=== PATIENT | female | born 2000 | race African-American/Black ===

== ENCOUNTER 2022-01-06 11:50 | Day surgery (SDC) | payer BC ==
[2022-01-06 09:59] LABS: SARS-CoV-2 Antigen Rapid Res Negative (Negative)
[~2022-01-06 11:50] MED LIST: BUPIVACAINE 0.25% PF 30 ML VIAL IJ ONE; METHYLENE BLUE 1% 10 ML AMP IV ONE
[2022-01-06] MEDS ORDERED: CEFAZOLIN SODIUM 1 GM/VIAL ONE (12:06)
[2022-01-06] MEDS ORDERED: Ringers Lactate 1,000 ML IV ONE (12:06)
[2022-01-06] MEDS ORDERED: FENTANYL CITR 100 MCG/2 ML ONE (12:35)
[2022-01-06] MEDS ORDERED: MIDAZOLAM HCL 2 MG/2 ML INJ ONE (12:35)
[2022-01-06] MEDS ORDERED: dexAMETHasone 10 MG/ML VIAL ONE (12:35)
[2022-01-06] MEDS ORDERED: LIDOCAINE 2% MPF 5 ML VIAL ONE (12:35)
[2022-01-06] MEDS ORDERED: propofoL 200 MG/20 ML VIAL IV ONE (12:35)
[2022-01-06] MEDS ORDERED: ONDANSETRON 4 MG/2 ML VIAL ONE (12:35)
[2022-01-06] MEDS ORDERED: BUPIVACAINE 0.25% PF 30 ML VIAL ONE (12:37)
[2022-01-06] MEDS ORDERED: SODIUM HYPOCHLORITE 0.25% 473 ML ONE (12:37)
[2022-01-06] MEDS ORDERED: METHYLENE BLUE 0.5% 10 ML AMP ONE (12:37)
[2022-01-06] MEDS ORDERED: ACETAMINOPHEN 500 MG TAB ONE (12:44)
[2022-01-06] MEDS ORDERED: CELECOXIB 100 MG CAPSULE ONE (12:45)
[2022-01-06] MEDS ORDERED: KETOROLAC 30 MG/ML INJ ONE (13:39)
--- NOTE | 2022-01-06 13:51 | P.OP ---
Preoperative diagnosis: Pilonidal Cyst with abscess Postoperative diagnosis: Pilonidal Cyst with abscess Primary procedure: Wide local excision of Pilonidal Cyst with abscess Anesthesia: GETA + Local Estimated blood loss: <20cc Specimen: debridement tissue, cultures Findings: ~ 6cm x 5cm down to fascia over bone Complications: None Transferred to: Recovery Room Condition: Good
[2022-01-06] MEDS: HYDROMORPHONE HCL 1 MG/ML INJ ONE ×5 (14:10→14:38)
[2022-01-06 14:44] VITALS: O2SAT 99
[2022-01-06 16:56] VITALS: BP 92/50; TEMP 96.9
--- NOTE | 2022-01-07 01:12 | OP ---
Date of Procedure: 01/06/2022 Surgeon: Polo Nettles MD, Preoperative Diagnosis: Pilonidal cyst with abscess. Postoperative Diagnosis: Pilonidal cyst with abscess. Procedure: Wide local excision of pilonidal cyst with abscess. Anesthesia: General endotracheal plus local with 0.5% Marcaine with epinephrine. Estimated Blood Loss: 20 cc. Specimen: Debridement tissue and culture sent. Findings: Approximately 6 cm x 5 cm pilonidal cyst down to the fascia overlying the sacral bone at t he top of the albina cleft. Complications: None. The patient was transferred to recovery room in good condition. Procedure In Detail: After informed consent was obtained, the patient was brought to the operating r oom and prepped and draped in the usual sterile fashion. After adequate anesthesia was achieved, the patient had a curvilinear incision made around the superior albina cleft down through subcutaneous ti ssues and immediately encountered were abscess type material. Preoperatively the area was anesthetiz ed with 0.5% Marcaine injected with methylene blue to allow for visualization of the entire tract. A fter this was completed, the dissection continued using the 15 blade down to subcutaneous tissue circ umferentially around to remove all the affected/infected tissue of the pilonidal cyst. All the necro tic material was removed with a combination of sharp and blunt dissection as well as curette. The ca vity was described as above as 6 x 5, down to the fascia overlying the muscle of the sacrum. After a ll the necrotic tissue was removed, the area was copiously irrigated multiple times and cleansed. At this point, hemostasis was achieved with electrocautery. The wound was then packed with Dakin-soake d Kerlix and a sterile dressing was placed over top. The patient tolerated the procedure without any complication and transferred to PACU in good condition. All counts were correct at the end of the c ase. TK/MODL Voice ID: [id number] Report ID: [id number]
== END 2022-01-06 15:50 | disposition home or self-care (01) ==
LOC: OR 11:50
PROVIDERS: ATTEND Surgery
PROC: 0JB90ZZ Excision of Buttock Subcutaneous Tissue and Fascia, Open Approach (ICD-10-PCS; principal; 2022-01-06 13:30)
DX: L05.01 Pilonidal cyst with abscess (principal); Z20.822 Contact with and (suspected) exposure to COVID-19
CPT/HCPCS: 87070; 36415; 87205; 81025; 88304; 87075; 87811; 11770; J2704; J2250; J3010; J1100; J1170 ×2; Q9968; J7120; J2405; J0690

== ENCOUNTER 2022-03-08 20:05 | Emergency (ER) | payer BC ==
--- OUTSIDE RECORDS SUMMARY | 2022-03-08 20:22 | XMS REPORT | Continuity of Care Document ---
:2000 Author Organization [facility] t Address [facility] [address] [place] [address] Care Team Providers Name Role Phone YIN CAVANAUGH Attending Clinician Unavailable RAVEN Attending Clinician Unavailable DR ALFRED HORNER Attending Clinician Unavailable DR EVELINE CAVANAUGH Attending Clinician Unavailable DR JORGE HUBBARD Attending Clinician Unavailable JUDSON, DR BAKER Attending Clinician Unavailable DR ALEK JANG Attending Clinician Unavailable YIN CAVANAUGH Admitting Clinician Unavailable RAVEN Admitting Clinician Unavailable DR ALFRED HORNER Admitting Clinician Unavailable DR EVELINE CAVANAUGH Admitting Clinician Unavailable DR JORGE HUBBARD Admitting Clinician Unavailable JUDSON, DR BAKER Admitting Clinician Unavailable DR ALEK JANG Admitting Clinician Unavailable Payers Payer Name Policy Type Policy Number Effective Date Expiration Date S ourgonsalo 0451 [id number] 2018 00:00:00 [place] [id number] 2021 ADVANT[place] (H[place]) 00:00[place] [id number] 2020 00:00:00 Problems Condition Condition Condition Status Onset Resolution Last Treating Co mments Source Name Details Category Date Date Treatment Clinician Date Trichomona Trichomona Problem Active [place] 8-20 da vaginitis Vaginitis 00:00: [facility] copy chaser 00 al [facility] Pilonidal Pilonidal Problem Active [place] cyst Cyst 7-04 da 00:00: [facility] Abnormal Abnormal Problem Active [place] findings Findings 3-15 da on on 00:00: [facility] diagnostic Diagnostic 00 al imaging of Imaging of He alth breast Breast Outreac h Program Allergies, Adverse Reactions, Alerts Allergy Allergy Status Severity Reaction(s) Onset Inactive Treating Comm ents Source Name Type Date Date Clinician No Known DA Active [facility] Social History Smoking Status Start Date Stop Date Source Never Smoker [place] [facility] Medications Ordered Filled Start Stop Current Ordering Indication Dosage Frequency Signature Comments Components Source Medication Medication Date Date Medication? Clinician (SIG) Name Name cyclobenzap cyclobenzap No 1 TID cyclobenza [place] rine 10 mg rine 10 mg joshua 10 da tablet Take tablet Take mg tablet [facility] 1 tablet 3 1 tablet 3 Take 1 a l times a day times a day tablet 3 Health by oral by oral times a Outrea c route. route. day by h oral Program route. hydrocodone hydrocodone No hydrocodon [place] 5 5 e 5 da mg-acetamin mg-acetamin mg-acetami [facility] ophen 325 ophen 325 nophen 325 al mg tablet mg tablet mg tablet Health Outreac h Program ibuprofen ibuprofen No ibuprofen [place] 600 mg 600 mg 600 mg da tablet tablet tablet [facility] ri [facility] Lidocaine Lidocaine No Lidocaine [place] Viscous 2 % Viscous 2 % Viscous 2 da mucosal mucosal % mucosal Ep[facility] copy chaser solution solution solution ri Health Outreac h Program naproxen naproxen No naproxen [place] 500 mg 500 mg 500 mg da tablet Take tablet Take tablet [facility] 1 tablet 1 tablet Take 1 al twice a day twice a day tablet Health by oral by oral twice a Outrea c route. route. day by h oral Program route. neomycin-po neomycin-po No neomycin-p [place] lymyxin-hyd lymyxin-hyd olymyxin-h da rocort 3.5 rocort 3.5 ydrocort [facility] mg-10,000 mg-10,000 3.5 al unit/mL-1 % unit/mL-1 % mg-10,000 Health ear ear unit/mL-1 Outreac drops,susp drops,susp % ear h drops,susp Program prednisone prednisone No prednisone [place] 50 mg 50 mg 50 mg da tablet tablet tablet [facility] sulfamethox sulfamethox No sulfametho [place] azole 800 azole 800 xazole 800 da mg-trimetho mg-trimetho mg-trimeth [facility] prim 160 mg prim 160 mg oprim 160 al tablet tablet mg tablet Health Outreac h Program tramadol 50 tramadol 50 No tramadol [place] mg tablet mg tablet 50 mg da tablet [facility] Immunizations Ordered Immunization Filled Immunization Date Status Commen ts Source Name Name HPV9 HPV9 2022-02-24 Completed [place] 12:05:30 [facility] HPV9 HPV9 2021-12-16 Completed [place] 16:14:40 [facility] influenza, influenza, 2021-04-11 Completed [place] injectable, injectable, 00:00:00 [facility] quadrivalent quadrivalent Outreach P rogram COVID-19, mRNA, COVID-19, mRNA, 2020-10-19 Completed Brooke paras LNP-S, PF, 100 LNP-S, PF, 100 00:00:00 [facility] mcg/0.5 mL dose mcg/0.5 mL dose Outr each Program (Moderna) (Moderna) COVID-19, mRNA, COVID-19, mRNA, 2020-09-24 Completed Brooke paras LNP-S, PF, 100 LNP-S, PF, 100 00:00:00 [facility] mcg/0.5 mL dose mcg/0.5 mL dose Outr each Program (Moderna) (Moderna) Vital Signs Vital Name Observation Time Observation Value Comments Source BP Diastolic 2022-03-04 00:00:00 72 mm[Hg] Emil piña [facility] Height 2022-03-04 00:00:00 67 [in_i] [facility] [facility] BMI (Body Mass 2022-03-04 00:00:00 28.3 kg/m2 [place] 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 [facility] Index) Health Outreach Program BP Systolic 2022-03-04 00:00:00 111 mm[Hg] [facility] Body Weight 2022-03-04 00:00:00 181 [lb_av] [facility] BP Diastolic 2022-02-24 00:00:00 73 mm[Hg] [facility] Height 2022-02-24 00:00:00 67 [in_i] [facility] BMI (Body Mass 2022-02-24 00:00:00 27.6 kg/m2 [place] 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 [facility] Index) [facility] Outreach Program BP Systolic 2022-02-24 00:00:00 107 mm[Hg] [facility] Body Weight 2022-02-24 00:00:00 2818 [oz_av] [facility] BP Diastolic 2022-01-05 00:00:00 70 mm[Hg] [facility] Height 2022-01-05 00:00:00 67 [in_i] [facility] BMI (Body Mass 2022-01-05 00:00:00 27.6 kg/m2 [place] 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 [facility] Index) [facility] Outreach Program BP Systolic 2022-01-05 00:00:00 102 mm[Hg] [facility] Body Weight 2022-01-05 00:00:00 176 [lb_av] [facility] BP Diastolic 2021-12-16 00:00:00 83 mm[Hg] [facility] Height 2021-12-16 00:00:00 67 [in_i] [facility] BMI (Body Mass 2021-12-16 00:00:00 28.3 kg/m2 [place] 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 [facility] Index) [facility] Outreach Program BP Systolic 2021-12-16 00:00:00 126 mm[Hg] [facility] [facility] Body Weight 2021-12-16 00:00:00 2896 [oz_av] [facility] Height 2021-11-11 20:05:00 170.18 CM Weight 2021-11-11 20:05:00 79.37 KG BP Diastolic 2021-10-28 00:00:00 70 mm[Hg] [facility] Height 2021-10-28 00:00:00 67 [in_i] [facility] BMI (Body Mass 2021-10-28 00:00:00 27.6 kg/m2 [place] 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 [facility] Index) [facility] Outreach Program BP Systolic 2021-10-28 00:00:00 106 mm[Hg] [place] [facility] Body Weight 2021-10-28 00:00:00 2816 [oz_av] [facility] Height 2021-09-23 15:42:00 170.18 CM Weight 2021-09-23 15:42:00 76.65 KG BP Diastolic 2021-09-11 00:00:00 74 mm[Hg] [facility] Height 2021-09-11 00:00:00 67 [in_i] [facility] BMI (Body Mass 2021-09-11 00:00:00 26.5 kg/m2 [place] 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 [facility] Index) [facility] Outreach Program BP Systolic 2021-09-11 00:00:00 114 mm[Hg] [facility] Body Weight 2021-09-11 00:00:00 2704 [oz_av] [facility] Height 2021-08-11 19:48:00 170.18 CM Weight 2021-08-11 19:48:00 73.93 KG Height 2021-04-14 20:01:00 170.18 CM Weight 2021-04-14 20:01:00 76.65 KG Height 2020-12-24 20:50:00 170.18 CM Weight 2020-12-24 20:50:00 76.2 KG BP Diastolic 2020-12-16 00:00:00 71 mm[Hg] [place] [facility] Height 2020-12-16 00:00:00 67 [in_i] [facility] BMI (Body Mass 2020-12-16 00:00:00 26.6 kg/m2 [place] 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 [facility] Index) [facility] Outreach Program BP Systolic 2020-12-16 00:00:00 108 [facility] Body Weight 2020-12-16 00:00:00 2720 [facility]oz_av] [facility] BP Diastolic 2020-11-20 00:00:00 79 mm[facility]Hg[facility] Height 2020-11-20 00:00:00 67 [in_i] [facility] BMI (Body Mass 2020-11-20 00:00:00 25.8 kg/m2 [place] 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 [facility] Index) [facility] Outreach Program BP Systolic 2020-11-20 00:00:00 123 mm[facility]Hg] [facility] Body Weight 2020-11-20 00:00:00 2640 [facility]oz_av] [facility] Height 2020-07-07 20:12:00 170.18 CM Weight 2020-07-07 20:12:00 74.84 KG Procedures Procedure Date / Time Performed Performing Clinician Sour e US, breast, unilateral 2022-03-03 00:00:00 [facility] orda [facility] US, breast, unilateral 2022-02-09 [facility] MAMMO, diagnostic, 2021-09-11 00:00:00 [place] [facility] unilateral Health Outreach Program US, breast, unilateral 2021-09-11 00:00:00 [facility] Hernia Repair W/mesh 2007-07-12 00:00:00 Ria da [facility] Plan of Care Planned Activity Planned Date Details Comments Source Future Appointment 2023-02-24 00:00:00 Neal Burden [facility] [address]; , [place] Program [id number] Future Appointment 2022-08-27 09:15:00 Neal Burden [facility] [address] , [place] Program [id number] Encounters Start End Encounter Admission Attending Care Care Encounter Source Date/Time Date/Time Type Type Clinicians Facility Department ID 2021-11-30 Inpatient Miranda CAVANAUGH Miranda RAD [id number] Conniebesalena 08:00:00 [facility] 2022-03-08 2022-03-08 Outpatient JOLENE GOLD [facility] [id number] [place] 00:00:00 00:00:00 [facility] 2022-03-04 2022-03-04 Outpatient JOLENE [facility] [id number] [place] 00:00:00 00:00:00 _[facility] 2022-03-04 2022-03-[address] [facility] [place] - [id number] [place] 00:00:00 00:00:00 Bettie Helms MD: [facility] [address] [facility] extension service agent [facility] Dr Clemens [facility] [address], [facility] [place] [address] , Ph. [phone] 2022-02-24 2022-02-24 Outpatient JOLENE NEVEL [facility] [id number] [place] 00:00:00 00:00:00 _ANN [facility] 2022-02-24 2022-02-24 Mariia [address] [facility] [place] - [id number] [place] 00:00:00 00:00:00 Neal Jones PARTITION ASSEMBLER: 1700 [facility] [place] [place] 3 Outreac [phone] h , Ph. Program 2022-02-18 2022-02-18 Outpatient JOLENE [facility] [id number] [place] 00:00:00 00:00:00 _ANN [facility] 2022-01-05 2022-01-05 Outpatient JOLENE [facility] [id number] [place] 00:00:00 00:00:00 _ANN [facility] 2022-01-052022-01-05 Cecy [facility] [place] - [id number] [place] 00:00:00 00:00:00 Bettie Helms MD: [facility] [id number] [facility] [address] Outreac [address], [place] [address] , Ph. 2021-12-16 2021-12-16 Outpatient SHIMEK_MARY [facility] [id number] [place] 04:23:00 04:23:00 _ANN [id number] da [facility] 2021-12-16 2021-12-16 Outpatient SHIMEK_MARY [facility] [id number] [place] 04:23:00 04:23:00 _ANN [facility] 2021-12-16 2021-12-16 Outpatient SHIMEK_MARY [facility] [id number] [place] 04:23:00 04:23:00 _ANN [facility] 2021-12-16 2021-12-16 Outpatient SHIMEK_MARY [facility] [id number] [place] 04:23:00 04:23:00 _ANN [facility] 2021-12-16 2021-12-16 Esme Piña [facility] - [id number] [place] 00:00:00 00:00:00 Neal Jones da PARTITION ASSEMBLER: 1700 [facility] [place] [address] Outre [address] h , Ph. Program 2021-12-15 2021-12-15 Outpatient SHIMEK_MARY [facility] [id number] [place] 10:05:00 10:05:00 _ANN [id number] da [facility] 2021-11-11 2021-11-11 Outpatient Allegra HORNER, [facility]CC [id number] [facility] 19:53:00 22:56:00 [facility] 2021-10-28 2021-10-28 Outpatient SHIMEK_MARY [facility] [id number] [place] 03:50:00 03:50:00 _ANN [facility] 2021-10-28 2021-10-28 Outpatient JOLENE GOLD [facility] [id number] [place] 03:49:00 03:49:00 _ANN [facility] 2021-10-28 2021-10-28 Mariia Jaun ALLA [place] - [id number] [place] 00:00:00 00:00:00 Neal Jones da PARTITION ASSEMBLER: [address] [facility] [address], [place], [place] 3 Outreac [address] h , Ph. Program 2021-09-23 2021-09-23 Outpatient Allegra CAVANAUGH, [facility] [address] [id number] [facility] 15:42:00 16:43:00 Critical access hospital 2021-09-16 2021-09-16 Outpatient JOLENE GOLD [facility] [id number] [place] 09:09:00 09:09:00 _ANN [facility] 2021-09-16 2021-09-16 Outpatient RADHA_ESME GOLD [facility] [id number] [place] 09:09:00 09:09:00 _ANN [facility] 2021-09-16 2021-09-16 Outpatient JOLENE GOLD [facility] [id number] [place] 09:09:00 09:09:00 _ANN [facility] 2021-09-11 2021-09-11 Outpatient RADHA_ESME GOLD [facility] [id number] [place] 07:46:00 07:46:00 _ANN [facility] 2021-09-11 2021-09-11 Mariia Jaun ALL[place] - 3 [place] 00:00:00 00:00:00 Neal Jones da PARTITION ASSEMBLER: 17[address] [facility] [address], [place], [place] 3 Outreac [phone] h , Ph. Program 2021-08-11 2021-08-11 Outpatient E JORGE HUBBARD [facility] [id number] [facility] 19:40:00 22:04:00 Medica l Center 2021-04-14 2021-04-14 Outpatient E JORGE HUBBARD [facility] [id number] [facility] 19:53:00 20:14:00 Medica l Center 2020-12-24 2020-12-24 Outpatient E OLIVIA ROPER [facility] [id number] [facility] 20:48:00 21:09:00 Medica l Center 2020-12-16 2020-12-16 Outpatient SHIMEK_ESME MARIAHOP [facility] [id number] [place] 12:14:00 12:14:00 _ANN [id number] [facility] 2020-12-16 2020-12-16 Outpatient SHIMEK_MARY ME[facility] [id number] [place] 12:14:00 12:14:00 _ANN 48865 da [facility] 2020-12-16 2020-12-16 Outpatient SHIMEK_ESME [facility] [id number] [place] 12:14:00 12:14:00 _ANN [facility] 2020-12-16 2020-12-16 Outpatient SHIMEK_ESME [facility] [id number] [place] 12:14:00 12:14:00 _ANN [facility] 2020-12-16 2020-12-16 Outpatient SHIMEK_ESME MEHOP [facility] [id number] [place] 12:14:00 12:14:00 _ANN [facility] 2020-12-16 2020-12-16 Outpatient SHIMEK_ESME ME[facility] [id number] [place] 12:14:00 12:14:00 _ANN [facility] 2020-12-16 2020-12-16 Esme Piña NEVEL [place] - [id number] [place] 00:00:00 00:00:00 Neal Jones da PARTITION ASSEMBLER: 1700 [facility] [place], [place] 3 Outreac [address] h , Ph. Program 2020-11-20 2020-11-20 Outpatient JOLENE GOLD [facility] [id number] [place] 04:22:00 04:22:00 _ANN [id number] da [facility] Health Outreac h Program 2020-11-20 2020-11-20 Esme Piña [facility] [place] - [id number] [place] 00:00:00 00:00:00 Neal Jones da PARTITION ASSEMBLER: 1700 [facility] [place] 3 [place] [address] h , Ph. Program 2020-11-18 2020-11-18 Outpatient JOLENE GOLD [facility] [id number] [place] 08:32:00 08:32:00 _ANN [id number] da [facility] Health Outreac h Program 2020-10-22 2020-10-22 Outpatient JOLENE GOLD [facility] [id number] [place] 04:44:00 04:44:00 _ANN [id number] da [facility] Health Outreac h Program 2020-07-07 2020-07-07 Outpatient Allegra JANG [facility] [address] [id number] [facility] 20:12:00 22:25:00 [facility] Results Test Description Test Time Test Comments Results Result Comments Source Free T4 and TSH panel - Serum or Plasma 2021-12-17 00:00:00 Test Item Value Reference Range Interpretation Comme nts Thyrotropin [Units/volume] in Serum or Plasma by 1.080 uIU/mL 0.450 -4.500 Detection limit <= 0.005 mIU/L (test code = 99115-5) Thyroxine (T4) free [Mass/volume] in Serum or Plasma 0.86 NG/dL 0 .82-1.77 (test code = 3024-7) [facility] Auto Differential panel - Blood 2021-12-17 00:00:00 Test Item Value Reference Range Interpretation Comments Leukocytes [#/volume] in Blood 6.9 x10e3/uL 3.4-10.8 by Automated count (test code = 6690-2) Erythrocytes [#/volume] in 4.29 x10e6/uL 3.77-5.28 Blood by Automated count (test code = 789-8) Hemoglobin [Mass/volume] in 13.1 g/dL 11.1-15.9 Blood (test code = 718-7) Hematocrit [Volume Fraction] of 39.4 % 34.0-46.6 Blood by Automated count (test code = 4544-3) Erythrocyte mean corpuscular 92 fL 79-97 volume [Entitic volume] by Automated count (test code = 787-2) Erythrocyte mean corpuscular 30.5 pg 26.6-33.0 hemoglobin [Entitic mass] by Automated count (test code = 785-6) Erythrocyte mean corpuscular 33.2 g/dL 31.5-35.7 hemoglobin concentration [Mass/volume] by Automated count (test code = 786-4) Erythrocyte distribution width 11.5 % 11.7-15.4 L [Ratio] by Automated count (test code = 788-0) Platelets [#/volume] in Blood 323 x10e3/uL 150-450 by Automated count (test code = 777-3) Neutrophils/100 leukocytes in 53 % not estab. Blood by Automated count (test code = 770-8) Lymphocytes/100 leukocytes in 29 % not estab. Blood by Automated count (test code = 736-9) Monocytes/100 leukocytes in 11 % not estab. Blood by Automated count (test code = 5905-5) Eosinophils/100 leukocytes in 6 % not estab. Blood by Automated count (test code = 713-8) Basophils/100 leukocytes in 1 % not estab. Blood by Automated count (test code = 706-2) immature cells (test code = nnps immature cells) Neutrophils [#/volume] in Blood 3.7 x10e3/uL 1.4-7.0 by Automated count (test code = 751-8) Lymphocytes [#/volume] in Blood 2.0 x10e3/uL 0.7-3.1 by Automated count (test code = 731-0) Monocytes [#/volume] in Blood 0.8 x10e3/uL 0.1-0.9 by Automated count (test code = 742-7) Eosinophils [#/volume] in Blood 0.4 x10e3/uL 0.0-0.4 by Automated count (test code = 711-2) Basophils [#/volume] in Blood 0.1 x10e3/uL 0.0-0.2 by Automated count (test code = 704-7) Immature granulocytes/100 0 % not estab. leukocytes in Blood by Automated count (test code = 49728-9) Immature granulocytes 0.0 x10e3/uL 0.0-0.1 [#/volume] in Blood by Automated count (test code = 32122-2) Nucleated erythrocytes/100 nnps leukocytes [Ratio] in Blood by Automated count (test code = 40019-0) Morphology [Interpretation] in nnps Blood Narrative (test code = 19773-8) [facility] - Serum or [id number] 00:00:00 Test Item Value Reference Range Interpretation Comments Glucose [Mass/volume] in 93 mg/dL 65-99 Serum or Plasma (test code = 2345-7) Urea nitrogen [Mass/volume] 15 mg/dL 6-20 in Serum or Plasma (test code = 3094-0) Creatinine [Mass/volume] in 0.79 mg/dL 0.57-1.00 Serum or Plasma (test code = 2160-0) eGFR (test code = eGFR) 108 mL/min/1.73 >59 Urea nitrogen/Creatinine 19 9-23 [Mass Ratio] in Serum or Plasma (test code = 3097-3) Sodium [Moles/volume] in 144 mmol/L 134-144 Serum or Plasma (test code = 2951-2) Potassium [Moles/volume] in 4.9 mmol/L 3.5-5.2 Serum or Plasma (test code = 2823-3) Chloride [Moles/volume] in 106 mmol/L 96-106 Serum or Plasma (test code = 2075-0) Carbon dioxide, total 21 mmol/L 20-29 [Moles/volume] in Serum or Plasma (test code = 8-9) Calcium [Mass/volume] in 9.6 mg/dL 8.7-10.2 Serum or Plasma (test code = 85028-4) Protein [Mass/volume] in 7.4 g/dL 6.0-8.5 Serum or Plasma (test code = 2885-2) Albumin [Mass/volume] in 4.4 g/dL 3.9-5.0 Serum or Plasma (test code = 1751-7) Globulin [Mass/volume] in 3.0 g/dL 1.5-4.5 Serum by calculation (test code = 98583-0) Albumin/Globulin [Mass Ratio] 1.5 1.2-2.2 in Serum or Plasma (test code = 1759-0) Bilirubin.total [Mass/volume] 0.3 mg/dL 0.0-1.2 in Serum or Plasma (test code = 1975-2) Alkaline phosphatase 61 IU/L 44-121 [Enzymatic activity/volume] in Serum or Plasma (test code = 6768-6) Aspartate aminotransferase 12 IU/L 0-40 [Enzymatic activity/volume] in Serum or Plasma (test code = 1920-8) Alanine aminotransferase 14 IU/L 0-32 [Enzymatic activity/volume] in Serum or Plasma (test code = 1742-6) [facility] - Serum or Plasma 2021-12-17 00:00:00 Test Item Value Reference Range Interpretation Comments Cholesterol [Mass/volume] in Serum 196 mg/dL 100-199 or Plasma (test code = 2093-3) Triglyceride [Mass/volume] in Serum 180 mg/dL 0-149 H or Plasma (test code = 2571-8) Cholesterol in HDL [Mass/volume] in 52 mg/dL >39 Serum or Plasma (test code = 2085-9) Cholesterol in VLDL [Mass/volume] 31 mg/dL 5-40 in Serum or Plasma by calculation (test code = 78366-7) Cholesterol in LDL [Mass/volume] in 113 mg/dL 0-99 H Serum or Plasma by calculation (test code = 15468-3) Laboratory comment [Text] in Report nnps Narrative (test code = 26104-7) [facility] TexasHemoglobin A1c/Hemoglobin.total in [id number] 00:00:00 Test Item Value Reference Range Interpretation Comments Hemoglobin A1c/Hemoglobin.total in 5.4 % 4.8-5.6 Blood (test code = 4548-4) Glucose mean value [Mass/volume] in 108 mg/dL Blood Estimated from glycated hemoglobin (test code = 21022-3) [facility] Ab [Presence] in Serum by RPR 2021-12-17 00:00:00 Test Item Value Reference Range Interpretation Comments Reagin Ab [Presence] in Serum by non reactive non reactive RPR (test code = 20414-2) [facility] TexasHIV 1 and 2 tests - Meaningful Use [id number] 00:00:00 Test Item Value Reference Range Interpretation Comments HIV 1+2 Ab+HIV1 p24 Ag non reactive non reactive [Presence] in Serum or Plasma by Immunoassay (test code = 39262-0) [facility] TexasHepatitis B virus surface Ag [Presence] in Serum or Plasma by [id number] 00:00:00 Test Item Value Reference Range Interpretation Comments Hepatitis B virus surface Ag negative negative [Presence] in Serum or Plasma by Immunoassay (test code = 5196-1) [facility] Texascardiovascular assessment panel, [id number] 00:00:00 Test Item Value Reference Range Interpretation Comments Interpretation and review of laboratory note results (test code = 56913-2) Report (test code = 96174-3) . [facility] TexasCT NECK W/CONTRAST *OW*2021-11-11 22:27:47[facility] CENTERName[facility] JOSIAH PATEL : 2000 Sex: FEXAMINATION:CT NECK W/CONTRAST *OW*CLINICAL INDICATION:Female, 21 years old with Pain in throatTECHNIQUE: Axial CT images were obtained of the neck with intravenous contrast. Coronal and sagittal reformatted images were created from the data set.One or more of the following dose reduction techniques were used:Automated exposure control, adjustment of the mA and/or kV according to patient size, and/or iterative reconstruction. COMPARISON: NoneFINDINGS:Aerodigestive tract: The aerodigestive structures are within normal limits. Specifically, the nasal cavity, nasopharynx, oral cavity, oropharynx, hypopharynx,larynx, and visualized trachea and esophagus demonstrate no masses.Lymph Nodes: Small jugulodigastric and posterior cervical chain lymph nodes are identified the largest of which is in the left jugulodigastric region measuring 1.4 cm. These are not considered to be pathologically enlarged.Salivary Glands: The parotid and submandibular glands appear within normal limits. Thyroid: The thyroid gland is normal in size without focal abnormality.Brain: Evaluation of the visualized portions of the brain parenchyma and orbits demonstrates no abnormality. Sinuses: The visualized paranasal sinuses are predominantly clear. The tympanomastoid cavities are unopacified. Lungs: Limited evaluation of the lung apices demonstrates no abnormality. Bones: The visualized osseous structures are within normal limits.IMPRESSION:1. Prominent jugulodigastric lymph nodes not considered to be pathologically enlarged. However continued follow-up is recommended.2. Otherwise normal CT scan of neck.Electronically signed by: Daniel Nolan MD 11/11/2021 10:27 PM CDT [id number] Panel *OW* [id number] 21:40:00 Test Item Value Reference Range Interpretation Comments GLUCOSE (test code = GGUL) 88 mg/dL 73-118 BUN (test code = GBUN) 10 mg/dL 7-22 CREATININE (test code = GCRE) 0.9 mg/dL 0.6-1.2 CK TOTAL (test code = GCK) 135 U/L 30-190 SODIUM (test code = GNA+) 140 mmol/L 128-145 POTASSIUM (test code = GK+) 3.7 mmol/L 3.6-5.1 CHLORIDE (test code = GCL-) 104 mmol/L 98-108 TCO2 (test code = GTC02) 28 mmol/L 18-33 CBC (INCLUDES AUTOMATED DIFFERENTIAL) *2021-11-11 21:31:00 Test Item Value Reference Range Interpretation Comments WBC (test code = WBC) 9.5 10\S\3/uL 4.5-11.0 RBC (test code = RBC) 4.53 10\S\6/uL 4.30-5.70 HGB (test code = HBG) 13.9 g/dL 12.0-15.5 HCT (test code = HCT) 42.9 % 35.0-44.0 MCV (test code = MCV) 94.7 fL 81.0-99.0 MCH (test code = MCH) 30.7 pg 27.0-31.0 MCHC (test code = MCHC) 32.4 g/dL 32.0-36.0 RDW (test code = RDW) 12.0 % 11.5-14.5 PLT (test code = PLT) 260 10\S\3/uL 130-400 MPV (test code = OMPV) 8.0 fL 6.2-10.2 NEUTROP # (test code = NE#) 6.9 10\S\3/uL 1.6-8.0 LYMPH # (test code = LY#) 1.9 10\S\3/uL 1.1-3.5 MID # (test code = GMID#) 0.7 10\S\3/uL 0.0-1.1 GRAN % (test code = GRA%) 72.3 % 35.0-73.0 LYMPH % (test code = GLY%) 20.0 % 20.0-55.0 MID % (test code = GMID%) 7.7 % 0.0-10.0 DIRECT STREP GROUP AOW2021-11-11 21:03:00 Test Item Value Reference Range Interpretation Comments Strep A Ag (test code = STREP) NEGATIVE NEGATIVE CT ABDOMEN AND PELVIS W/O CONTRAST *OW*2021-08-11 21:29:43 [facility] CENTERName: JOSIAH PATEL : 2000 Sex: FEXAMINATION:Chest, abdomen, and pelvic CT without contrastCLINICAL INDICATION:Female, 21 years old with Traumatic injuryTECHNIQUE: Axial non-contrast contiguous images were obtained through the chest, abdomen, and pelvis followed by coronal and sagittal multiplanar reformations.One or more of the following dose reduction techniques were used: Automated exposure control, adjustment of the mA and/or kV according to patient size, and/or iterative reconstruction. COMPARISON: NoneFINDINGS:Chest:Medical Devices: None.Lymph Nodes: There are no pathologically enlarged supraclavicular, mediastinal, or axillary lymph nodes.Lungs/Airways/Pleura: Trachea and main bronchi are patent. Lungs are well aerated and clear. No pneumothorax is identified. No pulmonary nodules or masses are identified. No pleural effusion is present. Heart/Vessels: Heart is normal in size. No coronary artery atherosclerosis is identified. No pericardial effusion is present. Aorta is normal in caliber and contour. No atherosclerosis is identified. Central pulmonary arteries are normal in size.Soft Tissues: Visualized thyroid gland is normal.The esophagus is normal. No soft tissue abnormality of the chest is demonstrated. 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 1.4 cm nodule is present in the medial upper right breast.Abdomen/Pelvis:Characterization of the solid organs is limited by lack of contrast media.Liver: Normal in size and contour. Bile ducts are of normal caliber.Gallbladder: No stones, wall thickening, or pericholecystic fluid.Pancreas: Normal appearance.Spleen: Normal in size and contour.Adrenals: Normal configuration.Kidneys and ureters: Normal size and contour. No hydronephrosis.Bladder/Reproductive Organs: Normal in appearance. Unremarkable reproductive organsBowel: Moderate feces is identified within the colon. Normal appendix. No free air, free fluid, or fluid collection.Lymph nodes: There are no pathologically enlarged abdominopelvic lymph nodes.Retroperitoneum: No mass or hemorrhage. Abdominal aorta and inferior vena cava are normal in course and caliber.Abdominal wall: No hernia or mass.Bones: No acute abnormality or suspicious bony lesion.IMPRESSION:1. No acute cardiopulmonary or abdominopelvic abnormality.2. 1.4 cm right breast nodule.Electronically signed by: Shabbir Hernandez MD 08/11/2021 9:29 PM [facility] CHEST W/O CONTRAST *OW*2021-08-11 21:29:43 [facility] : 2000 Sex: FEXAMINATION:Chest, abdomen, and pelvic CT without contrastCLINICAL INDICATION:Female, 21 years old with Traumatic injuryTECHNIQUE: Axial non-contrast contiguous images were obtained through the chest, abdomen, and pelvis followed by coronal and sagittal multiplanar reformations.One or more of the following dose reduction techniques were used: Automated exposure control, adjustment of the mA and/or kV according to patient size, and/or iterative reconstruction. COMPARISON: NoneFINDINGS:Chest:Medical Devices: None.Lymph Nodes: There are no pathologically enlarged supraclavicular, mediastinal, or axillary lymph nodes.Lungs/Airways/Pleura: Trachea and main bronchi are patent. Lungs are well aerated and clear. No pneumothorax is identified. No pulmonary nodules or masses are identified. No pleural effusion is present. Heart/Vessels: Heart is normal in size. No coronary artery atherosclerosis is identified. No pericardial effusion is present. Aorta is normal in caliber and contour. No atherosclerosis is identified. Central pulmonary arteries are normal in size.Soft Tissues: Visualized thyroid gland is normal.The esophagus is normal. No soft tissue abnormality of the chest is demonstrated. 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 1.4 cm nodule is present in the medial upper right breast.Abdomen/Pelvis:Characterization of the solid organs is limited by lack of contrast media.Liver: Normal in size and contour. Bile ducts are of normal caliber.Gallbladder: No stones, wall thickening, or pericholecystic fluid.Pancreas: Normal appearance.Spleen: Normal in size and contour.Adrenals: Normal configuration.Kidneys and ureters: Normal size and contour. No hydronephrosis.Bladder/Reproductive Organs: Normal in appearance. Unremarkable reproductive organsBowel: Moderate feces is identified within the colon. Normal appendix. No free air, free fluid, or fluid collection.Lymph nodes: There are no pathologically enlarged abdominopelvic lymph nodes.Retroperitoneum: No mass or hemorrhage. Abdominal aorta and inferior vena cava are normal in course and caliber.Abdominal wall: No hernia or mass.Bones: No acute abnormality or suspicious bony lesion.IMPRESSION:1. No acute cardiopulmonary or abdominopelvic abnormality.2. 1.4 cm right breast nodule.Electronically signed by: Shabbir Hernandez MD 08/11/2021 9:29 PM [facility] HEAD W/O CONTRAST *OW*2021-08-11 21:28:07 [facility] CENTERName: JOSIAH PATEL : 2000 Sex: FExam: CThead without contrast.Location: H 12History: Traumatic injuryTechnique: Unenhanced spiral slices were taken from the base of the skull, through the vertex. One or more of the following dose reduction techniques were used: Automated exposure control, adjustment of the mA and/or kV according to patient size, and/or utilization of iterative reconstruction technique.Findings:No acute intracranial abnormality is identified. The brain parenchyma and the CSF spaces are within normal limits for age. No mass, midline shift, hemorrhage, edema or hydrocephalus is seen. Right maxillary sinusitis is noted.. Themastoid air cells are well pneumatized. The bony calvarium is intact.Impression:1. No acute intracranial abnormality.2. Sinusitis..Electronically signed by: Mina Clayton MD 08/11/2021 9:28 PM [employer] CERVICAL SPINE W/O CONTRAST *OW*2021-08-11 21:24:12 [facility] : 2000 Sex: FExam: CTcervical spine.CLINICAL HISTORY: Traumatic injury.LOCATION: D4.FINDINGS: Multislice axial noncontrast images are obtained through the cervical spine. Sagittal and coronal reconstructed images are obtained and are used in interpretation.There is normal alignment. Disc height is preserved at all levels.No acute skeletal abnormalities. No fracture or dislocation. No acute soft tissue abnormalities are noted. No significant spinal canal narrowing is appreciated.IMPRESSION:1. No acute abnormalities.*Oneor more of the following radiation dose reduction techniques was used: automated exposure control, adjustment of mA and/or KV according to patient size, and/or utilization of iterative reconstruction luis singh.Electronically signed by: Kevin Arango MD 08/11/2021 9:24 PM [employer] P[employer] TE[employer] [id number] URINE OW2021-08-11 20:27:00 Test Item Value Reference Range Interpretation Comments PREG UR (test code = PGU) Negative NEGATIVE URINALYSIS W/O MICROSCOPICOW2021-08-11 20:25:00 Test Item Value Reference Range Interpretation Comments COLOR (test code = Yellow YELLOW COLU) CLARITY (test code = Clear CLEAR CLA) GLUCOSE UR (test Negative NEGATIVE code = UA GLUCOSE) BILI UR (test code = Negative NEGATIVE BILE) KETONES UR (test 1+ NEGATIVE A code = FRANK) SP GRAVITY (test >=1.030 1.005-1.030 code = SPGR) PH UR (test code = 6.5 4.5-8.0 PH) PROTEIN UR (test Negative NEGATIVE code = PU) NITRITE UR (test Negative NEGATIVE code = NITRITE) UROBIL UR (test code 2.0 E.U./dL = GUROQ) UROBIL UR (test code UROBILINOGEN = GUROQC) REFERENCE RANGE 0.2 - 1.0 EU/dL BLOOD UR (test code Negative NEGATIVE = UA BLOOD) LEUK ES UR (test Negative NEGATIVE code = LEUK) CBC W Auto Differential panel - [id number] 00:00:00 Test Item Value Reference Range Interpretation Comments Leukocytes [#/volume] in Blood 5.5 x10e3/uL 3.4-10.8 by Automated count (test code = 6690-2) Erythrocytes [#/volume] in 4.64 x10e6/uL 3.77-5.28 Blood by Automated count (test code = 789-8) Hemoglobin [Mass/volume] in 14.3 g/dL 11.1-15.9 Blood (test code = 718-7) Hematocrit [Volume Fraction] of 42.4 % 34.0-46.6 Blood by Automated count (test code = 4544-3) MCV [Entitic volume] by 91 fL 79-97 Automated count (test code = 787-2) MCH [Entitic mass] by Automated 30.8 pg 26.6-33.0 count (test code = 785-6) MCHC [Mass/volume] by Automated 33.7 g/dL 31.5-35.7 count (test code = 786-4) Erythrocyte distribution width 11.3 % 11.7-15.4 L [Ratio] by Automated count (test code = 788-0) Platelets [#/volume] in Blood 327 x10e3/uL 150-450 by Automated count (test code = 777-3) Neutrophils/100 leukocytes in 56 % not estab. Blood by Automated count (test code = 770-8) Lymphocytes/100 leukocytes in 27 % not estab. Blood by Automated count (test code = 736-9) Monocytes/100 leukocytes in 15 % not estab. Blood by Automated count (test code = 5905-5) Eosinophils/100 leukocytes in 2 % not estab. Blood by Automated count (test code = 713-8) Basophils/100 leukocytes in 0 % not estab. Blood by Automated count (test code = 706-2) immature cells (test code = nnps immature cells) Neutrophils [#/volume] in Blood 3.1 x10e3/uL 1.4-7.0 by Automated count (test code = 751-8) Lymphocytes [#/volume] in Blood 1.5 x10e3/uL 0.7-3.1 by Automated count (test code = 731-0) Monocytes [#/volume] in Blood 0.8 x10e3/uL 0.1-0.9 by Automated count (test code = 742-7) Eosinophils [#/volume] in Blood 0.1 x10e3/uL 0.0-0.4 by Automated count (test code = 711-2) Basophils [#/volume] in Blood 0.0 x10e3/uL 0.0-0.2 by Automated count (test code = 704-7) Immature granulocytes/100 0 % not estab. leukocytes in Blood by Automated count (test code = 72302-5) Immature granulocytes 0.0 x10e3/uL 0.0-0.1 [#/volume] in Blood by Automated count (test code = 33204-1) Nucleated erythrocytes/100 nnps leukocytes [Ratio] in Blood by Automated count (test code = 71044-6) Morphology [Interpretation] in nnps Blood Narrative (test code = 08358-1) [facility] Outreach ProgramComprehensive metabolic 2000 panel - Serum or [id number] 00:00:00 Test Item Value Reference Range Interpretation Comments Glucose [Mass/volume] in 72 mg/dL 65-99 Serum or Plasma (test code = 2345-7) Urea nitrogen [Mass/volume] 11 mg/dL 6-20 in Serum or Plasma (test code = 3094-0) Creatinine [Mass/volume] in 0.72 mg/dL 0.57-1.00 Serum or Plasma (test code = 2160-0) Glomerular filtration 119 mL/min/1.73 >59 rate/1.73 sq M.predicted among non-blacks [Volume Rate/Area] in Serum, Plasma or Blood by Creatinine-based formula (CKD-EPI) (test code = 51785-4) Glomerular filtration 137 mL/min/1.73 >59 rate/1.73 sq M.predicted among blacks [Volume Rate/Area] in Serum, Plasma or Blood by Creatinine-based formula (CKD-EPI) (test code = 31006-5) Urea nitrogen/Creatinine 15 9-23 [Mass Ratio] in Serum or Plasma (test code = 3097-3) Sodium [Moles/volume] in 140 mmol/L 134-144 Serum or Plasma (test code = 2951-2) Potassium [Moles/volume] in 4.9 mmol/L 3.5-5.2 Serum or Plasma (test code = 2823-3) Chloride [Moles/volume] in 100 mmol/L 96-106 Serum or Plasma (test code = 2075-0) Carbon dioxide, total 25 mmol/L 20-29 [Moles/volume] in Serum or Plasma (test code = 2027-) Calcium [Mass/volume] in 10.0 mg/dL 8.7-10.2 Serum or Plasma (test code = 41318-8) Protein [Mass/volume] in 7.6 g/dL 6.0-8.5 Serum or Plasma (test code = 2885-2) Albumin [Mass/volume] in 4.4 g/dL 3.9-5.0 Serum or Plasma (test code = 1751-7) Globulin [Mass/volume] in 3.2 g/dL 1.5-4.5 Serum by calculation (test code = 90807-1) Albumin/Globulin [Mass Ratio] 1.4 1.2-2.2 in Serum or Plasma (test code = 1759-0) Bilirubin.total [Mass/volume] 0.7 mg/dL 0.0-1.2 in Serum or Plasma (test code = 1974-) Alkaline phosphatase 44 IU/L 39-117 [Enzymatic activity/volume] in Serum or Plasma (test code = 6768-6) Aspartate aminotransferase 15 IU/L 0-40 [Enzymatic activity/volume] in Serum or Plasma (test code = 1920-8) Alanine aminotransferase 14 IU/L 0-32 [Enzymatic activity/volume] in Serum or Plasma (test code = 1742-6) [facility] - [facility] or Plasma 2020-11-21 00:00:00 Test Item Value Reference Range Interpretation Comments Cholesterol [Mass/volume] in Serum 185 mg/dL 100-199 or Plasma (test code = 2093-3) Triglyceride [Mass/volume] in Serum 72 mg/dL 0-149 or Plasma (test code = 2571-8) Cholesterol in HDL [Mass/volume] in 51 mg/dL >39 Serum or Plasma (test code = 2085-9) Cholesterol in VLDL [Mass/volume] 13 mg/dL 5-40 in Serum or Plasma by calculation (test code = 41989-0) Cholesterol in LDL [Mass/volume] in 121 mg/dL 0-99 H Serum or Plasma by calculation (test code = 72201-6) Laboratory comment [Text] in Report nnps Narrative (test code = 23636-3) [facility] TexasHemoglobin A1c/Hemoglobin.total in [id number] 00:00:00 Test Item Value Reference Range Interpretation Comments Hemoglobin A1c/Hemoglobin.total in 5.2 % 4.8-5.6 Blood (test code = 4548-4) Glucose mean value [Mass/volume] in 103 mg/dL Blood Estimated from glycated hemoglobin (test code = 73165-7) [facility] TexasHIV 1+2 Ab+HIV1 p24 Ag [Presence] in Serum or Plasma by [id number] 00:00:00 Test Item Value Reference Range Interpretation Comments HIV 1+2 Ab+HIV1 p24 Ag non reactive non reactive [Presence] in Serum or Plasma by Immunoassay (test code = 49142-8) [facility] TexasThyrotropin [Units/volume] in Serum or Plasma by Detection limit <= 0.005 mIU/[id number] 00:00:00 Test Item Value Reference Range Interpretation Comments Thyrotropin [Units/volume] in 0.677 uIU/mL 0.450-4.500 Serum or Plasma by Detection limit <= 0.005 mIU/L (test code = 18592-9) [facility] TexasReagin Ab [Presence] in Serum by RPR 2020-11-21 00:00:00 Test Item Value Reference Range Interpretation Comments Reagin Ab [Presence] in Serum by non reactive non reactive RPR (test code = 96911-9) [facility] TexasHepatitis B virus surface Ag [Presence] in Serum or Plasma by [id number] 00:00:00 Test Item Value Reference Range Interpretation Comments Hepatitis B virus surface Ag negative negative [Presence] in Serum or Plasma by Immunoassay (test code = 5196-1) [facility] Texascardiovascular assessment panel, [id number] 00:00:00 Test Item Value Reference Range Interpretation Comments Interpretation and review of laboratory note results (test code = 08537-2) Report (test code = 47168-1) . [facility] TexasINFLUENZA A AND B OW2020-07-07 21:13:00 Test Item Value Reference Range Interpretation Comments INFLUENZ A (test code = INFA) NEGATIVE NEGATIVE INFLUENZ B (test code = INFB) NEGATIVE NEGATIVE
--- NOTE | 2022-03-08 21:23 | RAD REPORT ---
EXAM DESCRIPTION: RAD - Knee Left 3 View - 03/08/2022 9:16 pm CLINICAL HISTORY: PAIN COMPARISON: No comparisons FINDINGS: No acute fracture. No malalignment. No significant focal degenerative changes. IMPRESSION: No acute osseous abnormality involving the left knee.
--- NOTE | 2022-03-08 21:53 | ER ---
Nurse's Notes [facility] Name: Aileen Montalvo Age: 21 yrs Sex: Female : 2000 Arrival Date: 03/08/2022 Time: 20:07 Bed 10 Private MD: Diagnosis: Pain in left knee Presentation: 03/08 20:17 Chief complaint: Patient states: left knee pain starting last week. denies injury. lg3 Coronavirus screen: Client denies travel out of the [place] in the last 14 days. At this time, the client does not indicate any symptoms associated with coronavirus-19. Ebola Screen: No symptoms or risks identified at this time. Initial Sepsis Screen: Does the patient meet any 2 criteria? No. Patient's initial sepsis screen is negative. Does the patient have a suspected source of infection? No. Patient's initial sepsis screen is negative. Risk Assessment: Do you want to hurt yourself or someone else? Patient reports no desire to harm self or others. Onset of symptoms was March 01, 2022. 20:17 Method Of Arrival: Ambulatory lg3 20:17 Acuity: KRZYSZTOF 3 lg3 Triage Assessment: 20:20 General: Appears in no apparent distress. uncomfortable, Behavior is calm, cooperative. lg3 Pain: Complains of pain in left knee Pain does not radiate. Pain currently is 8 out of 10 on a pain scale. Aggravated by exercise, increased activity, repositioning, weight bearing, Noted to be guarding, resistant to movement. EENT: No deficits noted. No signs and/or symptoms were reported regarding the EENT system. Neuro: No deficits noted. Level of Consciousness is awake, alert, obeys commands, Oriented to person, place, time, situation. Cardiovascular: No deficits noted. Denies chest pain, shortness of breath, Capillary refill < 3 seconds Clubbing of nail beds is absent JVD is absent Patient's skin is warm and dry. Respiratory: No deficits noted. Airway is patent Trachea midline Respiratory effort is even, unlabored, Respiratory pattern is regular, symmetrical. GI: No deficits noted. No signs and/or symptoms were reported involving the gastrointestinal system. : No deficits noted. No signs and/or symptoms were reported regarding the genitourinary system. Derm: No deficits noted. No signs and/or symptoms reported regarding the dermatologic system. Skin is intact, is healthy with good turgor, Skin is dry, Skin temperature is warm. Musculoskeletal: Reports pain in left knee. STAFF WRITER: 20:20 LMP 02/20/2022 lg3 Historical: - Allergies: 20:20 No Known Allergies; lg3 - Home Meds: 20:20 None [Active]; lg3 - PMHx: 20:20 None; lg3 - PSHx: 20:20 cyst removal; lg3 - Immunization history:: Adult Immunizations up to date, moderna X2. - Social history:: Smoking status: Patient denies any tobacco usage or history of. Patient uses alcohol, occasionally. Patient/guardian denies using street drugs, IV drugs. Screenin:22 Abuse screen: Denies threats or abuse. Denies injuries from another. Nutritional lg3 screening: No deficits noted. Tuberculosis screening: No symptoms or risk factors identified. Fall Risk None identified. Assessment: 20:23 General: see triage assessment . lg3 21:20 Reassessment: No changes from previously documented assessment. Patient and/or family ha1 updated on plan of care and expected duration. Pain level reassessed. Patient is alert, oriented x 3, equal unlabored respirations, skin warm/dry/pink. 22:07 Reassessment: Patient appears in no apparent distress at this time. Patient and/or ha1 family updated on plan of care and expected duration. Pain level reassessed. Patient is alert, oriented x 3, equal unlabored respirations, skin warm/dry/pink. being discharged. denies any questions. Vital Signs: 20:17 BP 125 / 69; Pulse 72; Resp 19 S; Temp 98.2(O); Pulse Ox 100% on R/A; Weight 82.1 kg lg3 (R); Height 5 ft. 7 in. (170.18 cm) (R); Pain 8/10; 22:06 BP 125 / 64; Pulse 73; Resp 13 S; Pulse Ox 100% on R/A; ha1 20:17 Body Mass Index 28.35 (82.10 kg, 170.18 cm) lg3 ED Course: 20:07 Patient arrived in ED. ja2 20:10 Bar[facility] Thurman FNP-C [facility]. kb 20:10 Pepe Arnold MD is Attending Physician. kb 20:18 Triage completed. lg3 20:20 Arm band placed on left wrist. lg3 20:22 Patient has correct armband on for positive identification. lg3 21:18 Knee Left 3 View XRAY In Process Unspecified. EDMS 21:58 Berkley Fuller, RN is Primary Nurse. ha1 22:08 No provider procedures requiring assistance completed. Patient did not have IV access ha1 during this emergency room visit. Administered Medications: No medications were administered Medication: 22:09 VIS not applicable for this client. ha1 Outcome: 21:52 Discharge ordered by MD. kb 22:09 Discharged to home ambulatory. ha1 22:09 Condition: stable 22:09 Discharge instructions given to patient, Instructed on discharge instructions, follow up and referral plans. medication usage, Demonstrated understanding of instructions, follow-up care, medications, Prescriptions given X 1. 22:10 Patient left the ED. ha1 Signatures: Dispatcher [employer] EDPR Barbi Thurman, PLANT SCIENTIST-C CHERELLE-Luisa Kitchen RN RN lg3 Aracelis Nieves [facility] Berkley Fuller, KIMBERLY RN ha1 Corrections: (The following items were deleted from the chart) 22:10 22:07 Reassessment: Patient appears in no apparent distress at this time. Patient ha1 and/or family updated on plan of care and expected duration. Pain level reassessed. Patient is alert, oriented x 3, equal unlabored respirations, skin warm/dry/pink. being discharged. denies any questions ha1
--- NOTE | 2022-03-08 21:53 | EDPHYS ---
Physician Documentation [facility] Name: Aileen Montalvo Age: 21 yrs Sex: Female : 2000 Arrival Date: 03/08/2022 Time: 20:07 Bed 10 Private MD: ED Physician Pepe Arnold HPI: 03/08 23:23 This 21 yrs old Black Female presents to ER via Ambulatory with complaints of Knee Pain.kb 23:23 The patient presents with pain, that is acute. The complaints affect the left knee. kb Context: The problem was sustained at home, resulted from an unknown cause, the patient can fully bear weight, the patient is able to ambulate, Problem is a result from a previous injury: No. Onset: The symptoms/episode began/occurred 1 week(s) ago. Modifying factors: The symptoms are alleviated by nothing. the symptoms are aggravated by movement. Associated signs and symptoms: Pertinent positives: swelling, Pertinent negatives calf tenderness, fever, nausea, numbness, rash, tingling, vomiting, warmth, weakness. Treatment prior to arrival includes: no previous treatment. Severity of symptoms: At their worst the symptoms were moderate, in the emergency department the symptoms are unchanged. The patient has not experienced similar symptoms in the past. The patient has not recently seen a physician. Patient reports left knee pain that started a week ago. Denies any injury or trauma.. 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 - Social history:: Smoking status: Patient denies any tobacco usage or history of. Patient uses alcohol, occasionally. Patient/guardian denies using street drugs, IV drugs. ROS: 23:23 Constitutional: Negative for fever, chills, and weight loss. kb 23:23 MS/extremity: Positive for pain, of the left knee. 23:23 All other systems are negative. Exam: 23:23 Constitutional: This is a well developed, well nourished patient who is awake, alert, kb and in no acute distress. Head/Face: Normocephalic, atraumatic. ENT: Moist Mucous membranes Respiratory: Respirations even and unlabored. No increased work of breathing. Talking in full sentences Skin: Warm, dry with normal turgor. Normal color. Neuro: Awake and alert, GCS 15, oriented to person, place, time, and situation. Moves all extremities. Normal gait. Psych: Awake, alert, with orientation to person, place and time. Behavior, mood, and affect are within normal limits. 23:23 Musculoskeletal/extremity: Extremities: grossly normal except: noted in the left knee: pain, swelling, tenderness, ROM: intact in all extremities, Circulation is intact in all extremities. Sensation intact. Weight bearing: able to fully bear weight. Vital Signs: 20:17 BP 125 / 69; Pulse 72; Resp 19 S; Temp 98.2(O); Pulse Ox 100% on R/A; Weight 82.1 kg lg3 (R); Height 5 ft. 7 in. (170.18 cm) (R); Pain 8/10; 22:06 BP 125 / 64; Pulse 73; Resp 13 S; Pulse Ox 100% on R/A; ha1 20:17 Body Mass Index 28.35 (82.10 kg, 170.18 cm) lg3 MDM: 20:19 Patient medically screened. kb 23:22 Data reviewed: vital signs, nurses notes. Data interpreted: Pulse oximetry: on room air kb is 100 %. Interpretation: normal. Counseling: I had a detailed discussion with the patient and/or guardian regarding: the historical points, exam findings, and any diagnostic results supporting the discharge/admit diagnosis, radiology results, the need for outpatient follow up, a orthopedic surgeon, to return to the emergency department if symptoms worsen or persist or if there are any questions or concerns that arise at home. 03/08 20:19 Order name: Knee Left 3 View XRAY; Complete Time: 21:52 kb Administered Medications: No medications were administered Disposition: 22:43 Co-signature as Attending Physician, Pepe Arnold MD I agree with the assessment and kdr plan of care. Disposition Summary: 03/08/22 21:52 Discharge Ordered Location: Home Condition: Stable kb Diagnosis - Pain in left knee kb Followup: kb - With: Emergency Department - When: As needed - Reason: Worsening of condition Followup: kb - With: Private Physician - When: 2 - 3 days - Reason: Recheck today's complaints, Continuance of care, Re-evaluation by your physician Discharge Instructions: - Discharge Summary Sheet kb - Acute Knee Pain, Adult, [id number] kb Forms: - Medication Reconciliation Form kb - Thank You Letter kb - Antibiotic Education kb - Prescription Opioid Use kb Prescriptions: - Diclofenac Sodium 75 mg Oral tablet,delayed release (DR/EC) - take 1 tablet by ORAL route 2 times per day As needed; 30 tablet; Refills: 0, kb Product Selection Permitted Signatures: Dispatcher [employer] EDMS Barbi Thurman, INSURANCE ANALYST-C CHERELLE-Pepe Tavarez MD MD kdr Gibson, Lacie RN RN lg3
[2022-03-09 00:19] VITALS: TEMP 98.2; O2SAT 100
[2022-03-09 00:25] VITALS: BP 125/64
== END 2022-03-08 22:10 | disposition home or self-care (01) ==
LOC: ER 20:05
DX: M25.562 Pain in left knee (principal)
CPT/HCPCS: 99283

== ENCOUNTER 2022-07-23 08:11 | Emergency (ER) | payer BC, OTHER ==
--- OUTSIDE RECORDS SUMMARY | 2022-07-23 08:15 | XMS REPORT | Continuity of Care Document ---
:2000 Author Organization [facility] t Address [facility] [address] [place] [address] Care Team Providers Name Role Phone YIN [...] Unavailable DR JORGE HUBBARD Admitting Clinician Unavailable DR OLIVIA ROPER Admitting Clinician Unavailable DR ALEK JANG Admitting Clinician Unavailable Payers Payer Name Policy Type Policy Number Effective Date Expiration Date S rahul [id number] 2018 00:00:00 [place] [id number] 2021 ADVANT[place] (H[place]) [place]:00[place] [id number] 2020 00:00:00 Problems Condition Condition Condition Status Onset Resolution Last Treating Co mments Source Name Details Category Date Date Treatment Clinician Date Trichomona Trichomona Problem Active M atagor l l 8-20 da vaginitis Vaginitis 00:00: Ep[facility] 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 00 ar [facility] Pilonidal Pilonidal Problem Active [place] cyst Cyst 7-04 da 00:00: [facility] Abnormal Abnormal Problem Active [place] findings Findings 3-15 da on on 00:00: [facility] diagnostic Diagnostic 00 ar imaging of Imaging of He alth breast Breast Outreac h Program Allergies, Adverse Reactions, Alerts Allergy Allergy Status Severity Reaction(s) Onset Inactive Treating Comm ents Source Name Type Date Date Clinician No Known DA Active [facility] Social History Smoking Status Start Date Stop Date Source Never Smoker [place] [facility] Medications Ordered Filled [...] 600 mg da tablet tablet tablet [facility] Lidocaine Lidocaine No Lidocaine [place] Viscous 2 % Viscous 2 % Viscous 2 da mucosal mucosal % mucosal Epis 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 solution solution solution ar Health Outreac [facility] Program naproxen naproxen No [...] Source Name Name HPV9 HPV9 2022-02-24 Completed [place] 12:05:30 [facility] HPV9 HPV9 2021-12-16 Completed [place] 16:14:40 [facility] influenza, influenza, 2021-04-11 Completed [place] injectable, injectable, 00:00:00 [facility]th quadrivalent quadrivalent Outreach P rogram [...] Source BP Diastolic 2022-03-04 00:00:00 72 mm[Hg] [facility] Height 2022-03-04 00:00:00 67 [in_i] [facility] BMI (Body Mass 2022-03-04 00:00:00 28.3 kg/m2 [place] microarray specialist [facility] Index) [facility] Outreach Program BP Systolic 2022-03-04 00:00:00 111 mm[Hg] [facility] Body Weight 2022-03-04 00:00:00 181 [lb_av] [facility] BP Diastolic 2022-02-24 00:00:00 73 mm[Hg] [facility] Height 2022-02-24 00:00:00 67 [in_i] [facility] BMI (Body Mass 2022-02-24 00:00:00 27.6 kg/m2 [place] microarray specialist [facility] Index) [facility] Out[facility] Program BP Systolic 2022-02-24 00:00:00 107 mm[Hg] [facility] Body Weight 2022-02-24 00:00:00 2818 [oz_av] [facility] BP Diastolic 2022-01-05 00:00:00 70 mm[Hg] [facility] Height 2022-01-05 00:00:00 67 [in_i] [facility] BMI (Body Mass 2022-01-05 00:00:00 27.6 kg/m2 [place] microarray specialist [facility] Index) [facility] Outreach Program BP Systolic 2022-01-05 00:00:00 102 mm[Hg] [facility] Body Weight 2022-01-05 00:00:00 176 [lb_av] [facility] BP Diastolic 2021-12-16 00:00:00 83 mm[Hg] [facility] Height 2021-12-16 00:00:00 67 [in_i] [facility] BMI (Body Mass 2021-12-16 00:00:00 28.3 kg/m2 [place] microarray specialist [facility] Index) [facility] Outreach Program BP Systolic 2021-12-16 00:00:00 126 mm[Hg] [facility] Body Weight 2021-12-16 00:00:00 2896 [oz_av] [facility] Height 2021-11-11 20:05:00 170.18 CM Weight 2021-11-11 20:05:00 79.37 KG BP Diastolic 2021-10-28 00:00:00 70 mm[Hg] [facility] Height 2021-10-28 00:00:00 67 [in_i] [facility] BMI (Body Mass 2021-10-28 00:00:00 27.6 kg/m2 [place] microarray specialist [facility] Index) [facility] Outreach Program BP Systolic 2021-10-28 00:00:00 106 mm[Hg] [facility] Body Weight 2021-10-28 00:00:00 2816 [oz_av] [facility] Height 2021-09-23 15:42:00 170.18 CM Weight 2021-09-23 15:42:00 76.65 KG BP Diastolic 2021-09-11 00:00:00 74 mm[Hg] [facility] Height 2021-09-11 00:00:00 67 [in_i] [facility] BMI (Body Mass 2021-09-11 00:00:00 26.5 kg/m2 [place] microarray specialist [facility] Index) [facility] Outreach Program BP Systolic 2021-09-11 00:00:00 114 mm[Hg] [facility] Body Weight 2021-09-11 00:00:00 2704 [oz_av] [facility] Height 2021-08-11 19:48:00 170.18 CM Weight 2021-08-11 19:48:00 73.93 KG Height 2021-04-14 20:01:00 170.18 CM Weight 2021-04-14 20:01:00 76.65 KG Height 2020-12-24 20:50:00 170.18 CM Weight 2020-12-24 20:50:00 76.2 KG BP Diastolic 2020-12-16 00:00:00 71 mm[Hg] [facility] Height 2020-12-16 00:00:00 67 [in_i] [facility] BMI (Body Mass 2020-12-16 00:00:00 26.6 kg/m2 [place] microarray specialist [facility] Index) [facility] Outreach Program BP Systolic 2020-12-16 00:00:00 108 mm[Hg] [facility] Body Weight 2020-12-16 00:00:00 2720 [oz_av] [facility] BP Diastolic 2020-11-20 00:00:00 79 mm[Hg] [facility] Height 2020-11-20 00:00:00 67 [in_i] [facility] BMI (Body Mass 2020-11-20 00:00:00 25.8 kg/m2 [place] microarray specialist [facility] Index) [facility] Outreach Program BP Systolic 2020-11-20 00:00:00 123 mm[Hg] [facility] Body Weight 2020-11-20 00:00:00 2640 [oz_av] [facility] Height 2020-07-07 20:12:00 170.18 CM Weight 2020-07-07 20:12:00 74.84 KG Procedures Procedure Date / Time Performed Performing Clinician Sour e US, breast, unilateral 2022-03-03 00:00:00 [facility] US, breast, unilateral 2022-02-09 00:00:00 [facility] MAMMO, diagnostic, 2021-09-11 00:00:[address] [facility] US, breast, unilateral 2021-09-11 00:00:00 [facility] Hernia Repair W/mesh 2007-07-12 00:00:00 Ria da [facility] Plan of Care Planned Activity Planned Date Details Comments Source Future Appointment 2023-02-24 00:00:00 Neal Burden [facility] [address]; , [place] Program [id number] Future Appointment 2022-08-27 09:15:00 Neal Burden [facility] [address] , [place] Program [id number] Encounters Start End Encounter Admission Attending Care Care Encounter Source Date/Time Date/Time Type Type Clinicians Facility Department ID 2021-11-30 Inpatient Miranda CAVANAUGH Miranda RAD [id number] [place] 08:00:00 [facility] 2022-04-14 2022-04-14 Outpatient JOLENE GOLD [facility] [id number] [place] 00:00:00 00:00:00 [facility] 2022-03-08 2022-03-08 [phone] [place] 00:00:00 00:00:00 [facility] 2022-03-04 2022-03-04 Outpatient JOLENE [facility] [id number] [place] 00:00:00 00:00:00 [facility] 2022-03-04 2022-03-04 Cecy [facility] [place] - [id number] [place] 00:00:00 00:00:00 Bettie Helms MD: [facility] Epi scop [address] [facility] customer operations manager [facility] [address] [address], [place], [place] [address] , Ph. 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 Program 2022-02-18 2022-02-18 Outpatient JOLENE [facility] [phone] [place] 00:00:00 00:00:00 [facility] 2022-01-05 2022-01-05 Outpatient SHIMEK_ESME MARIAHOP [facility] [id number] [place] 00:00:00 00:00:00 [facility] 2022-01-05 2022-01-05 Cecy [facility] [place] - [id number] [place] 00:00:00 00:00:00 Bettie Helms MD: [facility] Epi scop [id number] [facility]OP - [facility] [address], [place] [address] , Ph. 2021-12-16 2021-12-16 Outpatient SHIMEK_ESME [facility] [id number] [place] 04:23:00 04:23:00 [facility] 2021-12-16 2021-12-16 Outpatient SHIMEK_ESME [facility] [phone] [place] 04:23:00 04:23:00 [facility] 2021-12-16 2021-12-16 Outpatient SHIMEK_ESME [facility] [id number] [place] 04:23:00 04:23:00 [facility] 2021-12-16 2021-12-16 Outpatient SHIMEK_ESME MARIAHOP [facility] [id number] [place] 04:23:00 04:23:00 [facility] 2021-12-16 2021-12-16 Mariia A [facility] [place] - [id number] [place] 00:00:00 00:00:00 Neal Jones 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 Program 2021-12-15 2021-12-15 Outpatient SHIMEK_ESME [facility] [id number] [place] 10:05:00 10:05:00 _ANN [id number] [facility] 2021-11-11 2021-11-11 Outpatient Allegra HORNER [facility] [id number] [facility] 19:53:00 22:56:00 [facility] 2021-10-28 2021-10-28 Outpatient RADHA_ESME GOLD [facility] [id number] [place] 03:50:00 03:50:00 [facility] 2021-10-28 2021-10-28 Outpatient RADHA_ESME GOLD [facility] 114 [id number] [place] 03:49:00 03:49:00 [facility] 2021-10-28 2021-10-28 Esme Zamorano [facility] [place] - [id number] [place] 00:00:00 00:00:00 Neal Jones da SCREEN PRINTING PRESS OPERATOR: 1700 [facility] 3 Out[place] [address] h , Ph. Program 2021-09-23 2021-09-23 Outpatient Allegra CAVANAUGH [facility] [id number] [facility] 15:42:00 16:43:00 [facility] 2021-09-16 2021-09-16 Outpatient RADHA_ESME GOLD [facility] [id number] [place] 09:09:00 09:09:00 [facility] 2021-09-16 2021-09-16 Outpatient SHIMMARIELY_ESME [facility] [id number] [place] 09:09:00 09:09:00 [facility] 2021-09-16 2021-09-16 Outpatient SHIMEK_ESME MARIAHOP [facility] [id number] [place] 09:09:00 09:09:00 _ANN [id number] [facility] 2021-09-11 2021-09-11 Outpatient SHIMEK_ESME MARIAHOP [facility] [id number] [place] 07:46:00 07:46:00 _[facility] 2021-09-112021-09-11 Esme GOLD [place] - 3 [place] 00:00:00 00:00:00 Neal Jones da SCREEN PRINTING PRESS OPERATOR: 1700 [facility] [place], [place], [place] 3 Outre [address] h , Ph. Program 2021-08-11 2021-08-11 Outpatient E JORGE HUBBARD [facility] [id number] [facility] 19:40:00 22:04:00 Med[facility] l Center 2021-04-14 2021-04-14 Outpatient E JORGE HUBBARD [facility] [id number] [facility] 19:53:00 20:14:00 Medica l Center 2020-12-24 2020-12-24 Outpatient E OLIVIA ROPER [facility] [id number] [facility] 20:48:00 21:09:00 Medica l Center 2020-12-16 2020-12-16 Outpatient SHIMMARIELY_ESME GOLD [facility] [id number] [place] 12:14:00 12:14:00 _ANN [id number] [facility] 2020-12-16 2020-12-16 Outpatient RADHA_ESME GOLD [facility] [id number] [place] 12:14:00 12:14:00 _ANN [id number] [facility] 2020-12-16 2020-12-16 Outpatient JOLENE GODL [facility] [id number] [place] 12:14:00 12:14:00 [facility] 2020-12-16 2020-12-16 Outpatient SHIMEK_ESME GOLD [facility] [id number] [place] 12:14:00 12:14:00 _ANN [facility] 2020-12-16 2020-12-16 Outpatient SHIMEK_ESME GOLD [facility] [id number] [place] 12:14:00 12:14:00 _ANN [facility] 2020-12-16 2020-12-16 Outpatient SHIMEK_ESME GOLD [facility] [id number] [place] 12:14:00 12:14:00 _ANN [id number] [facility] 2020-12-16 2020-12-16 Esme GOLD [place] - [id number] [place] 00:00:00 00:00:00 [place] 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 Program 2020-11-20 2020-11-20 Outpatient RADHA_ESME GOLD [facility] [id number] [place] 04:22:00 04:22:00 _ANN 72611 [facility] 2020-11-20 2020-11-20 Esme GOLD [place] - [id number] [place] 00:00:00 00:00:00 Emil Jonesa da SCREEN PRINTING PRESS OPERATOR: 1700 [facility] [place] 3 [place] [address] h , Ph. Program 2020-11-18 2020-11-18 Outpatient RADHA_ESME GOLD [facility] [phone] [place] 08:32:00 08:32:00 _ANN 25510 [facility] 2020-10-22 2020-10-22 Outpatient JOLENE GOLD [facility] [id number] [place] 04:44:00 04:44:00 _ANN 37533 [facility] 2020-07-07 2020-07-07 Outpatient Allegra [facility] [id number] [facility] 20:12:00 22:25:00 [facility] Results Test Description Test Time Test Comments Results Result Comments Source Free T4 and TSH panel - Serum or Plasma 2021-12-17 00:00:00 Test Item Value Reference Range Interpretation Comme nts Thyrotropin [Units/volume] in Serum or Plasma by 1.080 uIU/mL 0.450 -4.500 Detection limit <= 0.005 mIU/L (test code = 94962-0) Thyroxine (T4) free [Mass/volume] in Serum or Plasma 0.86 NG/dL 0 .82-1.77 (test code = 3024-7) [facility] W Auto Differential panel - Blood 2021-12-17 [...] = 706-2) immature cells (test code = tool repairer bench immature cells) Neutrophils [#/volume] in Blood 3.7 [...] Blood by Automated count (test code = 36552-4) Immature granulocytes 0.0 x10e3/uL 0.0-0.1 [#/volume] in Blood by Automated count (test code = 56401-0) Nucleated erythrocytes/100 tool repairer bench leukocytes [Ratio] in Blood by Automated count (test code = 14205-3) Morphology [Interpretation] in tool repairer bench Blood Narrative (test code = 37906-1) [facility] ProgramComprehensive metabolic 2000 panel - Serum or [id number] 00:00:00 Test Item Value Reference Range Interpretation [...] 96-106 Serum or Plasma (test code = 2074-0) Carbon dioxide, total 21 mmol/L 20-29 [Moles/volume] in Serum or Plasma (test code = 2027-) Calcium [Mass/volume] in 9.6 mg/dL 8.7-10.2 Serum or Plasma (test code = 70723-5) Protein [Mass/volume] in 7.4 g/dL 6.0-8.5 Serum or Plasma (test code = 2885-2) Albumin [Mass/volume] in 4.4 g/dL 3.9-5.0 Serum or Plasma (test code = 1751-7) Globulin [Mass/volume] in 3.0 g/dL 1.5-4.5 Serum by calculation (test code = 70554-0) Albumin/Globulin [Mass Ratio] 1.5 1.2-2.2 in Serum or Plasma (test code = 1759-0) Bilirubin.total [Mass/volume] 0.3 mg/dL 0.0-1.2 in Serum or Plasma (test code = 1974-) Alkaline phosphatase 61 IU/L 44-121 [Enzymatic activity/volume] in Serum or Plasma (test code = 6768-6) Aspartate aminotransferase 12 IU/L 0-40 [Enzymatic activity/volume] in Serum or Plasma (test code = 1920-8) Alanine aminotransferase 14 IU/L 0-32 [Enzymatic activity/volume] in Serum or Plasma (test code = 1742-6) [facility] - Serum or Plasma 2021-12-17 00:00:00 Test Item Value Reference Range Interpretation Comments Cholesterol [Mass/volume] in Serum 196 mg/dL 100-199 or Plasma (test code = 2092-3) Triglyceride [Mass/volume] in Serum 180 mg/dL 0-149 H or Plasma (test code = 2571-8) Cholesterol in HDL [Mass/volume] in 52 mg/dL >39 Serum or Plasma (test code = 2084-9) Cholesterol in VLDL [Mass/volume] 31 mg/dL 5-40 in Serum or Plasma by calculation (test code = 12319-5) Cholesterol in LDL [Mass/volume] in 113 mg/dL 0-99 H Serum or Plasma by calculation (test code = 54884-2) Laboratory comment [Text] in Report tool repairer bench Narrative (test code = 71469-6) [facility] HospitalHemoglobin A1c/Hemoglobin.total in [id number] 00:00:00 Test Item Value Reference Range Interpretation Comments Hemoglobin A1c/Hemoglobin.total in 5.4 % 4.8-5.6 Blood (test code = 4548-4) Glucose mean value [Mass/volume] in 108 mg/dL Blood Estimated from glycated hemoglobin (test code = 34997-4) [facility] Hospital[facility] Ab [Presence] in Serum by RPR 2021-12-17 00:00:00 Test Item Value Reference Range Interpretation Comments Reagin Ab [Presence] in Serum by non reactive non reactive RPR (test code = 24734-5) [facility]HIV 1 and 2 tests - Meaningful Use [id number] 00:00:00 Test Item Value Reference Range Interpretation Comments HIV 1+2 Ab+HIV1 p24 Ag non reactive non reactive [Presence] in Serum or Plasma by Immunoassay (test code = 50110-9) [facility] HospitalHepatitis B virus surface Ag [Presence] in Serum or Plasma by [id number] 00:00:00 Test Item Value Reference Range Interpretation Comments Hepatitis B virus surface Ag negative negative [Presence] in Serum or Plasma by Immunoassay (test code = 5196-1) [facility] Hospital[facility] assessment panel, [id number] 00:00:00 Test Item Value Reference Range Interpretation Comments Interpretation and review of laboratory note results (test code = 87579-6) Report (test code = 77520-9) . [facility] HospitalCT [facility]K [facility]/CONTRAST *OW*2021-11-11 22:27:47[facility] CENTERName: JOSIAH PATEL : 2000 [...] Daniel Nolan MD 11/11/2021 10:27 PM CDT [id number] Panel *OW* [id number] 21:40:00 Test Item Value Reference Range Interpretation [...] ABDOMEN AND PELVIS W/O CONTRAST *OW*2021-08-11 21:29:43 [facility] CENTERName: JOSIAH PATEL : 2000 [...] by: Shabbir Hernandez MD 08/11/2021 9:29 PM [facility] CHEST W/O CONTRAST *OW*2021-08-11 21:29:43 [facility] CENTERName: JOSIAH PATEL : 2000 [...] by: Shabbir Hernandez MD 08/11/2021 9:29 PM [facility] HEAD W/O CONTRAST *OW*2021-08-11 21:28:07 [facility] : 2000 Sex: FExam: CThead without contrast.Location: 12History: Traumatic injuryTechnique: Unenhanced spiral slices were [...] by: Mina Clayton MD 08/11/2021 9:28 PM GRINDER OPERATOR TOOL CERVICAL SPINE W/O CONTRAST *OW*2021-08-11 21:24:12 [facility] CENTERName: JOSIAH PATEL : 2000 Sex: FExam: CT cervical spine.CLINICAL HISTORY: Traumatic injury.LOCATION: D4.FINDINGS: Multislice axial noncontrast images are obtained through the cervical spine. Sagittal and coronal reconstructed images are obtained and are used in interpretation.There is normal alignment. Disc height is preserved at all levels. No acute skeletal abnormalities. No fracture or dislocation. No acute soft tissue abnormalities arenoted. No significant spinal canal narrowing is appreciated.IMPRESSION:1. No acute abnormalities.*One or more of the following radiation dose reduction techniques was used: automated exposure control, adjustment of mA and/or KV according to patient size, and/or utilization of iterative reconstruction t echnique.Electronically signed by: Kevin Arango MD 08/11/2021 9:24 PM GRINDER OPERATOR TOOL [id number] URINE OW2021-08-11 20:27:00 Test Item Value Reference [...] LEUK) CBC W Auto Differential panel - [id number] 00:00:00 Test Item Value Reference Range Interpretation [...] = 706-2) immature cells (test code = tool repairer bench immature cells) Neutrophils [#/volume] in Blood 3.1 [...] Blood by Automated count (test code = 46934-5) Immature granulocytes 0.0 x10e3/uL 0.0-0.1 [#/volume] in Blood by Automated count (test code = 13172-5) Nucleated erythrocytes/100 tool repairer bench leukocytes [Ratio] in Blood by Automated count (test code = 99115-9) Morphology [Interpretation] in tool repairer bench Blood Narrative (test code = 78960-7) [facility] ProgramComprehensive metabolic 2000 panel - Serum or [id number] 00:00:00 Test Item Value Reference Range Interpretation [...] by Creatinine-based formula (CKD-EPI) (test code = 66671-2) Glomerular filtration 137 mL/min/1.73 >59 rate/1.73 sq M.predicted among blacks [Volume Rate/Area] in Serum, Plasma or Blood by Creatinine-based formula (CKD-EPI) (test code = 79754-9) Urea nitrogen/Creatinine 15 9-23 [Mass Ratio] in Serum or Plasma (test code = 3097-3) Sodium [Moles/volume] in 140 mmol/L 134-144 Serum or Plasma (test code = 2951-2) Potassium [Moles/volume] in 4.9 mmol/L 3.5-5.2 Serum or Plasma (test code = 2823-3) Chloride [Moles/volume] in 100 mmol/L 96-106 Serum or Plasma (test code = 2074-0) Carbon dioxide, total 25 mmol/L 20-29 [Moles/volume] in Serum or Plasma (test code = 2027-) Calcium [Mass/volume] in 10.0 mg/dL 8.7-10.2 Serum or Plasma (test code = 57101-7) Protein [Mass/volume] in 7.6 g/dL 6.0-8.5 Serum or Plasma (test code = 2885-2) Albumin [Mass/volume] in 4.4 g/dL 3.9-5.0 Serum or Plasma (test code = 175-7) Globulin [Mass/volume] in 3.2 g/dL 1.5-4.5 Serum by calculation (test code = 15756-6) Albumin/Globulin [Mass Ratio] 1.4 1.2-2.2 in Serum [...] Serum or Plasma (test code = 1742-6) [facility] 1996 panel - Serum or Plasma 2020-11-21 [...] or Plasma by calculation (test code = 09091-2) Cholesterol in LDL [Mass/volume] in 121 mg/dL 0-99 H Serum or Plasma by calculation (test code = 82879-9) Laboratory comment [Text] in Report tool repairer bench Narrative (test code = 27190-1) [facility] HospitalHemoglobin A1c/Hemoglobin.total in [id number] 00:00:00 Test Item Value Reference Range Interpretation Comments Hemoglobin A1c/Hemoglobin.total in 5.2 % 4.8-5.6 Blood (test code = 4548-4) Glucose mean value [Mass/volume] in 103 mg/dL Blood Estimated from glycated hemoglobin (test code = 83905-4) [facility] HospitalHIV 1+2 Ab+HIV1 p24 Ag [Presence] in Serum or Plasma by [id number] 00:00:00 Test Item Value Reference Range Interpretation Comments HIV 1+2 Ab+HIV1 p24 Ag non reactive non reactive [Presence] in Serum or Plasma by Immunoassay (test code = 40720-0) [facility] HospitalThyrotropin [Units/volume] in Serum or Plasma by Detection limit <= 0.005 mIU/[id number] 00:00:00 Test Item Value Reference Range Interpretation Comments Thyrotropin [Units/volume] in 0.677 uIU/mL 0.450-4.500 Serum or Plasma by Detection limit <= 0.005 mIU/L (test code = 87919-6) [facility] HospitalReagin Ab [Presence] in Serum by RPR 2020-11-21 00:00:00 Test Item Value Reference Range Interpretation Comments Reagin Ab [Presence] in Serum by non reactive non reactive RPR (test code = 43484-8) [facility] Ag [Presence] in Serum or Plasma by [id number] 00:00:00 Test Item Value Reference Range Interpretation Comments Hepatitis B virus surface Ag negative negative [Presence] in Serum or Plasma by Immunoassay (test code = 5196-1) [facility], [id number] 00:00:00 Test Item Value Reference Range Interpretation Comments Interpretation and review of laboratory note results (test code = 62302-0) Report (test code = 34045-2) . [facility] AND B OW2020-07-07 21:13:00 Test Item Value Reference Range Interpretation Comments INFLUENZ A (test code = INFA) NEGATIVE NEGATIVE INFLUENZ B (test code = INFB) NEGATIVE NEGATIVE
[2022-07-23] MEDS ORDERED: LIDOCAINE 1% MPF 5 ML VIAL ONE (09:04)
--- NOTE | 2022-07-23 10:29 | EDPHYS ---
Physician Documentation [facility] Name: Aileen Montalvo Age: 22 yrs Sex: Female : 2000 Arrival Date: 07/23/2022 Time: 08:15 Bed 11 Private MD: ED Physician Rasta Cornejo HPI: 07/23 11:01 This 22 yrs old Black Female presents to ER via Ambulatory with complaints of Cyst - kb left armpit. 11:01 The patient presents with an abscess of the left axilla. Description: erythematous, kb swollen, warm. Onset: The symptoms/episode began/occurred 4 day(s) ago. Possible cause(s): unknown. Associated signs and symptoms: Pertinent positives: drainage, erythema, swelling. Modifying factors: the symptoms are alleviated by nothing, the symptoms are aggravated by pressure, squeezing the lesion and expressing the contents, touching. Severity of symptoms: At their worst the symptoms were moderate, in the emergency department the symptoms are unchanged. The patient has not experienced similar symptoms in the past. The patient has not recently seen a physician. 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 - Social history:: Smoking status: Patient denies any tobacco usage or history of. ROS: 11:00 Constitutional: Negative for fever, chills, and weight loss. kb 11:00 Skin: Positive for of the left axilla. 11:00 All other systems are negative. Exam: 11:00 Constitutional: This is a well developed, well nourished patient who is awake, alert, kb and in no acute distress. Head/Face: Normocephalic, atraumatic. ENT: Moist Mucous membranes Cardiovascular: Regular rate and rhythm with a normal S1 and S2. No gallops, murmurs, or rubs. No pulse deficits. Respiratory: Respirations even and unlabored. No increased work of breathing. Talking in full sentences MS/ Extremity: Pulses equal, no cyanosis. Neurovascular intact. Full, normal range of motion. Neuro: Awake and alert, GCS 15, oriented to person, place, time, and situation. Moves all extremities. Normal gait. Psych: Awake, alert, with orientation to person, place and time. Behavior, mood, and affect are within normal limits. 11:00 Skin: abscess, that is moderate sized, of the left axilla, with drainage, with fluctuance. Vital Signs: 08:28 BP 118 / 77; Pulse 84; Resp 16 S; Temp 98.4(TE); Pulse Ox 100% on R/A; Weight 70.76 kg aa5 (R); Height 5 ft. 7 in. (170.18 cm) (R); 08:28 Body Mass Index 24.43 (70.76 kg, 170.18 cm) aa5 Procedures: 10:28 I \T\ D: Incision and drainage was performed for an abscess of the left axilla. Prepped kb with Betadine, Anesthetized with 2 ml's 1% Lidocaine. Incised with #11 blade. Drained moderate amount purulent fluid. Packed with iodoform gauze, Dressing: sterile 4x4 gauze, the patient tolerated the procedure well. MDM: 08:30 Patient medically screened. kb 10:28 Data reviewed: vital signs, nurses notes. kb 10:59 Differential diagnosis: abscess, cellulitis, insect bite, ingrown hair, cyst. kb Consideration of Admission/Observation Escalation of care including admission/observation considered. I considered the following discharge prescriptions or medication management in the emergency department I discussed and recommended Over The Counter medications. Test considered but Not performed: Ultrasound US considered to evaluate abscess, but moderate fluctuance palpated on exam. I\T\D performed. Counseling: I had a detailed discussion with the patient and/or guardian regarding: the historical points, exam findings, and any diagnostic results supporting the discharge/admit diagnosis, the need for outpatient follow up, a general surgeon, to return to the emergency department if symptoms worsen or persist or if there are any questions or concerns that arise at home. ED course: Pt has seen Dr Nettles for previous abscess and will follow up with him. 07/23 08:55 Order name: I\T\D Setup; Complete Time: 09:02 kb Administered Medications: 10:10 Drug: Lidocaine (1 %) 1 vials {Note: administered by SABRA Landon.} Volume: 5 ml; Route: jl7 Infiltration; Disposition Summary: 07/23/22 10:29 Discharge Ordered Location: Home kb Condition: Stable kb Diagnosis - Cutaneous abscess of left axilla kb Followup: kb - With: Emergency Department - When: As needed - Reason: Worsening of condition Followup: kb - With: Private Physician - When: 2 - 3 days - Reason: Recheck today's complaints, Continuance of care, Re-evaluation by your physician Discharge Instructions: - Discharge Summary Sheet kb - Skin Abscess, [id number] kb - Incision and Drainage, Care After kb Forms: - Medication Reconciliation Form kb - Work release form kb - Thank You Letter kb - Antibiotic Education kb - Prescription Opioid Use kb Prescriptions: - Bactrim DS 800-160 mg Oral Tablet - take 1 tablet by ORAL route every 12 hours for 10 days; 20 tablet; Refills: 0, kb Product Selection Permitted Addendum: 07/24/2022 13:29 Co-signature as Attending Physician, Rasta Cornejo MD I agree with the assessment and c kirby plan of care. Signatures: Barbi Thurman, TELEGRAPH REPEATER INSTALLER-C TELEGRAPH REPEATER INSTALLER-Ckb Rasta Cornejo MD MD cha Calderon, Audri, RN RN aa5 Gaston Aponte RN RN jl7
--- NOTE | 2022-07-23 10:29 | ER ---
Nurse's Notes [facility] Name: Aileen Montalvo Age: 22 yrs Sex: Female : 2000 Arrival Date: 07/23/2022 Time: 08:15 Bed 11 Private MD: Diagnosis: Cutaneous abscess of left axilla Presentation: 07/23 08:28 Chief complaint: Patient states: "I think I have a cyst on my left armpit and it's aa5 getting bigger". Coronavirus screen: At this time, the client does not indicate any symptoms associated with coronavirus-19. Ebola Screen: Patient denies travel to an Ebola-affected area in the 21 days before illness onset. Initial Sepsis Screen: Does the patient meet any 2 criteria? No. Patient's initial sepsis screen is negative. Does the patient have a suspected source of infection? No. Patient's initial sepsis screen is negative. Risk Assessment: Do you want to hurt yourself or someone else? Patient reports no desire to harm self or others. Onset of symptoms was July 2022. 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 - Social history:: Smoking status: Patient denies any tobacco usage or history of. Screenin:00 [facility] ED Fall Risk Assessment (Adult) History of falling in the last 3 months, jl7 including since admission No falls in past 3 months (0 pts) Confusion or Disorientation No (0 pts) Intoxicated or Sedated No (0 pts) Impaired Gait No (0 pts) Mobility Assist Device Used No (0 pt) Altered Elimination No (0 pt) Score/Fall Risk Level 0 - 2 = Low Risk Oriented to surroundings. Abuse screen: Denies threats or abuse. Denies injuries from another. Nutritional screening: No deficits noted. Tuberculosis screening: No symptoms or risk factors identified. Assessment: 09:00 General: Appears in no apparent distress. uncomfortable, Behavior is calm, cooperative, jl7 appropriate for age. Pain: Complains of pain in left axilla Pain currently is 9 out of 10 on a pain scale. Neuro: Level of Consciousness is awake, alert, obeys commands, Oriented to person, place, time, situation. Cardiovascular: Patient's skin is warm and dry. Respiratory: Airway is patent Respiratory effort is even, unlabored, Respiratory pattern is regular, symmetrical. Derm: Skin is pink, warm \\T\\ dry. Abscess located on left axilla is quarter sized, has no drainage, is raised. Vital Signs: 08:28 BP 118 / 77; Pulse 84; Resp 16 S; Temp 98.4(TE); Pulse Ox 100% on R/A; Weight 70.76 kg aa5 (R); Height 5 ft. 7 in. (170.18 cm) (R); 08:28 Body Mass Index 24.43 (70.76 kg, 170.18 cm) 5 ED Course: 08:15 Patient arrived in ED. as 08:24 Bar[facility] Thurman FNP-C [facility] 08[facility]24 Rasta Cornejo MD is Attending Physician. kb 08:28 Arm band placed on. [facility] 08:29 Triage completed. [facility] 08:58 Gaston Aponte RN is Primary Nurse. jl7 09:00 Patient has correct armband on for positive identification. Placed in gown. Bed in low jl7 position. Call light in reach. Side rails up X 1. 10:15 Assist provider with I \\T\\ D: of an abscess on left axilla Set up I\\T\\D tray. Performed by 7 Barbi AMAYA Wound packed. iodoform gauze, Patient tolerated well. 10:15 Patient did not have IV access during this emergency room visit. 7 Administered Medications: 10:10 Drug: Lidocaine (1 %) 1 vials {Note: administered by SABRA Landon.} Volume: 5 ml; Route: jl7 Infiltration; Medication: 10:40 VIS not applicable for this client. [facility] Outcome: 10:29 Discharge ordered by . 10:40 Discharged to home [facility] 10:40 Condition: good 10:40 Discharge instructions given to patient, Instructed on discharge instructions, follow up and referral plans. medication usage, safety practices, Demonstrated understanding of instructions, follow-up care, medications, Prescriptions given X 1. 10:41 Patient left the ED. jh5 Signatures: Barbi Thurman, CHERELLE-C INTERNAL AUDIT CONSULTANT-Kala Villegas Audri, RN RN aa5 Gaston Aponte RN RN jl7 Aracelis Cuellar RN RN jh5
[2022-07-23 10:45] VITALS: BP 118/77; TEMP 98.4; O2SAT 100
== END 2022-07-23 10:41 | disposition home or self-care (01) ==
LOC: ER 08:11
PROC: 0H9CXZZ Drainage of Left Upper Arm Skin, External Approach (ICD-10-PCS; principal; 2022-07-23)
DX: L02.412 Cutaneous abscess of left axilla (principal)
CPT/HCPCS: 99283; 10060; J2001

== ENCOUNTER 2022-12-17 19:47 | Emergency (ER) | payer OTHER ==
--- OUTSIDE RECORDS SUMMARY | 2022-12-17 20:09 | XMS REPORT | Continuity of Care Document ---
:2000 Author Organization [facility] t Address 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 [facility] Pilonidal Pilonidal Problem Active [place] cyst Cyst 7-04 da 00:00: [facility] 00 [facility] Abnormal Abnormal Problem Active [place] findings Findings 3-15 da on on 00:00: [facility] diagnostic Diagnostic 00 al imaging of [facility] breast Breast Outreac h Program Allergies, Adverse Reactions, Alerts Allergy Allergy Status Severity Reaction(s) Onset Inactive Treating Comm ents Source Name Type Date Date Clinician No Known DA Active [facility] Social History Smoking Status Start Date Stop Date Source Never Smoker [place] 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 solution solution solution ri Health Outreac h [...] Source Name Name HPV9 HPV9 2022-02-24 Completed [place] 12:05:30 [facility] HPV9 HPV9 2021-12-16 Completed [place] 16:14:40 [facility] influenza, influenza, 2021-04-11 Completed [place] injectable, injectable, 00:00:00 [facility] quadrivalent quadrivalent Outreach P rogram [...] Source BP Diastolic 2022-03-04 00:00:00 72 mm[Hg] [facility] Height 2022-03-04 00:00:00 67 [in_i] [facility] BMI (Body Mass 2022-03-04 00:00:00 28.3 kg/m2 [place] director of pulmonary unit [facility] Index) [facility] BP Systolic 2022-03-04 00:00:00 111 mm[Hg] [place] [facility] Body Weight 2022-03-04 00:00:00 181 [lb_av] [place] [facility] BP Diastolic 2022-02-24 00:00:00 73 mm[Hg] [place] [facility] Height 2022-02-24 00:00:00 67 [in_i] [place] [facility] BMI (Body Mass 2022-02-24 00:00:00 27.6 kg/m2 [place] director of pulmonary unit [facility] Index) [facility] BP Systolic 2022-02-24 00:00:00 107 mm[Hg] [place] [facility] Body Weight 2022-02-24 00:00:00 2818 [oz_av] [facility] BP Diastolic 2022-01-05 00:00:00 70 mm[Hg] [place] [facility] Height 2022-01-05 00:00:00 67 [in_i] [place] [facility] BMI (Body Mass 2022-01-05 00:00:00 27.6 kg/m2 [place] director of pulmonary unit [facility] Index) [facility] BP Systolic 2022-01-05 00:00:00 102 mm[Hg] [place] [facility] Body Weight 2022-01-05 00:00:00 176 [lb_av] [place] [facility] BP Diastolic 2021-12-16 00:00:00 83 mm[Hg] [place] [facility] Height 2021-12-16 00:00:00 67 [in_i] [place] [facility] BMI (Body Mass 2021-12-16 00:00:00 28.3 kg/m2 [place] director of pulmonary unit [facility] Index) [facility] BP Systolic 2021-12-16 00:00:00 126 mm[Hg] [place] [facility] Body Weight 2021-12-16 00:00:00 2896 [oz_av] [facility] Height 2021-11-11 20:05:00 170.18 CM Weight 2021-11-11 20:05:00 79.37 KG BP Diastolic 2021-10-28 00:00:00 70 mm[Hg] [facility] Height 2021-10-28 00:00:00 67 [in_i] [facility] BMI (Body Mass 2021-10-28 00:00:00 27.6 kg/m2 [place] director of pulmonary unit [facility] Index) [facility] Outreach Program BP Systolic 2021-10-28 00:00:00 106 mm[Hg] [facility] Body Weight 2021-10-28 00:00:00 2816 [oz_av] [facility] Height 2021-09-23 15:42:00 170.18 CM Weight 2021-09-23 15:42:00 76.65 KG BP Diastolic 2021-09-11 00:00:00 [facility] Height 2021-09-11 00:00:00 67 [in_i] [facility] BMI (Body Mass 2021-09-11 00:00:00 26.5 [facility]/m2 [facility] BP Systolic 2021-09-11 00:00:00 114 mm[Hg] [facility] Body Weight 2021-09-11 00:00:00 2704 [oz_av] [facility] Height 2021-08-11 19:48:00 170.18 CM Weight 2021-08-11 19:48:00 73.93 KG Height 2021-04-14 20:01:00 170.18 CM Weight 2021-04-14 20:01:00 76.65 KG Height 2020-12-24 20:50:00 170.18 CM Weight 2020-12-24 20:50:00 76.2 KG BP Diastolic 2020-12-16 00:00:00 71 [facility]Hg[facility] Height 2020-12-16 00:00:00 67 [in_i] [place] [facility] BMI (Body Mass 2020-12-16 00:00:00 26.6 kg/m2 [place] director of pulmonary unit [facility] Index) [facility]reach Program BP Systolic 2020-12-16 00:00:00 108 mm[Hg] [place] [facility] Body Weight 2020-12-16 00:00:00 2720 [oz_av] [facility] BP Diastolic 2020-11-20 00:00:00 79 mm[Hg] [place] [facility] Height 2020-11-20 00:00:00 67 [in_i] [place] [facility] BMI (Body Mass 2020-11-20 00:00:00 25.8 kg/m2 [place] director of pulmonary unit [facility] Index) [facility] BP Systolic 2020-11-20 00:00:00 123 mm[Hg] [place] [facility] Body Weight 2020-11-20 00:00:00 2640 [oz_av] [facility] Height 2020-07-07 20:12:00 170.18 CM Weight 2020-07-07 20:12:00 74.84 KG Procedures Procedure Date / Time Performed Performing Clinician Sour e US, breast, unilateral 2022-03-03 00:00:00 Jessie orda [facility] US, breast, unilateral 2022-02-09 00:00:00 Jessie orda [facility] MAMMO, diagnostic, 2021-09-11 00:00:00 [place] [facility] unilateral [facility] US, breast, unilateral 2021-09-11 00:00:00 Jessie orda [facility] Hernia Repair W/mesh 2007-07-12 00:00:00 Ria guillermo [facility] Plan of Care Planned Activity Planned Date Details Comments Source Future Appointment 2023-02-24 00:00:00 Neal Burden [facility] [address]; , [place] Program [address] Encounters Start End Encounter Admission Attending Care Care Encounter Source Date/Time Date/Time Type Type Clinicians Facility Department ID 2021-11-30 Inpatient Miranda CAVANAUGH Miranda RAD [id number] [facility] 08:00:00 [facility] 2022-04-14 2022-04-14 Outpatient SHIMEK_ESME MARIAHOP [facility] 114 [id number] [place] 00:00:00 00:00:00 _ANN [id number] [facility] 2022-04-14 2022-04-14 Outpatient SHIMEK_ESME MARIAHOP ME[facility] 114 [id number] [place] 00:00:00 00:00:00 _ANN 23885 [facility] 2022-04-14 2022-04-14 Outpatient SHIMEK_ESME MEHOP ME[facility] 114 [id number] [place] 00:00:00 00:00:00 _ANN [id number] [facility] 2022-03-08 2022-03-08 Outpatient SHIMEK_ESME [facility]OP ME[facility]OP 114 [id number] [place] 00:00:00 00:00:00 _ANN 44162 [facility] 2022-03-04 2022-03-04 Outpatient SHIMEK_ESME DEHOP MEHOP 114 [id number] [place] 00:00:00 00:00:00 _ANN [facility] 2022-03-04 2022-03-[address] 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 [phone] 2022-02-24 2022-02-24 Outpatient SHIMEK_ESME MARIAHOP MEHOP 114 [id number] [place] 00:00:00 00:00:00 _ANN [id number] [facility] 2022-02-24 2022-02-[address] 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 Program 2022-02-18 2022-02-18 Outpatient SHIMEK_ESME GOLD MEHOP 114 [id number] [place] 00:00:00 00:00:00 _ANN [facility] 2022-01-05 2022-01-05 [id number] [place] 00:00:00 00:00:00 _ANN [facility] 2022-01-05 2022-01-[address] [facility] [place] - [id number] [place] 00:00:00 00:00:00 Bettie Helms MD: [facility] Epi scop [address], [facility], [place] [address] , Ph. 2021-12-16 2021-12-16 [facility] [id number] [place] 04:23:00 04:23:00 _ANN [id number] [facility] 2021-12-16 2021-12-16 [facility] [id number] [place] 04:23:00 04:23:00 _ANN [facility] 2021-12-16 2021-12-16 [facility] [id number] [place] 04:23:00 04:23:00 _ANN [facility] 2021-12-16 2021-12-16 Outpatient SHIMEK_ESME DEHOP DEHOP 114 [id number] [place] 04:23:00 04:23:00 _ANN [facility] 2021-12-16 2021-12-[address] [facility] [place] - [id number] [place] 00:00:00 00:00:00 Neal Jones TIMBER MANAGEMENT SPECIALIST: 1700 [facility] [place] [facility] [address] h , Ph. Program 2021-12-15 2021-12-15 Outpatient JOLENE GOLD [facility] [id number] [place] 10:05:00 10:05:00 _ANN [id number] [facility] 2021-11-11 2021-11-11 Outpatient Allegra HORNER [facility] E[facility] [id number] [facility] 19:53:00 22:56:00 ALFRED [facility] 2021-10-28 2021-10-28 Outpatient JOLENE GOLD [facility] 114 [place] 03:50:00 03:50:00 _ANN [facility] 2021-10-28 2021-10-28 Outpatient JOLENE GOLD [facility] 114 [place] 03:49:00 03:49:00 _ANN [facility] 2021-10-28 2021-10-[address] [facility] [place] - [id number] [place] 00:00:00 00:00:00 Neal Jones da TIMBER MANAGEMENT SPECIALIST: 1700 [facility] Roman [facility] [place] 3 Out[place] [address] h , Ph. Program 2021-09-23 2021-09-23 Outpatient Allegra CAVANAUGH [facility] [id number] [place] 15:42:00 16:43:00 EVELINE Medica [facility] [place] 2021-09-16 2021-09-16 Outpatient JOLENE GOLD ME[facility] [id number] [place] 09:09:00 09:09:00 _ANN [facility] 2021-09-16 2021-09-16 Outpatient JOLENE GOLD [facility] 114 [id number] [place] 09:09:00 09:09:00 _ANN [facility] 2021-09-16 2021-09-16 Outpatient JOLENE GOLD [facility] 114 [id number] [place] 09:09:00 09:09:00 _ANN [facility] 2021-09-11 2021-09-11 Outpatient JOLENE GOLD [facility] [id number] [place] 07:46:00 07:46:00 _ANN [facility] 2021-09-11 2021-09-11 Esme Zamorano [facility] [place] - 3 [place] 00:00:00 00:00:00 Neal Jones da TIMBER MANAGEMENT SPECIALIST: [address] [facility] [address], [facility], [place] 3 Outreac [address] h , Ph. Program 2021-08-11 2021-08-11 Outpatient E JORGE HUBBARD [facility] [id number] [facility] 19:40:00 22:04:00 Medica l Center 2021-04-14 2021-04-14 Outpatient E NANCY HUBBARDRY [facility] [id number] [facility] 19:53:00 20:14:00 Medica l Center 2020-12-24 2020-12-24 Outpatient E OLIVIA ROPER [facility] [id number] [facility] 20:48:00 21:09:00 Medica l Center 2020-12-16 2020-12-16 Outpatient JOLENE GOLD [facility] [id number] [place] 12:14:00 12:14:00 _ANN [facility] 2020-12-16 2020-12-16 Outpatient JOLENE GOLD [facility] 114 [id number] [place] 12:14:00 12:14:00 _ANN [facility] 2020-12-16 2020-12-16 Outpatient RADHA_ESME GOLD [facility] 114 [id number] [place] 12:14:00 12:14:00 _ANN [facility] 2020-12-16 2020-12-16 Outpatient RADHA_ESME GOLD MEHOP 114 [id number] [place] 12:14:00 12:14:00 _ANN [facility] 2020-12-16 2020-12-16 Outpatient KURTEK_ESME GOLD ME[facility] 114 [id number] [place] 12:14:00 12:14:00 _ANN [id number] [facility] 2020-12-16 2020-12-16 Outpatient RADHA_ESME GOLD DEHOP 114 [id number] [place] 12:14:00 12:14:00 _ANN [id number] [facility] 2020-12-16 2020-12-[address] [facility] [place] - [id number] [place] 00:00:00 00:00:00 Neal Jones da TIMBER MANAGEMENT SPECIALIST: [address] [facility] [place] [address] h , Ph. Program 2020-11-20 2020-11-[address] [facility] [id number] [place] 04:22:00 04:22:00 _ANN [id number] [facility] 2020-11-20 2020-11-[address] [facility] [place] - [id number] [place] 00:00:00 00:00:00 Emil Jonesa da TIMBER MANAGEMENT SPECIALIST: [address] [facility] [place] 3 [place] [address] h , Ph. Program 2020-11-18 2020-11-[address] [facility] [id number] [place] 08:32:00 08:32:00 _ANN [id number] [facility] 2020-10-22 2020-10-22 Outpatient JOLENE GOLD DEHOP 114 [id number] [place] 04:44:00 04:44:00 _ANN 26668 [facility] 2020-07-07 2020-07-07 Outpatient Allegra [facility]ANG [facility] [id number] [facility] 20:12:00 22:25:[facility] Results Test Description Test Time Test Comments Results Result Comments Source Free T4 and TSH panel - Serum or Plasma 2021-12-17 00:00:00 Test Item Value Reference Range Interpretation Comme nts Thyrotropin [Units/volume] in Serum or Plasma by 1.080 uIU/mL 0.450 -4.500 Detection limit <= 0.005 mIU/L (test code = 79567-8) Thyroxine (T4) free [Mass/volume] in Serum or Plasma 0.86 NG/dL 0 .82-1.77 (test code = 3024-7) [facility] W Auto Differential panel - Blood 2021-12-17 [...] = 706-2) immature cells (test code = screedman immature cells) Neutrophils [#/volume] in Blood 3.7 [...] Blood by Automated count (test code = 76150-7) Immature granulocytes 0.0 x10e3/uL 0.0-0.1 [#/volume] in Blood by Automated count (test code = 60985-7) Nucleated erythrocytes/100 screedman leukocytes [Ratio] in Blood by Automated count (test code = 19419-7) Morphology [Interpretation] in screedman Blood Narrative (test code = 71778-3) [facility] ProgramComprehensive metabolic 2000 panel - Serum or [id number] 00:00:00 Test Item Value Reference Range Interpretation [...] 96-106 Serum or Plasma (test code = 5-0) Carbon dioxide, total 21 mmol/L 20-29 [Moles/volume] in Serum or Plasma (test code = 2027-9) Calcium [Mass/volume] in 9.6 mg/dL 8.7-10.2 Serum or Plasma (test code = 09049-6) Protein [Mass/volume] in 7.4 g/dL 6.0-8.5 Serum or Plasma (test code = 2885-2) Albumin [Mass/volume] in 4.4 g/dL 3.9-5.0 Serum or Plasma (test code = 1751-7) Globulin [Mass/volume] in 3.0 g/dL 1.5-4.5 Serum by calculation (test code = 56000-8) Albumin/Globulin [Mass Ratio] 1.5 1.2-2.2 in Serum or Plasma (test code = 1759-0) Bilirubin.total [Mass/volume] 0.3 mg/dL 0.0-1.2 in Serum or Plasma (test code = 1974-2) Alkaline phosphatase 61 IU/L 44-121 [Enzymatic activity/volume] in Serum or Plasma (test code = 6768-6) Aspartate aminotransferase 12 IU/L 0-40 [Enzymatic activity/volume] in Serum or Plasma (test code = 1920-8) Alanine aminotransferase 14 IU/L 0-32 [Enzymatic activity/volume] in Serum or Plasma (test code = 1742-6) [facility] - Serum or Plasma 2021-12-17 00:00:00 Test Item Value Reference Range Interpretation Comments Cholesterol [Mass/volume] in Serum 196 mg/dL 100-199 or Plasma (test code = 3-3) Triglyceride [Mass/volume] in Serum 180 mg/dL 0-149 H or Plasma (test code = 2571-8) Cholesterol in HDL [Mass/volume] in 52 mg/dL >39 Serum or Plasma (test code = 5-9) Cholesterol in VLDL [Mass/volume] 31 mg/dL 5-40 in Serum or Plasma by calculation (test code = 37751-4) Cholesterol in LDL [Mass/volume] in 113 mg/dL 0-99 H Serum or Plasma by calculation (test code = 24367-5) Laboratory comment [Text] in Report screedman Narrative (test code = 74444-5) [facility] Center[facility]em[facility] A1c/Hemoglobin.total in [id number] 00:00:00 Test Item Value Reference Range Interpretation Comments Hemoglobin A1c/Hemoglobin.total in 5.4 % 4.8-5.6 Blood (test code = 4548-4) Glucose mean value [Mass/volume] in 108 mg/dL Blood Estimated from glycated hemoglobin (test code = 39007-4) [facility] CenterReagin Ab [Presence] in Serum by RPR 2021-12-17 00:00:00 Test Item Value Reference Range Interpretation Comments Reagin Ab [Presence] in Serum by non reactive non reactive RPR (test code = 03673-4) [facility] CenterHIV 1 and 2 tests - Meaningful Use [id number] 00:00:00 Test Item Value Reference Range Interpretation Comments HIV 1+2 Ab+HIV1 p24 Ag non reactive non reactive [Presence] in Serum or Plasma by Immunoassay (test code = 72876-9) [facility] CenterHepatitis B virus surface Ag [Presence] in Serum or Plasma by [id number] 00:00:00 Test Item Value Reference Range Interpretation Comments Hepatitis B virus surface Ag negative negative [Presence] in Serum or Plasma by Immunoassay (test code = 5196-1) [facility] Centercardiovascular assessment panel, [id number] 00:00:00 Test Item Value Reference Range Interpretation Comments Interpretation and review of laboratory note results (test code = 49121-9) Report (test code = 26160-8) . [facility] CenterCT NECK W/CONTRAST *OW*2021-11-11 22:27:47[facility] : 2000 Sex: FEXAMINATION:CT [...] Daniel Nolan MD 11/11/2021 10:27 PM CDT [id number] 8 Panel *OW* [id number] 21:40:00 Test Item Value Reference Range Interpretation [...] (test code = STREP) NEGATIVE NEGATIVE CT CHEST W/O CONTRAST *OW*2021-08-11 21:29:43 [facility] : 2000 Sex: FEXAMINATION:Chest, [...] by: Shabbir Hernandez MD 08/11/2021 9:29 PM [facility] ABDOMEN AND PELVIS W/O CONTRAST *OW*2021-08-11 21:29:43 [facility] : 2000 Sex: FEXAMINATION:Chest, abdomen, [...] by: Shabbir Hernandez MD 08/11/2021 9:29 PM [facility] HEAD W/O CONTRAST *OW*2021-08-11 21:28:07 [facility] : 2000 Sex: FExam: [...] by: Mina Clayton MD 08/11/2021 9:28 PM [facility] CERVICAL SPINE W/O CONTRAST *OW*2021-08-11 21:24:12 [facility] : 2000 Sex: FExam: CTcervical [...] by: Kevin Arango MD 08/11/2021 9:24 PM 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 [id number] URINE OW2021-08-11 20:27:00 Test Item Value Reference [...] LEUK) CBC W Auto Differential panel - [id number] 00:00:00 Test Item Value Reference Range Interpretation [...] = 706-2) immature cells (test code = screedman immature cells) Neutrophils [#/volume] in Blood 3.1 [...] Blood by Automated count (test code = 53031-8) Immature granulocytes 0.0 x10e3/uL 0.0-0.1 [#/volume] in Blood by Automated count (test code = 60904-0) Nucleated erythrocytes/100 screedman leukocytes [Ratio] in Blood by Automated count (test code = 30683-3) Morphology [Interpretation] in screedman Blood Narrative (test code = 32978-9) [facility] ProgramComprehensive metabolic 2000 panel - Serum or [id number] 00:00:00 Test Item Value Reference Range Interpretation [...] by Creatinine-based formula (CKD-EPI) (test code = 13943-7) Glomerular filtration 137 mL/min/1.73 >59 rate/1.73 sq M.predicted among blacks [Volume Rate/Area] in Serum, Plasma or Blood by Creatinine-based formula (CKD-EPI) (test code = 14451-4) Urea nitrogen/Creatinine 15 9-23 [Mass Ratio] in [...] in Serum or Plasma (test code = 2027-9) Calcium [Mass/volume] in 10.0 mg/dL 8.7-10.2 Serum or Plasma (test code = 91484-1) Protein [Mass/volume] in 7.6 g/dL 6.0-8.5 Serum or Plasma (test code = 2885-2) Albumin [Mass/volume] in 4.4 g/dL 3.9-5.0 Serum or Plasma (test code = 1751-7) Globulin [Mass/volume] in 3.2 g/dL 1.5-4.5 Serum by calculation (test code = 98779-5) Albumin/Globulin [Mass Ratio] 1.4 1.2-2.2 in Serum or Plasma (test code = 1759-0) Bilirubin.total [Mass/volume] 0.7 mg/dL 0.0-1.2 in Serum or Plasma (test code = 1975-2) Alkaline phosphatase 44 IU/L 39-117 [Enzymatic activity/volume] in Serum or Plasma (test code = 6768-6) Aspartate aminotransferase 15 IU/L 0-40 [Enzymatic activity/volume] in Serum or Plasma (test code = 1920-8) Alanine aminotransferase 14 IU/L 0-32 [Enzymatic activity/volume] in Serum or Plasma (test code = 1742-6) [facility] CenterLipid 1996 panel - Serum or Plasma 2020-11-21 [...] or Plasma by calculation (test code = 91943-6) Cholesterol in LDL [Mass/volume] in 121 mg/dL 0-99 H Serum or Plasma by calculation (test code = 85195-1) Laboratory comment [Text] in Report screedman Narrative (test code = 55776-2) [facility] CenterHemoglobin A1c/Hemoglobin.total in [id number] 00:00:00 Test Item Value Reference Range Interpretation Comments Hemoglobin A1c/Hemoglobin.total in 5.2 % 4.8-5.6 Blood (test code = 4548-4) Glucose mean value [Mass/volume] in 103 mg/dL Blood Estimated from glycated hemoglobin (test code = 69971-6) [facility] CenterHIV 1+2 Ab+HIV1 p24 Ag [Presence] in Serum or Plasma by [id number] 00:00:00 Test Item Value Reference Range Interpretation Comments HIV 1+2 Ab+HIV1 p24 Ag non reactive non reactive [Presence] in Serum or Plasma by Immunoassay (test code = 22242-8) [facility] CenterThyrotropin [Units/volume] in Serum or Plasma by Detection limit <= 0.005 mIU/[id number] 00:00:00 Test Item Value Reference Range Interpretation Comments Thyrotropin [Units/volume] in 0.677 uIU/mL 0.450-4.500 Serum or Plasma by Detection limit <= 0.005 mIU/L (test code = 87897-2) [facility] CenterReagin Ab [Presence] in Serum by RPR 2020-11-21 00:00:00 Test Item Value Reference Range Interpretation Comments Reagin Ab [Presence] in Serum by non reactive non reactive RPR (test code = 16364-2) [facility] CenterHepatitis B virus surface Ag [Presence] in Serum or Plasma by [id number] 00:00:00 Test Item Value Reference Range Interpretation Comments Hepatitis B virus surface Ag negative negative [Presence] in Serum or Plasma by Immunoassay (test code = 5196-1) [facility] Centercardiovascular assessment panel, [id number] 00:00:00 Test Item Value Reference Range Interpretation Comments Interpretation and review of laboratory note results (test code = 16880-6) Report (test code = 43862-5) . [facility] CenterINFLUENZA A AND B OW2020-07-07 21:13:00 Test Item Value Reference Range Interpretation Comments INFLUENZ A (test code = INFA) NEGATIVE NEGATIVE INFLUENZ B (test code = INFB) NEGATIVE NEGATIVE
--- NOTE | 2022-12-17 21:25 | ER ---
Nurse's Notes [facility] Name: Aileen Montalvo Age: 22 yrs Sex: Female : 2000 Arrival Date: 12/17/2022 Time: 19:47 Bed 12 Private MD: Diagnosis: Acute pharyngitis, unspecified Presentation: 12/17 19:56 Chief complaint: Patient states: C/O bilateral sore throat pain of 8 with clear nasal pf1 drainage, onset Wednesday. Coronavirus screen: Vaccine status: Patient reports receiving the 2nd dose of the covid vaccine. [employer] Client denies travel out of the [place] in the last 14 days. Client presents with at least one sign or symptom that may indicate coronavirus-19. Ebola Screen: Patient negative for fever greater than or equal to 101.5 degrees Fahrenheit, and additional compatible Ebola Virus Disease symptoms. Initial Sepsis Screen: Does the patient meet any 2 criteria? No. Patient's initial sepsis screen is negative. Does the patient have a suspected source of infection? No. Patient's initial sepsis screen is negative. Risk Assessment: Do you want to hurt yourself or someone else? Patient reports no desire to harm self or others. 19:56 Method Of Arrival: Ambulatory pf1 19:56 Acuity: [id number] pf1 DOORPERSON: 20:01 LMP 12/10/2022 pf1 Historical: - Allergies: 20:00 No Known Allergies; pf1 - Home Meds: 20:00 None [Active]; pf1 - PSHx: 20:00 Cyst removal; pf1 - Immunization history:: Adult Immunizations up to date, Client reports receiving the 2nd dose of the Covid vaccine, Last tetanus immunization: < 10 years ago Flu vaccine is up to date. - Social history:: Smoking status: Patient denies any tobacco usage or history of. Patient/guardian denies using alcohol, street drugs. Screenin:02 [facility] ED Fall Risk Assessment (Adult) History of falling in the last 3 months, pf1 including since admission No falls in past 3 months (0 pts) Confusion or Disorientation No (0 pts) Intoxicated or Sedated No (0 pts) Impaired Gait No (0 pts) Mobility Assist Device Used No (0 pt) Altered Elimination No (0 pt) Score/Fall Risk Level 0 - 2 = Low Risk Oriented to surroundings, Maintained a safe environment, Educated pt \T\ family on fall prevention, incl call for assistance when getting out of bed, Assessed \T\ reinforced patient's understanding of fall precautions, Provided non-skid footwear, Hourly rounding (assess needs \T\ fall precautionary measures) done, Used ambulatory aids as needed (educated on \T\ assisted with), Used gait belt as appropriate. Abuse screen: Denies threats or abuse. Nutritional screening: No deficits noted. Tuberculosis screening: No symptoms or risk factors identified. Assessment: 20:20 General: Appears in no apparent distress. comfortable, well groomed, well developed, pf1 Behavior is calm, cooperative, appropriate for age, quiet. 20:20 Pain: Complains of pain in bilateral sore throat pain of 8,onset Wednesday Pain currently pf1 is 8 out of 10 on a pain scale. Neuro: No deficits noted. Level of Consciousness is awake, alert, obeys commands, Oriented to person, place, time, situation. Cardiovascular: No deficits noted. Capillary refill < 3 seconds Patient's skin is warm and dry. Respiratory: No deficits noted. Airway is patent Respiratory effort is even, unlabored, Breath sounds are clear bilaterally. GI: No deficits noted. No signs and/or symptoms were reported involving the gastrointestinal system. : No deficits noted. No signs and/or symptoms were reported regarding the genitourinary system. EENT: Nares clear nasal drainage. Throat is reddened has enlarged tonsils bilaterally. Derm: No deficits noted. No signs and/or symptoms reported regarding the dermatologic system. Musculoskeletal: No deficits noted. No signs and/or symptoms reported regarding the musculoskeletal system. 21:00 Reassessment: Patient appears in no apparent distress at this time. Patient and/or pf1 family updated on plan of care and expected duration. Pain level reassessed. Patient is alert, oriented x 3, equal unlabored respirations, skin warm/dry/pink. Patient states feeling better. Patient states symptoms have improved. Vital Signs: 19:56 BP 111 / 81; Pulse 86; Resp 18; Temp 98.3; Pulse Ox 97% on R/A; Weight 88.45 kg; Height pf1 5 ft. 7 in. ; Pain 8/10; 22:02 BP 113 / 79; Pulse 82; Resp 18; Pulse Ox 100% on R/A; Pain 3/10; pf1 19:56 Body Mass Index 30.54 (88.45 kg, 170.18 cm) pf1 19:56 Pain Scale: Adult pf1 22:02 Pain Scale: Adult pf1 ED Course: 19:50 Patient arrived in ED. kj1 19:51 Rasta Morris PA is PHCP. cp 19:51 Yosvany Fam DO is Attending Physician. cp 20:00 Triage completed. pf1 20:03 Almaz Diaz, RN is Primary Nurse. pf1 20:08 Strep Sent. ds4 20:20 Arm band placed on. pf1 20:30 Patient has correct armband on for positive identification. Bed in low position. Call pf1 light in reach. 22:04 No provider procedures requiring assistance completed. Patient did not have IV access pf1 during this emergency room visit. Administered Medications: No medications were administered Medication: 22:04 VIS not applicable for this client. pf1 Outcome: 21:24 Discharge ordered by MD. cp 22:04 Discharged to home ambulatory. pf1 22:04 Condition: improved 22:04 Discharge instructions given to patient, Instructed on discharge instructions, follow up and referral plans. Demonstrated understanding of instructions, follow-up care, medications, Prescriptions given X 1. 22:04 Patient left the ED. pf1 Signatures: [place] ds4 Rasta Morris PA PA Cinthya Lam kj1 Almaz Diaz, RN RN pf1
--- NOTE | 2022-12-17 21:25 | EDPHYS ---
Physician Documentation [facility] Name: Aileen Montalvo Age: 22 yrs Sex: Female : 2000 Arrival Date: 12/17/2022 Time: 19:47 Bed 12 Private MD: ED Physician Yosvany Fam HPI: 12/17 20:30 This 22 yrs old Black Female presents to ER via Ambulatory with complaints of Sore cp Throat. 20:30 The patient presents with sore throat. Onset: The symptoms/episode began/occurred 2 cp day(s) ago. 20:30 The patient describes throat pain as scratchy. cp 20:30 Associated signs and symptoms: Pertinent negatives cough, diarrhea, dysphagia, earache, cp fever, flu-like symptoms, headache. [employer]: 20:01 LMP 12/10/2022 pf1 Historical: - Allergies: 20:00 No Known Allergies; pf1 - Home Meds: 20:00 None [Active]; pf1 - PSHx: 20:00 Cyst removal; pf1 - Immunization history:: Adult Immunizations up to date, Client reports receiving the 2nd dose of the Covid vaccine, Last tetanus immunization: < 10 years ago Flu vaccine is up to date. - Social history:: Smoking status: Patient denies any tobacco usage or history of. Patient/guardian denies using alcohol, street drugs. ROS: 20:35 Constitutional: Negative for body aches, chills, fever, poor PO intake. cp 20:35 Eyes: Negative for injury, pain, redness, and discharge. cp 20:35 ENT: Positive for sore throat, Negative for drainage from ear(s), ear pain, difficulty swallowing, difficulty handling secretions. 20:35 Respiratory: Negative for cough, shortness of breath, wheezing. 20:35 Abdomen/GI: Negative for abdominal pain, vomiting, diarrhea, constipation. 20:35 Skin: Negative for rash. 20:35 Neuro: Negative for altered mental status, headache, weakness. 20:35 All other systems are negative. Exam: 20:40 Constitutional: The patient appears in no acute distress, alert, awake, non-toxic, well cp developed, well nourished. 20:40 Head/Face: Normocephalic, atraumatic. cp 20:40 Eyes: Periorbital structures: appear normal, Conjunctiva: normal, no exudate, no injection, Lids and lashes: appear normal, bilaterally. 20:40 ENT: External ear(s): are unremarkable, Ear canal(s): are normal, clear, TM's: bulging, is not appreciated, bilaterally, dullness, bilaterally, erythema, is not appreciated, bilaterally, Nose: is normal, Mouth: Lips: moist, Oral mucosa: moist, Posterior pharynx: Airway: no evidence of obstruction, patent, Tonsils: no enlargement, no exudate, erythema, that is mild, exudate, is not appreciated. 20:40 Neck: ROM/movement: is normal, is supple, without pain, no range of motions limitations, no meningismus, no nuchal rigidity, Lymph nodes: no appreciated lymphadenopathy. 20:40 Chest/axilla: Inspection: normal. 20:40 Cardiovascular: Rate: normal, Rhythm: regular. 20:40 Respiratory: the patient does not display signs of respiratory distress, Respirations: normal, no use of accessory muscles, no retractions, labored breathing, is not present, Breath sounds: are clear throughout, no decreased breath sounds, no stridor, no wheezing. 20:40 Abdomen/GI: Exam negative for discomfort, distension, guarding, Inspection: abdomen appears normal. Vital Signs: 19:56 BP 111 / 81; Pulse 86; Resp 18; Temp 98.3; Pulse Ox 97% on R/A; Weight 88.45 kg; Height pf1 5 ft. 7 in. ; Pain 8/10; 22:02 BP 113 / 79; Pulse 82; Resp 18; Pulse Ox 100% on R/A; Pain 3/10; pf1 19:56 Body Mass Index 30.54 (88.45 kg, 170.18 cm) pf1 19:56 Pain Scale: Adult pf1 22:02 Pain Scale: Adult pf1 MDM: 20:06 Patient medically screened. cp 20:30 Differential diagnosis: group A strep tonsillitis, influenza, laryngitis, peritonsillar cp abscess pharyngitis, retropharyngeal abcess. 21:23 Data reviewed: vital signs, nurses notes, lab test result(s). cp 21:23 Counseling: I had a detailed discussion with the patient and/or guardian regarding: the cp historical points, exam findings, and any diagnostic results supporting the discharge/admit diagnosis, lab results, to return to the emergency department if symptoms worsen or persist or if there are any questions or concerns that arise at home. 12/17 19:56 Order name: Strep cp 12/17 20:34 Order name: Throat Culture EDMS Administered Medications: No medications were administered Disposition: 12/18 20:57 Co-signature as Attending Physician, Yosvany Fam DO I was immediately available on-site ms3 in the Emergency Department for consultation in the care of the patient. Disposition Summary: 12/17/22 21:24 Discharge Ordered Location: Home cp Problem: new cp Symptoms: are unchanged cp Condition: Stable cp Diagnosis - Acute pharyngitis, unspecified cp Followup: cp - With: Private Physician - When: 2 - 3 days - Reason: Recheck today's complaints Discharge Instructions: - Discharge Summary Sheet cp - Pharyngitis cp - Sore Throat cp Forms: - Medication Reconciliation Form cp - Thank You Letter cp - Antibiotic Education cp - Prescription Opioid Use cp Prescriptions: - Tessalon Perles 100 mg Oral Capsule - take 1 capsule by ORAL route every 8 hours As needed; 15 capsule; Refills: 0, cp Product Selection Permitted Signatures: Dispatcher [employer] EDMS Rasta Morris PA PA cp Yosvany Fam DO DO ms3 Almaz Diaz, RN RN pf1
[2022-12-17 22:10] VITALS: TEMP 98.3
[2022-12-17 22:12] VITALS: BP 113/79; O2SAT 100
== END 2022-12-17 22:04 | disposition home or self-care (01) ==
LOC: ER 19:47
DX: J02.9 Acute pharyngitis, unspecified (principal)
CPT/HCPCS: 87070; 87081; 99283

== ENCOUNTER → 2023-07-26 | Emergency (ER) | payer OTHER ==
[~2023-07-26] MED LIST changes: -BUPIVACAINE 0.25% PF 30 ML VIAL IJ ONE; +DOXYCYCLINE 100 MG CAP PO ONE; -METHYLENE BLUE 1% 10 ML AMP IV ONE; +MORPHINE 4 MG/ML SYR ONE; +NA CHLORIDE 0.9% 1,000 ML ONE; +ONDANSETRON 4 MG/2 ML VIAL ONE
--- OUTSIDE RECORDS SUMMARY | 2023-07-26 11:39 | XMS REPORT | Continuity of Care Document ---
Author Name Unknown Address [address] [facility] [address] [place] [address] [facility] Address [address] [facility] [address] [place] [address] Care Team Providers Care Hydrator Name Role Phone YIN CAVANAUGH Attending Clinician Unavailable RAVEN Attending Clinician Unavailable DR ALFRED HORNER Attending Clinician Unavailayana CAVANAUGH, DR MOSQUERA Attending Clinician Unavailable DR JORGE HUBBARD Attending Clinician Unavailable JUDSON, DR BAKER Attending Clinician Unavailable DR ALEK JANG Attending Clinician Unavailable YIN CAVANAUGH Admitting Clinician Unavailable RAVEN Admitting Clinician Unavailable DR ALFRED HORNER Admitting Clinician UnavailDR EVELINE Gillette Admitting Clinician Unavailable DR JORGE HUBBARD Admitting Clinician Unavailable DR OLIVIA ROPER Admitting Clinician Unavailable DR ALEK JANG Admitting Clinician Unavailable Payers Payer Name Policy Type Policy Number Effective Date Expirati on Date Source [id number] 2018 00:00:00 [place] [id number] 2021 00:00:[place] [id number] 2020 00:00:00 2021 00:00:00 Problems Condition Name Condition Details Condition Category Status Onset Date Resolution Date Last Treatment Date Treating Clinician Comments Source Trichomona l vaginitis Trichomona l Vaginitis Problem Active 8-20 00:00: 00 [facility] Pilonidal cyst Pilonidal Cyst Problem Active 7-04 00:00: 00 [facility] Abnormal findings on diagnostic imaging of breast Abnormal Findings on Diagnostic Imaging of Breast Problem Active 3-15 00:00: 00 [facility] Allergies, Adverse Reactions, Alerts Allergy Name Allergy Type Status Severity Reaction(s) Onset Date Inactive Date Treating Clinician Comments Source No Known Allergie s [facility] Social History Smoking Status Start Date Stop Date Source Never Smoker [facility] Medications Ordered Medication Name Filled Medication Name Start Date Stop Date Current Medication? Ordering Clinician Indication Dosage Frequency Signature (SIG) Comments Components Source cyclobenzap rine 10 mg tablet Take 1 tablet 3 times a day by oral route. cyclobenzap rine 10 mg tablet Take 1 tablet 3 times a day by oral route. No 1 TID cyclobenza joshua 10 mg tablet Take 1 tablet 3 times a day by oral route. [facility] hydrocodone 5 mg-acetamin ophen 325 mg tablet hydrocodone 5 mg-acetamin ophen 325 mg tablet No hydrocodon e 5 mg-acetami nophen 325 mg tablet [facility] ibuprofen 600 mg tablet ibuprofen 600 mg tablet No ibuprofen 600 mg tablet [facility] Lidocaine Viscous 2 % mucosal solution Lidocaine Viscous 2 % mucosal solution No Lidocaine Viscous 2 % mucosal solution [facility] naproxen 500 mg tablet Take 1 tablet twice a day by oral route. naproxen 500 mg tablet Take 1 tablet twice a day by oral route. No naproxen 500 mg tablet Take 1 tablet twice a day by oral route. [facility] neomycin-po lymyxin-hyd rocort 3.5 mg-10,000 unit/mL-1 % ear drops,susp neomycin-po lymyxin-hyd rocort 3.5 mg-10,000 unit/mL-1 % ear drops,susp No neomycin-p olymyxin-h ydrocort 3.5 mg-10,000 unit/mL-1 % ear drops,susp [facility] prednisone 50 mg tablet prednisone 50 mg tablet No prednisone 50 mg tablet [facility] sulfamethox azole 800 mg-trimetho prim 160 mg tablet sulfamethox azole 800 mg-trimetho prim 160 mg tablet No sulfametho xazole 800 mg-trimeth oprim 160 mg tablet [facility] tramadol 50 mg tablet tramadol 50 mg tablet No tramadol 50 mg tablet [facility] Vital Signs Vital Name Observation Time Observation Value Comments S ource BP Diastolic 2022-03-04 00:00:00 72 mm[Hg] Hugo marquis [facility] Height 2022-03-04 00:00:00 67 [in_i] Jessie hines [facility] BMI (Body Mass Index) 2022-03-04 00:00:00 28.3 kg/m2 [facility] BP Systolic 2022-03-04 00:00:00 111 mm[Hg] Edwardo crain [facility] Body Weight 2022-03-04 00:00:00 181 [lb_av] Hugo marquis [facility] BP Diastolic 2022-02-24 00:00:00 73 mm[Hg] Hugo marquis [facility] Height 2022-02-24 00:00:00 67 [in_i] Jessie sin [facility] BMI (Body Mass Index) 2022-02-24 00:00:00 27.6 kg/m2 [facility] BP Systolic 2022-02-24 00:00:00 107 mm[Hg] Edwardo crain [facility] Body Weight 2022-02-24 00:00:00 2818 [oz_av] Ryley william [facility] BP Diastolic 2022-01-05 00:00:00 70 mm[Hg] Hugo marquis [facility] Height 2022-01-05 00:00:00 67 [in_i] Matrahat orda [facility] BMI (Body Mass Index) 2022-01-05 00:00:00 27.6 kg/m2 [place] [facility] BP Systolic 2022-01-05 00:00:00 102 mm[Hg] Brooke paras [facility] Body Weight 2022-01-05 00:00:00 176 [lb_av] Mat [place]a [facility] BP Diastolic 2021-12-16 00:00:00 83 mm[Hg] Mat [place] [facility] Height 2021-12-16 00:00:00 67 [in_i] Matrahat orda [facility] BMI (Body Mass Index) 2021-12-16 00:00:00 28.3 kg/m2 [place] [facility] BP Systolic 2021-12-16 00:00:00 126 mm[Hg] Brooke paras [facility] Body Weight 2021-12-16 00:00:00 2896 [oz_av] Ryley tagorda [facility] Height 2021-11-11 20:05:00 170.18 CM Weight 2021-11-11 20:05:00 79.37 KG BP Diastolic 2021-10-28 00:00:00 70 mm[Hg] [place] [facility] Height 2021-10-28 00:00:00 67 [in_i] Matrahat orda [facility] BMI (Body Mass Index) 2021-10-28 00:00:00 27.6 kg/m2 [place] [facility] BP Systolic 2021-10-28 00:00:00 106 mm[Hg] Brooke paras [facility] Body Weight 2021-10-28 00:00:00 2816 [oz_av] Ryley tagorda [facility] Height 2021-09-23 15:42:00 170.18 CM Weight 2021-09-23 15:42:00 76.65 KG BP Diastolic 2021-09-11 00:00:00 74 mm[Hg] [place] [facility] Height 2021-09-11 00:00:00 67 [in_i] Jessie orda [facility] BMI (Body Mass Index) 2021-09-11 00:00:00 26.5 kg/m2 [place] [facility] BP Systolic 2021-09-11 00:00:00 114 mm[Hg] Edwardo espinozaa [facility] Body Weight 2021-09-11 00:00:00 2704 [oz_av] Ryley tagorda [facility] Height 2021-08-11 19:48:00 170.18 CM Weight 2021-08-11 19:48:00 73.93 KG Height 2021-04-14 20:01:00 170.18 CM Weight 2021-04-14 20:01:00 76.65 KG Height 2020-12-24 20:50:00 170.18 CM Weight 2020-12-24 20:50:00 76.2 KG BP Diastolic 2020-12-16 00:00:00 71 mm[Hg] Hugo betancurrda [facility] Height 2020-12-16 00:00:00 67 [in_i] Jessie orda [facility] BMI (Body Mass Index) 2020-12-16 00:00:00 26.6 kg/m2 [place] [facility] BP Systolic 2020-12-16 00:00:00 108 mm[Hg] Edwardo espinozaa [facility] Body Weight 2020-12-16 00:00:00 2720 [oz_av] Ryley anneorda [facility] BP Diastolic 2020-11-20 00:00:00 79 mm[Hg] Hugo betancurrda [facility] Height 2020-11-20 00:00:00 67 [in_i] Jessie orda [facility] BMI (Body Mass Index) 2020-11-20 00:00:00 25.8 kg/m2 [place] [facility] BP Systolic 2020-11-20 00:00:00 123 mm[Hg] Brooke paras [facility] Body Weight 2020-11-20 00:00:00 2640 [oz_av] Ma william [facility] Height 2020-07-07 20:12:00 170.18 CM Weight 2020-07-07 20:12:00 74.84 KG Procedures Procedure Date / Time Performed Performing Clinicia n Source US, breast, unilateral 2022-03-03 00:00:00 [place] [facility] US, breast, unilateral 2022-02-09 00:00:00 [place] [facility] MAMMO, diagnostic, unilateral 2021-09-11 00:00:00 [place] [facility] US, breast, unilateral 2021-09-11 00:00:00 [place] [facility] Hernia Repair W/mesh 2007-07-12 00:00:00 [place] [facility] Encounters Start Date/Time End Date/Time Encounter Type Admission Type Attending [facility] Care Department Encounter ID Source 2021-11-30 08:00:00 Inpatient YIN [facility]ESINOS [facility] [id number] [facility] 2022-04-14 00:00:00 2022-04-14 00:00:00 Outpatient SHIMEK_MARY _ANN [facility] [id number] [facility] 2022-04-14 00:00:00 2022-04-14 00:00:00 Outpatient SHIMEK_MARY _ANN [facility] [id number] [facility] 2022-04-14 00:00:00 2022-04-14 00:00:00 Outpatient SHIMEK_MARY _ANN [facility] [id number] [facility] 2022-03-08 00:00:00 2022-03-08 00:00:00 Outpatient SHIMEK_MARY _ANN [facility] [id number] [facility] 2022-03-04 00:00:00 2022-03-04 00:00:00 Outpatient SHIMEK_MARY _ANN [facility] [id number] [facility] 2022-03-04 00:00:00 2022-03-04 00:00:00 Cecy Gallo MD: [id number] [facility] [address], [place] [address] , Ph. [phone] [facility] [id number] [facility] 2022-02-24 00:00:00 2022-02-24 00:00:00 Outpatient SHIMEK_MARY _ANN [facility] [id number] [facility] 2022-02-24 00:00:00 2022-02-24 00:00:00 Esme Jones, IMPLEMENTATION COORDINATOR: [address] [place] [address] , Ph. [facility] 3 [id number] [facility] 2022-02-18 00:00:00 2022-02-18 00:00:00 Outpatient SHIMEK_MARY _ANN [facility] [id number] [facility] 2022-01-05 00:00:00 2022-01-05 00:00:00 Outpatient SHIMEK_MARY _ANN [facility] [id number] [facility] 2022-01-05 00:00:00 2022-01-05 00:00:00 Cecy Gallo MD: [id number], [address], [place] [address] , Ph. [facility] [id number] [facility] 2021-12-16 04:23:00 2021-12-16 04:23:00 Outpatient SHIMEK_MARY _ANN [facility] [id number] [facility] 2021-12-16 04:23:00 2021-12-16 04:23:00 Outpatient SHIMEK_ESME _CATARINA [facility] [id number] [facility] 2021-12-16 04:23:00 2021-12-16 04:23:00 Outpatient SHIMEK_ESME DE LA T[place]RE [facility] [id number] [facility] 2021-12-16 04:23:00 2021-12-16 04:23:00 Outpatient SHIMEK_ESME DE [place] [facility] [id number] [facility] 2021-12-16 00:00:00 2021-12-16 00:00:00 Esme Jones, IMPLEMENTATION COORDINATOR: [place] [address] , Ph. [facility] [place] [address] [id number] [facility] 2021-12-15 10:05:00 2021-12-15 10:05:00 Outpatient SHIMEK_ESME DE [place] [facility] [id number] [facility] 2021-11-11 19:53:00 2021-11-11 22:56:00 Outpatient ALFRED VELIZ [facility] [id number] [facility] 2021-10-28 03:50:00 2021-10-28 03:50:00 Outpatient SHIMEK_ESME DE [place] [facility] [id number] [facility] 2021-10-28 03:49:00 2021-10-28 03:49:00 Outpatient SHIMEK_ESME DE [place] [facility] [id number] [facility] 2021-10-28 00:00:00 2021-10-28 00:00:00 Esme Jones, IMPLEMENTATION COORDINATOR: [place] [address] , Ph. [facility] 3 [id number] [facility] 2021-09-23 15:42:00 2021-09-23 16:43:00 Outpatient Allegra EVELINE CAVANAUGH [facility] [id number] [facility] 2021-09-16 09:09:00 2021-09-16 09:09:00 Outpatient SHIMEK_MARY _ANN [facility] [id number] [facility] 2021-09-16 09:09:00 2021-09-16 09:09:00 Outpatient SHIMEK_MARY _ANN [facility] [id number] [facility] 2021-09-16 09:09:00 2021-09-16 09:09:00 Outpatient SHIMEK_MARY _ANN [facility] [id number] [facility] 2021-09-11 07:46:00 2021-09-11 07:46:00 Outpatient SHIMEK_MARY _ANN [facility] [id number] [facility] 2021-09-11 00:00:00 2021-09-11 00:00:00 Esme Jones, IMPLEMENTATION COORDINATOR: [address] [place] [address] , [facility] 3 [id number] [facility] 2021-08-11 19:40:00 2021-08-11 22:04:00 Outpatient E JORGE HUBBARD [facility] [id number] [facility] 2021-04-14 19:53:00 2021-04-14 20:14:00 Outpatient E JORGE HUBBARD [facility] [id number] [facility] 2020-12-24 20:48:00 2020-12-24 21:09:00 Outpatient Allegra ROPER OLIVIA [facility] [id number] [facility] 2020-12-16 12:14:00 2020-12-16 12:14:00 Outpatient SHIMEK_ESME DE LA TORRE [facility] [id number] [facility] 2020-12-16 12:14:00 2020-12-16 12:14:00 Outpatient SHIMEK_ESME DE [place] T[place]RE [facility] [id number] [facility] 2020-12-16 12:14:00 2020-12-16 12:14:00 Outpatient SHIMEK_ESME DE [place] T[place]RE [facility] [id number] [facility] 2020-12-16 12:14:00 2020-12-16 12:14:00 Outpatient SHIMEK_ESME DE [place]RE [facility] [id number] [facility] 2020-12-16 12:14:00 2020-12-16 12:14:00 Outpatient SHIMEK_ESME D ELA TORRE [facility] [id number] [facility] 2020-12-16 12:14:00 2020-12-16 12:14:00 Outpatient SHIMEK_ESME DE [place]RE [facility] [id number] [facility] 2020-12-16 00:00:00 2020-12-16 00:00:00 Esme Jones, IMPLEMENTATION COORDINATOR: [address] [place] [address] , Ph. [facility] [place] [address] [id number] [facility] 2020-11-20 04:22:00 2020-11-20 04:22:00 Outpatient SHIMEK_ESME DE [place]RE [facility] [id number] [facility] 2020-11-20 00:00:00 2020-11-20 00:00:00 Esme Jones, IMPLEMENTATION COORDINATOR: [address] [address] , Ph. [facility] 3 [id number] [facility] 2020-11-18 08:32:00 2020-11-18 08:32:00 Outpatient JOLENE DE LA TORRE [facility] [id number] [facility] 2020-10-22 04:44:00 2020-10-22 04:44:00 Outpatient JOLENE DE LA TORRE [facility] [id number] [facility] 2020-07-07 20:12:00 2020-07-07 22:25:00 Outpatient ALEK VU [facility] [id number] [facility] Results Test Description Test Time Test Comments Results Result Co mments Source [facility] W Auto Differential panel - Blood 2021-12-17 00:00:00* Test Item Value Reference Range Interpretation Comme nts Leukocytes [#/volume] in Blo od by Automated count (test code = 6690-2) 6.9 x10e3/uL 3.4-10.8 Erythrocytes [#/volume] in Blood by Automated count (test code = 789-8) 4.29 x10e6/uL 3.77-5.28 Hemoglobin [Mass/volume] in Blood (test code = 718-7) 13.1 g/dL 11.1-15.9 Hematocrit [Volume Fraction] of Blood by Automated count (test code = 4544-3) 39.4 % 34.0-46.6 Erythrocyte mean corpuscular volume [Entitic volume] by Automated count (test code = 787-2) 92 fL 79-97 Erythrocyte mean corpuscular hemoglobin [Entitic mass] by Automated count (test code = 785-6) 30.5 pg 26.6-33.0 Erythrocyte mean corpuscular hemoglobin concentration [Mass/volume] by Automated count (test code = 786-4) 33.2 g/dL 31.5-35.7 Erythrocyte distribution wid th [Ratio] by Automated count (test code = 788-0) 11.5 % 11.7-15.4 L Platelets [#/volume] in Bloo d by Automated count (test code = 777-3) 323 x10e3/uL 150-450 Neutrophils/100 leukocytes i n Blood by Automated count (test code = 770-8) 53 % not estab. Lymphocytes/100 leukocytes i n Blood by Automated count (test code = 736-9) 29 % not estab. Monocytes/100 leukocytes in Blood by Automated count (test code = 5905-5) 11 % not estab. Eosinophils/100 leukocytes i n Blood by Automated count (test code = 713-8) 6 % not estab. Basophils/100 leukocytes in Blood by Automated count (test code = 706-2) 1 % not estab. immature cells (test code = immature cells) pathology supervisor Neutrophils [#/volume] in Bl ood by Automated count (test code = 751-8) 3.7 x10e3/uL 1.4-7.0 Lymphocytes [#/volume] in Bl ood by Automated count (test code = 731-0) 2.0 x10e3/uL 0.7-3.1 Monocytes [#/volume] in Bloo d by Automated count (test code = 742-7) 0.8 x10e3/uL 0.1-0.9 Eosinophils [#/volume] in Bl ood by Automated count (test code = 711-2) 0.4 x10e3/uL 0.0-0.4 Basophils [#/volume] in Bloo d by Automated count (test code = 704-7) 0.1 x10e3/uL 0.0-0.2 Immature granulocytes/100 leukocytes in Blood by Automated count (test code = 07433-6) 0 % not estab. Immature granulocytes [#/volume] in Blood by Automated count (test code = 74131-3) 0.0 x10e3/uL 0.0-0.1 Nucleated erythrocytes/100 leukocytes [Ratio] in Blood by Automated count (test code = 78628-6) pathology supervisor Morphology [Interpretation] in Blood Narrative (test code = 14528-9) pathology supervisor [facility] 2000 panel - Serum or [id number] 00:00:00* Test Item Value Reference Range Interpretation Comme nts Glucose [Mass/volume] in Serum or Plasma (test code = 2345-7) 93 mg/dL 65-99 Urea nitrogen [Mass/volume] in Serum or Plasma (test code = 3094-0) 15 mg/dL 6-20 Creatinine [Mass/volume] in Serum or Plasma (test code = 216-0) 0.79 mg/dL 0.57-1.00 eGFR (test code = eGFR) 108 mL/min/1.73 >59 Urea nitrogen/Creatinine [Mass Ratio] in Serum or Plasma (test code = 3097-3) 19 9-23 Sodium [Moles/volume] in Serum or Plasma (test code = 2951-2) 144 mmol/L 134-144 Potassium [Moles/volume] in Serum or Plasma (test code = 2823-3) 4.9 mmol/L 3.5-5.2 Chloride [Moles/volume] in Serum or Plasma (test code = 2074-0) 106 mmol/L 96-106 Carbon dioxide, total [Moles/volume] in Serum or Plasma (test code = 2027-) 21 mmol/L 20-29 Calcium [Mass/volume] in Serum or Plasma (test code = 64989-6) 9.6 mg/dL 8.7-10.2 Protein [Mass/volume] in Serum or Plasma (test code = 2885-2) 7.4 g/dL 6.0-8.5 Albumin [Mass/volume] in Serum or Plasma (test code = 175-7) 4.4 g/dL 3.9-5.0 Globulin [Mass/volume] in Serum by calculation (test code = 00547-7) 3.0 g/dL 1.5-4.5 Albumin/Globulin [Mass Ratio ] in Serum or Plasma (test code = 1759-0) 1.5 1.2-2.2 Bilirubin.total [Mass/volume ] in Serum or Plasma (test code = 1974-) 0.3 mg/dL 0.0-1.2 Alkaline phosphatase [Enzymatic activity/volume] in Serum or Plasma (test code = 6768-6) 61 IU/L 44-121 Aspartate aminotransferase [Enzymatic activity/volume] in Serum or Plasma (test code = 0-8) 12 IU/L 0-40 Alanine aminotransferase [Enzymatic activity/volume] in Serum or Plasma (test code = 174-6) 14 IU/L 0-32 [facility] - [facility] or Plasma 2021-12-17 00:00:00* Test Item Value Reference Range Interpretation Comme nts Cholesterol [Mass/volume] in Serum or Plasma (test code = 2093-3) 196 mg/dL 100-199 Triglyceride [Mass/volume] i n Serum or Plasma (test code = 2571-8) 180 mg/dL 0-149 H Cholesterol in HDL [Mass/vol ume] in Serum or Plasma (test code = 2085-9) 52 mg/dL >39 Cholesterol in VLDL [Mass/vo lume] in Serum or Plasma by calculation (test code = 94512-4) 31 mg/dL 5-40 Cholesterol in LDL [Mass/vol ume] in Serum or Plasma by calculation (test code = 51737-3) 113 mg/dL 0-99 H Laboratory comment [Text] in Report Narrative (test code = 61168-4) [facility]Hemoglobin.total in [id number] 00:00:00* Test Item Value Reference Range Interpretation Comme nts Hemoglobin A1c/Hemoglobin.to meron in Blood (test code = 4548-4) 5.4 % 4.8-5.6 Glucose mean value [Mass/vol ume] in Blood Estimated from glycated hemoglobin (test code = 79495-9) 108 mg[facility]dL [facility] [Presence] in Serum by RPR 2021-12-17 00:00:00* Test Item Value Reference Range Interpretation Comme nts Reagin Ab [Presence] in Seru m by RPR (test code = 33250-4) non reactive non reactive [facility] 2 tests - Meaningful Use [id number] 00:00:00* Test Item Value Reference Range Interpretation Comme nts HIV 1+2 Ab+HIV1 p24 Ag [Presence] in Serum or Plasma by Immunoassay (test code = 84690-4) non reactive non reactive [facility] virus surface Ag [Presence] in Serum or Plasma by [id number] 00:00:00* Test Item Value Reference Range Interpretation Comme nts Hepatitis B virus surface Ag [Presence] in Serum or Plasma by Immunoassay (test code = 5196-1) negative negative [facility] panel, [id number] 00:00:00* Test Item Value Reference Range Interpretation Comme nts Interpretation and review of laboratory results (test code = 48718-1) note Report (test code = 60789-3) . [facility]AST *OW*2021-11-11 22:27:47[facility] : 2000 Sex: FEXAMINATION:CT [...] the nasal cavity, nasopharynx, oral cavity, oropharynx, hypopharynx, larynx, and visualized trachea and esophagus demonstrate no masses.Lymph Nodes: Small jugulo digastric and posterior cervical chain lymph nodes are identified the largest of which is in the left jugulodigastric region measuring 1.4 cm. These are not considered to be pathologically enlarged.Salivary Glands: The parotid and submandibular glands appear within normal limits. Thyroid: The thyroid gland is normal in size without focal abnormality.Brain: Evaluation of the visualized portions ofthe brain parenchyma and orbits demonstrates no abnormality. [...] Daniel Nolan MD 11/11/2021 10:27 PM CDT [id number] Panel *OW* [id number] 21:40:00* Test Item Value Reference Range Interpretation Comme nts GLUCOSE (test code = GGUL) 88 mg/dL [...] mmol/L 18-33 CBC (INCLUDES AUTOMATED DIFFERENTIAL) *2021-11-11 21:31:00* Test Item Value Reference Range Interpretation Comme nts WBC (test code = WBC) 9.5 10\S\3/uL [...] 7.7 % 0.0-10.0 DIRECT STREP GROUP AOW2021-11-11 21:03:00* Test Item Value Reference Range Interpretation Comme nts Strep A Ag (test code = STREP) NEGATIVE NEGATIVE CT ABDOMEN AND PELVIS W/O CONTRAST *OW*2021-08-11 21:29:43 [facility] 2000 Sex: FEXAMINATION:Chest, abdomen, [...] bronchi are patent. Lungs are well aerated andclear. No pneumothorax is identified. No pulmonary nodules or masses are identified. No pleural effusion is present. Heart/Vessels: Heart is normal in size. No coronary artery atherosclerosis is identified. No pericardial effusion is present. Aorta is normal in caliber and contour. No atherosclerosis is identified. Central pulmonary arteries are normal in size.Soft Tissues: Visualized thyroid gland is normal. The esophagus is normal. No soft tissue abnormality of the chest is demonstrated. 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 1.4 cm nodule is present in the medial upper right b reast.Abdomen/Pelvis:Characterization of the solid organs is limited by [...] cm right breast nodule.Electronically signed by: Shabbir pedraza MD 08/11/2021 9:29 PM [facility] CHEST W/O CONTRAST *OW* 2021-08-11 21:29:43 [facility] : 2000 Sex: FEXAMINATION:Chest, abdomen, [...] bronchi are patent. Lungs are well aerated andclear. No pneumothorax is identified. No pulmonary nodules or masses are identified. No pleural effusion is present. Heart/Vessels: Heart is normal in size. No coronary artery atherosclerosis is identified. No pericardial effusion is present. Aorta is normal in caliber and contour. No atherosclerosis is identified. Central pulmonary arteries are normal in size.Soft Tissues: Visualized thyroid gland is normal. The esophagus is normal. No soft tissue abnormality of the chest is demonstrated. 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 1.4 cm nodule is present in the medial upper right b reast.Abdomen/Pelvis:Characterization of the solid organs is limited by [...] cm right breast nodule.Electronically signed by: Shabbir pedraza MD 08/11/2021 9:29 PM [employer] [id number] HEAD W/O CONTRAST *OW* 2021-08-11 21:28:07 [facility] 2000 Sex: FExam: CT head without contrast.Location: 12History: Traumatic injuryTechnique: Unenhanced spiral [...] is seen. Right maxillary sinusitis is noted.. The mastoid air cells are well pneumatized. The bony calvarium is intact.Impression:1. No acute intracranial abnormality.2. Sinusitis..Electronically signed by: Mina Clayton MD 08/11/2021 9:28 PM [facility] CERVICAL SPINE W/O CONTRAST *OW*2021-08-11 21:24:12 [facility] 2000 Sex: FExam: CT [...] patient size, and/or utilization of iterative reconstruction technique.Electronically signed by: Kevin Arango MD 08/11/2021 9:24 PM [facility] [id number] URINE OW2021-08-11 20:27:00* Test Item Value Reference Range Interpretation Comme nts PREG UR (test code = PGU) Negative NEGATIVE URINALYSIS W/O MICROSCOPICOW2021-08-11 20:25:00* Test Item Value Reference Range Interpretation Comme nts COLOR (test code = COLU) Yellow YELLOW CLARITY (test code = CLA) Clear CLEAR GLUCOSE UR (test code = UA GLUCOSE) Negative NEGATIVE BILI UR (test code = BILE) Negative NEGATIVE KETONES UR (test code = FRANK) 1+ NEGATIVE A SP GRAVITY (test code = SPGR) >=1.030 1.005-1.030 PH UR (test code = PH) 6.5 4.5-8.0 PROTEIN UR (test code = PU) Negative NEGATIVE NITRITE UR (test code = NITRITE) Negative NEGATIVE UROBIL UR (test code = GUROQ) 2.0 E.U./dL UROBIL UR (test code = GUROQC) UROBILINOGEN REFERENCE RANGE 0.2 - 1.0 EU/dL BLOOD UR (test code = UA BLOOD) Negative NEGATIVE LEUK ES UR (test code = LEUK) Negative NEGATIVE CBC W Auto Differential panel - [id number] 00:00:00* Test Item Value Reference Range Interpretation Comme nts Leukocytes [#/volume] in Blo od by Automated count (test code = 6690-2) 5.5 x10e3/uL 3.4-10.8 Erythrocytes [#/volume] in Blood by Automated count (test code = 789-8) 4.64 x10e6/uL 3.77-5.28 Hemoglobin [Mass/volume] in Blood (test code = 718-7) 14.3 g/dL 11.1-15.9 Hematocrit [Volume Fraction] of Blood by Automated count (test code = 4544-3) 42.4 % 34.0-46.6 MCV [Entitic volume] by Automated count (test code = 787-2) 91 fL 79-97 MCH [Entitic mass] by Automa shira count (test code = 785-6) 30.8 pg 26.6-33.0 MCHC [Mass/volume] by Automa shira count (test code = 786-4) 33.7 g/dL 31.5-35.7 Erythrocyte distribution wid th [Ratio] by Automated count (test code = 788-0) 11.3 % 11.7-15.4 L Platelets [#/volume] in Bloo d by Automated count (test code = 777-3) 327 x10e3/uL 150-450 Neutrophils/100 leukocytes i n Blood by Automated count (test code = 770-8) 56 % not estab. Lymphocytes/100 leukocytes i n Blood by Automated count (test code = 736-9) 27 % not estab. Monocytes/100 leukocytes in Blood by Automated count (test code = 5905-5) 15 % not estab. Eosinophils/100 leukocytes i n Blood by Automated count (test code = 713-8) 2 % not estab. Basophils/100 leukocytes in Blood by Automated count (test code = 706-2) 0 % not estab. immature cells (test code = immature cells) pathology supervisor Neutrophils [#/volume] in Bl ood by Automated count (test code = 751-8) 3.1 x10e3/uL 1.4-7.0 Lymphocytes [#/volume] in Bl ood by Automated count (test code = 731-0) 1.5 x10e3/uL 0.7-3.1 Monocytes [#/volume] in Bloo d by Automated count (test code = 742-7) 0.8 x10e3/uL 0.1-0.9 Eosinophils [#/volume] in Bl ood by Automated count (test code = 711-2) 0.1 x10e3/uL 0.0-0.4 Basophils [#/volume] in Bloo d by Automated count (test code = 704-7) 0.0 x10e3/uL 0.0-0.2 Immature granulocytes/100 leukocytes in Blood by Automated count (test code = 37177-2) 0 % not estab. Immature granulocytes [#/volume] in Blood by Automated count (test code = 34212-2) 0.0 x10e3/uL 0.0-0.1 Nucleated erythrocytes/100 leukocytes [Ratio] in Blood by Automated count (test code = 32514-8) pathology supervisor Morphology [Interpretation] in Blood Narrative (test code = 37512-3) pathology supervisor [facility] Out[facility] ProgramComprehensive metabolic 2000 panel - Serum or [id number] 00:00:00* Test Item Value Reference Range Interpretation Comme nts Glucose [Mass/volume] in Serum or Plasma (test code = 2345-7) 72 mg/dL 65-99 Urea nitrogen [Mass/volume] in Serum or Plasma (test code = 3094-0) 11 mg/dL 6-20 Creatinine [Mass/volume] in Serum or Plasma (test code = 2160-0) 0.72 mg/dL 0.57-1.00 Glomerular filtration rate/1.73 sq M.predicted among non-blacks [Volume Rate/Area] in Serum, Plasma or Blood by Creatinine-based formula (CKD-EPI) (test code = 88325-7) 119 mL/min/1.73 >59 Glomerular filtration rate/1.73 sq M.predicted among blacks [Volume Rate/Area] in Serum, Plasma or Blood by Creatinine-based formula (CKD-EPI) (test code = 38420-5) 137 mL/min/1.73 >59 Urea nitrogen/Creatinine [Mass Ratio] in Serum or Plasma (test code = 3097-3) 15 9-23 Sodium [Moles/volume] in Serum or Plasma (test code = 2951-2) 140 mmol/L 134-144 Potassium [Moles/volume] in Serum or Plasma (test code = 2823-3) 4.9 mmol/L 3.5-5.2 Chloride [Moles/volume] in Serum or Plasma (test code = 2074-0) 100 mmol/L 96-106 Carbon dioxide, total [Moles/volume] in Serum or Plasma (test code = 2028-03) 25 mmol/L 20-29 Calcium [Mass/volume] in Serum or Plasma (test code = 59867-1) 10.0 mg/dL 8.7-10.2 Protein [Mass/volume] in Serum or Plasma (test code = 2885-2) 7.6 g/dL 6.0-8.5 Albumin [Mass/volume] in Serum or Plasma (test code = 175-7) 4.4 g/dL 3.9-5.0 Globulin [Mass/volume] in Serum by calculation (test code = 64768-3) 3.2 g/dL 1.5-4.5 Albumin/Globulin [Mass Ratio ] in Serum or Plasma (test code = 175-0) 1.4 1.2-2.2 Bilirubin.total [Mass/volume ] in Serum or Plasma (test code = 1974-) 0.7 mg/dL 0.0-1.2 Alkaline phosphatase [Enzymatic activity/volume] in Serum or Plasma (test code = 6768-6) 44 IU/L 39-117 Aspartate aminotransferase [Enzymatic activity/volume] in Serum or Plasma (test code = 192-8) 15 IU/L 0-40 Alanine aminotransferase [Enzymatic activity/volume] in Serum or Plasma (test code = 1742-6) 14 IU/L 0-32 [facility] - [facility] or Plasma 2020-11-21 00:00:00* Test Item Value Reference Range Interpretation Comme nts Cholesterol [Mass/volume] in Serum or Plasma (test code = 2092-3) 185 mg/dL 100-199 Triglyceride [Mass/volume] i n Serum or Plasma (test code = 2571-8) 72 mg/dL 0-149 Cholesterol in HDL [Mass/vol ume] in Serum or Plasma (test code = 2084-) 51 mg/dL >39 Cholesterol in VLDL [Mass/vo lume] in Serum or Plasma by calculation (test code = 45487-2) 13 mg/dL 5-40 Cholesterol in LDL [Mass/vol ume] in Serum or Plasma by calculation (test code = 38172-6) 121 mg/dL 0-99 H Laboratory comment [Text] in Report Narrative (test code = 84118-5) pathology supervisor [facility] A1[facility]/Hemoglobin.total in [id number] 00:00:00* Test Item Value Reference Range Interpretation Comme nts Hemoglobin A1c/Hemoglobin.to meron in Blood (test code = 4548-4) 5.2 % 4.8-5.6 Glucose mean value [Mass/vol ume] in Blood Estimated from glycated hemoglobin (test code = 10261-6) 103 mg/dL [facility]+2 Ab+HIV1 p24 Ag [Presence] in Serum or Plasma by [id number] 00:00:00* Test Item Value Reference Range Interpretation Comme nts HIV 1+2 Ab+HIV1 p24 Ag [Presence] in Serum or Plasma by Immunoassay (test code = 01818-2) non reactive non reactive [facility]yrotropin [Units/volume] in Serum or Plasma by Detection limit <= 0.005 mIU/[id number] 00:00:00* Test Item Value Reference Range Interpretation Comme nts Thyrotropin [Units/volume] i n Serum or Plasma by Detection limit <= 0.005 mIU/L (test code = 24588-4) 0.677 uIU/mL 0.450-4.500 [facility] Ab [Presence] in Serum by RPR 2020-11-21 00:00:00* Test Item Value Reference Range Interpretation Comme nts Reagin Ab [Presence] in Seru m by RPR (test code = 37778-1) non reactive non reactive [facility]Hepatitis B virus surface Ag [Presence] in Serum or Plasma by [id number] 00:00:00* Test Item Value Reference Range Interpretation Comme nts Hepatitis B virus surface Ag [Presence] in Serum or Plasma by Immunoassay (test code = 5196-1) negative negative [facility] assessment panel, [id number] 00:00:00* Test Item Value Reference Range Interpretation Comme nts Interpretation and review of laboratory results (test code = 42466-7) note Report (test code = 79067-7) . [facility] Tyler[facility] AND B OW2020-07-07 21:13:00* Test Item Value Reference Range Interpretation Comme nts INFLUENZ A (test code = INFA) NEGATIVE NEGATIVE INFLUENZ B (test code = INFB) NEGATIVE NEGATIVE
[2023-07-26 12:13] LABS: Absolute Lymphocytes (CBC) 1.1 K/uL (0.7-4.9); Hematocrit 40.3 % (36.0-45.0); Lymphocytes % 14.6 % (15.3-44.8); MPV 7.8 fL (7.6-11.3); Platelets 301 thou/uL (152-406); RBC Red Blood Cell Count 4.38 M/uL (3.86-4.86)
[2023-07-26 12:29] LABS: Albumin 3.6 g/dL (3.4-5.0); Bilirubin Total 0.8 mg/dL (0.2-1.0); Potassium 3.8 mEq/L (3.5-5.1); Protein, Total 7.7 g/dL (6.4-8.2)
--- NOTE | 2023-07-26 13:02 | RAD REPORT ---
EXAM DESCRIPTION: US - Extremity Nonvascular Complete - 07/26/2023 12:49 pm CLINICAL HISTORY: breast mass/abscess COMPARISON: <Comparisons> TECHNIQUE: Real-time sonographic evaluation of the area of interest was performed left breast. FINDINGS: In the area of interest medial left breast there is an irregular complex collection measur ing 4.0 x 2.5 cm in the subcutaneous tissue suspected to be an abscess.
--- NOTE | 2023-07-26 13:07 | EDPHYS ---
Physician Documentation [facility] Name: Aileen Montalvo Age: 23 yrs Sex: Female : 2000 Arrival Date: 07/26/2023 Time: 11:35 Bed 14 Private MD: ED Physician Pete Pepper HPI: 07/26 12:07 This 23 yrs old Black Female presents to ER via Ambulatory with complaints of Breast sb4 Lump - Pain/swelling. 12:07 the patient presents with a swollen area of the left breast. Description: The affected sb4 area is moderate sized, irregular, erythematous, raised, swollen, tense. Onset: The symptoms/episode began/occurred 2 day(s) ago. Associated signs and symptoms: Pertinent negatives: discharge, drainage, fever. The patient has experienced a previous episode, and the symptoms today are exactly the same. The patient has not recently seen a physician. Historical: - Allergies: 11:47 No Known Allergies; aa5 - PMHx: 11:47 HS- Hidradenitis Suppurativa; aa5 - PSHx: 11:44 Cyst removal; mb9 - Immunization history:: Adult Immunizations up to date. - Social history:: Smoking status: Patient denies any tobacco usage or history of. ROS: 12:16 Constitutional: Negative for fever, chills, and weight loss, sb4 12:16 Skin: Positive for abscess, of the left breast, 12:16 All other systems are negative, Exam: 12:16 Constitutional: This is a well developed, well nourished patient who is awake, alert, sb4 and in no acute distress. Head/Face: Normocephalic, atraumatic. Eyes: Extra-ocular motions intact. Periorbital areas with no swelling, redness, or edema. ENT: Mucous membranes moist. Cardiovascular: Regular rate and rhythm with a normal S1 and S2. Respiratory: Lungs have equal breath sounds bilaterally, clear to auscultation and percussion. No rales, rhonchi or wheezes noted. No increased work of breathing, no retractions or nasal flaring. Abdomen/GI: Soft, non-tender, no distension. MS/ Extremity: Pulses equal, no cyanosis. Neurovascular intact. Full, normal range of motion. Neuro: Awake and alert, GCS 15, oriented to person, place, time, and situation. Motor strength 5/5 in all extremities. Sensory grossly intact. 12:16 Chest/axilla: Inspection: abscess, that is moderate-sized, of the left breast 12:16 Skin: induration, that is moderate is noted, located on the left breast, Vital Signs: 11:44 BP 107 / 78; Pulse 82; Resp 16 S; Temp 98.2(O); Pulse Ox 100% on R/A; Weight 86.18 kg aa5 (R); Height 5 ft. 7 in. (R); 12:47 BP 118 / 96; Pulse 76; Resp 18; Pulse Ox 99% on R/A; mb9 13:36 BP 124 / 82; Pulse 74; Resp 18; Pulse Ox 100% on R/A; Pain 0/10; mb9 11:44 Body Mass Index 29.76 (86.18 kg, 170.18 cm) aa5 13:36 Pain Scale: Adult mb9 MDM: 11:42 Patient medically screened. sb4 12:17 Differential diagnosis: abscess, cellulitis. sb4 13:06 Data reviewed: vital signs, nurses notes, lab test result(s), radiologic studies, and sb4 as a result, I will discharge patient. Management of patient was discussed with the following: Local Combination Truck Driver: dr. rod, recommended no I\T\D at this time, start abx and follow up with him in office. Counseling: I had a detailed discussion with the patient and/or guardian regarding the historical points, exam findings, and any diagnostic results supporting the discharge/admit diagnosis, lab results, radiology results, the need for outpatient follow up, a general surgeon, to return to the emergency department if symptoms worsen or persist or if there are any questions or concerns that arise at home. 07/26 11:54 Order name: CBC with Diff; Complete Time: 12:14 sb4 07/26 11:54 Order name: CMP; Complete Time: 12:30 sb4 07/26 12:41 Order name: Extremity Nonvascular Complete; Complete Time: 13:03 EDMS 07/26 11:54 Order name: IV Saline Lock; Complete Time: 12:13 sb4 07/26 11:54 Order name: Labs collected and sent; Complete Time: 12:13 sb4 Administered Medications: 12:08 Drug: NS 0.9% IV 1000 ml IV at 1 bolus Per protocol; 1000 mL bolus Route: IV; Rate: 1 mb9 bolus; Site: right antecubital; 13:35 Follow up: Response: No adverse reaction; IV Status: Completed infusion mb9 12:08 Drug: Ondansetron IVP 4 mg IVP once; over 2 minutes Route: IVP; Site: right antecubital;mb9 12:48 Follow up: Response: No adverse reaction mb9 12:11 Drug: morphine IVP or IV 4 mg IVP once over 4 mins Route: IVP; Infused Over: 4 mins; mb9 Site: right antecubital; 12:48 Follow up: Response: No adverse reaction mb9 13:15 Drug: Doxycycline PO 100 mg PO once Route: PO; mb9 13:35 Follow up: Response: No adverse reaction mb9 Disposition: 13:50 Co-signature as Attending Physician, Pete Pepper MD I reviewed the patient's care rt provided by the Advanced Practice Provider and agree with the diagnosis and treatment plan. Disposition Summary: 07/26/23 13:07 Discharge Ordered Notes: Location: Home sb4 Problem: new sb4 Symptoms: have improved sb4 Condition: Stable sb4 Diagnosis - cutaneous abscess of breast sb4 - Hidradenitis suppurativa sb4 Followup: sb4 - With: Polo Rod MD - When: 7 - 10 days - Reason: Recheck today's complaints, Re-evaluation by your physician Discharge Instructions: - Discharge Summary Sheet sb4 - Hidradenitis Suppurativa sb4 - Skin Abscess, [id number]-Getv sb4 Forms: - Medication Reconciliation Form sb4 - Thank You Letter sb4 - Antibiotic Education sb4 - Prescription Opioid Use sb4 - Patient Portal Instructions sb4 - Leadership Thank You Letter sb4 - Work release form mb9 Prescriptions: - Doxycycline Hyclate 100 mg Oral Tablet - take 1 tablet ORAL route every 12 hours; 20 tablet; Refills: 0, Product sb4 Selection Permitted - Tramadol 50 mg Oral Tablet - take 1 tablet ORAL route every 8 hours as needed; 12 tablet; Refills: 0, sb4 Product Selection Permitted Signatures: Dispatcher KwasiAretha Noriega RN RN aa5 Akila Stiles PA-C PA-C sb4 Esme Pack RN RN mb9 Pete Pepper MD MD rt Corrections: (The following items were deleted from the chart) 12:41 11:55 Extrmty Nonvasular Limited+US.RAD.BRZ ordered. EDMS EDMS
--- NOTE | 2023-07-26 13:07 | ER ---
Nurse's Notes [facility] Name: Aileen Montalvo Age: 23 yrs Sex: Female : 2000 Arrival Date: 07/26/2023 Time: 11:35 Bed 14 Private MD: Diagnosis: cutaneous abscess of breast;Hidradenitis suppurativa Presentation: 07/26 11:44 Chief complaint: Patient states: "I have a lump that is painful under my left breast". aa5 Pt reports lump appeared 3 days ago. 11:44 Coronavirus screen: At this time, the client does not indicate any symptoms associated aa5 with coronavirus-19. Ebola Screen: Patient denies travel to an Ebola-affected area in the 21 days before illness onset. Initial Sepsis Screen: Does the patient meet any 2 criteria? No. Patient's initial sepsis screen is negative. Does the patient have a suspected source of infection? No. Patient's initial sepsis screen is negative. Risk Assessment: Do you want to hurt yourself or someone else? Patient reports no desire to harm self or others. Onset of symptoms was July 2023. 11:44 Acuity: KRZYSZTOF 4 aa5 11:44 Method Of Arrival: Ambulatory aa5 11:53 Acuity: KRZYSZTOF 3 mb9 Historical: - Allergies: 11:47 No Known Allergies; aa5 - PMHx: 11:47 HS- Hidradenitis Suppurativa; aa5 - PSHx: 11:44 Cyst removal; mb9 - Immunization history:: Adult Immunizations up to date. - Social history:: Smoking status: Patient denies any tobacco usage or history of. Screenin:45 [facility] ED Fall Risk Assessment (Adult) History of falling in the last 3 months, mb9 including since admission No falls in past 3 months (0 pts) Confusion or Disorientation No (0 pts) Intoxicated or Sedated No (0 pts) Impaired Gait No (0 pts) Mobility Assist Device Used No (0 pt) Altered Elimination No (0 pt) Score/Fall Risk Level 0 - 2 = Low Risk Oriented to surroundings, Maintained a safe environment, Educated pt \\T\\ family on fall prevention, incl call for assistance when getting out of bed. Abuse screen: Denies threats or abuse. Nutritional screening: No deficits noted. Tuberculosis screening: No symptoms or risk factors identified. Assessment: 11:55 General: Appears in no apparent distress. Behavior is calm, cooperative. Pain: mb9 Complains of pain in left breast Pain does not radiate. Pain currently is 7 out of 10 on a pain scale. Quality of pain is described as throbbing, Pain began 2-3 days ago. Is continuous. Neuro: Bruno Agitation-Sedation Scale (RASS): 0 - Alert and Calm Level of Consciousness is awake, alert, obeys commands, Oriented to person, place, time, situation, Appropriate for age. Cardiovascular: Patient's skin is warm and dry. Respiratory: Airway is patent Respiratory effort is even, unlabored, Respiratory pattern is regular, symmetrical. GI: No signs and/or symptoms were reported involving the gastrointestinal system. : No signs and/or symptoms were reported regarding the genitourinary system. EENT: No signs and/or symptoms were reported regarding the EENT system. Derm: lump on left breast noted. Lump tender and hot to touch. Musculoskeletal: Range of motion: intact in all extremities. 13:35 Reassessment: Patient and/or family updated on plan of care and expected duration. Pain mb9 level reassessed. Patient is alert, oriented x 3, equal unlabored respirations, skin warm/dry/pink. Patient states feeling better. Patient states symptoms have improved. Vital Signs: 11:44 BP 107 / 78; Pulse 82; Resp 16 S; Temp 98.2(O); Pulse Ox 100% on R/A; Weight 86.18 kg aa5 (R); Height 5 ft. 7 in. (R); 12:47 BP 118 / 96; Pulse 76; Resp 18; Pulse Ox 99% on R/A; mb9 13:36 BP 124 / 82; Pulse 74; Resp 18; Pulse Ox 100% on R/A; Pain 0/10; mb9 11:44 Body Mass Index 29.76 (86.18 kg, 170.18 cm) aa5 13:36 Pain Scale: Adult mb9 ED Course: 11:38 Patient arrived in ED. im 11:39 Akila Stiles PA-C [facility]. sb4 11:39 Pete Pepper MD is Attending Physician. sb4 11:43 Esme Pack RN is Primary Nurse. mb9 11:44 Arm band placed on. mb9 11:45 Placed in gown. Bed in low position. Call light in reach. Side rails up X 1. Client mb9 placed on continuous cardiac and pulse oximetry monitoring. NIBP monitoring applied. monitoring tech on. 11:47 Triage completed. aa5 12:13 CBC with Diff Sent. mb9 12:13 CMP Sent. mb9 12:13 Inserted saline lock: 20 gauge in right antecubital area, using aseptic technique. mb9 12:51 Extremity Nonvascular Complete In Process Unspecified. EDMS 13:12 Polo Nettles MD is Referral Physician. sb4 13:36 No provider procedures requiring assistance completed. IV discontinued, intact, mb9 bleeding controlled, No redness/swelling at site. Pressure dressing applied. Administered Medications: 12:08 Drug: NS 0.9% IV 1000 ml IV at 1 bolus Per protocol; 1000 mL bolus Route: IV; Rate: 1 mb9 bolus; Site: right antecubital; 13:35 Follow up: Response: No adverse reaction; IV Status: Completed infusion mb9 12:08 Drug: Ondansetron IVP 4 mg IVP once; over 2 minutes Route: IVP; Site: right antecubital;mb9 12:48 Follow up: Response: No adverse reaction mb9 12:11 Drug: morphine IVP or IV 4 mg IVP once over 4 mins Route: IVP; Infused Over: 4 mins; mb9 Site: right antecubital; 12:48 Follow up: Response: No adverse reaction mb9 13:15 Drug: Doxycycline PO 100 mg PO once Route: PO; mb9 13:35 Follow up: Response: No adverse reaction mb9 Medication: 11:49 VIS not applicable for this client. mb9 Outcome: 13:07 Discharge ordered by . sb4 13:36 Discharged to home ambulatory, with family, mb9 13:36 Condition: stable 13:36 Discharge instructions given to patient, Instructed on discharge instructions, follow up and referral plans. Demonstrated understanding of instructions, follow-up care, medications, Prescriptions given X 1, 13:36 Patient left the ED. mb9 Signatures: Dispatcher [employer] EDCT Aretha Banegas RN RN aa5 Akila Stiles PA-C PA-C sb4 Esme Pack RN RN mb9 Shannon Villagomez Corrections: (The following items were deleted from the chart) 11:55 11:49 General: Appears mb9 mb9 12:24 12:00 Reassessment: Medication form faxed to pharmacy mb9 mb9
[2023-07-26 14:27] VITALS: BP 124/82; TEMP 98.2; O2SAT 100
== END ==
LOC: ER 11:35
DX: N61.1 Abscess of the breast and nipple (principal); L73.2 Hidradenitis suppurativa
CPT/HCPCS: 96361; 85025; 36415; 80053; 76881; 96375; 96374; 99285; J2405; J7030

== ENCOUNTER → 2023-09-02 | Emergency (ER) | payer OTHER ==
[~2023-09-02] MED LIST changes: -DOXYCYCLINE 100 MG CAP PO ONE; +LIDOCAINE 1% MPF 5 ML VIAL ONE; -MORPHINE 4 MG/ML SYR ONE; -NA CHLORIDE 0.9% 1,000 ML ONE; -ONDANSETRON 4 MG/2 ML VIAL ONE
--- OUTSIDE RECORDS SUMMARY | 2023-09-02 12:48 | XMS REPORT | Continuity of Care Document ---
Author Name Unknown Address [address] [facility] [address] [place] [address] [facility] Address [address] [facility] 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 Role Phone YIN CAVANAUGH Attending Clinician [...] Effective Date Expirati on Date Source 0451 [id number] 2018 00:00:00 [place] [id number] 2021 00:00:00 [place] [id number] 2020 00:00:00 2021 00:00:00 Problems Condition Name Condition Details Condition Category Status Onset Date Resolution Date Last Treatment Date Treating Clinician Comments Source Trichomona l vaginitis Trichomona l Vaginitis Problem Active 8-20 00:00: 00 [facility] Pilonidal cyst Pilonidal Cyst Problem Active 7-04 00:00: 00 [facility] Abnormal findings on diagnostic imaging of breast Abnormal Findings on Diagnostic Imaging of Breast Problem Active 3-15 00:00: 00 [facility] Allergies, Adverse Reactions, Alerts Allergy Name Allergy Type Status Severity Reaction(s) Onset Date Inactive Date Treating Clinician Comments Source No Known Allergie s [facility] Social History Smoking Status Start Date Stop Date Source Never Smoker [facility] Medications Ordered Medication Name Filled Medication [...] 3 times a day by oral route. [facility] hydrocodone 5 mg-acetamin ophen 325 mg tablet hydrocodone 5 mg-acetamin ophen 325 mg tablet No hydrocodon e 5 mg-acetami nophen 325 mg tablet [facility] ibuprofen 600 mg tablet ibuprofen 600 mg tablet No ibuprofen 600 mg tablet [facility] Lidocaine Viscous 2 % mucosal solution Lidocaine Viscous 2 % mucosal solution No Lidocaine Viscous 2 % mucosal solution [facility] naproxen 500 mg tablet Take 1 tablet twice a day by oral route. naproxen 500 mg tablet Take 1 tablet twice a day by oral route. No naproxen 500 mg tablet Take 1 tablet twice a day by oral route. [facility] neomycin-po lymyxin-hyd rocort 3.5 mg-10,000 unit/mL-1 % ear drops,susp neomycin-po lymyxin-hyd rocort 3.5 mg-10,000 unit/mL-1 % ear drops,susp No neomycin-p olymyxin-h ydrocort 3.5 mg-10,000 unit/mL-1 % ear drops,susp [facility] prednisone 50 mg tablet prednisone 50 mg tablet No prednisone 50 mg tablet [facility] sulfamethox azole 800 mg-trimetho prim 160 mg tablet sulfamethox azole 800 mg-trimetho prim 160 mg tablet No sulfametho xazole 800 mg-trimeth oprim 160 mg tablet [facility] tramadol 50 mg tablet tramadol 50 mg tablet No tramadol 50 mg tablet [facility] Vital Signs Vital Name Observation Time Observation Value Comments S ource BP Diastolic 2022-03-04 00:00:00 72 mm[Hg] Hugo marquis [facility] Height 2022-03-04 00:00:00 67 [in_i] Jessie hines [facility] BMI (Body Mass Index) 2022-03-04 00:00:00 28.3 kg/m2 [facility] BP Systolic 2022-03-04 00:00:00 111 mm[Hg] Edwardo crain [facility] Body Weight 2022-03-04 00:00:00 181 [lb_av] Hugo marquis [facility] BP Diastolic 2022-02-24 00:00:00 73 mm[Hg] Hugo marquis [facility] Height 2022-02-24 00:00:00 67 [in_i] Jessie sin [facility] BMI (Body Mass Index) 2022-02-24 00:00:00 27.6 kg/m2 [facility] BP Systolic 2022-02-24 00:00:00 107 mm[Hg] Edwardo crain [facility] Body Weight 2022-02-24 00:00:00 2818 [oz_av] Ryley william [facility] BP Diastolic 2022-01-05 00:00:00 70 mm[Hg] Hugo marquis [facility] Height 2022-01-05 00:00:00 67 [in_i] Matrahat orda [facility] BMI (Body Mass Index) 2022-01-05 00:00:00 27.6 kg/m2 [place] [facility] BP Systolic 2022-01-05 00:00:00 102 mm[Hg] Brooke paras [facility] Body Weight 2022-01-05 00:00:00 176 [lb_av] Mat agorda [facility] BP Diastolic 2021-12-16 00:00:00 83 mm[Hg] Mat agorda [facility] Height 2021-12-16 00:00:00 67 [in_i] Matrahat orda [facility] BMI (Body Mass Index) 2021-12-16 00:00:00 28.3 kg/m2 [place] [facility] BP Systolic 2021-12-16 00:00:00 126 mm[Hg] Brooke paras [facility] Body Weight 2021-12-16 00:00:00 2896 [oz_av] Ryley tagorda [facility] Height 2021-11-11 20:05:00 170.18 CM Weight 2021-11-11 20:05:00 79.37 KG BP Diastolic 2021-10-28 00:00:00 70 mm[Hg] Mat agorda [facility] Height 2021-10-28 00:00:00 67 [in_i] Matrahat orda [facility] BMI (Body Mass Index) 2021-10-28 00:00:00 27.6 kg/m2 [place] [facility] BP Systolic 2021-10-28 00:00:00 106 mm[Hg] Brooke paras [facility] Body Weight 2021-10-28 00:00:00 2816 [oz_av] Ryley tagorda [facility] Height 2021-09-23 15:42:00 170.18 CM Weight 2021-09-23 15:42:00 76.65 KG BP Diastolic 2021-09-11 00:00:00 74 mm[Hg] Mat agorda [facility] Height 2021-09-11 00:00:00 67 [in_i] Jessie orda [facility] BMI (Body Mass Index) 2021-09-11 00:00:00 26.5 kg/m2 [place] [facility] BP Systolic 2021-09-11 00:00:00 114 mm[Hg] Edwardo espinozaa [facility] Body Weight 2021-09-11 00:00:00 2704 [oz_av] Ryley tagorda [facility] Height 2021-08-11 19:48:00 170.18 CM Weight 2021-08-11 19:48:00 73.93 KG Height 2021-04-14 20:01:00 170.18 CM Weight 2021-04-14 20:01:00 76.65 KG Height 2020-12-24 20:50:00 170.18 CM Weight 2020-12-24 20:50:00 76.2 KG BP Diastolic 2020-12-16 00:00:00 71 mm[Hg] Hugo betancurrda [facility] Height 2020-12-16 00:00:00 67 [in_i] Jessie orda [facility] BMI (Body Mass Index) 2020-12-16 00:00:00 26.6 kg/m2 [place] [facility] BP Systolic 2020-12-16 00:00:00 108 mm[Hg] Edwardo espinozaa [facility] Body Weight 2020-12-16 00:00:00 2720 [oz_av] Ryley anneorda [facility] BP Diastolic 2020-11-20 00:00:00 79 mm[Hg] Hugo betancurrda [facility] Height 2020-11-20 00:00:00 67 [in_i] Jessie orda [facility] BMI (Body Mass Index) 2020-11-20 00:00:00 25.8 kg/m2 [place] [facility] BP Systolic 2020-11-20 00:00:00 123 mm[Hg] Brooke paras [facility] Body Weight 2020-11-20 00:00:00 2640 [oz_av] Ma william [facility] Height 2020-07-07 20:12:00 170.18 CM Weight 2020-07-07 20:12:00 74.84 KG Procedures Procedure Date / Time Performed Performing Clinicia n Source US, breast, unilateral 2022-03-03 00:00:00 [place] [facility] US, breast, unilateral 2022-02-09 00:00:00 [place] [facility] MAMMO, diagnostic, unilateral 2021-09-11 00:00:00 [place] [facility] US, breast, unilateral 2021-09-11 00:00:00 [place] [facility] Hernia Repair W/mesh 2007-07-12 00:00:00 [place] [facility] Encounters Start Date/Time End Date/Time Encounter Type Admission Type Attending [facility] Care Facility Care Department Encounter ID Source 2021-11-30 08:00:00 Inpatient YIN [facility]OS [facility] [id number] [facility] 2022-04-14 00:00:00 2022-04-14 00:00:00 Outpatient SHIMEK_MARY _ANN [facility] [id number] [facility] 2022-04-14 00:00:00 2022-04-14 00:00:00 Outpatient SHIMEK_MARY _ANN [facility] [id number] [facility] 2022-04-14 00:00:00 2022-04-14 00:00:00 Outpatient SHIMEK_MARY _ANN [facility] [id number] [facility] 2022-03-08 00:00:00 2022-03-08 00:00:00 Outpatient SHIMEK_MARY _ANN [facility] [id number] [facility] 2022-03-04 00:00:00 2022-03-04 00:00:00 Outpatient SHIMEK_MARY _ANN [facility] [id number] [facility] 2022-03-04 00:00:00 2022-03-04 00:00:00 Cecy Gallo MD: [address] [facility] [address], [place] [address] , Ph. [phone] [facility] [id number] [facility] 2022-02-24 00:00:00 2022-02-24 00:00:00 Outpatient SHIMEK_MARY _ANN [facility] [id number] [facility] 2022-02-24 00:00:00 2022-02-24 00:00:00 Esme Jones, SUPERVISOR CALIBRATION: [address] [address] , Ph. [facility] 3 [id number] [facility] 2022-02-18 00:00:00 2022-02-18 00:00:00 Outpatient SHIMEK_MARY _ANN [facility] [id number] [facility] 2022-01-05 00:00:00 2022-01-05 00:00:00 Outpatient SHIMEK_MARY _ANN [facility] [id number] [facility] 2022-01-05 00:00:00 2022-01-05 00:00:00 Cecy Gallo MD: [address], [address], [place] [address] , Ph. [facility] [id number] [facility] 2021-12-16 04:23:00 2021-12-16 04:23:00 Outpatient SHIMEK_MARY _ANN [facility] [id number] [facility] 2021-12-16 04:23:00 2021-12-16 04:23:00 Outpatient SHIMEK_ESME _CATARINA [facility] [id number] [facility] 2021-12-16 04:23:00 2021-12-16 04:23:00 Outpatient SHIMEK_ESME DE LA T[place]RE [facility] [id number] [facility] 2021-12-16 04:23:00 2021-12-16 04:23:00 Outpatient SHIMEK_ESME DE LA [place]ORRE [facility] [id number] [facility] 2021-12-16 00:00:00 2021-12-16 00:00:00 Esme Jones, SUPERVISOR CALIBRATION: [place] [address] , Ph. [facility] [place] [address] [id number] [facility] 2021-12-15 10:05:00 2021-12-15 10:05:00 Outpatient SHIMEK_ESME DE [place] [facility] [id number] [facility] 2021-11-11 19:53:00 2021-11-11 22:56:00 Outpatient ALFRED VELIZ [facility] [id number] [facility] 2021-10-28 03:50:00 2021-10-28 03:50:00 Outpatient SHIMEK_ESME DE [place] [facility] [id number] [facility] 2021-10-28 03:49:00 2021-10-28 03:49:00 Outpatient SHIMEK_ESME DE LA TOR[place] [facility] [id number] [facility] 2021-10-28 00:00:00 2021-10-28 00:00:00 Esme Jones, SUPERVISOR CALIBRATION: [place] [address] , Ph. [facility] 3 [id number] [facility] 2021-09-23 15:42:00 2021-09-23 16:43:00 Outpatient Allegra EVELINE CAVANAUGH [facility] [id number] [facility] 2021-09-16 09:09:00 2021-09-16 09:09:00 Outpatient SHIMEK_MARY _ANN [facility] [id number] [facility] 2021-09-16 09:09:00 2021-09-16 09:09:00 Outpatient SHIMEK_MARY _ANN [facility] [id number] [facility] 2021-09-16 09:09:00 2021-09-16 09:09:00 Outpatient SHIMEK_MARY _ANN [facility] [id number] [facility] 2021-09-11 07:46:00 2021-09-11 07:46:00 Outpatient SHIMEK_MARY _ANN [facility] [id number] [facility] 2021-09-11 00:00:00 2021-09-11 00:00:00 Esme Jones, SUPERVISOR CALIBRATION: [address] [place] [address] , [facility]. [facility] 3 [id number] [facility] 2021-08-11 19:40:00 2021-08-11 22:04:00 Outpatient E JORGE HUBBARD [facility] [id number] [facility] 2021-04-14 19:53:00 2021-04-14 20:14:00 Outpatient E JORGE HUBBARD [facility] [id number] [facility] 2020-12-24 20:48:00 2020-12-24 21:09:00 Outpatient Allegra ROPER OLIVIA [facility] [id number] [facility] 2020-12-16 12:14:00 2020-12-16 12:14:00 Outpatient SHIMEK_ESME DE LA TORRE [facility] [id number] [facility] 2020-12-16 12:14:00 2020-12-16 12:14:00 Outpatient SHIMEK_ESME DE LA TORRE [facility] [id number] [facility] 2020-12-16 12:14:00 2020-12-16 12:14:00 Outpatient SHIMEK_ESME DE LA TORRE [facility] [id number] [facility] 2020-12-16 12:14:00 2020-12-16 12:14:00 Outpatient SHIMEK_ESME DE LA TORRE [facility] [id number] [facility] 2020-12-16 12:14:00 2020-12-16 12:14:00 Outpatient SHIMEK_ESME DE LA TORRE [facility] [id number] [facility] 2020-12-16 12:14:00 2020-12-16 12:14:00 Outpatient SHIMEK_ESME DE LA [place]ORRE [facility] [id number] [facility] 2020-12-16 00:00:00 2020-12-16 00:00:00 Esme Jones, SUPERVISOR CALIBRATION: [address] [place] [address] , Ph. [facility] [place] [address] [id number] [facility] 2020-11-20 04:22:00 2020-11-20 04:22:00 Outpatient SHIMEK_ESME DE LA TORRE [facility] [id number] [facility] 2020-11-20 00:00:00 2020-11-20 00:00:00 Esme Jones, SUPERVISOR CALIBRATION: [address] [place] [address] , Ph. [facility] 3 [id number] [facility] 2020-11-18 08:32:00 2020-11-18 08:32:00 Outpatient JOLENE DE LA [facility]ORRE [facility] [id number] [facility] 2020-10-22 04:44:00 2020-10-22 04:44:00 Outpatient JOLENE DE LA [facility] [id number] [facility] 2020-07-07 20:12:00 2020-07-07 22:25:00 Outpatient ALEK VU [facility] [id number] [facility] Results Test Description Test Time Test Comments Results Result Co mments Source [facility] W Auto Differential panel - Blood [...] immature cells (test code = immature cells) weigh boss Neutrophils [#/volume] in Bl ood by Automated [...] Blood by Automated count (test code = 42718-3) 0 % not estab. Immature granulocytes [#/volume] in Blood by Automated count (test code = 92524-3) 0.0 x10e3/uL 0.0-0.1 Nucleated erythrocytes/100 leukocytes [Ratio] in Blood by Automated count (test code = 87302-9) weigh boss Morphology [Interpretation] in Blood Narrative (test code = 98030-5) weigh boss [facility] 2000 panel - Serum or [id number] 00:00:00* Test Item Value Reference Range Interpretation [...] in Serum or Plasma (test code = 84606-4) 9.6 mg/dL 8.7-10.2 Protein [Mass/volume] in Serum or Plasma (test code = 2885-2) 7.4 g/dL 6.0-8.5 Albumin [Mass/volume] in Serum or Plasma (test code = 175-7) 4.4 g/dL 3.9-5.0 Globulin [Mass/volume] in Serum by calculation (test code = 22908-0) 3.0 g/dL 1.5-4.5 Albumin/Globulin [Mass Ratio ] [...] (test code = 174-6) 14 IU/L 0-32 [facility] - Serum or Plasma [...] or Plasma by calculation (test code = 97437-5) 31 mg/dL 5-40 Cholesterol in LDL [Mass/vol ume] in Serum or Plasma by calculation (test code = 87359-3) 113 mg/dL 0-99 H Laboratory comment [Text] in Report Narrative (test code = 80806-3) weigh boss [facility] HospitalHemoglobin A1c/Hemoglobin.total in [id number] 00:00:00* Test Item Value Reference Range Interpretation Comme nts Hemoglobin A1c/Hemoglobin.to meron in Blood (test code = 4548-4) 5.4 % 4.8-5.6 Glucose mean value [Mass/vol ume] in Blood Estimated from glycated hemoglobin (test code = 09040-8) 108 mg/dL [facility] [Presence] in Serum by RPR 2021-12-17 00:00:00* Test Item Value Reference Range Interpretation Comme nts Reagin Ab [Presence] in Seru m by RPR (test code = 70479-4) non reactive non reactive [facility] and 2 tests - Meaningful Use [id number] 00:00:00* Test Item Value Reference Range Interpretation Comme nts HIV 1+2 Ab+HIV1 p24 Ag [Presence] in Serum or Plasma by Immunoassay (test code = 19328-0) non reactive non reactive [facility]atitis B virus surface Ag [Presence] in Serum or Plasma by [id number] 00:00:00* Test Item Value Reference Range Interpretation Comme nts Hepatitis B virus surface Ag [Presence] in Serum or Plasma by Immunoassay (test code = 5196-1) negative negative [facility], [id number] 00:00:00* Test Item Value Reference Range Interpretation Comme nts Interpretation and review of laboratory results (test code = 54071-4) note Report (test code = 80221-2) . [facility]/CONTRAST *OW*2021-11-11 22:27:47[facility] : 2000 [...] Daniel Nolan MD 11/11/2021 10:27 PM CDT [id number] Panel *OW* [id number] 21:40:00* Test Item Value Reference Range Interpretation [...] ABDOMEN AND PELVIS W/O CONTRAST *OW*2021-08-11 21:29:43 [facility] : 2000 Sex: FEXAMINATION:Chest, abdomen, [...] by: Shabbir pedraza MD 08/11/2021 9:29 PM [facility] CHEST W/O CONTRAST *OW* 2021-08-11 21:29:43 [facility] : 2000 Sex: FEXAMINATION:Chest, abdomen, [...] by: Shabbir pedraza MD 08/11/2021 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 [id number] HEAD W/O CONTRAST *OW* 2021-08-11 21:28:07 [facility] : 2000 Sex: FExam: CT [...] by: Mina Clayton MD 08/11/2021 9:28 PM [facility] CERVICAL SPINE W/O CONTRAST *OW*2021-08-11 21:24:12 [facility] : 2000 Sex: FExam: CT [...] by: Kevin Arango MD 08/11/2021 9:24 PM [facility] [id number] URINE OW2021-08-11 20:27:00* Test Item Value Reference [...] NEGATIVE CBC W Auto Differential panel - [id number] 00:00:00* Test Item Value Reference Range Interpretation [...] immature cells (test code = immature cells) weigh boss Neutrophils [#/volume] in Bl ood by Automated [...] Blood by Automated count (test code = 12273-3) 0 % not estab. Immature granulocytes [#/volume] in Blood by Automated count (test code = 42193-2) 0.0 x10e3/uL 0.0-0.1 Nucleated erythrocytes/100 leukocytes [Ratio] in Blood by Automated count (test code = 40456-0) weigh boss Morphology [Interpretation] in Blood Narrative (test code = 38322-4) weigh boss [facility] ProgramCom[facility] metabolic 2000 panel - Serum or [id number] 00:00:00* Test Item Value Reference Range Interpretation [...] by Creatinine-based formula (CKD-EPI) (test code = 35978-0) 119 mL/min/1.73 >59 Glomerular filtration rate/1.73 sq M.predicted among blacks [Volume Rate/Area] in Serum, Plasma or Blood by Creatinine-based formula (CKD-EPI) (test code = 08013-7) 137 mL/min/1.73 >59 Urea nitrogen/Creatinine [Mass Ratio] [...] in Serum or Plasma (test code = 14195-6) 10.0 mg/dL 8.7-10.2 Protein [Mass/volume] in Serum or Plasma (test code = 2885-2) 7.6 g/dL 6.0-8.5 Albumin [Mass/volume] in Serum or Plasma (test code = 175-7) 4.4 g/dL 3.9-5.0 Globulin [Mass/volume] in Serum by calculation (test code = 83893-5) 3.2 g/dL 1.5-4.5 Albumin/Globulin [Mass Ratio ] [...] (test code = 1742-6) 14 IU/L 0-32 [facility] 1996 panel - Serum or Plasma [...] or Plasma by calculation (test code = 29468-7) 13 mg/dL 5-40 Cholesterol in LDL [Mass/vol ume] in Serum or Plasma by calculation (test code = 72383-4) 121 mg/dL 0-99 H Laboratory comment [Text] in Report Narrative (test code = 91491-0) weigh boss [facility] HospitalHemoglobin A1c/Hemoglobin.total in [id number] 00:00:00* Test Item Value Reference Range Interpretation Comme nts Hemoglobin A1c/Hemoglobin.to meron in Blood (test code = 4548-4) 5.2 % 4.8-5.6 Glucose mean value [Mass/vol ume] in Blood Estimated from glycated hemoglobin (test code = 88580-1) 103 mg/dL [facility]HIV 1+2 Ab+HIV1 p24 Ag [Presence] in Serum or Plasma by [id number] 00:00:00* Test Item Value Reference Range Interpretation Comme nts HIV 1+2 Ab+HIV1 p24 Ag [Presence] in Serum or Plasma by Immunoassay (test code = 06909-1) non reactive non reactive [facility] HospitalThyrotropin [Units/volume] in Serum or Plasma by Detection limit <= 0.005 mIU/[id number] 00:00:00* Test Item Value Reference Range Interpretation Comme nts Thyrotropin [Units/volume] i n Serum or Plasma by Detection limit <= 0.005 mIU/L (test code = 63449-9) 0.677 uIU/mL 0.450-4.500 [facility]Reagin Ab [Presence] in Serum by RPR 2020-11-21 00:00:00* Test Item Value Reference Range Interpretation Comme nts Reagin Ab [Presence] in Seru m by RPR (test code = 59808-2) non reactive non reactive [facility] HospitalHepatitis B virus surface Ag [Presence] in Serum or Plasma by [id number] 00:00:00* Test Item Value Reference Range Interpretation Comme nts Hepatitis B virus surface Ag [Presence] in Serum or Plasma by Immunoassay (test code = 5196-1) negative negative [facility] panel, [id number] 00:00:00* Test Item Value Reference Range Interpretation Comme nts Interpretation and review of laboratory results (test code = 67578-9) note Report (test code = 90432-0) . [facility] [facility]2020[facility]07-07 21:13:00* Test Item Value Reference Range Interpretation Comme nts INFLUENZ A (test code = INFA) NEGATIVE NEGATIVE INFLUENZ B (test code = INFB) NEGATIVE NEGATIVE
--- NOTE | 2023-09-02 14:51 | ER ---
Nurse's Notes [facility] Name: Aileen Montalvo Age: 23 yrs Sex: Female : 2000 Arrival Date: 09/02/2023 Time: 12:43 Bed 9 Private MD: Diagnosis: Superficial foreign body of lip, initial encounter Presentation: 09/02 13:19 Chief complaint: Patient states: "my lip piercing is stuck and I can't get it out and as6 it hurts". Coronavirus screen: At this time, the client does not indicate any symptoms associated with coronavirus-19. Ebola Screen: No symptoms or risks identified at this time. Initial Sepsis Screen: Does the patient meet any 2 criteria? No. Patient's initial sepsis screen is negative. Does the patient have a suspected source of infection? No. Patient's initial sepsis screen is negative. Risk Assessment: Do you want to hurt yourself or someone else? Patient reports no desire to harm self or others. Onset of symptoms was September 02, 2023. 13:19 Acuity: [id number] 5 as6 13:19 Method Of Arrival: Ambulatory as6 Triage Assessment: 13:21 General: Appears in no apparent distress. Behavior is calm, cooperative. Pain: as6 Complains of pain in philtrum. EENT: piercing to upper lip, pt reports pain . 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 - Social history:: Smoking status: Patient denies any tobacco usage or history of. Screenin:20 [facility] ED Fall Risk Assessment (Adult) Score/Fall Risk Level 0 - 2 = Low Risk. Abuse as6 screen: Denies threats or abuse. Denies injuries from another. Nutritional screening: No deficits noted. Tuberculosis screening: No symptoms or risk factors identified. Assessment: 13:30 General: SEE TRIAGE NOTE. bp Vital Signs: 13:18 BP 123 / 74; Pulse 73; Resp 16 S; Temp 97.5(O); Pulse Ox 99% on R/A; Weight 86.64 kg as6 (R); Height 5 ft. 7 in. (R); Pain 10/10; 13:18 Body Mass Index 29.91 (86.64 kg, 170.18 cm) as6 13:18 Pain Scale: Adult as6 ED Course: 12:49 Patient arrived in ED. kj1 13:14 Rasta Morris PA is PHCP. cp 13:14 Flex Berrios MD is Attending Physician. cp 13:18 Av Bone, RN is Primary Nurse. as6 13:18 Arm band placed on. as6 13:20 Triage completed. as6 13:21 Bed in low position. Call light in reach. as6 14:55 No provider procedures requiring assistance completed. Patient did not have IV access bp during this emergency room visit. Administered Medications: 14:27 Drug: Lidocaine Infiltration (1 %) 5 ml 5 ml Infiltration once; to bedside Volume: 5 bp ml; Route: Infiltration; 14:59 Drug: Clindamycin PO 300 mg PO once Route: PO; bp 15:09 Follow up: Response: No adverse reaction bp Outcome: 14:51 Discharge ordered by MD. cp 15:10 Discharged to home ambulatory, bp 15:10 Condition: stable 15:10 Discharge instructions given to patient, Instructed on discharge instructions, follow up and referral plans. medication usage, Demonstrated understanding of instructions, follow-up care, medications, Prescriptions given X 1, 15:10 Patient left the ED. bp Signatures: Rasta Morris PA PA cp Peltier, Brian, RN RN bp Cinthya Thurman kj1 Av Bone RN RN as6
--- NOTE | 2023-09-02 14:51 | EDPHYS ---
Physician Documentation [facility] Name: Aileen Montalvo Age: 23 yrs Sex: Female : 2000 Arrival Date: 09/02/2023 Time: 12:43 Bed 9 Private MD: ED Physician Flex Berrios HPI: 09/02 13:50 This 23 yrs old Black Female presents to ER via Ambulatory with complaints of PIERCING cp INFECTED. 13:50 The patient or guardian reports the patient has a suspected foreign body, of the upper cp lip. 13:50 The reported likely foreign body is metal piercing. Patient presents to ED with request cp for removal of upper lip piercing. Patient concerned that piercing may be infected. 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 - Social history:: Smoking status: Patient denies any tobacco usage or history of. ROS: 13:55 ENT: Positive for upper lip piercing, cp 13:55 Constitutional: Negative for body aches, chills, fever, poor PO intake, cp 13:55 Respiratory: Negative for cough, shortness of breath, wheezing, 13:55 All other systems are negative, Exam: 14:00 Constitutional: The patient appears in no acute distress, alert, awake, comfortable, cp non-toxic, well developed, well nourished, 14:00 Head/Face: Normocephalic, atraumatic. cp 14:00 ENT: External ear(s): are unremarkable, Nose: is normal, Mouth: Lips: philtrum, metal piercing that extends into oral cavity, mild swelling and mild tenderness to palpation, 14:00 Neck: ROM/movement: is normal, is supple, without pain, no range of motions limitations, 14:00 Chest/axilla: Inspection: normal, 14:00 Cardiovascular: Rate: normal, Rhythm: regular, 14:00 Respiratory: the patient does not display signs of respiratory distress, Respirations: normal, no use of accessory muscles, no retractions, labored breathing, is not present, Vital Signs: 13:18 BP 123 / 74; Pulse 73; Resp 16 S; Temp 97.5(O); Pulse Ox 99% on R/A; Weight 86.64 kg as6 (R); Height 5 ft. 7 in. (R); Pain 10/10; 13:18 Body Mass Index 29.91 (86.64 kg, 170.18 cm) as6 13:18 Pain Scale: Adult as6 Procedures: 15:00 Foreign Body Removal: metal piercing, from the philtrum, by using a hemostat, incising cp to remove, using lidocaine 1% without epinephrine to anesthesize the area, The patient tolerated the removal well. MDM: 13:14 Patient medically screened. cp 14:50 Data reviewed: vital signs, nurses notes, and as a result, I will discharge patient. cp 14:50 I considered the following discharge prescriptions or medication management in the emergency department Medications were administered in the Emergency Department. See MAR. Counseling: I had a detailed discussion with the patient and/or guardian regarding the historical points, exam findings, and any diagnostic results supporting the discharge/admit diagnosis, to return to the emergency department if symptoms worsen or persist or if there are any questions or concerns that arise at home. Response to treatment: the patient's symptoms have markedly improved after treatment, and as a result, I will discharge patient. 09/02 13:42 Order name: I\T\D Setup; Complete Time: 14:56 cp Administered Medications: 14:27 Drug: Lidocaine Infiltration (1 %) 5 ml 5 ml Infiltration once; to bedside Volume: 5 bp ml; Route: Infiltration; 14:59 Drug: Clindamycin PO 300 mg PO once Route: PO; bp 15:09 Follow up: Response: No adverse reaction bp Disposition Summary: 09/02/23 14:51 Discharge Ordered Notes: Location: Home cp Problem: new cp Symptoms: have improved cp Condition: Stable cp Diagnosis - Superficial foreign body of lip, initial encounter cp Followup: cp - With: Private Physician - When: 2 - 3 days - Reason: Worsening of condition Discharge Instructions: - Discharge Summary Sheet cp - Skin Foreign Body cp Forms: - Medication Reconciliation Form cp - Thank You Letter cp - Antibiotic Education cp - Prescription Opioid Use cp - Patient Portal Instructions cp - Leadership Thank You Letter cp - Work release form Prescriptions: - Clindamycin HCl 300 mg Oral Capsule - take 1 capsule ORAL route every 6 hours for 10 days; 40 capsule; Refills: 0, cp Product Selection Permitted Addendum: 09/06/2023 00:57 I was immediately available for consultation during this patient's visit. I did not e c2 personally see the patient or discuss the patient with the AJITH. . Signatures: Rasta Morris PA PA cp Peltier, Brian, RN RN Av Cervantes RN RN as6 Flex Berrios MD MD ec2
[2023-09-02 15:33] VITALS: BP 123/74; TEMP 97.5; O2SAT 99
== END ==
LOC: ER 12:43
DX: S00.551A Superficial foreign body of lip, initial encounter (principal)
CPT/HCPCS: J2001

== ENCOUNTER → 2023-09-28 | Emergency (ER) | payer OTHER ==
[~2023-09-28] MED LIST changes: +CEPHALEXIN 250 MG CAP ONE; +HYDROCODONE/APAP 7.5/325 MG TAB ONE; +SMZ./TMP. 800/160 MG TABLET ONE
--- OUTSIDE RECORDS SUMMARY | 2023-09-28 19:02 | XMS REPORT | Continuity of Care Document ---
Author Name Unknown Address [address] [facility] [place] [address] [facility] Address [address] [place] [address] Care Team Providers Care Fittings Finisher Name Role Phone YIN CAVANAUGH Attending Clinician [...] Effective Date Expirati on Date Source 0451 [id number] 2018 00:00:00 [place] [id number] 2021 00:00:[place] [id number] 2020 00:00:00 2021 00:00:00 Problems Condition Name Condition Details Condition Category Status Onset Date Resolution Date Last Treatment Date Treating Clinician Comments Source Trichomona l vaginitis Trichomona l Vaginitis Problem Active 8-20 00:00: 00 [facility] Pilonidal cyst Pilonidal Cyst Problem Active 7-04 00:00: 00 [facility] Abnormal findings on diagnostic imaging of breast Abnormal Findings on Diagnostic Imaging of Breast Problem Active 3-15 00:00: 00 [facility] Allergies, Adverse Reactions, Alerts Allergy Name Allergy Type Status Severity Reaction(s) Onset Date Inactive Date Treating Clinician Comments Source No Known Allergie s DA [facility] Social History Smoking Status Start Date Stop Date Source Never Smoker [facility] Medications Ordered Medication Name Filled Medication [...] 3 times a day by oral route. [facility] hydrocodone 5 mg-acetamin ophen 325 mg tablet hydrocodone 5 mg-acetamin ophen 325 mg tablet No hydrocodon e 5 mg-acetami nophen 325 mg tablet [facility] ibuprofen 600 mg tablet ibuprofen 600 mg tablet No ibuprofen 600 mg tablet [facility] Lidocaine Viscous 2 % mucosal solution Lidocaine Viscous 2 % mucosal solution No Lidocaine Viscous 2 % mucosal solution [facility] naproxen 500 mg tablet Take 1 tablet twice a day by oral route. naproxen 500 mg tablet Take 1 tablet twice a day by oral route. No naproxen 500 mg tablet Take 1 tablet twice a day by oral route. [facility] neomycin-po lymyxin-hyd rocort 3.5 mg-10,000 unit/mL-1 % ear drops,susp neomycin-po lymyxin-hyd rocort 3.5 mg-10,000 unit/mL-1 % ear drops,susp No neomycin-p olymyxin-h ydrocort 3.5 mg-10,000 unit/mL-1 % ear drops,susp [facility] prednisone 50 mg tablet prednisone 50 mg tablet No prednisone 50 mg tablet [facility] sulfamethox azole 800 mg-trimetho prim 160 mg tablet sulfamethox azole 800 mg-trimetho prim 160 mg tablet No sulfametho xazole 800 mg-trimeth oprim 160 mg tablet [facility] tramadol 50 mg tablet tramadol 50 mg tablet No tramadol 50 mg tablet [facility] Vital Signs Vital Name Observation Time Observation Value Comments S ource BP Diastolic 2022-03-04 00:00:00 72 mm[Hg] Hugo marquis [facility] Height 2022-03-04 00:00:00 67 [in_i] Jessie hines [facility] BMI (Body Mass Index) 2022-03-04 00:00:00 28.3 kg/m2 [facility] BP Systolic 2022-03-04 00:00:00 111 mm[Hg] Edwardo crain [facility] Body Weight 2022-03-04 00:00:00 181 [lb_av] Hugo marquis [facility] BP Diastolic 2022-02-24 00:00:00 73 mm[Hg] Hugo marquis [facility] Height 2022-02-24 00:00:00 67 [in_i] Jessie sin [facility] BMI (Body Mass Index) 2022-02-24 00:00:00 27.6 kg/m2 Neal [facility] BP Systolic 2022-02-24 00:00:00 107 mm[Hg] Edwardo crain [facility] Body Weight 2022-02-24 00:00:00 2818 [oz_av] Ryley william [facility] BP Diastolic 2022-01-05 00:00:00 70 mm[Hg] Hugo marquis [facility] Height 2022-01-05 00:00:00 67 [in_i] Matrahat orda [facility] BMI (Body Mass Index) 2022-01-05 00:00:00 27.6 kg/m2 Douglass [facility] BP Systolic 2022-01-05 00:00:00 102 mm[Hg] Brooke paras [facility] Body Weight 2022-01-05 00:00:00 176 [lb_av] Mat agorda [facility] BP Diastolic 2021-12-16 00:00:00 83 mm[Hg] Mat agorda [facility] Height 2021-12-16 00:00:00 67 [in_i] Matrahat orda [facility] BMI (Body Mass Index) 2021-12-16 00:00:00 28.3 kg/m2 [facility] BP Systolic 2021-12-16 00:00:00 126 mm[Hg] Brooke paras [facility] Body Weight 2021-12-16 00:00:00 2896 [oz_av] Ryley tagorda [facility] Height 2021-11-11 20:05:00 170.18 CM Weight 2021-11-11 20:05:00 79.37 KG BP Diastolic 2021-10-28 00:00:00 70 mm[Hg] Mat agorda [facility] Height 2021-10-28 00:00:00 67 [in_i] Matrahat orda [facility] BMI (Body Mass Index) 2021-10-28 00:00:00 27.6 kg/m2 [facility] BP Systolic 2021-10-28 00:00:00 106 mm[Hg] Brooke paras [facility] Body Weight 2021-10-28 00:00:00 2816 [oz_av] Ryley tagorda [facility] Height 2021-09-23 15:42:00 170.18 CM Weight 2021-09-23 15:42:00 76.65 KG BP Diastolic 2021-09-11 00:00:00 74 mm[Hg] Mat agorda [facility] Height 2021-09-11 00:00:00 67 [in_i] Jessie orda [facility] BMI (Body Mass Index) 2021-09-11 00:00:00 26.5 kg/m2 [facility] BP Systolic 2021-09-11 00:00:00 114 mm[Hg] Edwardo espinozaa [facility] Body Weight 2021-09-11 00:00:00 2704 [oz_av] Ryley tagorda [facility] Height 2021-08-11 19:48:00 170.18 CM Weight 2021-08-11 19:48:00 73.93 KG Height 2021-04-14 20:01:00 170.18 CM Weight 2021-04-14 20:01:00 76.65 KG Height 2020-12-24 20:50:00 170.18 CM Weight 2020-12-24 20:50:00 76.2 KG BP Diastolic 2020-12-16 00:00:00 71 mm[Hg] Hguo betancurrda [facility] Height 2020-12-16 00:00:00 67 [in_i] Jessie orda [facility] BMI (Body Mass Index) 2020-12-16 00:00:00 26.6 kg/m2 [facility] BP Systolic 2020-12-16 00:00:00 108 mm[Hg] Edwardo espinozaa [facility] Body Weight 2020-12-16 00:00:00 2720 [oz_av] Ryley anneorda [facility] BP Diastolic 2020-11-20 00:00:00 79 mm[Hg] Hugo betancurrda [facility] Height 2020-11-20 00:00:00 67 [in_i] Jessie orda [facility] BMI (Body Mass Index) 2020-11-20 00:00:00 25.8 kg/m2 [facility] BP Systolic 2020-11-20 00:00:00 123 mm[Hg] Brooke paras [facility] Body Weight 2020-11-20 00:00:00 2640 [oz_av] Ma william [facility] Height 2020-07-07 20:12:00 170.18 CM Weight 2020-07-07 20:12:00 74.84 KG Procedures Procedure Date / Time Performed Performing Clinicia n Source US, breast, unilateral 2022-03-03 00:00:00 Douglass [facility] US, breast, unilateral 2022-02-09 00:00:00 Douglass [facility] MAMMO, diagnostic, unilateral 2021-09-11 00:00:00 Douglass [facility] US, breast, unilateral 2021-09-11 00:00:00 Douglass [facility] Hernia Repair W/mesh 2007-07-12 00:00:00 Douglass [facility] Encounters Start Date/Time End Date/Time Encounter Type Admission Type Attending [facility] Care Facility Care Department Encounter ID Source 2021-11-30 08:00:00 Inpatient YIN MONTESINOS [facility] [place] [place] [facility] [id number] [facility] 2022-04-14 00:00:00 2022-04-14 00:00:00 Outpatient SHIMEK_MARY _ANN [facility] [id number] [facility] 2022-04-14 00:00:00 2022-04-14 00:00:00 Outpatient SHIMEK_MARY _ANN [facility] [id number] [facility] 2022-04-14 00:00:00 2022-04-14 00:00:00 Outpatient SHIMEK_MARY _ANN [facility] [id number] [facility] 2022-03-08 00:00:00 2022-03-08 00:00:00 Outpatient SHIMEK_MARY _ANN [facility] [id number] [facility] 2022-03-04 00:00:00 2022-03-04 00:00:00 Outpatient SHIMEK_MARY _ANN [facility] [id number] [facility] 2022-03-04 00:00:00 2022-03-04 00:00:00 Cecy Gallo MD: [id number] [facility] [address], [place] [address] , Ph. [phone] [facility] [id number] [facility] 2022-02-24 00:00:00 2022-02-24 00:00:00 Outpatient SHIMEK_MARY _ANN [facility] [id number] [facility] 2022-02-24 00:00:00 2022-02-24 00:00:00 Esme Jones, MANAGED CARE SPECIALIST: [address] [address] , Ph. [facility] 3 [phone] [facility] 2022-02-18 00:00:00 2022-02-18 00:00:00 Outpatient SHIMEK_MARY _ANN [facility] [id number] [facility] 2022-01-05 00:00:00 2022-01-05 00:00:00 Outpatient SHIMEK_MARY _ANN [facility] [id number] [facility] 2022-01-05 00:00:00 2022-01-05 00:00:00 Cecy Gallo MD: [id number], [address], [place] [address] , Ph. [facility] [phone] [facility] 2021-12-16 04:23:00 2021-12-16 04:23:00 Outpatient SHIMEK_MARY _ANN [facility] [id number] [facility] 2021-12-16 04:23:00 2021-12-16 04:23:00 Outpatient SHIMEK_ESME _CATARINA [facility] [id number] [facility] 2021-12-16 04:23:00 2021-12-16 04:23:00 Outpatient SHIMEK_ESME DE LA TORRE [facility] [id number] [facility] 2021-12-16 04:23:00 2021-12-16 04:23:00 Outpatient SHIMEK_ESME DE LA TORRE [facility] [id number] [facility] 2021-12-16 00:00:00 2021-12-16 00:00:00 Esme Jones, MANAGED CARE SPECIALIST: [place] [address] , Ph. [facility] [place] [address] [phone] [facility] 2021-12-15 10:05:00 2021-12-15 10:05:00 Outpatient SHIMEK_ESME DE LA TORRE [facility] [id number] [facility] 2021-11-11 19:53:00 2021-11-11 22:56:00 Outpatient ALFRED VELIZ [facility] [id number] [facility] 2021-10-28 03:50:00 2021-10-28 03:50:00 Outpatient SHIMEK_ESME DE LA TORRE [facility] [id number] [facility] 2021-10-28 03:49:00 2021-10-28 03:49:00 Outpatient SHIMEK_ESME DE LA TORRE [facility] [id number] [facility] 2021-10-28 00:00:00 2021-10-28 00:00:00 Esme Jones, MANAGED CARE SPECIALIST: [place] [address] , Ph. [facility] 3 [phone] [facility] 2021-09-23 15:42:00 2021-09-23 16:43:00 Outpatient Allegra EVELINE CAVANAUGH [facility] [place] [place] ECC [id number] [facility] 2021-09-16 09:09:00 2021-09-16 09:09:00 Outpatient SHIMEK_MARY _ANN [facility] [id number] [facility] 2021-09-16 09:09:00 2021-09-16 09:09:00 Outpatient SHIMEK_MARY _ANN [facility] [id number] [facility] 2021-09-16 09:09:00 2021-09-16 09:09:00 Outpatient SHIMEK_MARY _ANN [facility] [id number] [facility] 2021-09-11 07:46:00 2021-09-11 07:46:00 Outpatient SHIMEK_MARY _ANN [facility] [id number] [facility] 2021-09-11 00:00:00 2021-09-11 00:00:00 Esme Jones, MANAGED CARE SPECIALIST: [address] [place] [address] , [facility]. [facility] 3 [phone] [facility] 2021-08-11 19:40:00 2021-08-11 22:04:00 Outpatient E JORGE HUBBARD [facility] [place] [place] [facility] [id number] [facility] 2021-04-14 19:53:00 2021-04-14 20:14:00 Outpatient E JORGE HUBBARD [facility] [place] [place] [facility] [id number] [facility] 2020-12-24 20:48:00 2020-12-24 21:09:00 Outpatient Allegra ROPER OLIVIA [facility] [place] [place] [facility] [id number] [facility] 2020-12-16 12:14:00 2020-12-16 12:14:00 Outpatient SHIMEK_ESME DE LA TORRE [facility] [id number] [facility] 2020-12-16 12:14:00 2020-12-16 12:14:00 Outpatient SHIMEK_ESME DE LA TORRE [facility] [id number] [facility] 2020-12-16 12:14:00 2020-12-16 12:14:00 Outpatient SHIMEK_ESME DE LA TORRE [facility] [id number] [facility] 2020-12-16 12:14:00 2020-12-16 12:14:00 Outpatient SHIMEK_ESME DE LA TORRE [facility] [id number] [facility] 2020-12-16 12:14:00 2020-12-16 12:14:00 Outpatient SHIMEK_ESME DE LA TORRE [facility] [id number] [facility] 2020-12-16 12:14:00 2020-12-16 12:14:00 Outpatient SHIMEK_ESME DE LA TORRE [facility] [id number] [facility] 2020-12-16 00:00:00 2020-12-16 00:00:00 Esme Jones, MANAGED CARE SPECIALIST: [address] [address] , Ph. [facility] [place] [address] [phone] [facility] 2020-11-20 04:22:00 2020-11-20 04:22:00 Outpatient SHIMEK_ESME DE LA TORRE [facility] [id number] [facility] 2020-11-20 00:00:00 2020-11-20 00:00:00 Esme Jones, MANAGED CARE SPECIALIST: [address] [address] , Ph. [facility] 3 [phone] [facility] 2020-11-18 08:32:00 2020-11-18 08:32:00 Outpatient JOLENE DE LA TORRE [facility] [id number] [facility] 2020-10-22 04:44:00 2020-10-22 04:44:00 Outpatient JOLENE DE LA TORRE [facility] [id number] [facility] 2020-07-07 20:12:00 2020-07-07 22:25:00 Outpatient ALEK VU [facility] [id number] [facility] Results Test Description Test Time Test Comments Results Result Co mments Source [facility] W Auto Differential panel - Blood [...] immature cells (test code = immature cells) pool lifeguard Neutrophils [#/volume] in Bl ood by Automated [...] Blood by Automated count (test code = 53520-0) 0 % not estab. Immature granulocytes [#/volume] in Blood by Automated count (test code = 74962-5) 0.0 x10e3/uL 0.0-0.1 Nucleated erythrocytes/100 leukocytes [Ratio] in Blood by Automated count (test code = 58112-3) pool lifeguard Morphology [Interpretation] in Blood Narrative (test code = 10169-6) pool lifeguard [facility] 2000 panel - Serum or [id number] 00:00:00* Test Item Value Reference Range Interpretation [...] in Serum or Plasma (test code = 74321-0) 9.6 mg/dL 8.7-10.2 Protein [Mass/volume] in Serum or Plasma (test code = 2885-2) 7.4 g/dL 6.0-8.5 Albumin [Mass/volume] in Serum or Plasma (test code = 175-7) 4.4 g/dL 3.9-5.0 Globulin [Mass/volume] in Serum by calculation (test code = 47045-8) 3.0 g/dL 1.5-4.5 Albumin/Globulin [Mass Ratio ] [...] (test code = 174-6) 14 IU/L 0-32 [facility] - Serum or Plasma 2021-12-17 [...] or Plasma by calculation (test code = 41621-3) 31 mg/dL 5-40 Cholesterol in LDL [Mass/vol ume] in Serum or Plasma by calculation (test code = 73095-1) 113 mg/dL 0-99 H Laboratory comment [Text] in Report Narrative (test code = 92566-9) pool lifeguard [facility] CenterHemoglobin A1c/Hemoglobin.total in [id number] 00:00:00* Test Item Value Reference Range Interpretation Comme nts Hemoglobin A1c/Hemoglobin.to meron in Blood (test code = 4548-4) 5.4 % 4.8-5.6 Glucose mean value [Mass/vol ume] in Blood Estimated from glycated hemoglobin (test code = 02738-9) 108 mg/dL [facility]agin Ab [Presence] in Serum by RPR 2021-12-17 00:00:00* Test Item Value Reference Range Interpretation Comme nts Reagin Ab [Presence] in Seru m by RPR (test code = 44436-6) non reactive non reactive [facility] CenterHIV 1 and 2 tests - Meaningful Use [id number] 00:00:00* Test Item Value Reference Range Interpretation Comme nts HIV 1+2 Ab+HIV1 p24 Ag [Presence] in Serum or Plasma by Immunoassay (test code = 03888-8) non reactive non reactive [facility] CenterHepatitis B virus surface Ag [Presence] in Serum or Plasma by [id number] 00:00:00* Test Item Value Reference Range Interpretation Comme nts Hepatitis B virus surface Ag [Presence] in Serum or Plasma by Immunoassay (test code = 5196-1) negative negative [facility]erc[facility] assessment panel, [id number] 00:00:00* Test Item Value Reference Range Interpretation Comme nts Interpretation and review of laboratory results (test code = 57092-6) note Report (test code = 85194-6) . [facility] CenterCT [facility]K [facility]/CONTRAST *OW*2021-11-11 22:27:47[facility] CENTERName: JOSIAH PATEL : 2000 Sex: FEXAMINATION:CT NECK W/CONTRAST *OW*CLINICAL INDICATION:Female, 21 years old with Pain in throatTECHNIQUE:Axial CT images were obtained of the neck with intravenous contrast. Coronal and sagittal reformatted images were created from the data set.One or more of the following dose reduction techniques wereused: Automated exposure control, adjustment of the mA and/or kV according to patient size, and/or iterative reconstruction. COMPARISON: NoneFINDINGS:Aerodigestive tract: The aerodigestive structuresare within normal limits. Specifically, the nasal cavity, nasopharynx, oral cavity, oropharynx, hypopharynx, larynx, and visualized trachea and esophagus demonstrate no masses.Lymph Nodes: Small jugul odigastric and posterior cervical chain lymph nodes are [...] The tympanomastoid cavities are unopacified. Lungs: Limited evaluationof the lung apices demonstrates no abnormality. Bones: The visualized osseous structures are withinnormal limits.IMPRESSION:1. Prominent jugulodigastric lymph nodes not considered to be pathologically enlarged. However continued follow-up is recommended.2. Otherwise normal CT scan of neck.Electronically signed by: Daniel Nolan MD 11/11/2021 10:27 PM CDT [id number] Panel *OW* [id number] 21:40:00* Test Item Value Reference Range Interpretation [...] ABDOMEN AND PELVIS W/O CONTRAST *OW*2021-08-11 21:29:43 [facility] : 2000 Sex: FEXAMINATION:Chest, abdomen, [...] by: Shabbir pedraza MD 08/11/2021 9:29 PM [facility] CHEST W/O CONTRAST *OW* 2021-08-11 21:29:43 [facility] : 2000 Sex: FEXAMINATION:Chest, abdomen, [...] by: Shabbir pedraza MD 08/11/2021 9:29 PM FIN[employer]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 [employer]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[employer] 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 W/O CONTRAST *OW* 2021-08-11 21:28:07 [facility] : 2000 Sex: FExam: CT [...] by: Mina Clayton MD 08/11/2021 9:28 PM [facility] CERVICAL SPINE W/O CONTRAST *OW*2021-08-11 21:24:12 [facility] : 2000 Sex: FExam: CT [...] by: Kevin Arango MD 08/11/2021 9:24 PM [facility] [id number] URINE OW2021-08-11 20:27:00* Test Item Value Reference [...] NEGATIVE CBC W Auto Differential panel - [id number] 00:00:00* Test Item Value Reference Range Interpretation [...] immature cells (test code = immature cells) pool lifeguard Neutrophils [#/volume] in Bl ood by Automated [...] Blood by Automated count (test code = 69767-6) 0 % not estab. Immature granulocytes [#/volume] in Blood by Automated count (test code = 46125-3) 0.0 x10e3/uL 0.0-0.1 Nucleated erythrocytes/100 leukocytes [Ratio] in Blood by Automated count (test code = 61909-8) pool lifeguard Morphology [Interpretation] in Blood Narrative (test code = 62743-9) pool lifeguard [facility] ProgramComprehensive metabolic 2000 panel - Serum or [id number] 00:00:00* Test Item Value Reference Range Interpretation [...] by Creatinine-based formula (CKD-EPI) (test code = 02751-9) 119 mL/min/1.73 >59 Glomerular filtration rate/1.73 sq M.predicted among blacks [Volume Rate/Area] in Serum, Plasma or Blood by Creatinine-based formula (CKD-EPI) (test code = 70806-8) 137 mL/min/1.73 >59 Urea nitrogen/Creatinine [Mass Ratio] [...] in Serum or Plasma (test code = 06523-5) 10.0 mg/dL 8.7-10.2 Protein [Mass/volume] in Serum or Plasma (test code = 2885-2) 7.6 g/dL 6.0-8.5 Albumin [Mass/volume] in Serum or Plasma (test code = 175-7) 4.4 g/dL 3.9-5.0 Globulin [Mass/volume] in Serum by calculation (test code = 34301-6) 3.2 g/dL 1.5-4.5 Albumin/Globulin [Mass Ratio ] in Serum or Plasma (test code = 1759-0) 1.4 1.2-2.2 Bilirubin.total [Mass/volume ] in Serum or Plasma (test code = 1974-) 0.7 mg/dL 0.0-1.2 Alkaline phosphatase [Enzymatic activity/volume] in Serum or Plasma (test code = 6768-6) 44 IU/L 39-117 Aspartate aminotransferase [Enzymatic activity/volume] in Serum or Plasma (test code = 192-8) 15 IU/L 0-40 Alanine aminotransferase [Enzymatic activity/volume] in Serum or Plasma (test code = 1742-6) 14 IU/L 0-32 [facility] 1996 panel - Serum or Plasma 2020-11-21 00:00:00* Test Item Value Reference Range Interpretation Comme nts Cholesterol [Mass/volume] in Serum or Plasma (test code = 2092-3) 185 mg/dL 100-199 Triglyceride [Mass/volume] i n Serum or Plasma (test code = 257-8) 72 mg/dL 0-149 Cholesterol in HDL [Mass/vol ume] in Serum or Plasma (test code = 2084-) 51 mg/dL >39 Cholesterol in VLDL [Mass/vo lume] in Serum or Plasma by calculation (test code = 57619-9) 13 mg/dL 5-40 Cholesterol in LDL [Mass/vol ume] in Serum or Plasma by calculation (test code = 09016-5) 121 mg/dL 0-99 H Laboratory comment [Text] in Report Narrative (test code = 44699-5) pool lifeguard [facility] CenterHemoglobin A1c/Hemoglobin.total in [id number] 00:00:00* Test Item Value Reference Range Interpretation Comme nts Hemoglobin A1c/Hemoglobin.to meron in Blood (test code = 4548-4) 5.2 % 4.8-5.6 Glucose mean value [Mass/vol ume] in Blood Estimated from glycated hemoglobin (test code = 12817-4) 103 mg/dL [facility]HIV1 p24 Ag [Presence] in Serum or Plasma by [id number] 00:00:00* Test Item Value Reference Range Interpretation Comme nts HIV 1+2 Ab+HIV1 p24 Ag [Presence] in Serum or Plasma by Immunoassay (test code = 21930-2) non reactive non reactive [facility] Center[facility]in [Units/volume] in Serum or Plasma by Detection limit <= 0.005 mIU/[id number] 00:00:00* Test Item Value Reference Range Interpretation Comme nts Thyrotropin [Units/volume] i n Serum or Plasma by Detection limit <= 0.005 mIU/L (test code = 53323-3) 0.677 uIU/mL 0.450-4.500 [facility] [Presence] in Serum by RPR 2020-11-21 00:00:00* Test Item Value Reference Range Interpretation Comme nts Reagin Ab [Presence] in Seru m by RPR (test code = 39697-4) non reactive non reactive [facility] CenterHepatitis B virus surface Ag [Presence] in Serum or Plasma by [id number] 00:00:00* Test Item Value Reference Range Interpretation Comme nts Hepatitis B virus surface Ag [Presence] in Serum or Plasma by Immunoassay (test code = 5196-1) negative negative [facility] panel, [id number] 00:00:00* Test Item Value Reference Range Interpretation Comme nts Interpretation and review of laboratory results (test code = 92511-9) note Report (test code = 87728-3) . [facility] CenterINFL[facility]ZA A AND B OW2020-07-07 21:13:00* Test Item Value Reference Range Interpretation Comme nts INFLUENZ A (test code = INFA) NEGATIVE NEGATIVE INFLUENZ B (test code = INFB) NEGATIVE NEGATIVE
--- NOTE | 2023-09-28 22:40 | EDPHYS ---
Physician Documentation [facility] Name: Aileen Montalvo Age: 23 yrs Sex: Female : 2000 Arrival Date: 09/28/2023 Time: 18:34 Bed 11 Private MD: ED Physician Flex Berrios SIDEROGRAPHIST: 09/27 22:36 LMP N/A - control method, Not tl4 Historical: - Allergies: 19:07 No Known Allergies; ap3 - PMHx: 19:07 HS- Hidradenitis Suppurativa; ap3 - PSHx: 19:07 Cyst removal; ap3 - Immunization history:: Client reports receiving the 2nd dose of the Covid vaccine. - Social history:: Smoking status: Patient denies any tobacco usage or history of. Vital Signs: 19:05 Pulse 86; Resp 17; Temp 98.3; Pulse Ox 98% ; Weight 86.64 kg; Height 5 ft. 7 in. ; Pain ap3 10/10; 19:07 BP 131 / 78; ap3 22:34 BP 119 / 75; Pulse 79; Resp 16; Pulse Ox 99% on R/A; Pain 10/10; tl4 23:13 BP 115 / 77; Pulse 75; Resp 12; Temp 98.3(O); Pulse Ox 100% on R/A; Pain 8/10; tl4 19:05 Body Mass Index 29.91 (86.64 kg, 170.18 cm) ap3 19:05 Pain Scale: Adult ap3 22:34 Pain Scale: Adult tl4 23:13 Pain Scale: Adult tl4 MDM: 18:39 Patient medically screened. kb 09/27 21:35 Order name: I\T\D Setup; Complete Time: 22:27 kb Administered Medications: 22:44 Not Given (Physician Discretion): lidocaine(1 %) 1 vials 5 ml Infiltration once; to tl4 bedside 22:44 Drug: Trimethoprim-Sulfamethoxazole PO (160 mg-800 mg (DS) 1 tablet PO once Route: PO; tl4 23:16 Follow up: Response: No adverse reaction tl4 22:44 Drug: Cephalexin PO 500 mg PO once Route: PO; tl4 23:16 Follow up: Response: No adverse reaction tl4 22:44 Drug: Hydrocodone-Acetaminophen PO (7.5 mg-325 mg) 1 tabs PO once Route: PO; tl4 23:16 Follow up: Response: No adverse reaction tl4 Disposition Summary: 09/28/23 22:39 Discharge Ordered Notes: Location: Home kb Condition: Stable kb Diagnosis - Cutaneous abscess of chest wall - left breast kb Followup: kb - With: Emergency Department - When: As needed - Reason: Worsening of condition Followup: kb - With: Private Physician - When: 2 - 3 days - Reason: Recheck today's complaints, Continuance of care, Re-evaluation by your physician Discharge Instructions: - Discharge Summary Sheet kb - Skin Abscess, [id number] kb Forms: - Medication Reconciliation Form kb - Thank You Letter kb - Antibiotic Education kb - Prescription Opioid Use kb - Patient Portal Instructions kb - Leadership Thank You Letter kb Prescriptions: - Cephalexin 500 mg Oral Capsule - take 1 capsule ORAL route every 8 hours for 10 days; 30 capsule; Refills: 0, kb Product Selection Permitted - Bactrim DS 800-160 mg Oral Tablet - take 1 tablet ORAL route every 12 hours for 10 days; 20 tablet; Refills: 0, kb Product Selection Permitted Signatures: Barbi Thurman, CHERELLE-C CHERELLE-Anna Marie Berg RN RN ap3 Agustin Leyva RN RN tl4
--- NOTE | 2023-09-28 22:40 | ER ---
Nurse's Notes [facility] Name: Aileen Montalvo Age: 23 yrs Sex: Female : 2000 Arrival Date: 09/28/2023 Time: 18:34 Bed 11 Private MD: Diagnosis: Cutaneous abscess of chest wall-left breast Presentation: 09/27 19:05 Chief complaint: Patient states: left breast bump 3 days ago. Coronavirus screen: At ap3 this time, the client does not indicate any symptoms associated with coronavirus-19. Ebola Screen: No symptoms or risks identified at this time. Initial Sepsis Screen: Does the patient meet any 2 criteria? No. Patient's initial sepsis screen is negative. Does the patient have a suspected source of infection? No. Patient's initial sepsis screen is negative. Risk Assessment: Do you want to hurt yourself or someone else? Patient reports no desire to harm self or others. Onset of symptoms was September 25, 2023. 19:05 Method Of Arrival: Ambulatory ap3 19:05 Acuity: [id number] 4 ap3 Triage Assessment: 19:07 General: Appears in no apparent distress. Behavior is calm, cooperative, appropriate ap3 for age. Pain: Complains of pain in left breast. Neuro: Level of Consciousness is awake, alert, obeys commands, Oriented to person, place, time, situation. Cardiovascular: Patient's skin is warm and dry. Respiratory: Airway is patent Respiratory effort is even, unlabored, Respiratory pattern is regular, symmetrical. 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 - Social history:: Smoking status: Patient denies any tobacco usage or history of. Screenin:35 [facility] ED Fall Risk Assessment (Adult) History of falling in the last 3 months, tl4 including since admission No falls in past 3 months (0 pts) Confusion or Disorientation No (0 pts) Intoxicated or Sedated No (0 pts) Impaired Gait No (0 pts) Mobility Assist Device Used No (0 pt) Altered Elimination No (0 pt) Score/Fall Risk Level 0 - 2 = Low Risk Oriented to surroundings, Maintained a safe environment, Educated pt \T\ family on fall prevention, incl call for assistance when getting out of bed, Assessed \T\ reinforced patient's understanding of fall precautions, Hourly rounding (assess needs \T\ fall precautionary measures) done, Used ambulatory aids as needed (educated on \T\ assisted with), Used gait belt as appropriate. Abuse screen: Denies threats or abuse. Denies injuries from another. Nutritional screening: No deficits noted. Tuberculosis screening: No symptoms or risk factors identified. Assessment: 22:32 General: Appears in no apparent distress. Behavior is calm, cooperative. Pain: tl4 Complains of pain in chest. Neuro: Level of Consciousness is awake, alert, obeys commands, Oriented to person, place, time, situation, Gait is steady, Speech is normal, Facial symmetry appears normal. Cardiovascular: Capillary refill < 3 seconds Patient's skin is warm and dry. Respiratory: Airway is patent Respiratory effort is even, unlabored, Breath sounds are clear bilaterally. GI: No deficits noted. No signs and/or symptoms were reported involving the gastrointestinal system. : No deficits noted. No signs and/or symptoms were reported regarding the genitourinary system. EENT: No deficits noted. No signs and/or symptoms were reported regarding the EENT system. Derm: Wound noted chest Other: wound is open and draining purulent, blood tinged discharge. Musculoskeletal: No deficits noted. No signs and/or symptoms reported regarding the musculoskeletal system. Vital Signs: 19:05 Pulse 86; Resp 17; Temp 98.3; Pulse Ox 98% ; Weight 86.64 kg; Height 5 ft. 7 in. ; Pain ap3 10/10; 19:07 BP 131 / 78; ap3 22:34 BP 119 / 75; Pulse 79; Resp 16; Pulse Ox 99% on R/A; Pain 10/10; tl4 23:13 BP 115 / 77; Pulse 75; Resp 12; Temp 98.3(O); Pulse Ox 100% on R/A; Pain 8/10; tl4 19:05 Body Mass Index 29.91 (86.64 kg, 170.18 cm) ap3 19:05 Pain Scale: Adult ap3 22:34 Pain Scale: Adult tl4 23:13 Pain Scale: Adult tl4 ED Course: 18:37 Patient arrived in ED. im 18:39 Barbi Thurman FNP-C [facility] kb 18:39 Flex Berrios MD is Attending Physician. kb 19:07 Triage completed. ap3 19:07 Arm band placed on right wrist. ap3 21:58 Agustin Leyva RN is Primary Nurse. tl4 22:35 Patient has correct armband on for positive identification. Placed in gown. Bed in low tl4 position. Call light in reach. Side rails up X 1. Provided Education on: ED process. Client placed on continuous cardiac and pulse oximetry monitoring. NIBP monitoring applied. Door closed. Noise minimized. Moved to private room. Warm blanket given. 22:36 Assist provider with I \T\ D: Set up I\T\D tray. Patient did not have IV access during this tl 4 emergency room visit. 23:13 Wound care: located on left breast was cleaned with soap and water, dressed with 4X4s. tl4 Administered Medications: 22:44 Not Given (Physician Discretion): lidocaine(1 %) 1 vials 5 ml Infiltration once; to tl4 bedside 22:44 Drug: Trimethoprim-Sulfamethoxazole PO (160 mg-800 mg (DS) 1 tablet PO once Route: PO; tl4 23:16 Follow up: Response: No adverse reaction tl4 22:44 Drug: Cephalexin PO 500 mg PO once Route: PO; tl4 23:16 Follow up: Response: No adverse reaction tl4 22:44 Drug: Hydrocodone-Acetaminophen PO (7.5 mg-325 mg) 1 tabs PO once Route: PO; tl4 23:16 Follow up: Response: No adverse reaction tl4 Medication: 22:35 VIS not applicable for this client. tl4 Outcome: 22:39 Discharge ordered by . kb 23:15 Discharged to home ambulatory, tl4 23:15 Condition: stable 23:15 Discharge instructions given to patient, Instructed on discharge instructions, follow up and referral plans. medication usage, Demonstrated understanding of instructions, follow-up care, medications, Prescriptions given X 2, 23:16 Patient left the ED. tl4 Signatures: Barbi Thurman FNP-C FNP-Anna Marie Berg RN RN ap3 Villagomez, Shannon Leyva, Agustin, RN RN tl4
[2023-09-29 00:51] VITALS: BP 115/77; TEMP 98.3; O2SAT 100
== END ==
LOC: ER 18:34
PROC: 0H95XZZ Drainage of Chest Skin, External Approach (ICD-10-PCS; principal; 2023-09-28)
DX: L02.213 Cutaneous abscess of chest wall (principal)
CPT/HCPCS: J2001

== ENCOUNTER 2023-12-14 21:53 | Emergency (ER) | payer OTHER ==
--- OUTSIDE RECORDS SUMMARY | 2023-12-14 21:57 | XMS REPORT | Continuity of Care Document ---
Author Name Unknown Address [address] [facility] [address] [place] [address] [facility] Address [address] [facility] [address] [place] [address] Care Team Providers Care Teller Head Name Role Phone YIN CAVANAUGH Attending Clinician Unavailable SANTIAGO HUA Attending Clinician Unavailable RAVEN Attending Clinician Unavailable DR ALFRED HORNER Attending Clinician UnavailDR EVELINE Gillette Attending Clinician Unavailable DR JORGE HUBBARD Attending Clinician Unavailable DR OLIVIA ROPER Attending Clinician Unavailable DR ALEK JANG Attending Clinician Unavailable YIN CAVANAUGH Admitting Clinician Unavailable RAVEN Admitting Clinician Unavailable DR ALFRED HORNER Admitting Clinician UnavailDR EVELINE Gillette Admitting Clinician Unavailable DR JORGE HUBBARD Admitting Clinician Unavailable DR OLIVIA ROPER Admitting Clinician Unavailable DR ALEK JANG Admitting Clinician Unavailable Payers Payer Name Policy Type Policy Number Effective Date Expirati on Date Source 0451 [id number] 2018 00:00:00 [facility] 9 [id number] 2023 00:00:00 [place] [id number] 2021 00:00:[place] [id number] 2020 00:00:00 Problems Condition Name Condition Details Condition Category Status Onset Date Resolution Date Last Treatment Date Treating Clinician Comments Source Trichomona l vaginitis Trichomona l Vaginitis Problem Active 8-20 00:00: 00 [facility] Pilonidal cyst Pilonidal Cyst Problem Active 7-04 00:00: 00 [facility] Abnormal findings on diagnostic imaging of breast Abnormal Findings on Diagnostic Imaging of Breast Problem Active 3-15 00:00: 00 [facility] Allergies, Adverse Reactions, Alerts Allergy Name Allergy Type Status Severity Reaction(s) Onset Date Inactive Date Treating Clinician Comments Source No Known Allergie s DA [facility] Social History Smoking Status Start Date Stop Date Source Never Smoker [facility] Medications Ordered Medication Name Filled Medication [...] 3 times a day by oral route. [facility] hydrocodone 5 mg-acetamin ophen 325 mg tablet hydrocodone 5 mg-acetamin ophen 325 mg tablet No hydrocodon e 5 mg-acetami nophen 325 mg tablet [facility] ibuprofen 600 mg tablet ibuprofen 600 mg tablet No ibuprofen 600 mg tablet [facility] Lidocaine Viscous 2 % mucosal solution Lidocaine Viscous 2 % mucosal solution No Lidocaine Viscous 2 % mucosal solution [facility] naproxen 500 mg tablet Take 1 tablet twice a day by oral route. naproxen 500 mg tablet Take 1 tablet twice a day by oral route. No naproxen 500 mg tablet Take 1 tablet twice a day by oral route. [facility] neomycin-po lymyxin-hyd rocort 3.5 mg-10,000 unit/mL-1 % ear drops,susp neomycin-po lymyxin-hyd rocort 3.5 mg-10,000 unit/mL-1 % ear drops,susp No neomycin-p olymyxin-h ydrocort 3.5 mg-10,000 unit/mL-1 % ear drops,susp [facility] prednisone 50 mg tablet prednisone 50 mg tablet No prednisone 50 mg tablet [facility] sulfamethox azole 800 mg-trimetho prim 160 mg tablet sulfamethox azole 800 mg-trimetho prim 160 mg tablet No sulfametho xazole 800 mg-trimeth oprim 160 mg tablet [facility] tramadol 50 mg tablet tramadol 50 mg tablet No tramadol 50 mg tablet [facility] Vital Signs Vital Name Observation Time Observation Value Comments S ource BP Diastolic 2022-03-04 00:00:00 72 mm[Hg] [facility] Height 2022-03-04 00:00:00 67 [in_i] [facility] BMI (Body Mass Index) 2022-03-04 00:00:00 28.3 kg/m2 [facility] BP Systolic 2022-03-04 00:00:00 111 mm[Hg] Brookeayana espinozaa [facility] Body Weight 2022-03-04 00:00:00 181 [lb_av] [facility] BP Diastolic 2022-02-24 00:00:00 73 mm[Hg] [facility] Height 2022-02-24 00:00:00 67 [in_i] [facility] BMI (Body Mass Index) 2022-02-24 00:00:00 27.6 kg/m2 [facility] BP Systolic 2022-02-24 00:00:00 107 mm[Hg] Brookeayana espinozaa [facility] Body Weight 2022-02-24 00:00:00 2818 [oz_av] Ryley tagorda [facility] BP Diastolic 2022-01-05 00:00:00 70 mm[Hg] Mat ag[place]a [facility] Height 2022-01-05 00:00:00 67 [in_i] [place] [facility] BMI (Body Mass Index) 2022-01-05 00:00:00 27.6 kg/m2 [place] [facility] BP Systolic 2022-01-05 00:00:00 102 mm[Hg] Brooke paras [facility] Body Weight 2022-01-05 00:00:00 176 [lb_av] [place] [facility] BP Diastolic 2021-12-16 00:00:00 83 mm[Hg] [place] [facility] Height 2021-12-16 00:00:00 67 [in_i] [place] [facility] BMI (Body Mass Index) 2021-12-16 00:00:00 28.3 kg/m2 [place] [facility] BP Systolic 2021-12-16 00:00:00 126 mm[Hg] Brooke paras [facility] Body Weight 2021-12-16 00:00:00 2896 [oz_av] Ryley anneorda [facility] Height 2021-11-11 20:05:00 170.18 CM Weight 2021-11-11 20:05:00 79.37 KG BP Diastolic 2021-10-28 00:00:00 70 mm[Hg] [place] [facility] Height 2021-10-28 00:00:00 67 [in_i] [place] [facility] BMI (Body Mass Index) 2021-10-28 00:00:00 27.6 kg/m2 [place] [facility] BP Systolic 2021-10-28 00:00:00 106 mm[Hg] Brooke paras [facility] Body Weight 2021-10-28 00:00:00 2816 [oz_av] Ma tagorda [facility] Height 2021-09-23 15:42:00 170.18 CM Weight 2021-09-23 15:42:00 76.65 KG BP Diastolic 2021-09-11 00:00:00 74 mm[Hg] Hugo agorda [facility] Height 2021-09-11 00:00:00 67 [in_i] Jessie orda [facility] BMI (Body Mass Index) 2021-09-11 00:00:00 26.5 kg/m2 [place] [facility] BP Systolic 2021-09-11 00:00:00 114 mm[Hg] Brooke paras [facility] Body Weight 2021-09-11 00:00:00 2704 [oz_av] Ryley kearnsa [facility] Height 2021-08-11 19:48:00 170.18 CM Weight 2021-08-11 19:48:00 73.93 KG Height 2021-04-14 20:01:00 170.18 CM Weight 2021-04-14 20:01:00 76.65 KG Height 2020-12-24 20:50:00 170.18 CM Weight 2020-12-24 20:50:00 76.2 KG BP Diastolic 2020-12-16 00:00:00 71 mm[Hg] Hugo betancurrda [facility] Height 2020-12-16 00:00:00 67 [in_i] Jessie orda [facility] BMI (Body Mass Index) 2020-12-16 00:00:00 26.6 kg/m2 [place] [facility] BP Systolic 2020-12-16 00:00:00 108 mm[Hg] Edwardo espinozaa [facility] Body Weight 2020-12-16 00:00:00 2720 [oz_av] Ryley anneorda [facility] BP Diastolic 2020-11-20 00:00:00 79 mm[Hg] Hugo betancurrda [facility] Height 2020-11-20 00:00:00 67 [in_i] Jessie orda [facility] BMI (Body Mass Index) 2020-11-20 00:00:00 25.8 kg/m2 [place] [facility] BP Systolic 2020-11-20 00:00:00 123 mm[Hg] Edwardo crain [facility] Body Weight 2020-11-20 00:00:00 2640 [oz_av] Ryley thomas [facility] Height 2020-07-07 20:12:00 170.18 CM Weight 2020-07-07 20:12:00 74.84 KG Procedures Procedure Date / Time Performed Performing Clinicia n Source US, breast, unilateral 2022-03-03 00:00:00 [place] [facility] US, breast, unilateral 2022-02-09 00:00:00 [place] [facility] MAMMO, diagnostic, unilateral 2021-09-11 00:00:00 [place] [facility] US, breast, unilateral 2021-09-11 00:00:00 [place] [facility] Hernia Repair W/mesh 2007-07-12 00:00:00 [place] [facility] Encounters Start Date/Time End Date/Time Encounter Type Admission Type Attending Clinicians Care Facility Care Department Encounter ID Source 2021-11-30 08:00:00 Inpatient YIN MONTESINOS [facility] [id number] [facility] 2024-01-04 09:00:00 2024-01-04 09:00:00 Outpatient SANTIAGO HUA [id number] Vicki Jones 2022-04-14 00:00:00 2022-04-14 00:00:00 Outpatient SHIMEK_MARY _ANN [facility] [id number] [facility] 2022-04-14 00:00:00 2022-04-14 00:00:00 Outpatient SHIMEK_MARY _[facility] [id number] [facility] 2022-04-14 00:00:00 2022-04-14 00:00:00 Outpatient SHIMEK_MARY _[facility] [id number] [facility] 2022-03-08 00:00:00 2022-03-08 00:00:00 Outpatient SHIMEK_MARY _ANN [facility] [id number] [facility] 2022-03-04 00:00:00 2022-03-04 00:00:00 Outpatient SHIMEK_MARY _ANN [facility] [id number] [facility] 2022-03-04 00:00:00 2022-03-04 00:00:00 Cecy Gallo MD: [id number] [facility] [address], [place] [address] , Ph. [phone] [facility] [id number] [facility] 2022-02-24 00:00:00 2022-02-24 00:00:00 Outpatient SHIMEK_MARY _[facility] [id number] [facility] 2022-02-24 00:00:00 2022-02-24 00:00:00 Esme Jones, ACCOUNTANT CONTROLLER: [address] [address] , Ph. [facility] 3 [id number] [facility] 2022-02-18 00:00:00 2022-02-18 00:00:00 Outpatient SHIMEK_MARY _ANN [facility] [id number] [facility] 2022-01-05 00:00:00 2022-01-05 00:00:00 Outpatient SHIMEK_MARY _[facility] [id number] [facility] 2022-01-05 00:00:00 2022-01-05 00:00:00 Cecy Gallo MD: [id number], [address], [place] [address] , Ph. [facility] [id number] [facility] 2021-12-16 04:23:00 2021-12-16 04:23:00 Outpatient SHIMEK_MARY _ANN [facility] [id number] [facility] 2021-12-16 04:23:00 2021-12-16 04:23:00 Outpatient SHIMEK_MARY _ANN [facility] [id number] [facility] 2021-12-16 04:23:00 2021-12-16 04:23:00 Outpatient SHIMEK_MARY _ANN [facility] [id number] [facility] 2021-12-16 04:23:00 2021-12-16 04:23:00 Outpatient SHIMEK_MARY _ANN [facility] [id number] [facility] 2021-12-16 00:00:00 2021-12-16 00:00:00 Esme Jones, ACCOUNTANT CONTROLLER: [address] [address] , Ph. [facility] [place] [address] [id number] [facility] 2021-12-15 10:05:00 2021-12-15 10:05:00 Outpatient SHIMEK_MARY _ANN [facility] [id number] [facility] 2021-11-11 19:53:00 2021-11-11 22:56:00 Outpatient ALFRED VELIZ [facility] [id number] [facility] 2021-10-28 03:50:00 2021-10-28 03:50:00 Outpatient SHIMEK_MARY _ANN [facility] [id number] [facility] 2021-10-28 03:49:00 2021-10-28 03:49:00 Outpatient SHIMEK_ESME _ANN [facility] [id number] [facility] 2021-10-28 00:00:00 2021-10-28 00:00:00 Esme Jones, ACCOUNTANT CONTROLLER: [address] [place] [address] , Ph. [facility] 3 [id number] [facility] 2021-09-23 15:42:00 2021-09-23 16:43:00 Outpatient EVELINE INGRAM [facility] [id number] [facility] 2021-09-16 09:09:00 2021-09-16 09:09:00 Outpatient SHIMEK_ESME _ANN [facility] [id number] [facility] 2021-09-16 09:09:00 2021-09-16 09:09:00 Outpatient SHIMEK_MARY _ANN [facility] [id number] [facility] 2021-09-16 09:09:00 2021-09-16 09:09:00 Outpatient SHIMEK_MARY _ANN [facility] [id number] [facility] 2021-09-11 07:46:00 2021-09-11 07:46:00 Outpatient SHIMEK_MARY _ANN [facility] [id number] [facility] 2021-09-11 00:00:00 2021-09-11 00:00:00 Esme Jones, ACCOUNTANT CONTROLLER: [address] [address] , Ph. [facility] 3 [id number] [facility] 2021-08-11 19:40:00 2021-08-11 22:04:00 Outpatient JORGE WALLACE [facility] [id number] [facility] 2021-04-14 19:53:00 2021-04-14 20:14:00 Outpatient JORGE WALLACE [facility] [id number] [facility] 2020-12-24 20:48:00 2020-12-24 21:09:00 Outpatient OLIVIA Dinh BA [facility] [id number] [facility] 2020-12-16 12:14:00 2020-12-16 12:14:00 Outpatient SHIMEK_ESME _ANN [facility] [id number] [facility] 2020-12-16 12:14:00 2020-12-16 12:14:00 Outpatient SHIMEK_MARY _ANN [facility] [id number] [facility] 2020-12-16 12:14:00 2020-12-16 12:14:00 Outpatient SHIMEK_ESME _ANN [facility] [id number] [facility] 2020-12-16 12:14:00 2020-12-16 12:14:00 Outpatient SHIMEK_MARY _ANN [facility] [id number] [facility] 2020-12-16 12:14:00 2020-12-16 12:14:00 Outpatient SHIMEK_ESME _ANN [facility] [id number] [facility] 2020-12-16 12:14:00 2020-12-16 12:14:00 Outpatient SHIMEK_ESME _ANN [facility] [id number] [facility] 2020-12-16 00:00:00 2020-12-16 00:00:00 Esme Jones, ACCOUNTANT CONTROLLER: [address], [place] [address] , Ph. [facility] [place] [address] [id number] [facility] 2020-11-20 04:22:00 2020-11-20 04:22:00 Outpatient JOLENE DE LA TORRE [facility] [id number] [facility] 2020-11-20 00:00:00 2020-11-20 00:00:00 Esme Jones, ACCOUNTANT CONTROLLER: [address] [place] [address] , Ph. [facility] 3 [id number] [facility] 2020-11-18 08:32:00 2020-11-18 08:32:00 Outpatient JOLENE DE LA TORRE [facility] [id number] [facility] 2020-10-22 04:44:00 2020-10-22 04:44:00 Outpatient JOLENE DE LA TORRE [facility] [id number] [facility] 2020-07-07 20:12:00 2020-07-07 22:25:00 Outpatient Nikko JANG CEDRICJAYJAY [facility] [id number] [facility] Results Test Description Test Time Test Comments Results Result Co mments Source [facility] W Auto Differential panel - [...] immature cells (test code = immature cells) budget technician Neutrophils [#/volume] in Bl ood by Automated [...] Blood by Automated count (test code = 36714-5) 0 % not estab. Immature granulocytes [#/volume] in Blood by Automated count (test code = 25140-4) 0.0 x10e3/uL 0.0-0.1 Nucleated erythrocytes/100 leukocytes [Ratio] in Blood by Automated count (test code = 06289-3) budget technician Morphology [Interpretation] in Blood Narrative (test code = 01137-4) budget technician [facility] ProgramCom[facility] 2000 panel - Serum or [id number] 00:00:00* Test Item Value Reference Range Interpretation Comme nts Glucose [Mass/volume] in Serum or Plasma (test code = 2345-7) 93 mg/dL 65-99 Urea nitrogen [Mass/volume] in Serum or Plasma (test code = 3094-0) 15 mg/dL 6-20 Creatinine [Mass/volume] in Serum or Plasma (test code = 2160-0) 0.79 mg/dL 0.57-1.00 eGFR (test code = [...] Serum or Plasma (test code = 2027-9) 21 mmol/L 20-29 Calcium [Mass/volume] in Serum or Plasma (test code = 88589-0) 9.6 mg/dL 8.7-10.2 Protein [Mass/volume] in Serum or Plasma (test code = 2885-2) 7.4 g/dL 6.0-8.5 Albumin [Mass/volume] in Serum or Plasma (test code = 175-7) 4.4 g/dL 3.9-5.0 Globulin [Mass/volume] in Serum by calculation (test code = 30519-9) 3.0 g/dL 1.5-4.5 Albumin/Globulin [Mass Ratio ] in Serum or Plasma (test code = 1759-0) 1.5 1.2-2.2 Bilirubin.total [Mass/volume ] in Serum or Plasma (test code = 1974-2) 0.3 mg/dL 0.0-1.2 Alkaline phosphatase [Enzymatic activity/volume] in Serum or Plasma (test code = 6768-6) 61 IU/L 44-121 Aspartate aminotransferase [Enzymatic activity/volume] in Serum or Plasma (test code = 1920-8) 12 IU/L 0-40 Alanine aminotransferase [Enzymatic activity/volume] in Serum or Plasma (test code = 1742-6) 14 IU/L 0-32 [facility] - [facility] or Plasma [...] or Plasma by calculation (test code = 72758-4) 31 mg/dL 5-40 Cholesterol in LDL [Mass/vol ume] in Serum or Plasma by calculation (test code = 76571-4) 113 mg/dL 0-99 H Laboratory comment [Text] in Report Narrative (test code = 33440-9) budget technician [facility]/Hemoglobin.total in [id number] 00:00:00* Test Item Value Reference Range Interpretation Comme nts Hemoglobin A1c/Hemoglobin.to meron in Blood (test code = 4548-4) 5.4 % 4.8-5.6 Glucose mean value [Mass/vol ume] in Blood Estimated from glycated hemoglobin (test code = 33938-4) 108 mg/dL [facility] [Presence] in Serum by RPR 2021-12-17 00:00:00* Test Item Value Reference Range Interpretation Comme nts Reagin Ab [Presence] in Seru m by RPR (test code = 32829-8) non reactive non reactive [facility] 2 tests - Meaningful Use [id number] 00:00:00* Test Item Value Reference Range Interpretation Comme nts HIV 1+2 Ab+HIV1 p24 Ag [Presence] in Serum or Plasma by Immunoassay (test code = 02870-1) non reactive non reactive [facility]Hepatitis [facility] virus surface Ag [Presence] in Serum or Plasma by [id number] 00:00:00* Test Item Value Reference Range Interpretation Comme nts Hepatitis B virus surface Ag [Presence] in Serum or Plasma by Immunoassay (test code = 5196-1) negative negative [facility], [id number] 00:00:00* Test Item Value Reference Range Interpretation Comme nts Interpretation and review of laboratory results (test code = 69290-9) note Report (test code = 01001-9) . [facility]AST *OW*2021-11-11 22:27:47[facility] : 2000 Sex: FEXAMINATION:CT NECK [...] Daniel Nolan MD 11/11/2021 10:27 PM CDT [id number] 8 Panel *OW* [id number] 21:40:00* Test Item Value Reference Range Interpretation [...] ABDOMEN AND PELVIS W/O CONTRAST *OW*2021-08-11 21:29:43 [facility] : 2000 Sex: FEXAMINATION:Chest, [...] by: Shabbir pedraza MD 08/11/2021 9:29 PM [facility] CHEST W/O CONTRAST *OW* 2021-08-11 21:29:43 [facility] : 2000 Sex: FEXAMINATION:Chest, [...] by: Shabbir pedraza MD 08/11/2021 9:29 PM [employer] INSPECT[employer] HEAD W/O CONTRAST *OW* 2021-08-11 21:28:07 [facility] : 2000 Sex: FExam: CT head without contrast.Location: H 12History: Traumatic injuryTechnique: Unenhanced [...] by: Mina Clayton MD 08/11/2021 9:28 PM [employer] INSPECTOR CERVICAL SPINE W/O CONTRAST *OW*2021-08-11 21:24:12 [facility] : 2000 Sex: FExam: [...] utilization of iterative reconstruction technique.Electronically signed by: Santiago Arango MD 08/11/2021 9:24 PM [facility] [id number] URINE OW2021-08-11 20:27:00* Test Item Value Reference [...] NEGATIVE CBC W Auto Differential panel - [id number] 00:00:00* Test Item Value Reference Range Interpretation [...] immature cells (test code = immature cells) budget technician Neutrophils [#/volume] in Bl ood by Automated [...] Blood by Automated count (test code = 34783-4) 0 % not estab. Immature granulocytes [#/volume] in Blood by Automated count (test code = 70186-7) 0.0 x10e3/uL 0.0-0.1 Nucleated erythrocytes/100 leukocytes [Ratio] in Blood by Automated count (test code = 50778-3) budget technician Morphology [Interpretation] in Blood Narrative (test code = 58615-2) budget technician [facility] ProgramComprehensive metabolic 2000 panel - Serum or [id number] 00:00:00* Test Item Value Reference Range Interpretation [...] by Creatinine-based formula (CKD-EPI) (test code = 65158-8) 119 mL/min/1.73 >59 Glomerular filtration rate/1.73 sq M.predicted among blacks [Volume Rate/Area] in Serum, Plasma or Blood by Creatinine-based formula (CKD-EPI) (test code = 77597-0) 137 mL/min/1.73 >59 Urea nitrogen/Creatinine [Mass Ratio] [...] Serum or Plasma (test code = 2027-) 25 mmol/L 20-29 Calcium [Mass/volume] in Serum or Plasma (test code = 58062-7) 10.0 mg/dL 8.7-10.2 Protein [Mass/volume] in Serum or Plasma (test code = 2885-2) 7.6 g/dL 6.0-8.5 Albumin [Mass/volume] in Serum or Plasma (test code = 1751-7) 4.4 g/dL 3.9-5.0 Globulin [Mass/volume] in Serum by calculation (test code = 27156-5) 3.2 g/dL 1.5-4.5 Albumin/Globulin [Mass Ratio ] in Serum or Plasma (test code = 1759-0) 1.4 1.2-2.2 Bilirubin.total [Mass/volume ] in Serum or Plasma (test code = 1974-) 0.7 mg/dL 0.0-1.2 Alkaline phosphatase [Enzymatic activity/volume] in Serum or Plasma (test code = 6768-6) 44 IU/L 39-117 Aspartate aminotransferase [Enzymatic activity/volume] in Serum or Plasma (test code = 1920-8) 15 IU/L 0-40 Alanine aminotransferase [Enzymatic activity/volume] in Serum or Plasma (test code = 1742-6) 14 IU/L 0-32 [facility] - Serum or Plasma 2020-11-21 00:00:00* Test Item Value Reference Range Interpretation Comme nts Cholesterol [Mass/volume] in Serum or Plasma (test code = 2093-3) 185 mg/dL 100-199 Triglyceride [Mass/volume] i n Serum or Plasma (test code = 2571-8) 72 mg/dL 0-149 Cholesterol in HDL [Mass/vol ume] in Serum or Plasma (test code = 2085-9) 51 mg/dL >39 Cholesterol in VLDL [Mass/vo lume] in Serum or Plasma by calculation (test code = 83935-9) 13 mg/dL 5-40 Cholesterol in LDL [Mass/vol ume] in Serum or Plasma by calculation (test code = 61074-3) 121 mg/dL 0-99 H Laboratory comment [Text] in Report Narrative (test code = 33039-5) budget technician [facility]Hemoglobin.total in [id number] 00:00:00* Test Item Value Reference Range Interpretation Comme nts Hemoglobin A1c/Hemoglobin.to meron in Blood (test code = 4548-4) 5.2 % 4.8-5.6 Glucose mean value [Mass/vol ume] in Blood Estimated from glycated hemoglobin (test code = 95836-7) 103 mg/dL [facility]+HIV1 p24 Ag [Presence] in Serum or Plasma by [id number] 00:00:00* Test Item Value Reference Range Interpretation Comme nts HIV 1+2 Ab+HIV1 p24 Ag [Presence] in Serum or Plasma by Immunoassay (test code = 80468-7) non reactive non reactive [facility]in [Units/volume] in Serum or Plasma by Detection limit <= 0.005 mIU/[id number] 00:00:00* Test Item Value Reference Range Interpretation Comme nts Thyrotropin [Units/volume] i n Serum or Plasma by Detection limit <= 0.005 mIU/L (test code = 86820-4) 0.677 uIU/mL 0.450-4.500 [facility] [Presence] in Serum by RPR 2020-11-21 00:00:00* Test Item Value Reference Range Interpretation Comme nts Reagin Ab [Presence] in Seru m by RPR (test code = 69183-2) non reactive non reactive [facility]Hepatitis B virus surface Ag [Presence] in Serum or Plasma by [id number] 00:00:00* Test Item Value Reference Range Interpretation Comme nts Hepatitis B virus surface Ag [Presence] in Serum or Plasma by Immunoassay (test code = 5196-1) negative negative [facility], [id number] 00:00:00* Test Item Value Reference Range Interpretation Comme nts Interpretation and review of laboratory results (test code = 79324-5) note Report (test code = 52653-7) . [facility]INFL[facility] AND B OW2020-07-07 21:13:00* Test Item Value Reference Range Interpretation Comme nts INFLUENZ A (test code = INFA) NEGATIVE NEGATIVE INFLUENZ B (test code = INFB) NEGATIVE NEGATIVE
[2023-12-14] MEDS ORDERED: DOXYCYCLINE 100 MG CAP PO ONE (22:31)
[2023-12-14] MEDS ORDERED: LIDOCAINE 1% MPF 5 ML VIAL ONE (22:31)
--- NOTE | 2023-12-15 00:11 | ER ---
Nurse's Notes [facility] Name: Aileen Montalvo Age: 23 yrs Sex: Female : 2000 Arrival Date: 12/14/2023 Time: 21:53 Bed Treatment Private MD: Diagnosis: Cutaneous abscess of right axilla Presentation: 12/13 22:19 Chief complaint: Patient states: I have a bump under my right arm. I have been told it jb4 is a skin condition called HS. It is very painful and I cannot sleep at night or lay on my my right side. Coronavirus screen: At this time, the client does not indicate any symptoms associated with coronavirus-19. Ebola Screen: No symptoms or risks identified at this time. Initial Sepsis Screen: Does the patient meet any 2 criteria? No. Patient's initial sepsis screen is negative. Does the patient have a suspected source of infection? No. Patient's initial sepsis screen is negative. Risk Assessment: Do you want to hurt yourself or someone else? Patient reports no desire to harm self or others. Onset of symptoms was December 14, 2023. Transition of care: patient was not received from another setting of care. 22:19 Method Of Arrival: Ambulatory jb4 22:19 Acuity: [id number] 4 jb4 Historical: - Allergies: 22:22 No Known Allergies; jb4 - PMHx: 22:22 HS- Hidradenitis Suppurativa; jb4 - PSHx: 22:22 Cyst removal; jb4 - Immunization history:: Adult Immunizations up to date. - Infectious Disease History:: Denies. - Social history:: Smoking status: Patient denies any tobacco usage or history of. Screenin/05 00:17 [facility] ED Fall Risk Assessment (Adult) History of falling in the last 3 months, as6 including since admission No falls in past 3 months (0 pts) Confusion or Disorientation No (0 pts) Intoxicated or Sedated No (0 pts) Impaired Gait No (0 pts) Mobility Assist Device Used No (0 pt) Altered Elimination No (0 pt) Score/Fall Risk Level 0 - 2 = Low Risk Oriented to surroundings, Maintained a safe environment, Educated pt \T\ family on fall prevention, incl call for assistance when getting out of bed, Assessed \T\ reinforced patient's understanding of fall precautions. Abuse screen: Denies threats or abuse. Denies injuries from another. Nutritional screening: No deficits noted. Tuberculosis screening: No symptoms or risk factors identified. Assessment: 00:16 General: Appears in no apparent distress. Behavior is calm, cooperative. Pain: as6 Complains of pain in right axilla. Derm: Abscess located on right axilla is raised. Vital Signs: 12/13 22:19 BP 119 / 71; Pulse 84; Resp 16; Pulse Ox 99% on R/A; Weight 86.18 kg (R); Height 5 ft. jb4 7 in. (R); Pain 10/10; 12/14 00:18 BP 125 / 70; Pulse 79; Resp 18; Pulse Ox 96% ; as6 12/13 22:19 Body Mass Index 29.76 (86.18 kg, 170.18 cm) jb4 12/13 22:19 Pain Scale: Adult jb4 ED Course: 12/13 21:57 Patient arrived in ED. mr 22:01 Barbi Thurman FNP-C is [facility]. kb 22:01 Greg Matthews MD is Attending Physician. kb 22:22 Triage completed. jb4 22:22 Arm band placed on right wrist. jb4 22:30 Av Bone, KIMBERLY is Primary Nurse. as6 12/14 00:17 Bed in low position. Call light in reach. Provided Education on: abx teaching, wound as6 care. 00:17 Assist provider with I \T\ D: of an abscess on right axilla Set up I\T\D tray. Performed by as 6 Barbi AMAYA Dressing with 4X4s, Patient tolerated well. Patient did not have IV access during this emergency room visit. Administered Medications: 12/13 22:34 Drug: Doxycycline PO 100 mg PO once Route: PO; as6 12/14 00:12 Follow up: Response: No adverse reaction as6 00:12 Drug: Lidocaine Infiltration (1 %) 5 mg Infiltration once Route: Infiltration; as6 00:12 Follow up: Response: No adverse reaction as6 00:16 Drug: Hydrocodone-Acetaminophen PO (7.5 mg-325 mg) 1 tabs PO once Route: PO; as6 00:16 Follow up: Response: No adverse reaction as6 Medication: 00:18 VIS not applicable for this client. as6 Outcome: 00:10 Discharge ordered by . felton 00:17 Discharged to home ambulatory, as6 00:17 Condition: stable 00:17 Discharge instructions given to patient, Instructed on discharge instructions, follow up and referral plans. medication usage, wound care, Demonstrated understanding of instructions, follow-up care, medications, Prescriptions given X 1, 00:19 Patient left the ED. as6 Signatures: Barbi Thurman, CHERELLE-C EXHIBIT SPECIALIST-Esme Carias, Norris Reg Shabbir Ortega, RN RN jb4 Av Bone, KIMBERLY RN as6
[2023-12-15] MEDS ORDERED: HYDROCODONE/APAP 7.5/325 MG TAB ONE (00:12)
--- NOTE | 2023-12-15 00:12 | EDPHYS ---
Physician Documentation [facility] Name: Aileen Montalvo Age: 23 yrs Sex: Female : 2000 Arrival Date: 12/14/2023 Time: 21:53 Bed Treatment Private MD: ED Physician Greg Matthews HPI: 12/13 22:04 This 23 yrs old Black Female presents to ER via Unassigned with complaints of Bump on kb arm. 22:05 Pt is a 23 year old female who presents for abscess to right axilla that started 2-3 kb days ago. States she gets frequent abscesses and has seen Dr Nettles for them in the past. Denies fever. . Historical: - Allergies: 22:22 No Known Allergies; jb4 - PMHx: 22:22 HS- Hidradenitis Suppurativa; jb4 - PSHx: 22:22 Cyst removal; jb4 - Immunization history:: Adult Immunizations up to date. - Infectious Disease History:: Denies. - Social history:: Smoking status: Patient denies any tobacco usage or history of. ROS: 22:04 Constitutional: As per HPI kb Exam: 22:04 Constitutional: This is a well developed, well nourished patient who is awake, alert, kb and in no acute distress. Head/Face: Normocephalic, atraumatic. ENT: Moist Mucous membranes Cardiovascular: Regular rate Respiratory: Respirations even and unlabored. No increased work of breathing. Talking in full sentences MS/ Extremity: Pulses equal, no cyanosis. Neurovascular intact. Full, normal range of motion. Neuro: Awake and alert, GCS 15, oriented to person, place, time, and situation. Moves all extremities. Normal gait. 22:04 Skin: abscess, that is moderate sized, of the right axilla, with fluctuance, that is mild, Vital Signs: 22:19 BP 119 / 71; Pulse 84; Resp 16; Pulse Ox 99% on R/A; Weight 86.18 kg (R); Height 5 ft. jb4 7 in. (R); Pain 10/10; 12/14 00:18 BP 125 / 70; Pulse 79; Resp 18; Pulse Ox 96% ; as6 12/13 22:19 Body Mass Index 29.76 (86.18 kg, 170.18 cm) jb4 12/13 22:19 Pain Scale: Adult jb4 Procedures: 00:10 I \T\ D: Incision and drainage was performed for an abscess of the right axilla. Prepped kb with Betadine, Anesthetized with 2 ml's 1% Lidocaine. Incised with #11 blade. Drained moderate amount purulent fluid. Dressing: sterile 4x4 gauze, the patient tolerated the procedure well. MDM: 12/13 22:01 Patient medically screened. kb 22:04 Differential diagnosis: abscess, allergic reaction, cellulitis, insect bite. Data kb reviewed: vital signs, nurses notes. 12/14 00:10 Counseling: I had a detailed discussion with the patient and/or guardian regarding the kb historical points, exam findings, and any diagnostic results supporting the discharge/admit diagnosis, the need for outpatient follow up, a general surgeon, to return to the emergency department if symptoms worsen or persist or if there are any questions or concerns that arise at home. 12/13 22:08 Order name: I\T\D Setup; Complete Time: 22:34 kb Administered Medications: 12/13 22:34 Drug: Doxycycline PO 100 mg PO once Route: PO; as6 12/14 00:12 Follow up: Response: No adverse reaction as6 00:12 Drug: Lidocaine Infiltration (1 %) 5 mg Infiltration once Route: Infiltration; as6 00:12 Follow up: Response: No adverse reaction as6 00:16 Drug: Hydrocodone-Acetaminophen PO (7.5 mg-325 mg) 1 tabs PO once Route: PO; as6 00:16 Follow up: Response: No adverse reaction as6 Disposition: 06:17 Co-signature as Attending Physician, Greg Matthews MD I agree with the assessment sp4 and plan of care. I reviewed the patient's care provided by Advanced Practice Provider \T\ agree w/ the diagnosis \T\ care plan. I personally saw the pt \T\ performed a substantive portion of the visit, incldng all aspects of the (History/Exam/Medical Decision Making). Disposition Summary: 12/15/23 00:10 Discharge Ordered Notes: Location: Home Condition: Stable kb Diagnosis - Cutaneous abscess of right axilla kb Followup: kb - With: Emergency Department - When: As needed - Reason: Worsening of condition Followup: kb - With: Private Physician - When: 2 - 3 days - Reason: Recheck today's complaints, Continuance of care, Re-evaluation by your physician Discharge Instructions: - Discharge Summary Sheet kb - Hidradenitis Suppurativa kb - Skin Abscess, [id number] kb Forms: - Medication Reconciliation Form kb - Antibiotic Education kb - Prescription Opioid Use kb - Patient Portal Instructions kb - Leadership Thank You Letter kb Prescriptions: - Doxycycline Hyclate 100 mg Oral Tablet - take 1 tablet ORAL route every 12 hours; 20 tablet; Refills: 0, Product kb Selection Permitted Signatures: Barbi Thurman, MEDICAL RECORDS SECRETARY-C CHERELLE-Shabbir Hernandez RN RN jb4 Av Bone RN RN as6 Greg Matthews MD MD sp4
[2023-12-15 00:57] VITALS: BP 125/70; O2SAT 96
== END 2023-12-15 00:19 | disposition home or self-care (01) ==
LOC: ER 21:53
PROC: 0H9BXZZ Drainage of Right Upper Arm Skin, External Approach (ICD-10-PCS; principal; 2023-12-15)
DX: L02.411 Cutaneous abscess of right axilla (principal)
CPT/HCPCS: 99283; 10060; J2001

== ENCOUNTER 2024-02-13 10:00 | Emergency (ER) | payer OTHER ==
--- OUTSIDE RECORDS SUMMARY | 2024-02-13 10:07 | XMS REPORT | Continuity of Care Document ---
Author Name Unknown Address [address] [facility] [address] [place] [address] [facility] Address [address] [facility] 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 Role Phone YIN CAVANAUGH Attending Clinician [...] DR OLIVIA ROPER Admitting Clinician Unavailable DR ALKE JANG Admitting Clinician Unavailable Payers Payer Name Policy Type Policy Number Effective Date Expirati on Date Source [id number] 2018 00:00:00 [facility] [id number] 2023 00:00:00 [place] [id number] 2021 00:00:00 [place] [id number] 2020 00:00:00 Problems Condition Name Condition Details Condition Category Status Onset Date Resolution Date Last Treatment Date Treating Clinician Comments Source Trichomona l vaginitis Trichomona l Vaginitis Problem Active 8-20 00:00: 00 [facility] Program Pilonidal cyst Pilonidal Cyst Problem Active 7-04 00:00: 00 [facility] Program Abnormal findings on diagnostic imaging of breast Abnormal Findings on Diagnostic Imaging of Breast Problem Active 3-15 00:00: 00 [facility] Program Allergies, Adverse Reactions, Alerts Allergy Name Allergy Type Status Severity Reaction(s) Onset Date Inactive Date Treating Clinician Comments Source No Known Allergie s DA [facility] Social History Smoking Status Start Date Stop Date Source Never Smoker [facility] Medications Ordered Medication Name Filled Medication [...] 3 times a day by oral route. [facility] hydrocodone 5 mg-acetamin ophen 325 mg tablet hydrocodone 5 mg-acetamin ophen 325 mg tablet No hydrocodon e 5 mg-acetami nophen 325 mg tablet [facility] ibuprofen 600 mg tablet ibuprofen 600 mg tablet No ibuprofen 600 mg tablet [facility] Lidocaine Viscous 2 % mucosal solution Lidocaine Viscous 2 % mucosal solution No Lidocaine Viscous 2 % mucosal solution [facility] Program naproxen 500 mg tablet Take 1 tablet twice a day by oral route. naproxen 500 mg tablet Take 1 tablet twice a day by oral route. No naproxen 500 mg tablet Take 1 tablet twice a day by oral route. [facility] neomycin-po lymyxin-hyd rocort 3.5 mg-10,000 unit/mL-1 % ear drops,susp neomycin-po lymyxin-hyd rocort 3.5 mg-10,000 unit/mL-1 % ear drops,susp No neomycin-p olymyxin-h ydrocort 3.5 mg-10,000 unit/mL-1 % ear drops,susp [facility] prednisone 50 mg tablet prednisone 50 mg tablet No prednisone 50 mg tablet [facility] Program sulfamethox azole 800 mg-trimetho prim 160 mg tablet sulfamethox azole 800 mg-trimetho prim 160 mg tablet No sulfametho xazole 800 mg-trimeth oprim 160 mg tablet [facility] Program tramadol 50 mg tablet tramadol 50 mg tablet No tramadol 50 mg tablet [facility] Program Vital Signs Vital Name Observation Time Observation Value Comments S ource BP Diastolic 2022-03-04 00:00:00 72 mm[Hg] [facility] Height 2022-03-04 00:00:00 67 [in_i] [facility] BMI (Body Mass Index) 2022-03-04 00:00:00 28.3 kg/m2 [facility] BP Systolic 2022-03-04 00:00:00 111 mm[Hg] Brooke paras [facility] Body Weight 2022-03-04 00:00:00 181 [lb_av] [facility] BP Diastolic 2022-02-24 00:00:00 73 mm[Hg] [facility] Height 2022-02-24 00:00:00 67 [in_i] [facility] BMI (Body Mass Index) 2022-02-24 00:00:00 27.6 kg/m2 [facility] BP Systolic 2022-02-24 00:00:00 107 mm[Hg] Brooke paras [facility] Body Weight 2022-02-24 00:00:00 2818 [oz_av] Ryley anneorda [facility] BP Diastolic 2022-01-05 00:00:00 70 mm[Hg] [facility] Height 2022-01-05 00:00:00 67 [in_i] [place] [facility] BMI (Body Mass Index) 2022-01-05 00:00:00 27.6 kg/m2 [facility] BP Systolic 2022-01-05 00:00:00 102 mm[Hg] Brooke paras [facility] Body Weight 2022-01-05 00:00:00 176 [lb_av] [facility] [place] BP Diastolic 2021-12-16 00:00:00 83 mm[Hg] [facility] [place] Height 2021-12-16 00:00:00 67 [in_i] [place] [facility] BMI (Body Mass Index) 2021-12-16 00:00:00 28.3 kg/m2 [facility] BP Systolic 2021-12-16 00:00:00 126 mm[Hg] Brooke paras [facility] Body Weight 2021-12-16 00:00:00 2896 [oz_av] Ryley anneorda [facility] Height 2021-11-11 20:05:00 170.18 CM Weight 2021-11-11 20:05:00 79.37 KG BP Diastolic 2021-10-28 00:00:00 70 mm[Hg] [place] Height 2021-10-28 00:00:00 67 [in_i] [place] [facility] BMI (Body Mass Index) 2021-10-28 00:00:00 27.6 kg/m2 [facility] BP Systolic 2021-10-28 00:00:00 106 mm[Hg] Brooke paras [facility] Body Weight 2021-10-28 00:00:00 2816 [oz_av] Ryley anneorda [facility] Height 2021-09-23 15:42:00 170.18 CM Weight 2021-09-23 15:42:00 76.65 KG BP Diastolic 2021-09-11 00:00:00 74 mm[Hg] Hugo agorda [facility] Height 2021-09-11 00:00:00 67 [in_i] Jessie orda [facility] BMI (Body Mass Index) 2021-09-11 00:00:00 26.5 kg/m2 [facility] BP Systolic 2021-09-11 00:00:00 114 mm[Hg] Brooke paras [facility] Body Weight 2021-09-11 00:00:00 2704 [oz_av] Ryley kearnsa [facility] Height 2021-08-11 19:48:00 170.18 CM Weight 2021-08-11 19:48:00 73.93 KG Height 2021-04-14 20:01:00 170.18 CM Weight 2021-04-14 20:01:00 76.65 KG Height 2020-12-24 20:50:00 170.18 CM Weight 2020-12-24 20:50:00 76.2 KG BP Diastolic 2020-12-16 00:00:00 71 mm[Hg] Hugo betancurrda [facility] Height 2020-12-16 00:00:00 67 [in_i] Jessie orda [facility] BMI (Body Mass Index) 2020-12-16 00:00:00 26.6 kg/m2 [facility] BP Systolic 2020-12-16 00:00:00 108 mm[Hg] Edwardo espinozaa [facility] Body Weight 2020-12-16 00:00:00 2720 [oz_av] Ryley anneorda [facility] BP Diastolic 2020-11-20 00:00:00 79 mm[Hg] Hugo betancurrda [facility] Height 2020-11-20 00:00:00 67 [in_i] Jessie orda [facility] BMI (Body Mass Index) 2020-11-20 00:00:00 25.8 kg/m2 [facility] BP Systolic 2020-11-20 00:00:00 123 mm[Hg] Edwardo crain [facility] Body Weight 2020-11-20 00:00:00 2640 [oz_av] Ryley thomas [facility] Height 2020-07-07 20:12:00 170.18 CM Weight 2020-07-07 20:12:00 74.84 KG Procedures Procedure Date / Time Performed Performing Clinicia n Source US, breast, unilateral 2022-03-03 00:00:00 [place] US, breast, unilateral 2022-02-09 00:00:00 [place] [facility] MAMMO, diagnostic, unilateral 2021-09-11 00:00:00 [place] [facility] US, breast, unilateral 2021-09-11 00:00:00 [place] Hernia Repair W/mesh 2007-07-12 00:00:00 [place] Encounters Start Date/Time End Date/Time Encounter Type Admission Type Attending Clinicians Care Facility Care Department Encounter ID Source 2021-11-30 08:00:00 Inpatient YIN MONTESINOS [facility] [id number] [facility] 2024-02-17 15:00:00 2024-02-17 15:00:00 Outpatient SANTIAGO HUA [id number] Vicki Jones 2024-01-04 09:00:00 2024-01-04 09:00:00 Outpatient SANTIAGO HUA [id number] Vicki Jones 2022-04-14 00:00:00 2022-04-14 00:00:00 Outpatient SHIMEK_ESME _[facility] [id number] [facility] 2022-04-14 00:00:00 2022-04-14 00:00:00 Outpatient SHIMEK_MARY _[facility] [id number] [facility] 2022-04-14 00:00:00 2022-04-14 00:00:00 Outpatient SHIMEK_ESME _[facility] [id number] [facility] 2022-03-08 00:00:00 2022-03-08 00:00:00 Outpatient SHIMEK_ESME DE [facility] [id number] [facility] 2022-03-04 00:00:00 2022-03-04 00:00:00 Outpatient SHIMEK_ESME _CATAR[facility] [id number] [facility] 2022-03-04 00:00:00 2022-03-04 00:00:00 Cecy Gallo MD: [address] [facility] [address], [place] [address] , Ph. [phone] [facility] [id number] [facility] 2022-02-24 00:00:00 2022-02-24 00:00:00 Outpatient SHIMEK_ESME _[facility] [id number] [facility] 2022-02-24 00:00:00 2022-02-24 00:00:00 Esme Jones, HEPATOLOGIST: [address] [place] [address] , Ph. [facility] [place] [facility] 3 [id number] [facility] 2022-02-18 00:00:00 2022-02-18 00:00:00 Outpatient SHIMEK_ESME _[facility] [id number] [facility] 2022-01-05 00:00:00 2022-01-05 00:00:00 Outpatient SHIMEK_MARY _[facility] [id number] [facility] 2022-01-05 00:00:00 2022-01-05 00:00:00 Cecy Gallo MD: [address], [address], [place] [address] , Ph. [facility] [id number] [facility] 2021-12-16 04:23:00 2021-12-16 04:23:00 Outpatient SHIMEK_MARY _[facility] [id number] [facility] 2021-12-16 04:23:00 2021-12-16 04:23:00 Outpatient SHIMEK_MARY _[facility] [id number] [facility] 2021-12-16 04:23:00 2021-12-16 04:23:00 Outpatient SHIMEK_MARY _[facility] [id number] [facility] 2021-12-16 04:23:00 2021-12-16 04:23:00 Outpatient SHIMEK_MARY _[facility] [id number] [facility] 2021-12-16 00:00:00 2021-12-16 00:00:00 Esme Jones, HEPATOLOGIST: [address] [place] [address] , Ph. [facility] [place] [address] [id number] [facility] 2021-12-15 10:05:00 2021-12-15 10:05:00 Outpatient SHIMEK_MARY _[facility] [id number] [facility] 2021-11-11 19:53:00 2021-11-11 22:56:00 Outpatient ALFRED VELIZ [facility] [id number] [facility] 2021-10-28 03:50:00 2021-10-28 03:50:00 Outpatient SHIMEK_MARY _[facility] [id number] [facility] 2021-10-28 03:49:00 2021-10-28 03:49:00 Outpatient SHIMEK_ESME [facility] [id number] [facility] 2021-10-28 00:00:00 2021-10-28 00:00:00 Esme Jones, HEPATOLOGIST: [address] [place] [address] , Ph. [facility] 3 [id number] [facility] 2021-09-23 15:42:00 2021-09-23 16:43:00 Outpatient EVELINE INGRAM [facility] [id number] [facility] 2021-09-16 09:09:00 2021-09-16 09:09:00 Outpatient SHIMEK_ESME [facility] [id number] [facility] 2021-09-16 09:09:00 2021-09-16 09:09:00 Outpatient SHIMEK_ESME [facility] [id number] [facility] 2021-09-16 09:09:00 2021-09-16 09:09:00 Outpatient [facility] [id number] [facility] 2021-09-11 07:46:00 2021-09-11 07:46:00 Outpatient SHIMEK_ESME _[facility] [id number] [facility] 2021-09-11 00:00:00 2021-09-11 00:00:00 Esme Jones, HEPATOLOGIST: [address] [place] [address] , Ph. [facility] [id number] [facility] 2021-08-11 19:40:00 2021-08-11 22:04:00 Outpatient JORGE WALLACE [facility] [id number] [facility] 2021-04-14 19:53:00 2021-04-14 20:14:00 Outpatient JORGE WALLACE [facility] [id number] [facility] 2020-12-24 20:48:00 2020-12-24 21:09:00 Outpatient OLIVIA Dinh BA [facility] [id number] [facility] 2020-12-16 12:14:00 2020-12-16 12:14:00 Outpatient SHIMEK_ESME [facility] [id number] [facility] 2020-12-16 12:14:00 2020-12-16 12:14:00 Outpatient SHIMEK_ESME [facility] [id number] [facility] 2020-12-16 12:14:00 2020-12-16 12:14:00 Outpatient SHIMEK_ESME [facility] [id number] [facility] 2020-12-16 12:14:00 2020-12-16 12:14:00 Outpatient SHIMEK_ESME [facility] [id number] [facility] 2020-12-16 12:14:00 2020-12-16 12:14:00 Outpatient SHIMEK_ESME _ANN [facility] [id number] [facility] 2020-12-16 12:14:00 2020-12-16 12:14:00 Outpatient SHIMEK_ESME _ANN [facility] [id number] [facility] 2020-12-16 00:00:00 2020-12-16 00:00:00 Esme Jones, HEPATOLOGIST: [address] [place] [address] , Ph. [facility] 3 [id number] [facility] 2020-11-20 04:22:00 2020-11-20 04:22:00 Outpatient JOLENE [facility] [id number] [facility] 2020-11-20 00:00:00 2020-11-20 00:00:00 Esme Jones, HEPATOLOGIST: [place] [address] , Ph. [facility] [id number] [facility] 2020-11-18 08:32:00 2020-11-18 08:32:00 Outpatient JOLENE [facility] [id number] [facility] 2020-10-22 04:44:00 2020-10-22 04:44:00 Outpatient JOLENE [facility] [id number] [facility] 2020-07-07 20:12:00 2020-07-07 22:25:00 Outpatient ALEK VU [facility] [id number] [facility] Results Test Description Test Time Test Comments Results Result Co mments Source [facility] Auto Differential panel - Blood [...] immature cells (test code = immature cells) unix analyst Neutrophils [#/volume] in Bl ood by Automated [...] Blood by Automated count (test code = 35746-0) 0 % not estab. Immature granulocytes [#/volume] in Blood by Automated count (test code = 27646-8) 0.0 x10e3/uL 0.0-0.1 Nucleated erythrocytes/100 leukocytes [Ratio] in Blood by Automated count (test code = 07320-3) unix analyst Morphology [Interpretation] in Blood Narrative (test code = 63570-5) unix analyst [facility] Program[facility] 2000 panel - Serum or [id number] 00:00:00* Test Item Value Reference Range Interpretation [...] in Serum or Plasma (test code = 5-0) 106 mmol/L 96-106 Carbon dioxide, total [Moles/volume] in Serum or Plasma (test code = 2027-) 21 mmol/L 20-29 Calcium [Mass/volume] in Serum or Plasma (test code = 75443-1) 9.6 mg/dL 8.7-10.2 Protein [Mass/volume] in Serum or Plasma (test code = 2885-2) 7.4 g/dL 6.0-8.5 Albumin [Mass/volume] in Serum or Plasma (test code = 1751-7) 4.4 g/dL 3.9-5.0 Globulin [Mass/volume] in Serum by calculation (test code = 57606-4) 3.0 g/dL 1.5-4.5 Albumin/Globulin [Mass Ratio ] in Serum or Plasma (test code = 1759-0) 1.5 1.2-2.2 Bilirubin.total [Mass/volume ] in Serum or Plasma (test code = 1975-2) 0.3 mg/dL 0.0-1.2 Alkaline phosphatase [Enzymatic activity/volume] in Serum or Plasma (test code = 6768-6) 61 IU/L 44-121 Aspartate aminotransferase [Enzymatic activity/volume] in Serum or Plasma (test code = 1920-8) 12 IU/L 0-40 Alanine aminotransferase [Enzymatic activity/volume] in Serum or Plasma (test code = 1742-6) 14 IU/L 0-32 [facility] - Serum or [...] or Plasma by calculation (test code = 39615-3) 31 mg/dL 5-40 Cholesterol in LDL [Mass/vol ume] in Serum or Plasma by calculation (test code = 76118-4) 113 mg/dL 0-99 H Laboratory comment [Text] in Report Narrative (test code = 11964-7) unix analyst [facility] CenterHemoglobin A1c/Hemoglobin.total in [id number] 00:00:00* Test Item Value Reference Range Interpretation Comme nts Hemoglobin A1c/Hemoglobin.to meron in Blood (test code = 4548-4) 5.4 % 4.8-5.6 Glucose mean value [Mass/vol ume] in Blood Estimated from glycated hemoglobin (test code = 35312-2) 108 mg/dL [facility] CenterReagin Ab [Presence] in Serum by RPR 2021-12-17 00:00:00* Test Item Value Reference Range Interpretation Comme nts Reagin Ab [Presence] in Seru m by RPR (test code = 36426-4) non reactive non reactive [facility]HIV 1 and 2 tests - Meaningful Use [id number] 00:00:00* Test Item Value Reference Range Interpretation Comme nts HIV 1+2 Ab+HIV1 p24 Ag [Presence] in Serum or Plasma by Immunoassay (test code = 87012-8) non reactive non reactive [facility] CenterHepatitis B virus surface Ag [Presence] in Serum or Plasma by [id number] 00:00:00* Test Item Value Reference Range Interpretation Comme nts Hepatitis B virus surface Ag [Presence] in Serum or Plasma by Immunoassay (test code = 5196-1) negative negative [facility]ercardi[facility] assessment panel, [id number] 00:00:00* Test Item Value Reference Range Interpretation Comme nts Interpretation and review of laboratory results (test code = 93387-4) note Report (test code = 58156-6) . [facility] CenterCT [facility]K [facility]/CONTRAST *OW*2021-11-11 22:27:47[facility] : 2000 Sex: FEXAMINATION:CT [...] Daniel Nolan MD 11/11/2021 10:27 PM CDT [id number] Panel *OW* [id number] 21:40:00* Test Item Value Reference Range Interpretation [...] ABDOMEN AND PELVIS W/O CONTRAST *OW*2021-08-11 21:29:43 [facility] : 2000 Sex: FEXAMINATION:Chest, [...] free air, free fluid, or fluid collection.Lymph nodes:There are no pathologically enlarged abdominopelvic lymph nodes.Retroperitoneum: No mass or hemorrhage. Abdominal aorta and inferior vena cava are normal in course and caliber.Abdominal wall: No hernia or mass.Bones: No acute abnormality or suspicious bony lesion.IMPRESSION:1. No acute cardiopulmonary or abdominopelvic abnormality.2. 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 W/O CONTRAST *OW* 2021-08-11 21:29:43 [facility] : 2000 Sex: FEXAMINATION:Chest, [...] by: Shabbir pedraza MD 08/11/2021 9:29 PM PAINTING WORKER HEAD W/O CONTRAST *OW* 2021-08-11 21:28:07 [facility] : 2000 Sex: FExam: [...] by: Mina Clayton MD 08/11/2021 9:28 PM PAINTING WORKER CERVICAL SPINE W/O CONTRAST *OW*2021-08-11 21:24:12 [facility] : 2000 Sex: FExam: [...] by: Santiago Arango MD 08/11/2021 9:24 PM [facility] [id number] URINE OW2021-08-11 20:27:00* Test Item Value Reference [...] NEGATIVE CBC W Auto Differential panel - [id number] 00:00:00* Test Item Value Reference Range Interpretation [...] immature cells (test code = immature cells) unix analyst Neutrophils [#/volume] in Bl ood by Automated [...] Blood by Automated count (test code = 04556-8) 0 % not estab. Immature granulocytes [#/volume] in Blood by Automated count (test code = 38305-7) 0.0 x10e3/uL 0.0-0.1 Nucleated erythrocytes/100 leukocytes [Ratio] in Blood by Automated count (test code = 14186-7) unix analyst Morphology [Interpretation] in Blood Narrative (test code = 92855-2) unix analyst [facility] Out[facility] ProgramComprehensive metabolic 2000 panel - Serum or [id number] 00:00:00* Test Item Value Reference Range Interpretation [...] by Creatinine-based formula (CKD-EPI) (test code = 03127-1) 119 mL/min/1.73 >59 Glomerular filtration rate/1.73 sq M.predicted among blacks [Volume Rate/Area] in Serum, Plasma or Blood by Creatinine-based formula (CKD-EPI) (test code = 77096-8) 137 mL/min/1.73 >59 Urea nitrogen/Creatinine [Mass Ratio] in Serum or Plasma (test code = 3097-3) 15 9-23 Sodium [Moles/volume] in Serum or Plasma (test code = 2951-2) 140 mmol/L 134-144 Potassium [Moles/volume] in Serum or Plasma (test code = 2823-3) 4.9 mmol/L 3.5-5.2 Chloride [Moles/volume] in Serum or Plasma (test code = 2075-0) 100 mmol/L 96-106 Carbon dioxide, total [Moles/volume] in Serum or Plasma (test code = 2027-) 25 mmol/L 20-29 Calcium [Mass/volume] in Serum or Plasma (test code = 03140-7) 10.0 mg/dL 8.7-10.2 Protein [Mass/volume] in Serum or Plasma (test code = 2885-2) 7.6 g/dL 6.0-8.5 Albumin [Mass/volume] in Serum or Plasma (test code = 1751-7) 4.4 g/dL 3.9-5.0 Globulin [Mass/volume] in Serum by calculation (test code = 92228-8) 3.2 g/dL 1.5-4.5 Albumin/Globulin [Mass Ratio ] [...] (test code = 174-6) 14 IU/L 0-32 [facility] CenterLip[facility] 1996 panel - Serum or [...] or Plasma by calculation (test code = 62173-8) 13 mg/dL 5-40 Cholesterol in LDL [Mass/vol ume] in Serum or Plasma by calculation (test code = 10683-1) 121 mg/dL 0-99 H Laboratory comment [Text] in Report Narrative (test code = 36694-5) unix analyst [facility] CenterHemoglobin A1c/Hemoglobin.total in [id number] 00:00:00* Test Item Value Reference Range Interpretation Comme nts Hemoglobin A1c/Hemoglobin.to meron in Blood (test code = 4548-4) 5.2 % 4.8-5.6 Glucose mean value [Mass/vol ume] in Blood Estimated from glycated hemoglobin (test code = 92435-4) 103 mg/dL [facility] CenterHIV [facility]+2 Ab+HIV1 p24 Ag [Presence] in Serum or Plasma by [id number] 00:00:00* Test Item Value Reference Range Interpretation Comme nts HIV 1+2 Ab+HIV1 p24 Ag [Presence] in Serum or Plasma by Immunoassay (test code = 52266-1) non reactive non reactive [facility] CenterThyrotropin [Units/volume] in Serum or Plasma by Detection limit <= 0.005 mIU/[id number] 00:00:00* Test Item Value Reference Range Interpretation Comme nts Thyrotropin [Units/volume] i n Serum or Plasma by Detection limit <= 0.005 mIU/L (test code = 42696-7) 0.677 uIU/mL 0.450-4.500 [facility] Serum by RPR 2020-11-21 00:00:00* Test Item Value Reference Range Interpretation Comme nts Reagin Ab [Presence] in Seru m by RPR (test code = 71597-6) non reactive non reactive [facility]atitis [facility] virus surface Ag [Presence] in Serum or Plasma by [id number] 00:00:00* Test Item Value Reference Range Interpretation Comme nts Hepatitis B virus surface Ag [Presence] in Serum or Plasma by Immunoassay (test code = 5196-1) negative negative [facility], [id number] 00:00:00* Test Item Value Reference Range Interpretation Comme nts Interpretation and review of laboratory results (test code = 56100-1) note Report (test code = 35111-7) . [facility] AND B OW2020-07-07 21:13:00* Test Item Value Reference Range Interpretation Comme nts INFLUENZ A (test code = INFA) NEGATIVE NEGATIVE INFLUENZ B (test code = INFB) NEGATIVE NEGATIVE
[2024-02-13] MEDS ORDERED: ONDANSETRON 4 MG/2 ML VIAL ONE (10:24)
[2024-02-13] MEDS ORDERED: NA CHLORIDE 0.9% 1,000 ML ONE (10:25)
[2024-02-13 11:08] LABS: Absolute Eosinophils 0.1 K/uL (0-0.5); Absolute Lymphocytes (CBC) 0.2 K/uL (0.7-4.9); Absolute Monocytes 0.9 K/uL (0.1-1.3); Absolute Neutrophil 4.4 K/uL (1.8-8.0); Basophils % 0.2 % (0-1.3); Hematocrit 39.7 % (36.0-45.0); MCH 30.7 pg (27.0-35.0); MCHC 32.7 g/dL (32.0-36.0); MCV 93.9 fL (80-100); MPV 8.3 fL (7.6-11.3); Monocytes % 15.8 % (3.3-12.3); Platelets 305 thou/uL (152-406); RBC Red Blood Cell Count 4.22 M/uL (3.86-4.86); Red Cell Distribution Width 12.3 % (12.1-15.2)
[2024-02-13 11:17] LABS: Specific Gravity 1.018 (1.005-1.030); Urine Bilirubin NEGATIVE (Negative); Urine Blood Negative (Negative); Urine Clarity Clear (Clear); Urine Color Light-Yellow (Yellow); Urine Glucose NEGATIVE (Negative); Urine Ketones NEGATIVE (Negative); Urine Micro Reflex YN NO BILL NO MICROSCOPIC; Urine Nitrite NEGATIVE (Negative); Urine Protein NEGATIVE (Negative); Urine Urobilinogen Normal (Normal)
[2024-02-13 11:22] LABS: Specific Gravity 1.018 (1.005-1.030)
[2024-02-13 11:45] LABS: SARS-CoV-2 Antigen CONTROL BLUE LINE VIS/BG OK; SARS-CoV-2 Antigen Rapid Res Negative (Negative)
[2024-02-13 11:52] LABS: Albumin 3.8 g/dL (3.4-5.0); Anion Gap 3.8 mEq/L (5.0-15.0); Bilirubin Total 0.5 mg/dL (0.2-1.0); Potassium 3.8 mEq/L (3.5-5.1); Protein, Total 7.8 g/dL (6.4-8.2)
--- NOTE | 2024-02-13 12:09 | ER ---
Nurse's Notes [facility] Name: Aileen Montalvo Age: 23 yrs Sex: Female : 2000 Arrival Date: 02/13/2024 Time: 10:00 Bed 15 Private MD: Diagnosis: Acute upper respiratory infection, unspecified Presentation: 02/12 10:09 Chief complaint: Patient states: chills and nausea. Pt also reports headache, slight aa5 cough, and congestion. Coronavirus screen: chills, congestion, cough unrelated to allergies. Ebola Screen: Patient denies travel to an Ebola-affected area in the 21 days before illness onset. Initial Sepsis Screen: Does the patient meet any 2 criteria? HR > 90 bpm. Does the patient have a suspected source of infection? No. Patient's initial sepsis screen is negative. Risk Assessment: Do you want to hurt yourself or someone else? Patient reports no desire to harm self or others. Onset of symptoms was February 11, 2024. 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 - Infectious Disease History:: Denies. - Social history:: Smoking status: Patient denies any tobacco usage or history of. Screenin:48 [place] ED Fall Risk Assessment (Adult) History of falling in the last 3 months, kc6 including since admission No falls in past 3 months (0 pts) Confusion or Disorientation No (0 pts) Intoxicated or Sedated No (0 pts) Impaired Gait No (0 pts) Mobility Assist Device Used No (0 pt) Altered Elimination No (0 pt) Score/Fall Risk Level 0 - 2 = Low Risk. Abuse screen: Denies threats or abuse. Denies injuries from another. Nutritional screening: No deficits noted. Tuberculosis screening: No symptoms or risk factors identified. Assessment: 10:49 General: Appears in no apparent distress. comfortable, well groomed, well developed, kc6 Behavior is calm, cooperative, appropriate for age, Reports chills for 12-24 hours, fever for 12-24 hours, feeling ill for 12-24 hours. Neuro: Level of Consciousness is awake, alert, obeys commands, Oriented to person, place, time, situation, Appropriate for age Reports headache. Cardiovascular: Capillary refill < 3 seconds. Respiratory: Reports cough that is Airway is patent Trachea midline Respiratory effort is even, unlabored, Respiratory pattern is regular, symmetrical. GI: Reports nausea, Patient currently denies abdominal pain, diarrhea, vomiting. : No signs and/or symptoms were reported regarding the genitourinary system. EENT: Reports nasal congestion pain when swallowing. Derm: No signs and/or symptoms reported regarding the dermatologic system. Skin is intact, is healthy with good turgor, Skin is pink, warm \T\ dry. Musculoskeletal: No signs and/or symptoms reported regarding the musculoskeletal system. Circulation, motion, and sensation intact. Capillary refill < 3 seconds, Range of motion: intact in all extremities. Vital Signs: 10:09 BP 132 / 79; Pulse 110; Resp 19 S; Temp 99.2(TE); Pulse Ox 98% on R/A; aa5 10:50 BP 105 / 51; Pulse 106; Resp 19 S; Pulse Ox 97% on R/A; kc6 12:00 BP 112 / 68; Pulse 107; Resp 16; Temp 98.1; Pulse Ox 99% on R/A; me1 ED Course: 10:07 Patient arrived in ED. im 10:07 Barbi Thurman FNP-C [facility]. kb 10:07 Flex Berrios MD is Attending Physician. kb 10:09 Arm band placed on. aa5 10:10 Triage completed. aa5 10:23 Kyung Hill, KIMBERLY is Primary Nurse. kc6 10:48 Patient has correct armband on for positive identification. Bed in low position. Call kc6 light in reach. Side rails up X 1. Pulse ox on. NIBP on. Door closed. Noise minimized. Lights dimmed. Warm blanket given. Pillow given. 10:48 Inserted saline lock: 20 gauge in right antecubital area, using aseptic technique. kc6 Blood collected. Flushed with 10 mL NS. 12:20 Provided Education on: POC. Verbalized understanding. . me1 12:20 No provider procedures requiring assistance completed. IV discontinued, intact, me1 bleeding controlled, No redness/swelling at site. Pressure dressing applied. Administered Medications: 10:39 Drug: NS 0.9% IV 1000 ml IV at 1 bolus Per protocol; 1000 mL bolus Route: IV; Rate: 1 kc6 bolus; Site: right antecubital; 12:09 Follow up: Response: No adverse reaction; IV Status: Completed infusion; IV Intake: me1 1000ml 10:39 Drug: Ondansetron IVP 4 mg IVP once; over 2 minutes Route: IVP; Site: right antecubital;kc6 12:09 Follow up: Response: No adverse reaction; Nausea is decreased me1 Medication: 12:20 VIS not applicable for this client. me1 Intake: 12:09 IV: 1000ml; Total: 1000ml. me1 Outcome: 12: Discharge ordered by . felton 12:20 Discharged to home ambulatory, me1 12:20 Condition: stable 12:20 Discharge instructions given to patient, Instructed on discharge instructions, follow up and referral plans. Demonstrated understanding of instructions, follow-up care, 12:21 Patient left the ED. me1 Signatures: Barbi Thurman, AIR BAG BUFFER-C AIR BAG BUFFER-CkAretha Luna RN RN aa5 Kyung Hill RN RN kc6 Shannon Villagomez Michelle, KIMBERLY RN me1 Corrections: (The following items were deleted from the chart) 10:11 10:09 Acuity: KRZYSZTOF 4 aa5 aa5 12:23 12:00 BP 112 / 68; Pulse 107bpm; Resp 16bpm; Pulse Ox 99% RA; me1 me1
--- NOTE | 2024-02-13 12:09 | EDPHYS ---
Physician Documentation [facility] Name: Aileen Montalvo Age: 23 yrs Sex: Female : 2000 Arrival Date: 02/13/2024 Time: 10:00 Bed 15 Private MD: ED Physician Flex Berrios HPI: 02/12 10:21 This 23 yrs old Black Female presents to ER via Ambulatory with complaints of Flu kb Symptoms. 10:21 Pt is a 23 year old female who presents for malaise, fatigue, chills, congestion, kb nausea that started 3 days ago. Denies vomiting or diarrhea. . 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 - Infectious Disease History:: Denies. - Social history:: Smoking status: Patient denies any tobacco usage or history of. ROS: 10:19 Constitutional: As per HPI kb Exam: 10:19 Constitutional: This is a well developed, well nourished patient who is awake, alert, kb and in no acute distress. Head/Face: Normocephalic, atraumatic. ENT: Moist Mucous membranes Cardiovascular: Regular rate Respiratory: Respirations even and unlabored. No increased work of breathing. Talking in full sentences Skin: Warm, dry with normal turgor. Normal color. MS/ Extremity: Pulses equal, no cyanosis. Neurovascular intact. Full, normal range of motion. Neuro: Awake and alert, GCS 15, oriented to person, place, time, and situation. Moves all extremities. Normal gait. 10:19 Abdomen/GI: Inspection: abdomen appears normal, Bowel sounds: normal, Palpation: soft, in all quadrants, mild abdominal tenderness, in the left upper quadrant and left lower quadrant, Vital Signs: 10:09 BP 132 / 79; Pulse 110; Resp 19 S; Temp 99.2(TE); Pulse Ox 98% on R/A; aa5 10:50 BP 105 / 51; Pulse 106; Resp 19 S; Pulse Ox 97% on R/A; kc6 12:00 BP 112 / 68; Pulse 107; Resp 16; Temp 98.1; Pulse Ox 99% on R/A; me1 MDM: 10:07 Patient medically screened. kb 10:19 Differential diagnosis: flu, covid, uri, gastroenteritis, dehydration, abnormal kb electrolytes. Data reviewed: vital signs, nurses notes. 12:08 Counseling: I had a detailed discussion with the patient and/or guardian regarding the kb historical points, exam findings, and any diagnostic results supporting the discharge/admit diagnosis, lab results, the need for outpatient follow up, a family practitioner, to return to the emergency department if symptoms worsen or persist or if there are any questions or concerns that arise at home. 02/12 10:52 Order name: Comprehensive Metabolic Panel; Complete Time: 11:53 EDMS 02/12 10:52 Order name: Lipase; Complete Time: 11:53 EDMS 02/12 10:52 Order name: SARS-COV-2 Antigen Rapid; Complete Time: 11:46 EDMS 02/12 10:52 Order name: CBC with Automated Diff; Complete Time: 11:28 EDMS 02/12 10:52 Order name: Test, Urine; Complete Time: 11:28 EDMS 02/12 10:52 Order name: Urinalysis W/Microscopic; Complete Time: 11:28 EDMS 02/12 10:53 Order name: Influenza Screen (A ; Complete Time: 12:02 EDMS 02/12 10:14 Order name: IV Saline Lock; Complete Time: 10:39 kb 02/12 10:14 Order name: Labs collected and sent; Complete Time: 10:39 kb Administered Medications: 10:39 Drug: NS 0.9% IV 1000 ml IV at 1 bolus Per protocol; 1000 mL bolus Route: IV; Rate: 1 kc6 bolus; Site: right antecubital; 12:09 Follow up: Response: No adverse reaction; IV Status: Completed infusion; IV Intake: me1 1000ml 10:39 Drug: Ondansetron IVP 4 mg IVP once; over 2 minutes Route: IVP; Site: right antecubital;kc6 12:09 Follow up: Response: No adverse reaction; Nausea is decreased me1 Disposition Summary: 02/13/24 12:09 Discharge Ordered Notes: Location: Home kb Condition: Stable kb Diagnosis - Acute upper respiratory infection, unspecified kb Followup: kb - With: Emergency Department - When: As needed - Reason: Worsening of condition Followup: kb - With: Private Physician - When: 2 - 3 days - Reason: Recheck today's complaints, Continuance of care, Re-evaluation by your physician Discharge Instructions: - Discharge Summary Sheet kb - Upper Respiratory Infection, Adult, [id number] kb - Viral Respiratory Infection, [id number] kb Forms: - Work release form kb - Medication Reconciliation Form kb - Antibiotic Education kb - Prescription Opioid Use kb - Patient Portal Instructions kb - Leadership Thank You Letter kb Addendum: 02/14/2024 17:19 I was immediately available for consultation during this patient's visit. I did not e c2 personally see the patient or discuss the patient with the AJIHT. . Signatures: Dispatcher [employer] Barbi Lino, CHERELLE-C CHERELLE-Aretha Abel, RN RN aa5 Kyung Hill RN RN kc6 Flex Berrios MD MD ec2 Amber Valentin RN me1
[2024-02-13 12:30] VITALS: TEMP 99.2
[2024-02-13 12:39] VITALS: BP 112/68; O2SAT 99
== END 2024-02-13 12:21 | disposition home or self-care (01) ==
LOC: ER 10:00
DX: J06.9 Acute upper respiratory infection, unspecified (principal); Z11.52 Encounter for screening for COVID-19
CPT/HCPCS: 85025; 81001; 36415; 81025; 83690; 80053; 87804 ×2; 87811; J2405; J7030; 96361; 96374; 99284

== ENCOUNTER 2024-04-19 00:19 | Emergency (ER) | payer OTHER ==
--- OUTSIDE RECORDS SUMMARY | 2024-04-19 00:23 | XMS REPORT | Continuity of Care Document ---
Author Name Unknown Address [address] [facility] [place] [address] [facility] thconnect Address [address] [facility] [address] [facility] [address] [place] [address] Care Team Providers Care Director Of Digital Technology Name Role Phone YIN CAVANAUGH Attending Clinician Unavailable THERESE GUAMAN Attending Clinician Unava ilable LAB90 Attending Clinician Unavailable SANTIAGO HUA Attending Clinician [...] Effective Date Expirati on Date Source 0451 [id number] 2018 00:00:00 [facility] SUZANNE RUIZ COPAY FOCUS 9 [id number] 2023 00:00:00 [place] [id number] 2021 00:00:[place] [id number] 2020 00:00:00 Problems Condition Name Condition Details Condition Category Status Onset Date Resolution Date Last Treatment Date Treating Clinician Comments Source Trichomona l vaginitis Trichomona l Vaginitis Problem Active 820 00:00: 00 [facility] Pilonidal cyst Pilonidal Cyst Problem Active 7-04 00:00: 00 [facility] Abnormal findings on diagnostic imaging of breast Abnormal Findings on Diagnostic Imaging of Breast Problem Active 3-15 00:00: 00 [facility] 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 Active Vicki Archibaldold - Externa l 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 is suppurativ a Disease Active Vicki Seybold - Externa l Obesity Obesity Disease Active Vicki Seybold - Externa l Eczema Eczema Disease Active Vicki Seybold - Externa l Family history of diabetes mellitus in mother Family history of diabetes mellitus in mother Disease Active Vicki Seybold - Externa l Allergies, Adverse Reactions, Alerts Allergy Name Allergy Type Status Severity Reaction(s) Onset Date Inactive Date Treating Clinician Comments Source No Known Allergie s DA Active [facility] Social History Social Habit Start Date Stop Date Quantity Comments Source Sexual orientation Nicki Jones - External Tobacco use and exposure 2024-03-02 00:00:00 2024-03-02 00:00:00 Smokeless tobacco non-user Vicki Jones - External Alcoholic beverage intake 2024-03-02 00:00:00 2024-03-02 00:00:00 Lifetime non-drinker (finding) Vicki Jones - External History of Social function 2024-03-02 00:00:00 2024-03-02 00:00:00 Vicki Jones - External Education 2024-03-02 00:00:00 2024-03-02 00:00:00 13 Vicki Jones - External Sex assigned at 2000 00:00:00 2000 00:00:00 Vicki Jones - External Smoking Status Start Date Stop Date Source Never smoked tobacco Vicki Jones - External Medications Ordered Medication Name Filled Medication Name Start Date Stop Date Current Medication? Ordering Clinician Indication Dosage Frequency Signature (SIG) Comments Components Source Hydrocortis one 1 % apply externally Cream 03-02 09:07: 03 Yes 297 1{appli cation} QD Apply 1 Applicatio n topically daily as needed (dermatiti s). Indication s: Skin Inflammati on Vicki Jones - Externa l cyclobenzap rine 10 mg tablet Take 1 tablet 3 times a day by oral route. cyclobenzap rine 10 mg tablet Take 1 tablet 3 times a day by oral route. No 1 TID cyclobenza joshua 10 mg tablet Take 1 tablet 3 times a day by oral route. [facility] hydrocodone 5 mg-acetamin ophen 325 mg tablet hydrocodone 5 mg-acetamin ophen 325 mg tablet No hydrocodon e 5 mg-acetami nophen 325 mg tablet [facility] ibuprofen 600 mg tablet ibuprofen 600 mg tablet No ibuprofen 600 mg tablet [facility] Lidocaine Viscous 2 % mucosal solution Lidocaine Viscous 2 % mucosal solution No Lidocaine Viscous 2 % mucosal solution [facility] naproxen 500 mg tablet Take 1 tablet twice a day by oral route. naproxen 500 mg tablet Take 1 tablet twice a day by oral route. No naproxen 500 mg tablet Take 1 tablet twice a day by oral route. [facility] neomycin-po lymyxin-hyd rocort 3.5 mg-10,000 unit/mL-1 % ear drops,susp neomycin-po lymyxin-hyd rocort 3.5 mg-10,000 unit/mL-1 % ear drops,susp No neomycin-p olymyxin-h ydrocort 3.5 mg-10,000 unit/mL-1 % ear drops,susp [facility] prednisone 50 mg tablet prednisone 50 mg tablet No prednisone 50 mg tablet [facility] sulfamethox azole 800 mg-trimetho prim 160 mg tablet sulfamethox azole 800 mg-trimetho prim 160 mg tablet No sulfametho xazole 800 mg-trimeth oprim 160 mg tablet [facility] tramadol 50 mg tablet tramadol 50 mg tablet No tramadol 50 mg tablet [facility] Immunizations Ordered Immunization Name Filled Immunization Name Date Status Comments Source HPV9 HPV9 2022-02-24 12:05:30 Completed [facility] HPV9 HPV9 2021-12-16 16:14:40 Completed [facility] influenza, injectable, quadrivalent influenza, injectable, quadrivalent 2021-04-11 00:00:00 Completed [facility] COVID-19, mRNA, LNP-S, PF, 100 mcg/0.5 mL dose (Moderna) COVID-19, mRNA, LNP-S, PF, 100 mcg/0.5 mL dose (Moderna) 2020-10-19 00:00:00 Completed [facility] COVID-19, mRNA, LNP-S, PF, 100 mcg/0.5 mL dose (Moderna) COVID-19, mRNA, LNP-S, PF, 100 mcg/0.5 mL dose (Moderna) 2020-09-24 00:00:00 Completed [facility] Covid-19 Vaccine Moderna (Spikevax), Mrna-lnp, Dl Protein, Pf Unknown Completed Vicki Jones - External HPV 9 (Human Papillomavirus) Unknown Completed Vicki wallis - External Influenza Virus Vaccine, Split, up to age 3 Unknown Completed Vicki Jones - External Vital Signs Vital Name Observation Time Observation Value Comments S rahul Systolic blood pressure 2024-03-02 13:41:00 102 mm[Hg] Vicki wallis - External Diastolic blood pressure 2024-03-02 13:41:00 67 mm[Hg] Vicki wallis - External Heart rate 2024-03-02 13:41:00 77 /min Zana Archibaldold - External Body temperature 2024-03-02 13:41:00 37.06 Leora Vicki Jones - External Respiratory rate 2024-03-02 13:41:00 16 /min Vicki Jones - External Body height 2024-03-02 13:41:00 170.2 cm Jenn bunch Seybold - External Body weight 2024-03-02 13:41:00 90.266 kg Jenn bunch Seybold - External BMI 2024-03-02 13:41:00 31.17 kg/m2 Jenn Jones - External Oxygen saturation in Arterial blood by Pulse oximetry 2024-03-02 13:41:00 99 /min Vicki Archibaldo ld - External BP Diastolic 2022-03-04 00:00:00 72 mm[Hg] Hugo agorda [facility] Height 2022-03-04 00:00:00 67 [in_i] Jessie orda [facility] BMI (Body Mass Index) 2022-03-04 00:00:00 28.3 kg/m2 [facility] [facility] BP Systolic 2022-03-04 00:00:00 111 mm[Hg] Edwardo espinozaa [facility] Body Weight 2022-03-04 00:00:00 181 [lb_av] Hugo agorda [facility] BP Diastolic 2022-02-24 00:00:00 73 mm[Hg] Hugo betancurrda [facility] Height 2022-02-24 00:00:00 67 [in_i] Jessie orda [facility] BMI (Body Mass Index) 2022-02-24 00:00:00 27.6 kg/m2 [facility] BP Systolic 2022-02-24 00:00:00 107 mm[Hg] Brooke paras [facility] Body Weight 2022-02-24 00:00:00 2818 [oz_av] Ma dayanaorda [facility] BP Diastolic 2022-01-05 00:00:00 70 mm[Hg] Hugo agorda [facility] Height 2022-01-05 00:00:00 67 [in_i] Matrahat hinesa [facility] BMI (Body Mass Index) 2022-01-05 00:00:00 27.6 kg/m2 [facility] BP Systolic 2022-01-05 00:00:00 102 mm[Hg] Brooke paras [facility] Body Weight 2022-01-05 00:00:00 176 [lb_av] Hugo betancurrda [facility] BP Diastolic 2021-12-16 00:00:00 83 mm[Hg] Mat piperda [facility] Height 2021-12-16 00:00:00 67 [in_i] Jessie hinesa [facility] BMI (Body Mass Index) 2021-12-16 00:00:00 28.3 kg/m2 [facility] BP Systolic 2021-12-16 00:00:00 126 mm[Hg] Brooke paras [facility] Body Weight 2021-12-16 00:00:00 2896 [oz_av] Ryley anneorda [facility] Height 2021-11-11 20:05:00 170.18 CM Weight 2021-11-11 20:05:00 79.37 KG BP Diastolic 2021-10-28 00:00:00 70 mm[Hg] Hugo betancurrda [facility] Height 2021-10-28 00:00:00 67 [in_i] Jessie hinesa [facility] BMI (Body Mass Index) 2021-10-28 00:00:00 27.6 kg/m2 [facility] BP Systolic 2021-10-28 00:00:00 106 mm[Hg] Edwardo espinozaa [facility] Body Weight 2021-10-28 00:00:00 2816 [oz_av] Ryley anneorda [facility] Height 2021-09-23 15:42:00 170.18 CM Weight 2021-09-23 15:42:00 76.65 KG BP Diastolic 2021-09-11 00:00:00 74 mm[Hg] Hugo agorda [facility] Height 2021-09-11 00:00:00 67 [in_i] Matrahat orda [facility] BMI (Body Mass Index) 2021-09-11 00:00:00 26.5 kg/m2 [facility] BP Systolic 2021-09-11 00:00:00 114 mm[Hg] Brooke paras [facility] Body Weight 2021-09-11 00:00:00 2704 [oz_av] Ryley anneorda [facility] Height 2021-08-11 19:48:00 170.18 CM Weight 2021-08-11 19:48:00 73.93 KG Height 2021-04-14 20:01:00 170.18 CM Weight 2021-04-14 20:01:00 76.65 KG Height 2020-12-24 20:50:00 170.18 CM Weight 2020-12-24 20:50:00 76.2 KG BP Diastolic 2020-12-16 00:00:00 71 mm[Hg] Mat agorda [facility] Height 2020-12-16 00:00:00 67 [in_i] Matrahat orda [facility] BMI (Body Mass Index) 2020-12-16 00:00:00 26.6 kg/m2 [facility] BP Systolic 2020-12-16 00:00:00 108 mm[Hg] Brooke paras [facility] Body Weight 2020-12-16 00:00:00 2720 [oz_av] Ryley tagorda [facility] BP Diastolic 2020-11-20 00:00:00 79 mm[Hg] Mat agorda [facility] Height 2020-11-20 00:00:00 67 [in_i] Matrahat orda [facility] BMI (Body Mass Index) 2020-11-20 00:00:00 25.8 kg/m2 [facility] BP Systolic 2020-11-20 00:00:00 123 mm[Hg] Brooke paras [facility] Body Weight 2020-11-20 00:00:00 2640 [oz_av] Ryley anneorda [facility] Height 2020-07-07 20:12:00 170.18 CM Weight 2020-07-07 20:12:00 74.84 KG Procedures Procedure Date / Time Performed Performing Clinicia n Source US, breast, unilateral 2022-03-03 00:00:00 [facility] US, breast, unilateral 2022-02-09 00:00:00 [facility] MAMMO, diagnostic, unilateral 2021-09-11 00:00:00 [facility] US, breast, unilateral 2021-09-11 00:00:00 [facility] Hernia Repair W/mesh 2007-07-12 00:00:00 [facility] Encounters Start Date/Time End Date/Time Encounter Type Admission Type Attending [facility] Facility Care Department Encounter ID Source 2021-11-30 08:00:00 Inpatient C YIN CAVANAUGH [facility] [id number] [facility] 2024-05-23 14:15:00 2024-05-23 14:15:00 Outpatient THERESE GUAMAN [id number] [facility]-02 09:30:00 2024-03-02 09:30:00 Outpatient LAB90 VICKI MALLORY [id number] [facility] 2024-03-02 08:45:00 2024-03-02 08:45:00 Outpatient SANTIAGO HUA [id number] [facility] 2024-02-17 15:00:00 2024-02-17 15:00:00 Outpatient SANTIAGO HUA [id number] [facility] 2024-01-04 09:00:00 2024-01-04 09:00:00 Outpatient SANTIAGO HUA [id number] [facility] 2022-04-14 00:00:00 2022-04-14 00:00:00 Outpatient JOLENE [facility]OLD [facility] [id number] [facility] 2022-04-14 00:00:00 2022-04-14 00:00:00 Outpatient SHIMEK_ESME DE LA [facility]ORRE [facility] [id number] [facility] 2022-04-14 00:00:00 2022-04-14 00:00:00 Outpatient SHIMEK_ESME DE [place] [facility]OR[facility] [id number] [facility] 2022-03-08 00:00:00 2022-03-08 00:00:00 Outpatient SHIMEK_ESME DE LA [place]ORRE [facility] [id number] [facility] 2022-03-04 00:00:00 2022-03-04 00:00:00 Outpatient SHIMEK_ESME DE LA [facility]ORRE [facility] [id number] [facility] 2022-03-04 00:00:00 2022-03-04 00:00:00 Cecy Gallo MD: [address] [facility] [address], [place] [address] , Ph. [phone] [facility] Buddhism [facility] [id number] [facility] 2022-02-24 00:00:00 2022-02-24 00:00:00 Outpatient SHIMEKPAM DE LA TORRE [facility] [id number] [facility] 2022-02-24 00:00:00 2022-02-24 00:00:00 Esme Jones, MATERIALS SPECIALIST: [address] [address] , Ph. [facility] HOP [facility] Medical [facility] 3 [id number] [facility] 2022-02-18 00:00:00 2022-02-18 00:00:00 Outpatient SHIMEK_ESME DE LA TORRE [facility] [id number] [facility] 2022-01-05 00:00:00 2022-01-05 00:00:00 Outpatient SHIMEK_ESME _ANN [facility] [id number] [facility] 2022-01-05 00:00:00 2022-01-05 00:00:00 Cecy Gallo MD: [address], [address], [place] [address] , [address] [facility] [id number] [facility] 2021-12-16 04:23:00 2021-12-16 04:23:00 Outpatient SHIMEK_ESME _ANN [facility] [id number] [facility] 2021-12-16 04:23:00 2021-12-16 04:23:00 Outpatient SHIMEK_ESME _ANN [facility] [id number] [facility] 2021-12-16 04:23:00 2021-12-16 04:23:00 Outpatient SHIMEK_ESME _ANN [facility] [id number] [facility] 2021-12-16 04:23:00 2021-12-16 04:23:00 Outpatient SHIMEK_ESME _ANN [facility] [id number] [facility] 2021-12-16 00:00:00 2021-12-16 00:00:00 Esme Jones, MATERIALS SPECIALIST: [address] [place] [address] , [address] [facility] [place] [address] [id number] [facility] 2021-12-15 10:05:00 2021-12-15 10:05:00 Outpatient SHIMEK_MARY _ANN [facility] [id number] [facility] 2021-11-11 19:53:00 2021-11-11 22:56:00 Outpatient ALFRED VELIZ [facility] [id number] [facility] 2021-10-28 03:50:00 2021-10-28 03:50:00 Outpatient SHIMEK_ESME ThomasANN [facility] [id number] [facility] 2021-10-28 03:49:00 2021-10-28 03:49:00 Outpatient SHIMEK_MARY _ANN [facility] [id number] [facility] 2021-10-28 00:00:00 2021-10-28 00:00:00 Esme Jones, MATERIALS SPECIALIST: [address] Ray, [place] [address] , Ph. [facility] Buddhism [place] [address] [id number] [facility] 2021-09-23 15:42:00 2021-09-23 16:43:00 Outpatient EVELINE INGRAM [facility] [id number] [facility] 2021-09-16 09:09:00 2021-09-16 09:09:00 Outpatient SHIMEK_MARY _ANN [facility] [id number] [facility] 2021-09-16 09:09:00 2021-09-16 09:09:00 Outpatient SHIMEK_MARY _ANN [facility] [id number] [facility] 2021-09-16 09:09:00 2021-09-16 09:09:00 Outpatient SHIMEK_MARY _ANN [facility] [id number] [facility] 2021-09-11 07:46:00 2021-09-11 07:46:00 Outpatient SHIMEK_MARY _ANN [facility] [id number] [facility] 2021-09-11 00:00:00 2021-09-11 00:00:00 Esme Jones, MATERIALS SPECIALIST: [place] [address] , Ph. [facility] [place] [address] [id number] [facility] 2021-08-11 19:40:00 2021-08-11 22:04:00 Outpatient E JORGE HUBBARD [facility] [id number] [facility] 2021-04-14 19:53:00 2021-04-14 20:14:00 Outpatient E JORGE HUBBARD [facility] [id number] [facility] 2020-12-24 20:48:00 2020-12-24 21:09:00 Outpatient E OLIVIA ROPER [facility] [id number] [facility] 2020-12-16 12:14:00 2020-12-16 12:14:00 Outpatient SHIMEK_MARY _ANN [facility] [id number] [facility] 2020-12-16 12:14:00 2020-12-16 12:14:00 Outpatient SHIMEK_MARY _ANN [facility] [id number] [facility] 2020-12-16 12:14:00 2020-12-16 12:14:00 Outpatient SHIMEK_MARY _ANN [facility] [id number] [facility] 2020-12-16 12:14:00 2020-12-16 12:14:00 Outpatient SHIMEK_MARY _ANN [facility] [id number] [facility] 2020-12-16 12:14:00 2020-12-16 12:14:00 Outpatient SHIMEK_MARY _ANN [facility] [id number] [facility] 2020-12-16 12:14:00 2020-12-16 12:14:00 Outpatient SHIMEK_MARY _ANN [facility] [id number] [facility] 2020-12-16 00:00:00 2020-12-16 00:00:00 Esme Jones, MATERIALS SPECIALIST: [place] [address] , Ph. [place] [address] [id number] [facility] 2020-11-20 04:22:00 2020-11-20 04:22:00 Outpatient SHIMEK_ESME DE LA TORRE [facility] [id number] [facility] 2020-11-20 00:00:00 2020-11-20 00:00:00 Esme Jones, MATERIALS SPECIALIST: [place] [address] , Ph. [place] [address] [id number] [facility] 2020-11-18 08:32:00 2020-11-18 08:32:00 Outpatient SHIMEK_ESME DE LA TORRE [facility] [id number] [facility] 2020-10-22 04:44:00 2020-10-22 04:44:00 Outpatient SHIMEKPAM DE LA TORRE [facility] [id number] [facility] 2020-07-07 20:12:00 2020-07-07 22:25:00 Outpatient ALEK VU [facility] [id number] [facility] Results Test Description Test Time Test Comments Results Result Co mments Source [facility] Differential panel - Blood 2021-12-17 [...] immature cells (test code = immature cells) pharmacy operations manager Neutrophils [#/volume] in Bl ood by Automated [...] Blood by Automated count (test code = 72494-6) 0 % not estab. Immature granulocytes [#/volume] in Blood by Automated count (test code = 63411-2) 0.0 x10e3/uL 0.0-0.1 Nucleated erythrocytes/100 leukocytes [Ratio] in Blood by Automated count (test code = 79574-0) pharmacy operations manager Morphology [Interpretation] in Blood Narrative (test code = 02276-8) pharmacy operations manager [facility] 2000 panel - Serum or [id number] 00:00:00* Test Item Value Reference Range Interpretation [...] in Serum or Plasma (test code = 18511-3) 9.6 mg/dL 8.7-10.2 Protein [Mass/volume] in Serum or Plasma (test code = 2885-2) 7.4 g/dL 6.0-8.5 Albumin [Mass/volume] in Serum or Plasma (test code = 1751-7) 4.4 g/dL 3.9-5.0 Globulin [Mass/volume] in Serum by calculation (test code = 86789-5) 3.0 g/dL 1.5-4.5 Albumin/Globulin [Mass Ratio ] [...] code = 1742-6) 14 IU/L 0-32 [facility] - Serum or Plasma 2021-12-17 [...] or Plasma by calculation (test code = 33782-6) 31 mg/dL 5-40 Cholesterol in LDL [Mass/vol ume] in Serum or Plasma by calculation (test code = 81401-7) 113 mg/dL 0-99 H Laboratory comment [Text] in Report Narrative (test code = 42422-2) pharmacy operations manager [facility]/Hemoglobin.total in [id number] 00:00:00* Test Item Value Reference Range Interpretation Comme nts Hemoglobin A1c/Hemoglobin.to meron in Blood (test code = 4548-4) 5.4 % 4.8-5.6 Glucose mean value [Mass/vol ume] in Blood Estimated from glycated hemoglobin (test code = 41143-5) 108 mg/dL [facility] [Presence] in Serum by RPR 2021-12-17 00:00:00* Test Item Value Reference Range Interpretation Comme nts Reagin Ab [Presence] in Seru m by RPR (test code = 80260-5) non reactive non reactive [facility] 1 and 2 tests - Meaningful Use [id number] 00:00:00* Test Item Value Reference Range Interpretation Comme nts HIV 1+2 Ab+HIV1 p24 Ag [Presence] in Serum or Plasma by Immunoassay (test code = 04253-2) non reactive non reactive [facility]Hepatitis B virus surface Ag [Presence] in Serum or Plasma by [id number] 00:00:00* Test Item Value Reference Range Interpretation Comme nts Hepatitis B virus surface Ag [Presence] in Serum or Plasma by Immunoassay (test code = 5196-1) negative negative [facility], [id number] 00:00:00* Test Item Value Reference Range Interpretation Comme nts Interpretation and review of laboratory results (test code = 37742-2) note Report (test code = 16298-1) . [facility]AST *OW*2021-11-11 22:27:47[facility] : 2000 Sex: FEXAMINATION:CT [...] Daniel Nolan MD 11/11/2021 10:27 PM CDT [id number] Panel *OW* [id number] 21:40:00* Test Item Value Reference Range Interpretation [...] ABDOMEN AND PELVIS W/O CONTRAST *OW*2021-08-11 21:29:43 [facility]QUE : 2000 Sex: FEXAMINATION:Chest, abdomen, and pelvic [...] by: Shabbir pedraza MD 08/11/2021 9:29 PM [facility] CHEST W/O CONTRAST *OW* 2021-08-11 21:29:43 [facility] : 2000 Sex: FEXAMINATION:Chest, [...] by: Shabbir pedraza MD 08/11/2021 9:29 PM [facility] HEAD W/O CONTRAST *OW* 2021-08-11 21:28:07 [facility] : 2000 Sex: FExam: [...] by: Mina Clayton MD 08/11/2021 9:28 PM 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[employer] CERVICAL SPINE W/O CONTRAST *OW*2021-08-11 21:24:12 [facility] : 2000 Sex: FExam: [...] by: Santiago Arango MD 08/11/2021 9:24 PM 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[employer] [id number] URINE OW2021-08-11 20:27:00* Test Item Value Reference [...] NEGATIVE CBC W Auto Differential panel - [id number] 00:00:00* Test Item Value Reference Range Interpretation [...] immature cells (test code = immature cells) pharmacy operations manager Neutrophils [#/volume] in Bl ood by Automated [...] Blood by Automated count (test code = 26985-9) 0 % not estab. Immature granulocytes [#/volume] in Blood by Automated count (test code = 34905-6) 0.0 x10e3/uL 0.0-0.1 Nucleated erythrocytes/100 leukocytes [Ratio] in Blood by Automated count (test code = 06844-7) pharmacy operations manager Morphology [Interpretation] in Blood Narrative (test code = 41786-6) pharmacy operations manager [facility] ProgramComprehensive metabolic 2000 panel - Serum or [id number] 00:00:00* Test Item Value Reference Range Interpretation [...] by Creatinine-based formula (CKD-EPI) (test code = 20278-7) 119 mL/min/1.73 >59 Glomerular filtration rate/1.73 sq M.predicted among blacks [Volume Rate/Area] in Serum, Plasma or Blood by Creatinine-based formula (CKD-EPI) (test code = 60833-5) 137 mL/min/1.73 >59 Urea nitrogen/Creatinine [Mass Ratio] [...] Serum or Plasma (test code = 2027-9) 25 mmol/L 20-29 Calcium [Mass/volume] in Serum or Plasma (test code = 04788-1) 10.0 mg/dL 8.7-10.2 Protein [Mass/volume] in Serum or Plasma (test code = 2885-2) 7.6 g/dL 6.0-8.5 Albumin [Mass/volume] in Serum or Plasma (test code = 1751-7) 4.4 g/dL 3.9-5.0 Globulin [Mass/volume] in Serum by calculation (test code = 97237-0) 3.2 g/dL 1.5-4.5 Albumin/Globulin [Mass Ratio ] [...] code = 1742-6) 14 IU/L 0-32 [facility] - [facility] or Plasma 2020-11-21 [...] or Plasma by calculation (test code = 52687-9) 13 mg/dL 5-40 Cholesterol in LDL [Mass/vol ume] in Serum or Plasma by calculation (test code = 34323-2) 121 mg/dL 0-99 H Laboratory comment [Text] in Report Narrative (test code = 60775-4) pharmacy operations manager [facility] A1c/Hemoglobin.total in [id number] 00:00:00* Test Item Value Reference Range Interpretation Comme nts Hemoglobin A1c/Hemoglobin.to meron in Blood (test code = 4548-4) 5.2 % 4.8-5.6 Glucose mean value [Mass/vol ume] in Blood Estimated from glycated hemoglobin (test code = 06946-0) 103 mg/dL [facility]HIV [facility]+2 Ab+HIV1 p24 Ag [Presence] in Serum or Plasma by [id number] 00:00:00* Test Item Value Reference Range Interpretation Comme nts HIV 1+2 Ab+HIV1 p24 Ag [Presence] in Serum or Plasma by Immunoassay (test code = 27904-7) non reactive non reactive [facility]Thyrotropin [Units/volume] in Serum or Plasma by Detection limit <= 0.005 mIU/[id number] 00:00:00* Test Item Value Reference Range Interpretation Comme nts Thyrotropin [Units/volume] i n Serum or Plasma by Detection limit <= 0.005 mIU/L (test code = 56232-9) 0.677 uIU/mL 0.450-4.500 [facility]Reagin Ab [Presence] in Serum by RPR 2020-11-21 00:00:00* Test Item Value Reference Range Interpretation Comme nts Reagin Ab [Presence] in Seru m by RPR (test code = 05209-9) non reactive non reactive [facility]Hepatitis B virus surface Ag [Presence] in Serum or Plasma by [id number] 00:00:00* Test Item Value Reference Range Interpretation Comme nts Hepatitis B virus surface Ag [Presence] in Serum or Plasma by Immunoassay (test code = 5196-1) negative negative [facility] panel, [id number] 00:00:00* Test Item Value Reference Range Interpretation Comme nts Interpretation and review of laboratory results (test code = 04841-4) note Report (test code = 66432-8) . [facility] NortheastINFL[facility]ZA A AND B OW2020-07-07 21:13:00* Test Item Value Reference Range Interpretation Comme nts INFLUENZ A (test code = INFA) NEGATIVE NEGATIVE INFLUENZ B (test code = INFB) NEGATIVE NEGATIVE
--- NOTE | 2024-04-19 00:30 | EDPHYS ---
Physician Documentation [facility] Name: Aileen Montalvo Age: 23 yrs Sex: Female : 2000 Arrival Date: 04/19/2024 Time: 00:19 Bed Waiting Private MD: ED Physician Pete Pepper HPI: 04/19 00:27 This 23 yrs old Black Female presents to ER via Unassigned with complaints of Toothache.kb 00:27 Pt is a 23 year old female who presents for pain to right lower wisdom tooth that kb started yesterday. States she has had this pain in the past, went to the dentist and was told she needed to have the gums cut so the tooth can come in. States it cost $400 so she hasn't had it done yet. denies fever. . 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 - Infectious Disease History:: Denies. - Social history:: Smoking status: Patient denies any tobacco usage or history of. Patient/guardian denies using alcohol, street drugs. ROS: 00:27 Constitutional: As per HPI kb Exam: 00:27 Constitutional: This is a well developed, well nourished patient who is awake, alert, kb and in no acute distress. Head/Face: Normocephalic, atraumatic. ENT: Moist Mucous membranes Cardiovascular: Regular rate Respiratory: Respirations even and unlabored. No increased work of breathing. Talking in full sentences Skin: Warm, dry with normal turgor. Normal color. MS/ Extremity: Pulses equal, no cyanosis. Neurovascular intact. Full, normal range of motion. Neuro: Awake and alert, GCS 15, oriented to person, place, time, and situation. Moves all extremities. Normal gait. 00:27 ENT: Dental exam: pain, that is moderate, specifically in the lower right third molar (#32), Vital Signs: 00:37 BP 127 / 77; Pulse 87; Resp 17 S; Temp 98.6(O); Weight 92.53 kg (R); Height 5 ft. 7 in. lg3 (R); 00:37 Body Mass Index 31.95 (92.53 kg, 170.18 cm) lg3 MDM: 00:25 Patient medically screened. kb 00:29 Differential diagnosis: dental caries, gingivitis, dental abscess, pericoronitis. Data kb reviewed: vital signs, nurses notes. Counseling: I had a detailed discussion with the patient and/or guardian regarding the historical points, exam findings, and any diagnostic results supporting the discharge/admit diagnosis, the need for outpatient follow up, a dentist, to return to the emergency department if symptoms worsen or persist or if there are any questions or concerns that arise at home. Administered Medications: 00:40 Drug: Ketorolac IM 30 mg IM once Route: IM; Site: right deltoid; lg3 00:47 Follow up: Response: Medication Administered at Departure; Medication administered at lg3 discharge. 00:40 Drug: Amoxicillin-Clavulanate PO 875 mg PO once Route: PO; lg3 00:47 Follow up: Response: Medication administered at discharge. lg3 Disposition: 02:05 Co-signature as Attending Physician, Pete Pepper MD I reviewed the patient's care rt provided by the Advanced Practice Provider and agree with the diagnosis and treatment plan. Disposition Summary: 04/19/24 00:30 Discharge Ordered Notes: Location: Home kb Condition: Stable kb Diagnosis - Dental Pain kb Followup: kb - With: Emergency Department - When: As needed - Reason: Worsening of condition Followup: kb - With: Private Physician - When: 2 - 3 days - Reason: Recheck today's complaints, Continuance of care, Re-evaluation by your physician Discharge Instructions: - Discharge Summary Sheet kb - Dental Pain, [id number] kb - Dental Abscess, [id number] kb Forms: - Medication Reconciliation Form kb - Antibiotic Education kb - Prescription Opioid Use kb - Patient Portal Instructions kb - Leadership Thank You Letter kb Prescriptions: - Augmentin 875-125 mg Oral Tablet - take 1 tablet ORAL route every 12 hours for 10 days; 20 tablet; Refills: 0, kb Product Selection Permitted - Diclofenac Sodium 75 mg Oral tablet, delayed release (enteric coated) - take 1 tablet ORAL route 2 times per day As needed; 30 tablet; Refills: 0, kb Product Selection Permitted Signatures: Barbi Thurman, JOSE LUIS HARDBOARD PRESS OPERATOR-Luisa Heath, RN RN lg3 Pete Pepper MD MD rt
[2024-04-19] MEDS ORDERED: KETOROLAC 30 MG/ML INJ ONE (00:35)
[2024-04-19] MEDS ORDERED: AMOX/K CLAV 875 MG TAB ONE (00:35)
--- NOTE | 2024-04-19 00:48 | ER ---
Nurse's Notes [facility] Name: Aileen Montalvo Age: 23 yrs Sex: Female : 2000 Arrival Date: 04/19/2024 Time: 00:19 Bed Waiting Private MD: Diagnosis: Dental Pain Presentation: 04/19 00:37 Chief complaint: Patient states: right sided tooth pain X1 day. Coronavirus screen: lg3 Client denies travel out of the [place] in the last 14 days. At this time, the client does not indicate any symptoms associated with coronavirus-19. Ebola Screen: No symptoms or risks identified at this time. Initial Sepsis Screen: Does the patient meet any 2 criteria? No. Patient's initial sepsis screen is negative. Does the patient have a suspected source of infection? No. Patient's initial sepsis screen is negative. Risk Assessment: Do you want to hurt yourself or someone else? Patient reports no desire to harm self or others. Onset of symptoms was April 18, 2024. 00:37 Method Of Arrival: Ambulatory lg3 00:37 Acuity: [id number] 4 lg3 Triage Assessment: 00:38 General: Appears in no apparent distress. uncomfortable, Behavior is calm, cooperative. lg3 Pain: Complains of pain in lower right third molar (#32). EENT: Reports pain in lower right third molar (#32). Neuro: No deficits noted. Bruno Agitation-Sedation Scale (RASS): 0 - Alert and Calm Level of Consciousness is awake, alert, obeys commands, Oriented to person, place, time, situation. Cardiovascular: No deficits noted. Denies chest pain, shortness of breath, Capillary refill < 3 seconds Clubbing of nail beds is absent Patient's skin is warm and dry. Respiratory: No deficits noted. Airway is patent Respiratory effort is even, unlabored, Respiratory pattern is regular, symmetrical. GI: No deficits noted. No signs and/or symptoms were reported involving the gastrointestinal system. : No deficits noted. No signs and/or symptoms were reported regarding the genitourinary system. Derm: No deficits noted. Skin is intact, is healthy with good turgor, Skin is dry, Skin is normal, Skin temperature is warm. Musculoskeletal: No deficits noted. No signs and/or symptoms reported regarding the musculoskeletal system. Circulation, motion, and sensation intact. Range of motion: intact in all extremities. 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 - Infectious Disease History:: Denies. - Social history:: Smoking status: Patient denies any tobacco usage or history of. Patient/guardian denies using alcohol, street drugs. Screenin:39 [facility] ED Fall Risk Assessment (Adult) History of falling in the last 3 months, lg3 including since admission No falls in past 3 months (0 pts) Confusion or Disorientation No (0 pts) Intoxicated or Sedated No (0 pts) Impaired Gait No (0 pts) Mobility Assist Device Used No (0 pt) Altered Elimination No (0 pt) Score/Fall Risk Level 0 - 2 = Low Risk Oriented to surroundings, Maintained a safe environment, Educated pt \T\ family on fall prevention, incl call for assistance when getting out of bed, Assessed \T\ reinforced patient's understanding of fall precautions. Abuse screen: Denies threats or abuse. Denies injuries from another. Nutritional screening: No deficits noted. Tuberculosis screening: No symptoms or risk factors identified. Assessment: 00:39 General: see triage assessment. lg3 Vital Signs: 00:37 BP 127 / 77; Pulse 87; Resp 17 S; Temp 98.6(O); Weight 92.53 kg (R); Height 5 ft. 7 in. lg3 (R); 00:37 Body Mass Index 31.95 (92.53 kg, 170.18 cm) lg3 ED Course: 00:23 Patient arrived in ED. gm2 00:24 Pete Pepper MD is Attending Physician. rt 00:25 Barbi Thurman FNP-C is PHCP. kb 00:37 Luisa Birch RN is Primary Nurse. lg3 00:38 Triage completed. lg3 00:38 Arm band placed on right wrist. lg3 00:39 Patient has correct armband on for positive identification. lg3 00:39 No provider procedures requiring assistance completed. Patient did not have IV access lg3 during this emergency room visit. 00:48 Provided Education on: f/u with dentist. lg3 Administered Medications: 00:40 Drug: Ketorolac IM 30 mg IM once Route: IM; Site: right deltoid; lg3 00:47 Follow up: Response: Medication Administered at Departure; Medication administered at lg3 discharge. 00:40 Drug: Amoxicillin-Clavulanate PO 875 mg PO once Route: PO; lg3 00:47 Follow up: Response: Medication administered at discharge. lg3 Medication: 00:39 VIS not applicable for this client. lg3 Outcome: 00:30 Discharge ordered by . felton 00:47 Discharged to home ambulatory, lg3 00:47 Condition: good 00:47 Discharge instructions given to patient, Instructed on discharge instructions, follow up and referral plans. medication usage, Demonstrated understanding of instructions, follow-up care, medications, Prescriptions given X 2, 00:48 Patient left the ED. lg3 Signatures: Barbi Thurman, CHERELLE-Miranda VILLARREAL-Luisa Heath RN RN lg3 Pete Pepper MD MD rt Hemalatha Nickerson gm2
[2024-04-19 01:41] VITALS: BP 127/77; TEMP 98.6
== END 2024-04-19 00:48 | disposition home or self-care (01) ==
LOC: ER 00:19
DX: K08.89 Other specified disorders of teeth and supporting structures (principal)

== ENCOUNTER 2024-05-14 08:25 | Emergency (ER) | payer OTHER ==
--- OUTSIDE RECORDS SUMMARY | 2024-05-14 08:28 | XMS REPORT | Continuity of Care Document ---
Author Name Unknown Address [address] [facility] [address] [place] [address] [facility] thconnect Address [address] [facility] 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 [facility] hydrocodone 5 mg-acetamin ophen 325 mg tablet hydrocodone 5 mg-acetamin ophen 325 mg tablet No hydrocodon e 5 mg-acetami nophen 325 mg tablet [facility] ibuprofen 600 mg tablet ibuprofen 600 mg tablet No ibuprofen 600 mg tablet [facility] Lidocaine Viscous 2 % mucosal solution Lidocaine Viscous 2 % mucosal solution No Lidocaine Viscous 2 % mucosal solution [facility] naproxen 500 mg tablet Take 1 tablet twice a day by oral route. naproxen 500 mg tablet Take 1 tablet twice a day by oral route. No naproxen 500 mg tablet Take 1 tablet twice a day by oral route. [facility] neomycin-po lymyxin-hyd rocort 3.5 mg-10,000 unit/mL-1 % ear drops,susp neomycin-po lymyxin-hyd rocort 3.5 mg-10,000 unit/mL-1 % ear drops,susp No neomycin-p olymyxin-h ydrocort 3.5 mg-10,000 unit/mL-1 % ear drops,susp [facility] prednisone 50 mg tablet prednisone 50 mg tablet No prednisone 50 mg tablet [facility] sulfamethox azole 800 mg-trimetho prim 160 mg tablet sulfamethox azole 800 mg-trimetho prim 160 mg tablet No sulfametho xazole 800 mg-trimeth oprim 160 mg tablet [facility] tramadol 50 mg tablet tramadol 50 mg tablet No tramadol 50 mg tablet [facility] Immunizations Ordered Immunization Name Filled Immunization Name Date Status Comments Source HPV9 HPV9 2022-02-24 12:05:30 Completed [facility] HPV9 HPV9 2021-12-16 16:14:40 Completed [facility] influenza, injectable, quadrivalent influenza, injectable, quadrivalent 2021-04-11 00:00:00 Completed [facility] COVID-19, mRNA, LNP-S, PF, 100 mcg/0.5 mL dose (Moderna) COVID-19, mRNA, LNP-S, PF, 100 mcg/0.5 mL dose (Moderna) 2020-10-19 00:00:00 Completed [facility] COVID-19, mRNA, LNP-S, PF, 100 mcg/0.5 mL dose (Moderna) COVID-19, mRNA, LNP-S, PF, 100 mcg/0.5 mL dose (Moderna) 2020-09-24 00:00:00 Completed [facility] Covid-19 Vaccine Moderna (Spikevax), Mrna-lnp, Dl [...] Diastolic 2022-03-04 00:00:00 72 mm[Hg] Hugo agorda [facility] Height 2022-03-04 00:00:00 67 [in_i] Jessie orda [facility] BMI (Body Mass Index) 2022-03-04 00:00:00 28.3 kg/m2 Hilbert [facility] BP Systolic 2022-03-04 00:00:00 111 mm[Hg] Edwardo espinozaa [facility] Body Weight 2022-03-04 00:00:00 181 [lb_av] Hugo agorda [facility] BP Diastolic 2022-02-24 00:00:00 73 mm[Hg] Hugo betancurrda [facility] Height 2022-02-24 00:00:00 67 [in_i] Jessie orda [facility] BMI (Body Mass Index) 2022-02-24 00:00:00 27.6 kg/m2 [facility] BP Systolic 2022-02-24 00:00:00 107 mm[Hg] Brooke paras [facility] Body Weight 2022-02-24 00:00:00 2818 [oz_av] Ma dayanaorda [facility] BP Diastolic 2022-01-05 00:00:00 70 mm[Hg] Hugo agorda [facility] Height 2022-01-05 00:00:00 67 [in_i] Matrahat hinesa [facility] BMI (Body Mass Index) 2022-01-05 00:00:00 27.6 kg/m2 [facility] BP Systolic 2022-01-05 00:00:00 102 mm[Hg] Brooke paras [facility] Body Weight 2022-01-05 00:00:00 176 [lb_av] Hugo betancurrda [facility] BP Diastolic 2021-12-16 00:00:00 83 mm[Hg] Mat piperda [facility] Height 2021-12-16 00:00:00 67 [in_i] Jessie hinesa [facility] BMI (Body Mass Index) 2021-12-16 00:00:00 28.3 kg/m2 [facility] BP Systolic 2021-12-16 00:00:00 126 mm[Hg] Brooke paras [facility] Body Weight 2021-12-16 00:00:00 2896 [oz_av] Ryley anneorda [facility] Height 2021-11-11 20:05:00 170.18 CM Weight 2021-11-11 20:05:00 79.37 KG BP Diastolic 2021-10-28 00:00:00 70 mm[Hg] Hugo betancurrda [facility] Height 2021-10-28 00:00:00 67 [in_i] Jessie hinesa [facility] BMI (Body Mass Index) 2021-10-28 00:00:00 27.6 kg/m2 [facility] BP Systolic 2021-10-28 00:00:00 106 mm[Hg] Edwardo espinozaa [facility] Body Weight 2021-10-28 00:00:00 2816 [oz_av] Ryley anneorda [facility] Height 2021-09-23 15:42:00 170.18 CM Weight 2021-09-23 15:42:00 76.65 KG BP Diastolic 2021-09-11 00:00:00 74 mm[Hg] Hugo agorda [facility] Height 2021-09-11 00:00:00 67 [in_i] Matrahat orda [facility] BMI (Body Mass Index) 2021-09-11 00:00:00 26.5 kg/m2 Hilbert [facility] BP Systolic 2021-09-11 00:00:00 114 mm[Hg] Brooke paras [facility] Body Weight 2021-09-11 00:00:00 2704 [oz_av] Ryley anneorda [facility] Height 2021-08-11 19:48:00 170.18 CM Weight 2021-08-11 19:48:00 73.93 KG Height 2021-04-14 20:01:00 170.18 CM Weight 2021-04-14 20:01:00 76.65 KG Height 2020-12-24 20:50:00 170.18 CM Weight 2020-12-24 20:50:00 76.2 KG BP Diastolic 2020-12-16 00:00:00 71 mm[Hg] Mat agorda [facility] Height 2020-12-16 00:00:00 67 [in_i] Matrahat orda [facility] BMI (Body Mass Index) 2020-12-16 00:00:00 26.6 kg/m2 Hilbert [facility] BP Systolic 2020-12-16 00:00:00 108 mm[Hg] Brooke paras [facility] Body Weight 2020-12-16 00:00:00 2720 [oz_av] Ryley tagorda [facility] BP Diastolic 2020-11-20 00:00:00 79 mm[Hg] Mat agorda [facility] Height 2020-11-20 00:00:00 67 [in_i] Matrahat orda [facility] BMI (Body Mass Index) 2020-11-20 00:00:00 25.8 kg/m2 Hilbert [facility] BP Systolic 2020-11-20 00:00:00 123 mm[Hg] Brooke paras [facility] Body Weight 2020-11-20 00:00:00 2640 [oz_av] Ryley anneorda [facility] Height 2020-07-07 20:12:00 170.18 CM Weight 2020-07-07 20:12:00 74.84 KG Procedures Procedure Date / Time Performed Performing Clinicia n Source US, breast, unilateral 2022-03-03 00:00:00 [facility] US, breast, unilateral 2022-02-09 00:00:00 [facility] MAMMO, diagnostic, unilateral 2021-09-11 00:00:00 [facility] US, breast, unilateral 2021-09-11 00:00:00 [facility] Hernia Repair W/mesh 2007-07-12 00:00:00 [facility] Encounters Start Date/Time End Date/Time Encounter Type Admission Type Attending [facility] Facility Care Department Encounter ID Source 2021-11-30 08:00:00 Inpatient C YIN CAVANAUGH [place] [facility] [id number] [facility] 2024-05-23 14:15:00 2024-05-23 14:15:00 Outpatient [facility] GUAMAN [id number] [facility] 09:30:00 2024-03-02 09:30:00 Outpatient LAB90 VICKI MALLORY [id number] [facility] 2024-03-02 08:45:00 2024-03-02 08:45:00 Outpatient SANTIAGO HUA [id number] [facility] 2024-02-17 15:00:00 2024-02-17 15:00:00 Outpatient SANTIAGO HUA [id number] [facility] 2024-01-04 09:00:00 2024-01-04 09:00:00 Outpatient SANTIAGO HUA [id number] [facility] 2022-04-14 00:00:00 2022-04-14 00:00:00 Outpatient JOLENE GODL [facility] [id number] [facility] 2022-04-14 00:00:00 2022-04-14 00:00:00 Outpatient SHIMEK_ESME [facility] [id number] [facility] 2022-04-14 00:00:00 2022-04-14 00:00:00 Outpatient SHIMEK_ESME [facility] [id number] [facility] 2022-03-08 00:00:00 2022-03-08 00:00:00 Outpatient SHIMEK_ESME [facility] [id number] [facility] 2022-03-04 00:00:00 2022-03-04 00:00:00 Outpatient SHIMEK_ESME [facility] [id number] [facility] 2022-03-04 00:00:00 2022-03-04 00:00:00 Cecy Gallo MD: [address] [facility] [address], [place] [address] , Ph. [phone] [facility] [id number] [facility] 2022-02-24 00:00:00 2022-02-24 00:00:00 Outpatient SHIMEKPAM DE [facility] [id number] [facility] 2022-02-24 00:00:00 2022-02-24 00:00:00 Esme Jones, REAL ESTATE ASSOCIATE: [address] [address] , Ph. [facility] 3 [id number] [facility] 2022-02-18 00:00:00 2022-02-18 00:00:00 Outpatient SHIMEK_ESME DE [facility] [id number] [facility] 2022-01-05 00:00:00 2022-01-05 00:00:00 Outpatient SHIMEK_ESME _ANN [facility] [id number] [facility] 2022-01-05 00:00:00 2022-01-05 00:00:00 Cecy Gallo MD: [address], [address], [place] [address] , [facility]. [facility] [id number] [facility] 2021-12-16 04:23:00 2021-12-16 04:23:00 Outpatient SHIMEK_ESME _ANN [facility] [id number] [facility] 2021-12-16 04:23:00 2021-12-16 04:23:00 Outpatient SHIMEK_ESME _ANN [facility] [id number] [facility] 2021-12-16 04:23:00 2021-12-16 04:23:00 Outpatient SHIMEK_ESME _ANN [facility] [id number] [facility] 2021-12-16 04:23:00 2021-12-16 04:23:00 Outpatient SHIMEK_ESME _ANN [facility] [id number] [facility] 2021-12-16 00:00:00 2021-12-16 00:00:00 Esme Jones, REAL ESTATE ASSOCIATE: [address] [place] [address] , [facility]. [facility] [place] [address] [id number] [facility] 2021-12-15 10:05:00 2021-12-15 10:05:00 Outpatient SHIMEK_MARY _ANN [facility] [id number] [facility] 2021-11-11 19:53:00 2021-11-11 22:56:00 Outpatient ALFRED VELIZ [facility] [id number] [facility] 2021-10-28 03:50:00 2021-10-28 03:50:00 Outpatient SHIMEK[facility]ESME [facility] [id number] [facility] 2021-10-28 03:49:00 2021-10-28 03:49:00 Outpatient SHIMEK_MARY _ANN [facility] [id number] [facility] 2021-10-28 00:00:00 2021-10-28 00:00:00 Esme Jones, REAL ESTATE ASSOCIATE: Magdy Ray, [place] [address] , Ph. [facility] [place] [address] [id number] [facility] 2021-09-23 15:42:00 2021-09-23 16:43:00 Outpatient EVELINE INGRAM [facility] [id number] [facility] 2021-09-16 09:09:00 2021-09-16 09:09:00 Outpatient SHIMEK_MARY _ANN [facility] [id number] [facility] 2021-09-16 09:09:00 2021-09-16 09:09:00 Outpatient SHIMEK_MARY _ANN [facility] [id number] [facility] 2021-09-16 09:09:00 2021-09-16 09:09:00 Outpatient SHIMEK_MARY _ANN [facility] [id number] [facility] 2021-09-11 07:46:00 2021-09-11 07:46:00 Outpatient SHIMEK_MARY _ANN [facility] [id number] [facility] 2021-09-11 00:00:00 2021-09-11 00:00:00 Esme Jones, REAL ESTATE ASSOCIATE: [place] [address] , Ph. [facility] [place] [address] [id number] [facility] 2021-08-11 19:40:00 2021-08-11 22:04:00 Outpatient E [facility] [id number] [facility] 2021-04-14 19:53:00 2021-04-14 20:14:00 Outpatient E JORGE HUBBARD [facility] [id number] [facility] 2020-12-24 20:48:00 2020-12-24 21:09:00 Outpatient E OLIVIA ROPER [facility] [id number] [facility] 2020-12-16 12:14:00 2020-12-16 12:14:00 Outpatient SHIMEK_MARY _ANN [facility] [id number] [facility] 2020-12-16 12:14:00 2020-12-16 12:14:00 Outpatient SHIMEK_MARY _ANN [facility] [id number] [facility] 2020-12-16 12:14:00 2020-12-16 12:14:00 Outpatient SHIMEK_MARY _ANN [facility] [id number] [facility] 2020-12-16 12:14:00 2020-12-16 12:14:00 Outpatient SHIMEK_MARY _ANN [facility] [id number] [facility] 2020-12-16 12:14:00 2020-12-16 12:14:00 Outpatient SHIMEK_MARY _ANN [facility] [id number] [facility] 2020-12-16 12:14:00 2020-12-16 12:14:00 Outpatient SHIMEK_MARY _ANN [facility] [id number] [facility] 2020-12-16 00:00:00 2020-12-16 00:00:00 Esme Jones, REAL ESTATE ASSOCIATE: [place] [address] , Ph. [place] [address] [id number] [facility] 2020-11-20 04:22:00 2020-11-20 04:22:00 Outpatient SHIMEK_ESME [facility] [id number] [facility] 2020-11-20 00:00:00 2020-11-20 00:00:00 Esme Jones, REAL ESTATE ASSOCIATE: [place] [address] , Ph. [place] [address] [id number] [facility] 2020-11-18 08:32:00 2020-11-18 08:32:00 Outpatient SHIMEK_ESME DE [facility] [id number] [facility] 2020-10-22 04:44:00 2020-10-22 04:44:00 Outpatient SHIMEKPAM DE [facility] [id number] [facility] 2020-07-07 20:12:00 2020-07-07 22:25:00 Outpatient [facility] [id number] [facility] Results Test Description Test Time Test Comments Results Result Co mments Source [facility] Differential panel - Blood [...] immature cells (test code = immature cells) 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 [facility] ProgramCom[facility] metabolic 2000 panel - Serum or [id number] 00:00:00* Test Item Value Reference Range Interpretation [...] in Serum or Plasma (test code = 68305-8) 9.6 mg/dL 8.7-10.2 Protein [Mass/volume] in Serum or Plasma (test code = 2885-2) 7.4 g/dL 6.0-8.5 Albumin [Mass/volume] in Serum or Plasma (test code = 1751-7) 4.4 g/dL 3.9-5.0 Globulin [Mass/volume] in Serum by calculation (test code = 31822-2) 3.0 g/dL 1.5-4.5 Albumin/Globulin [Mass Ratio ] [...] (test code = 1742-6) 14 IU/L 0-32 [facility] - Serum or Plasma [...] or Plasma by calculation (test code = 11558-3) 31 mg/dL 5-40 Cholesterol in LDL [Mass/vol ume] in Serum or Plasma by calculation (test code = 47991-7) 113 mg/dL 0-99 H Laboratory comment [Text] in Report Narrative (test code = 15050-3) 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 [facility]em[facility] A[facility]c/Hemoglobin.total in [id number] 00:00:00* Test Item Value Reference Range Interpretation Comme nts Hemoglobin A1c/Hemoglobin.to meron in Blood (test code = 4548-4) 5.4 % 4.8-5.6 Glucose mean value [Mass/vol ume] in Blood Estimated from glycated hemoglobin (test code = 62261-3) 108 mg/dL [facility] [Presence] in Serum by RPR 2021-12-17 00:00:00* Test Item Value Reference Range Interpretation Comme nts Reagin Ab [Presence] in Seru m by RPR (test code = 30015-1) non reactive non reactive [facility] and 2 tests - Meaningful Use [id number] 00:00:00* Test Item Value Reference Range Interpretation Comme nts HIV 1+2 Ab+HIV1 p24 Ag [Presence] in Serum or Plasma by Immunoassay (test code = 13005-2) non reactive non reactive [facility]Hepatitis B virus surface Ag [Presence] in Serum or Plasma by [id number] 00:00:00* Test Item Value Reference Range Interpretation Comme nts Hepatitis B virus surface Ag [Presence] in Serum or Plasma by Immunoassay (test code = 5196-1) negative negative [facility] panel, [id number] 00:00:00* Test Item Value Reference Range Interpretation Comme nts Interpretation and review of laboratory results (test code = 98687-3) note Report (test code = 35920-4) . [facility] HospitalCT [facility]/CONTRAST *OW*2021-11-11 22:27:47[facility] : 2000 Sex: FEXAMINATION:CT [...] Daniel Nolan MD 11/11/2021 10:27 PM CDT [id number] Panel *OW* [id number] 21:40:00* Test Item Value Reference Range Interpretation [...] ABDOMEN AND PELVIS W/O CONTRAST *OW*2021-08-11 21:29:43 [facility] : 2000 Sex: FEXAMINATION:Chest, [...] Shabbir pedraza MD 08/11/2021 9:29 PM [facility] CHEST W/O CONTRAST *OW* 2021-08-11 21:29:43 [facility] : 2000 Sex: FEXAMINATION:Chest, [...] Shabbir pedraza MD 08/11/2021 9:29 PM [facility] HEAD W/O CONTRAST *OW* 2021-08-11 21:28:07 [facility] : 2000 Sex: FExam: [...] by: Mina Clayton MD 08/11/2021 9:28 PM [facility] RECEPTION[facility] CERVICAL SPINE W/O CONTRAST *OW*2021-08-11 21:24:12 [facility] : 2000 Sex: FExam: [...] by: Santiago Arango MD 08/11/2021 9:24 PM CAMP[facility] RECEPTIONIST [id number] URINE OW2021-08-11 20:27:00* Test Item Value Reference [...] NEGATIVE CBC W Auto Differential panel - [id number] 00:00:00* Test Item Value Reference Range Interpretation [...] immature cells (test code = immature cells) 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 [facility] ProgramComprehensive metabolic 2000 panel - Serum or [id number] 00:00:00* Test Item Value Reference Range Interpretation [...] by Creatinine-based formula (CKD-EPI) (test code = 80543-3) 119 mL/min/1.73 >59 Glomerular filtration rate/1.73 sq M.predicted among blacks [Volume Rate/Area] in Serum, Plasma or Blood by Creatinine-based formula (CKD-EPI) (test code = 95475-1) 137 mL/min/1.73 >59 Urea nitrogen/Creatinine [Mass Ratio] [...] in Serum or Plasma (test code = 64837-2) 10.0 mg/dL 8.7-10.2 Protein [Mass/volume] in Serum or Plasma (test code = 2885-2) 7.6 g/dL 6.0-8.5 Albumin [Mass/volume] in Serum or Plasma (test code = 1751-7) 4.4 g/dL 3.9-5.0 Globulin [Mass/volume] in Serum by calculation (test code = 82982-0) 3.2 g/dL 1.5-4.5 Albumin/Globulin [Mass Ratio ] [...] (test code = 1742-6) 14 IU/L 0-32 [facility] 1996 panel - Serum or Plasma [...] or Plasma by calculation (test code = 29508-8) 13 mg/dL 5-40 Cholesterol in LDL [Mass/vol ume] in Serum or Plasma by calculation (test code = 33707-3) 121 mg/dL 0-99 H Laboratory comment [Text] in Report Narrative (test code = 16395-4) 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 [facility] HospitalHemoglobin A1c/Hemoglobin.total in [id number] 00:00:00* Test Item Value Reference Range Interpretation Comme nts Hemoglobin A1c/Hemoglobin.to meron in Blood (test code = 4548-4) 5.2 % 4.8-5.6 Glucose mean value [Mass/vol ume] in Blood Estimated from glycated hemoglobin (test code = 22136-5) 103 mg/dL [facility]HIV [facility]+2 Ab+HIV1 p24 Ag [Presence] in Serum or Plasma by [id number] 00:00:00* Test Item Value Reference Range Interpretation Comme nts HIV 1+2 Ab+HIV1 p24 Ag [Presence] in Serum or Plasma by Immunoassay (test code = 23819-3) non reactive non reactive [facility] HospitalThyrotropin [Units/volume] in Serum or Plasma by Detection limit <= 0.005 mIU/[id number] 00:00:00* Test Item Value Reference Range Interpretation Comme nts Thyrotropin [Units/volume] i n Serum or Plasma by Detection limit <= 0.005 mIU/L (test code = 91164-1) 0.677 uIU/mL 0.450-4.500 [facility] HospitalReagin Ab [Presence] in Serum by RPR 2020-11-21 00:00:00* Test Item Value Reference Range Interpretation Comme nts Reagin Ab [Presence] in Seru m by RPR (test code = 37850-9) non reactive non reactive [facility] HospitalHepatitis B virus surface Ag [Presence] in Serum or Plasma by Olffydzgmqz4931-32-03 00:00:00* Test Item Value Reference Range Interpretation Comme nts Hepatitis B virus surface Ag [Presence] in Serum or Plasma by Immunoassay (test code = 5196-1) negative negative [facility] panel, [id number] 00:00:00* Test Item Value Reference Range Interpretation Comme nts Interpretation and review of laboratory results (test code = 37008-5) note Report (test code = 87038-8) . [facility]2020-07-07 21:13:00* Test Item Value Reference Range Interpretation Comme nts INFLUENZ A (test code = INFA) NEGATIVE NEGATIVE INFLUENZ B (test code = INFB) NEGATIVE NEGATIVE
--- NOTE | 2024-05-14 08:39 | ER ---
Nurse's Notes [facility] Name: Aileen Montalvo Age: 23 yrs Sex: Female : 2000 Arrival Date: 05/14/2024 Time: 08:25 Bed 20 Private MD: Diagnosis: Tooth ache Presentation: 05/14 08:32 Chief complaint: Patient states: pain in lower right tooth, has dentist appt Wednesday iw but it's hurting too much. Coronavirus screen: At this time, the client does not indicate any symptoms associated with coronavirus-19. Ebola Screen: No symptoms or risks identified at this time. Initial Sepsis Screen: Does the patient meet any 2 criteria? No. Patient's initial sepsis screen is negative. Does the patient have a suspected source of infection? No. Patient's initial sepsis screen is negative. Risk Assessment: Do you want to hurt yourself or someone else? Patient reports no desire to harm self or others. Onset of symptoms was May 14, 2024. 08:32 Method Of Arrival: Ambulatory iw 08:32 Acuity: [id number] iw Historical: - Allergies: 08:33 No Known Allergies; iw - Home Meds: 08:33 None [Active]; iw - PMHx: 08:33 HS- Hidradenitis Suppurativa; iw - PSHx: 08:33 Cyst removal; iw - Immunization history:: Adult Immunizations up to date. - Infectious Disease History:: Denies. - Social history:: Smoking status: Patient denies any tobacco usage or history of. Screenin:53 [facility] ED Fall Risk Assessment (Adult) History of falling in the last 3 months, hb including since admission No falls in past 3 months (0 pts) Confusion or Disorientation No (0 pts) Intoxicated or Sedated No (0 pts) Impaired Gait No (0 pts) Mobility Assist Device Used No (0 pt) Altered Elimination No (0 pt) Score/Fall Risk Level 0 - 2 = Low Risk Oriented to surroundings, Maintained a safe environment, Educated pt \T\ family on fall prevention, incl call for assistance when getting out of bed. Abuse screen: Denies threats or abuse. Denies injuries from another. Nutritional screening: No deficits noted. Tuberculosis screening: No symptoms or risk factors identified. Assessment: 08:53 General: Appears in no apparent distress. Behavior is calm, cooperative. Pain: Pain hb currently is 10 out of 10 on a pain scale. Neuro: Level of Consciousness is awake, alert, obeys commands, Oriented to person, place, time, situation. Cardiovascular: Patient's skin is warm and dry. Respiratory: Respiratory effort is even, unlabored, Respiratory pattern is regular, symmetrical. GI: No signs and/or symptoms were reported involving the gastrointestinal system. : No signs and/or symptoms were reported regarding the genitourinary system. EENT: Reports right lower molar pain. Derm: Skin is pink, warm \T\ dry. Musculoskeletal: No signs and/or symptoms reported regarding the musculoskeletal system. Vital Signs: 08:32 BP 123 / 87; Pulse 77; Resp 16; Temp 97; Pulse Ox 100% on R/A; Pain 10/10; iw 08:36 Weight 95.25 kg; Height 5 ft. 7 in. ; iw 08:36 Body Mass Index 32.89 (95.25 kg, 170.18 cm) iw 08:32 Pain Scale: Adult ED Course: 08:28 Patient arrived in ED. ra3 08:29 Agapito Araya MD is Attending Physician. sp3 08:33 Triage completed. iw 08:34 Arm band placed on. iw 08:51 Savannah Maradiaga RN is Primary Nurse. hb 08:53 Patient has correct armband on for positive identification. Provided Education on: hb medications, follow up. 08:53 No provider procedures requiring assistance completed. Patient did not have IV access hb during this emergency room visit. Administered Medications: 08:51 Drug: Ibuprofen PO 600 mg PO once Route: PO; hb 08:51 Follow up: Response: No adverse reaction hb 08:55 Follow up: Response: Medication administered at discharge. hb Medication: 08:53 VIS not applicable for this client. hb Outcome: 08:38 Discharge ordered by . sp3 08:53 Discharged to home ambulatory, hb 08:53 Condition: stable 08:53 Discharge instructions given to patient, Instructed on discharge instructions, follow up and referral plans. medication usage, Demonstrated understanding of instructions, follow-up care, medications, Prescriptions given X 1, 08:55 Patient left the ED. hb Signatures: Kayce Hahn RN RN Savannah Maradiaga RN RN Agapito Araya MD MD sp3 Castro, Adriana ra3
--- NOTE | 2024-05-14 08:39 | EDPHYS ---
Physician Documentation [facility] Name: Aileen Montalvo Age: 23 yrs Sex: Female : 2000 Arrival Date: 05/14/2024 Time: 08:25 Bed 20 Private MD: ED Physician Agapito Araya HPI: 05/14 08:37 This 23 yrs old Black Female presents to ER via Ambulatory with complaints of Toothache.sp3 08:37 23-year-old female with history of hidradenitis now presents with right mandibular sp3 molar toothache for several days. Patient was seen here 4 weeks ago for similar symptoms patient states she has a dental appointment on Wednesday. No fever or other swelling noted or reported. Review of systems otherwise negative.. Historical: - Allergies: 08:33 No Known Allergies; iw - Home Meds: 08:33 None [Active]; iw - PMHx: 08:33 HS- Hidradenitis Suppurativa; iw - PSHx: 08:33 Cyst removal; iw - Immunization history:: Adult Immunizations up to date. - Infectious Disease History:: Denies. - Social history:: Smoking status: Patient denies any tobacco usage or history of. ROS: 08:37 Constitutional: Negative for fever, chills, and weight loss, Eyes: Negative for injury, sp3 pain, redness, and discharge, Neck: Negative for injury, pain, and swelling, Cardiovascular: Negative for chest pain, palpitations, and edema, Respiratory: Negative for shortness of breath, cough, wheezing, and pleuritic chest pain, Abdomen/GI: Negative for abdominal pain, nausea, vomiting, diarrhea, and constipation, Skin: Negative for injury, rash, and discoloration, Neuro: Negative for headache, weakness, numbness, tingling, and seizure, 08:37 All other systems are negative, Exam: 08:38 Constitutional: This is a well developed, well nourished patient who is awake, alert, sp3 and in no acute distress. Head/Face: Normocephalic, atraumatic. Eyes: Pupils equal round and reactive to light, extra-ocular motions intact. Lids and lashes normal. Conjunctiva and sclera are non-icteric and not injected. Cornea within normal limits. Periorbital areas with no swelling, redness, or edema. Neck: Trachea midline, no thyromegaly or masses palpated, and no cervical lymphadenopathy. Supple, full range of motion without nuchal rigidity, or vertebral point tenderness. No Meningismus. Chest/axilla: Normal chest wall appearance and motion. Nontender with no deformity. No lesions are appreciated. Cardiovascular: Regular rate and rhythm with a normal S1 and S2. No gallops, murmurs, or rubs. Normal PMI, no JVD. No pulse deficits. 08:38 ENT: Poor dentition throughout. No evidence of gum swelling or abscess or purulence discharge.. Vital Signs: 08:32 BP 123 / 87; Pulse 77; Resp 16; Temp 97; Pulse Ox 100% on R/A; Pain 10/10; iw 08:36 Weight 95.25 kg; Height 5 ft. 7 in. ; iw 08:36 Body Mass Index 32.89 (95.25 kg, 170.18 cm) iw 08:32 Pain Scale: Adult iw MDM: 08:30 Medical Screening Exam initiated sp3 08:38 Data reviewed: vital signs, nurses notes. ED course: I do not suspect infection that sp3 requires treatment at this time. Vital signs are normal. Will place on nonsteroidal and patient can follow-up with dentistry on Wednesday at her scheduled appointment 48 hours from now.. Administered Medications: 08:51 Drug: Ibuprofen PO 600 mg PO once Route: PO; hb 08:51 Follow up: Response: No adverse reaction hb 08:55 Follow up: Response: Medication administered at discharge. hb Disposition Summary: 05/14/24 08:38 Discharge Ordered Notes: Location: Home sp3 Condition: Stable sp3 Diagnosis - Tooth ache sp3 Followup: sp3 - With: Private Physician - When: Upon discharge from the Emergency Department - Reason: Continuance of care Discharge Instructions: - Discharge Summary Sheet sp3 - Dental Pain sp3 Forms: - Medication Reconciliation Form sp3 - Antibiotic Education sp3 - Prescription Opioid Use sp3 - Patient Portal Instructions sp3 - Leadership Thank You Letter sp3 Prescriptions: - Diclofenac Sodium 75 mg Oral Tablet Sustained Release - take 1 tablet ORAL route 2 times per day; 30 tablet; Refills: 0, Product sp3 Selection Permitted Signatures: Kayce Hahn RN RN Savannah Maradiaga RN RN Araya, Setul, MD MD sp3
[2024-05-14] MEDS ORDERED: IBUPROFEN 200 MG TAB PO ONE ×2 (08:43→08:47)
[2024-05-14 09:00] VITALS: BP 123/87; TEMP 97; O2SAT 100
== END 2024-05-14 08:55 | disposition home or self-care (01) ==
LOC: ER 08:25
DX: K08.89 Other specified disorders of teeth and supporting structures (principal)
CPT/HCPCS: 99283

== ENCOUNTER 2024-09-19 18:18 | Emergency (ER) | payer OTHER ==
--- OUTSIDE RECORDS SUMMARY | 2024-09-19 18:24 | XMS REPORT | Continuity of Care Document ---
Author Name Unknown Address [address] [facility] [address] [place] [address] Organization [facility] [place] Address [address] [facility] [address] [place] [address] Care Team Providers Care Barbering Teacher Name Role Phone YIN CAVANAUGH Attending Clinician Unavailable THERESE GUAMAN Attending Clinician Unava ilable LAB90 Attending Clinician Unavailable SANTIAGO HUA Attending Clinician Unavailable RAVEN Attending Clinician Unavailable DR ALFRED HORNER Attending Clinician UnavailDR EVELINE Gillette Attending Clinician Unavailable DR JORGE HUBBARD Attending Clinician Unavailable DR OLIVIA ROPER Attending Clinician Unavailable DR ALEK JANG Attending Clinician Unavailable IYN CAVANAUGH Admitting Clinician Unavailable RAVEN Admitting Clinician Unavailable DR ALFRED HORNER Admitting Clinician UnavailDR EVELINE Gillette Admitting Clinician Unavailable DR JORGE HUBBARD Admitting Clinician Unavailable DR OLIVIA ROPER Admitting Clinician Unavailable DR ALEK JANG Admitting Clinician Unavailable Payers Payer Name Policy Type Policy Number Effective Date Expirati on Date Source [id number] [id number] 2018 00:00:00 [facility] 9 [id number] 2024 00:00:00 [place] [id number] 2021 00:00:00 [place] [id number] 2020 00:00:00 Problems Condition Name Condition Details [...] Source No Known Allergie s DA Active [facility] Social History Social Habit Start Date Stop [...] times a day by oral route. [facility] hydrocodone 5 mg-acetamin ophen 325 mg tablet hydrocodone 5 mg-acetamin ophen 325 mg tablet No hydrocodon e 5 mg-acetami nophen 325 mg tablet [facility] ibuprofen 600 mg tablet ibuprofen 600 mg tablet No ibuprofen 600 mg tablet [facility] Lidocaine Viscous 2 % mucosal solution Lidocaine Viscous 2 % mucosal solution No Lidocaine Viscous 2 % mucosal solution [facility] naproxen 500 mg tablet Take 1 tablet twice a day by oral route. naproxen 500 mg tablet Take 1 tablet twice a day by oral route. No naproxen 500 mg tablet Take 1 tablet twice a day by oral route. [facility] neomycin-po lymyxin-hyd rocort 3.5 mg-10,000 unit/mL-1 % ear drops,susp neomycin-po lymyxin-hyd rocort 3.5 mg-10,000 unit/mL-1 % ear drops,susp No neomycin-p olymyxin-h ydrocort 3.5 mg-10,000 unit/mL-1 % ear drops,susp [facility] prednisone 50 mg tablet prednisone 50 mg tablet No prednisone 50 mg tablet [facility] sulfamethox azole 800 mg-trimetho prim 160 mg tablet sulfamethox azole 800 mg-trimetho prim 160 mg tablet No sulfametho xazole 800 mg-trimeth oprim 160 mg tablet [facility] tramadol 50 mg tablet tramadol 50 mg tablet No tramadol 50 mg tablet [facility] Immunizations Ordered Immunization Name Filled Immunization Name Date Status Comments Source HPV9 HPV9 2022-02-24 12:05:30 Completed [facility] HPV9 HPV9 2021-12-16 16:14:40 Completed [facility] influenza, injectable, quadrivalent influenza, injectable, quadrivalent 2021-04-11 00:00:00 Completed [facility] COVID-19, mRNA, LNP-S, PF, 100 mcg/0.5 mL dose (Moderna) COVID-19, mRNA, LNP-S, PF, 100 mcg/0.5 mL dose (Moderna) 2020-10-19 00:00:00 Completed [facility] COVID-19, mRNA, LNP-S, PF, 100 mcg/0.5 mL dose (Moderna) COVID-19, mRNA, LNP-S, PF, 100 mcg/0.5 mL dose (Moderna) 2020-09-24 00:00:00 Completed [facility] Covid-19 Vaccine Moderna (Spikevax), Mrna-lnp, Dl [...] Diastolic 2022-03-04 00:00:00 72 mm[Hg] Hugo agorda [facility] Height 2022-03-04 00:00:00 67 [in_i] Jessie orda [facility] BMI (Body Mass Index) 2022-03-04 00:00:00 28.3 kg/m2 [facility] BP Systolic 2022-03-04 00:00:00 111 mm[Hg] Edwardo espinozaa [facility] Body Weight 2022-03-04 00:00:00 181 [lb_av] Hugo agorda [facility] BP Diastolic 2022-02-24 00:00:00 73 mm[Hg] Hugo betancurrda [facility] Height 2022-02-24 00:00:00 67 [in_i] Jessie orda [facility] BMI (Body Mass Index) 2022-02-24 00:00:00 27.6 kg/m2 [facility] BP Systolic 2022-02-24 00:00:00 107 mm[Hg] Brooke paras [facility] Body Weight 2022-02-24 00:00:00 2818 [oz_av] Ma dayanaorda [facility] BP Diastolic 2022-01-05 00:00:00 70 mm[Hg] Hugo agorda [facility] Height 2022-01-05 00:00:00 67 [in_i] Matrahat hinesa [facility] BMI (Body Mass Index) 2022-01-05 00:00:00 27.6 kg/m2 [facility] BP Systolic 2022-01-05 00:00:00 102 mm[Hg] Brooke paras [facility] Body Weight 2022-01-05 00:00:00 176 [lb_av] Hugo betancurrda [facility] BP Diastolic 2021-12-16 00:00:00 83 mm[Hg] Mat piperda [facility] Height 2021-12-16 00:00:00 67 [in_i] Jessie hinesa [facility] BMI (Body Mass Index) 2021-12-16 00:00:00 28.3 kg/m2 [facility] BP Systolic 2021-12-16 00:00:00 126 mm[Hg] Brooke paras [facility] Body Weight 2021-12-16 00:00:00 2896 [oz_av] Ryley anneorda [facility] Height 2021-11-11 20:05:00 170.18 CM Weight 2021-11-11 20:05:00 79.37 KG BP Diastolic 2021-10-28 00:00:00 70 mm[Hg] Hugo betancurrda [facility] Height 2021-10-28 00:00:00 67 [in_i] Jessie hinesa [facility] BMI (Body Mass Index) 2021-10-28 00:00:00 27.6 kg/m2 [facility] BP Systolic 2021-10-28 00:00:00 106 mm[Hg] Edwardo espinozaa [facility] Body Weight 2021-10-28 00:00:00 2816 [oz_av] Ryley anneorda [facility] Height 2021-09-23 15:42:00 170.18 CM Weight 2021-09-23 15:42:00 76.65 KG BP Diastolic 2021-09-11 00:00:00 74 mm[Hg] Hugo agorda [facility] Height 2021-09-11 00:00:00 67 [in_i] Matrahat orda [facility] BMI (Body Mass Index) 2021-09-11 00:00:00 26.5 kg/m2 [facility] BP Systolic 2021-09-11 00:00:00 114 mm[Hg] Brooke paras [facility] Body Weight 2021-09-11 00:00:00 2704 [oz_av] Ryley anneorda [facility] Height 2021-08-11 19:48:00 170.18 CM Weight 2021-08-11 19:48:00 73.93 KG Height 2021-04-14 20:01:00 170.18 CM Weight 2021-04-14 20:01:00 76.65 KG Height 2020-12-24 20:50:00 170.18 CM Weight 2020-12-24 20:50:00 76.2 KG BP Diastolic 2020-12-16 00:00:00 71 mm[Hg] Mat agorda [facility] Height 2020-12-16 00:00:00 67 [in_i] Matrahat orda [facility] BMI (Body Mass Index) 2020-12-16 00:00:00 26.6 kg/m2 [facility] BP Systolic 2020-12-16 00:00:00 108 mm[Hg] Brooke paras [facility] Body Weight 2020-12-16 00:00:00 2720 [oz_av] Ryley tagorda [facility] BP Diastolic 2020-11-20 00:00:00 79 mm[Hg] Mat agorda [facility] Height 2020-11-20 00:00:00 67 [in_i] Matrahat orda [facility] BMI (Body Mass Index) 2020-11-20 00:00:00 25.8 kg/m2 [facility] BP Systolic 2020-11-20 00:00:00 123 mm[Hg] Brooke paras [facility] Body Weight 2020-11-20 00:00:00 2640 [oz_av] Ryley anneorda [facility] Height 2020-07-07 20:12:00 170.18 CM Weight 2020-07-07 20:12:00 74.84 KG Procedures Procedure Date / Time Performed Performing Clinicia n Source US, breast, unilateral 2022-03-03 00:00:00 [facility] US, breast, unilateral 2022-02-09 00:00:00 [facility] MAMMO, diagnostic, unilateral 2021-09-11 00:00:00 [facility] US, breast, unilateral 2021-09-11 00:00:00 [facility] Hernia Repair W/mesh 2007-07-12 00:00:00 [facility] Encounters Start Date/Time End Date/Time Encounter Type Admission Type Attending [facility] Care Department Encounter ID Source 2021-11-30 08:00:00 Inpatient C YIN CAVANAUGH [facility] [id number] [facility] 2024-11-14 09:15:00 2024-11-14 09:15:00 Outpatient THERESE GUAMAN [id number] [facility] 2024-08-22 13:15:00 2024-08-22 13:15:00 Outpatient THERESE GUAMAN [id number] [facility] 2024-05-23 14:15:00 2024-05-23 14:15:00 Outpatient THERESE GUAMAN [id number] [facility] 2024-03-02 09:30:00 2024-03-02 09:30:00 Outpatient LAB90 VICKI MALLORY [id number] [facility] 2024-03-02 08:45:00 2024-03-02 08:45:00 Outpatient SANTIAGO HUA [id number] [facility] 2024-02-17 15:00:00 2024-02-17 15:00:00 Outpatient SANTIAGO HUA [id number] [facility] 2024-01-04 09:00:00 2024-01-04 09:00:00 Outpatient SANTIAGO HUA [id number] Vicki Jones 2022-04-14 00:00:00 2022-04-14 00:00:00 Outpatient SHIMEK_MARY _ANN [facility] [id number] [facility] 2022-04-14 00:00:00 2022-04-14 00:00:00 Outpatient SHIMEK_MARY _ANN [facility] [id number] [facility] 2022-04-14 00:00:00 2022-04-14 00:00:00 Outpatient SHIMEK_MARY _ANN [facility] [id number] [facility] 2022-03-08 00:00:00 2022-03-08 00:00:00 Outpatient SHIMEK_MARY _ANN [facility] [id number] [facility] 2022-03-04 00:00:00 2022-03-04 00:00:00 Outpatient SHIMEK_MARY _ANN [facility] [id number] [facility] 2022-03-04 00:00:00 2022-03-04 00:00:00 Cecy Gallo MD: [address] [facility] [address], [place] [address] , Ph. [phone] [facility] [id number] [facility] 2022-02-24 00:00:00 2022-02-24 00:00:00 Outpatient SHIMEK_MARY _ANN [facility] [id number] [facility] 2022-02-24 00:00:00 2022-02-24 00:00:00 Esme Jones, SUPERVISOR ROD PLACING: [address] [place] [address] , Ph. [facility]orship [facility] Medical [facility] 3 [id number] [facility] 2022-02-18 00:00:00 2022-02-18 00:00:00 Outpatient SHIMEK_MARY _ANN [facility] [id number] [facility] 2022-01-05 00:00:00 2022-01-05 00:00:00 Outpatient SHIMEK_MARY _ANN [facility] [id number] [facility] 2022-01-05 00:00:00 2022-01-05 00:00:00 Cecy Gallo MD: [address], [address], [place] [address] , Ph. [facility] [id number] [facility] 2021-12-16 04:23:00 2021-12-16 04:23:00 Outpatient SHIMEK_MARY _ANN [facility] [id number] [facility] 2021-12-16 04:23:00 2021-12-16 04:23:00 Outpatient SHIMEK_MARY _ANN [facility] [id number] [facility] 2021-12-16 04:23:00 2021-12-16 04:23:00 Outpatient SHIMEK_MARY _ANN [facility] [id number] [facility] 2021-12-16 04:23:00 2021-12-16 04:23:00 Outpatient SHIMEK_MARY _ANN [facility] [id number] [facility] 2021-12-16 00:00:00 2021-12-16 00:00:00 Esme Jones, SUPERVISOR [employer] PLACING: [address] [place] [address] , [facility]. [facility] [place] [address] [id number] [facility] 2021-12-15 10:05:00 2021-12-15 10:05:00 Outpatient SHIMEK_MARY _ANN [facility] [id number] [facility] 2021-11-11 19:53:00 2021-11-11 22:56:00 Outpatient ALFRED VELIZ [facility] [id number] [facility] 2021-10-28 03:50:00 2021-10-28 03:50:00 Outpatient SHIMEK_MARY _ANN [facility] [id number] [facility] 2021-10-28 03:49:00 2021-10-28 03:49:00 Outpatient SHIMEK_MARY _ANN [facility] [id number] [facility] 2021-10-28 00:00:00 2021-10-28 00:00:00 Esme Jones, SUPERVISOR [employer] PLACING: [address] [place] [address] , Ph. [facility] [place] [address] [id number] [facility] 2021-09-23 15:42:00 2021-09-23 16:43:00 Outpatient EVELINE INGRAM [facility] [id number] [facility] 2021-09-16 09:09:00 2021-09-16 09:09:00 Outpatient SHIMEK_MARY _ANN [facility] [id number] [facility] 2021-09-16 09:09:00 2021-09-16 09:09:00 Outpatient SHIMEK_MARY _ANN [facility] [id number] [facility] 2021-09-16 09:09:00 2021-09-16 09:09:00 Outpatient SHIMEK_MARY _ANN [facility] [id number] [facility] 2021-09-11 07:46:00 2021-09-11 07:46:00 Outpatient SHIMEK_ESME DE LA TORRE [facility] [id number] [facility] 2021-09-11 00:00:00 2021-09-11 00:00:00 Esme Zamorano Robert, SUPERVISOR [employer] PLACING: [address] [place] [address] , Ph. [facility] [place] [address] [id number] [facility] 2021-08-11 19:40:00 2021-08-11 22:04:00 Outpatient E JORGE HUBBARD [facility] [id number] [facility] 2021-04-14 19:53:00 2021-04-14 20:14:00 Outpatient E JORGE HUBBARD [facility] [id number] [facility] 2020-12-24 20:48:00 2020-12-24 21:09:00 Outpatient E OLIVIA ROPER [facility] [id number] [facility] 2020-12-16 12:14:00 2020-12-16 12:14:00 Outpatient SHIMEK_ESME DE LA TORRE [facility] [id number] [facility] 2020-12-16 12:14:00 2020-12-16 12:14:00 Outpatient SHIMEK_ESME DE LA TORRE [facility] [id number] [facility] 2020-12-16 12:14:00 2020-12-16 12:14:00 Outpatient SHIMEK_ESME DE LA TORRE [facility] [id number] [facility] 2020-12-16 12:14:00 2020-12-16 12:14:00 Outpatient SHIMEK_ESME DE LA TORRE [facility] [id number] [facility] 2020-12-16 12:14:00 2020-12-16 12:14:00 Outpatient KURTEK_ESME DE LA TORRE [facility] [id number] [facility] 2020-12-16 12:14:00 2020-12-16 12:14:00 Outpatient JOLENE DE LA TORRE [facility] [id number] [facility] 2020-12-16 00:00:00 2020-12-16 00:00:00 Esme Jones, SUPERVISOR R[employer] PLACING: [address] [address] , Ph. [facility] 3 [id number] [facility] 2020-11-20 04:22:00 2020-11-20 04:22:00 Outpatient JOLENE DE LA TORRE [facility] [id number] [facility] 2020-11-20 00:00:00 2020-11-20 00:00:00 Esme Jones, SUPERVISOR [employer] PLACING: [address] [place] [address] , Ph. [facility] [address] [id number] [facility] 2020-11-18 08:32:00 2020-11-18 08:32:00 Outpatient JOLENE DE LA TORRE [facility] [id number] [facility] 2020-10-22 04:44:00 2020-10-22 04:44:00 Outpatient KURTEKPMA DE LA TORRE [facility] [id number] [facility] 2020-07-07 20:12:00 2020-07-07 22:25:00 Outpatient ALEK VU [facility] [id number] [facility] Results Test Description Test Time Test Comments Results Result Co mments Source [facility] Auto Differential panel - [...] immature cells (test code = immature cells) wind up operator Neutrophils [#/volume] in Bl ood by Automated [...] Blood by Automated count (test code = 98782-6) 0 % not estab. Immature granulocytes [#/volume] in Blood by Automated count (test code = 10765-3) 0.0 x10e3/uL 0.0-0.1 Nucleated erythrocytes/100 leukocytes [Ratio] in Blood by Automated count (test code = 12488-6) wind up operator Morphology [Interpretation] in Blood Narrative (test code = 34195-1) wind up operator [facility] metabolic 2000 panel - Serum or [id number] 00:00:00* Test Item Value Reference Range Interpretation [...] Serum or Plasma (test code = 2075-0) 106 mmol/L 96-106 Carbon dioxide, total [Moles/volume] in Serum or Plasma (test code = 2027-) 21 mmol/L 20-29 Calcium [Mass/volume] in Serum or Plasma (test code = 02865-1) 9.6 mg/dL 8.7-10.2 Protein [Mass/volume] in Serum or Plasma (test code = 2885-2) 7.4 g/dL 6.0-8.5 Albumin [Mass/volume] in Serum or Plasma (test code = 1751-7) 4.4 g/dL 3.9-5.0 Globulin [Mass/volume] in Serum by calculation (test code = 06901-9) 3.0 g/dL 1.5-4.5 Albumin/Globulin [Mass Ratio ] [...] (test code = 1742-6) 14 IU/L 0-32 [facility] - Serum or Plasma 2021-12-17 00:00:00* Test Item Value Reference Range Interpretation Comme nts Cholesterol [Mass/volume] in Serum or Plasma (test code = 2093-3) 196 mg/dL 100-199 Triglyceride [Mass/volume] i n Serum or Plasma (test code = 2571-8) 180 mg/dL 0-149 H Cholesterol in HDL [Mass/vol ume] in Serum or Plasma (test code = 208-9) 52 mg/dL >39 Cholesterol in VLDL [Mass/vo lume] in Serum or Plasma by calculation (test code = 27692-5) 31 mg/dL 5-40 Cholesterol in LDL [Mass/vol ume] in Serum or Plasma by calculation (test code = 02723-0) 113 mg/dL 0-99 H Laboratory comment [Text] in Report Narrative (test code = 92556-9) wind up operator [facility]em[facility]c/Hemoglobin.total in [id number] 00:00:00* Test Item Value Reference Range Interpretation Comme nts Hemoglobin A1c/Hemoglobin.to meron in Blood (test code = 4548-4) 5.4 % 4.8-5.6 Glucose mean value [Mass/vol ume] in Blood Estimated from glycated hemoglobin (test code = 70225-7) 108 mg/dL [facility] Ab [Presence] in Serum by RPR 2021-12-17 00:00:00* Test Item Value Reference Range Interpretation Comme nts Reagin Ab [Presence] in Seru m by RPR (test code = 22204-4) non reactive non reactive [facility]HIV 1 and 2 tests - Meaningful Use [id number] 00:00:00* Test Item Value Reference Range Interpretation Comme nts HIV 1+2 Ab+HIV1 p24 Ag [Presence] in Serum or Plasma by Immunoassay (test code = 97778-1) non reactive non reactive [facility] HospitalHepatitis B virus surface Ag [Presence] in Serum or Plasma by [id number] 00:00:00* Test Item Value Reference Range Interpretation Comme nts Hepatitis B virus surface Ag [Presence] in Serum or Plasma by Immunoassay (test code = 5196-1) negative negative [facility] panel, [id number] 00:00:00* Test Item Value Reference Range Interpretation Comme nts Interpretation and review of laboratory results (test code = 34356-0) note Report (test code = 01943-4) . [facility] HospitalCT [facility]K W/CONTRAST *OW*2021-11-11 22:27:47[facility] : 2000 Sex: FEXAMINATION:CT [...] Daniel Nolan MD 11/11/2021 10:27 PM CDT [id number] 8 Panel *OW* [id number] 21:40:00* Test Item Value Reference Range Interpretation [...] ABDOMEN AND PELVIS W/O CONTRAST *OW*2021-08-11 21:29:43 [facility] : 2000 Sex: [...] by: Shabbir pedraza MD 08/11/2021 9:29 PM [facility] CHEST W/O CONTRAST *OW* 2021-08-11 21:29:43 [facility] : 2000 Sex: [...] by: Shabbir pedraza MD 08/11/2021 9:29 PM [facility] HEAD W/O CONTRAST *OW* 2021-08-11 21:28:07 [facility] : 2000 Sex: FExam: CT [...] by: Mina Clayton MD 08/11/2021 9:28 PM [facility] CERVICAL SPINE W/O CONTRAST *OW*2021-08-11 21:24:12 [facility] : 2000 Sex: FExam: CT [...] by: Santiago Arango MD 08/11/2021 9:24 PM [facility] [id number] URINE OW2021-08-11 20:27:00* Test Item Value Reference [...] NEGATIVE CBC W Auto Differential panel - [id number] 00:00:00* Test Item Value Reference Range Interpretation [...] immature cells (test code = immature cells) wind up operator Neutrophils [#/volume] in Bl ood by Automated [...] Blood by Automated count (test code = 05440-1) 0 % not estab. Immature granulocytes [#/volume] in Blood by Automated count (test code = 88312-4) 0.0 x10e3/uL 0.0-0.1 Nucleated erythrocytes/100 leukocytes [Ratio] in Blood by Automated count (test code = 58838-2) wind up operator Morphology [Interpretation] in Blood Narrative (test code = 97571-0) wind up operator [facility] ProgramComprehensive metabolic 2000 panel - Serum or [id number] 00:00:00* Test Item Value Reference Range Interpretation [...] by Creatinine-based formula (CKD-EPI) (test code = 73090-8) 119 mL/min/1.73 >59 Glomerular filtration rate/1.73 sq M.predicted among blacks [Volume Rate/Area] in Serum, Plasma or Blood by Creatinine-based formula (CKD-EPI) (test code = 43393-0) 137 mL/min/1.73 >59 Urea nitrogen/Creatinine [Mass Ratio] [...] in Serum or Plasma (test code = 50253-2) 10.0 mg/dL 8.7-10.2 Protein [Mass/volume] in Serum or Plasma (test code = 2885-2) 7.6 g/dL 6.0-8.5 Albumin [Mass/volume] in Serum or Plasma (test code = 1751-7) 4.4 g/dL 3.9-5.0 Globulin [Mass/volume] in Serum by calculation (test code = 51554-2) 3.2 g/dL 1.5-4.5 Albumin/Globulin [Mass Ratio ] in Serum or Plasma (test code = 1759-0) 1.4 1.2-2.2 Bilirubin.total [Mass/volume ] in Serum or Plasma (test code = 1975-2) 0.7 mg/dL 0.0-1.2 Alkaline phosphatase [Enzymatic activity/volume] in Serum or Plasma (test code = 6768-6) 44 IU/L 39-117 Aspartate aminotransferase [Enzymatic activity/volume] in Serum or Plasma (test code = 1920-8) 15 IU/L 0-40 Alanine aminotransferase [Enzymatic activity/volume] in Serum or Plasma (test code = 1742-6) 14 IU/L 0-32 [facility] 1996 panel - Serum or Plasma [...] or Plasma by calculation (test code = 44366-9) 13 mg/dL 5-40 Cholesterol in LDL [Mass/vol ume] in Serum or Plasma by calculation (test code = 48023-2) 121 mg/dL 0-99 H Laboratory comment [Text] in Report Narrative (test code = 21252-2) wind up operator [facility]Hemoglobin.total in [id number] 00:00:00* Test Item Value Reference Range Interpretation Comme nts Hemoglobin A1c/Hemoglobin.to meron in Blood (test code = 4548-4) 5.2 % 4.8-5.6 Glucose mean value [Mass/vol ume] in Blood Estimated from glycated hemoglobin (test code = 40734-8) 103 mg/dL [facility]+HIV1 p24 Ag [Presence] in Serum or Plasma by [id number] 00:00:00* Test Item Value Reference Range Interpretation Comme nts HIV 1+2 Ab+HIV1 p24 Ag [Presence] in Serum or Plasma by Immunoassay (test code = 47452-9) non reactive non reactive [facility]yrotropin [Units/volume] in Serum or Plasma by Detection limit <= 0.005 mIU/[id number] 00:00:00* Test Item Value Reference Range Interpretation Comme nts Thyrotropin [Units/volume] i n Serum or Plasma by Detection limit <= 0.005 mIU/L (test code = 12450-3) 0.677 uIU/mL 0.450-4.500 [facility]Reagin Ab [Presence] in Serum by RPR 2020-11-21 00:00:00* Test Item Value Reference Range Interpretation Comme nts Reagin Ab [Presence] in Seru m by RPR (test code = 94442-0) non reactive non reactive [facility] HospitalHepatitis B virus surface Ag [Presence] in Serum or Plasma by [id number] 00:00:00* Test Item Value Reference Range Interpretation Comme nts Hepatitis B virus surface Ag [Presence] in Serum or Plasma by Immunoassay (test code = 5196-1) negative negative [facility], [id number] 00:00:00* Test Item Value Reference Range Interpretation Comme nts Interpretation and review of laboratory results (test code = 76619-7) note Report (test code = 81704-9) . [facility] HospitalINFLUENZA A AND B OW2020-07-07 21:13:00* Test Item Value Reference Range Interpretation Comme nts INFLUENZ A (test code = INFA) NEGATIVE NEGATIVE INFLUENZ B (test code = INFB) NEGATIVE NEGATIVE
[2024-09-19] MEDS ORDERED: AMOX/K CLAV 875 MG TAB ONE (19:35)
[2024-09-19] MEDS ORDERED: KETOROLAC 30 MG/ML INJ ONE (19:35)
--- NOTE | 2024-09-19 19:53 | EDPHYS ---
Physician Documentation [facility] Name: Aileen Montalvo Age: 24 yrs Sex: Female : 2000 Arrival Date: 09/19/2024 Time: 18:18 Bed 8 Private MD: ED Physician Celso Blanco HPI: 09/19 19:36 This 24 yrs old Black Female presents to ER via Ambulatory with complaints of kb Toothache, Facial Swelling. 19:37 Pt is a 24 year old female who presents for toothache and right upper jaw pain that kb started one week ago. States she went to the dentist, but they didn't do anything for her. Denies fever. 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 - Infectious Disease History:: Denies. - Social history:: Smoking status: Patient denies any tobacco usage or history of. ROS: 19:37 Constitutional: As per HPI kb Exam: 19:37 Constitutional: This is a well developed, well nourished patient who is awake, alert, kb and in no acute distress. Head/Face: Normocephalic, atraumatic. Cardiovascular: Regular rate Respiratory: Respirations even and unlabored. No increased work of breathing. Talking in full sentences Skin: Warm, dry with normal turgor. Normal color. MS/ Extremity: Pulses equal, no cyanosis. Neurovascular intact. Full, normal range of motion. Neuro: Awake and alert, GCS 15, oriented to person, place, time, and situation. 19:37 ENT: Dental exam: pain, that is moderate, specifically in the upper right second molar (#2), upper right first molar (#3) and upper right second bicuspid (#4), Vital Signs: 18:30 BP 116 / 80; Pulse 88; Resp 17; Temp 98.2; Pulse Ox 100% on R/A; Weight 97.98 kg; ap3 Height 5 ft. 7 in. ; Pain 8/10; 19:35 BP 104 / 71; Pulse 75; Resp 18; Pulse Ox 100% on R/A; al5 18:30 Body Mass Index 33.83 (97.98 kg, 170.18 cm) ap3 18:30 Pain Scale: Adult ap3 MDM: 18:38 Medical Screening Exam initiated kb 19:38 Differential diagnosis: dental caries, gingivitis, dental abscess, pericoronitis. Data kb reviewed: vital signs, nurses notes. Counseling: I had a detailed discussion with the patient and/or guardian regarding the historical points, exam findings, and any diagnostic results supporting the discharge/admit diagnosis, the need for outpatient follow up, a dentist, to return to the emergency department if symptoms worsen or persist or if there are any questions or concerns that arise at home. Administered Medications: 19:39 Drug: Ketorolac IM 30 mg IM once Route: IM; Site: right deltoid; dd2 19:56 Follow up: Response: No adverse reaction; Pain is decreased al5 19:40 Drug: Amoxicillin-Clavulanate PO 875 mg PO once Route: PO; dd2 19:56 Follow up: Response: No adverse reaction al5 Disposition Summary: 09/19/24 19:52 Discharge Ordered Notes: Location: Home kb Condition: Stable kb Diagnosis - Periapical abscess without sinus kb Followup: kb - With: Emergency Department - When: As needed - Reason: Worsening of condition Followup: kb - With: Private Physician - When: 2 - 3 days - Reason: Recheck today's complaints, Continuance of care, Re-evaluation by your physician Discharge Instructions: - Dental Abscess, [id number] kb - Discharge Summary Sheet al5 Forms: - Medication Reconciliation Form kb - Antibiotic Education kb - Prescription Opioid Use kb - Patient Portal Instructions kb - Leadership Thank You Letter kb - Work release form al5 Prescriptions: - Augmentin 875-125 mg Oral Tablet - take 1 tablet ORAL route every 12 hours for 10 days; 20 tablet; Refills: 0, kb Product Selection Permitted - Diclofenac Sodium 75 mg Oral tablet, delayed release (enteric coated) - take 1 tablet ORAL route 2 times per day As needed; 30 tablet; Refills: 0, kb Product Selection Permitted Signatures: Barbi Thurman FNP-C FNP-Ckb Prokisch, Amanda, RN RN ap3 NARCISO ALBA RN RN dd2 Langhorst, Anna Marie RN al5
--- NOTE | 2024-09-19 19:53 | ER ---
Nurse's Notes [facility] Name: Aileen Montalvo Age: 24 yrs Sex: Female : 2000 Arrival Date: 09/19/2024 Time: 18:18 Bed 8 Private MD: Diagnosis: Periapical abscess without sinus Presentation: 09/19 18:30 Chief complaint: Patient states: she started having facial swelling and pain last week ap3 to the right side of her face. patient was seen by a dentist last week. patient currently reports her pain as a 8/10 on the pain scale. Coronavirus screen: At this time, the client does not indicate any symptoms associated with coronavirus-19. Ebola Screen: No symptoms or risks identified at this time. Initial Sepsis Screen: Does the patient meet any 2 criteria? No. Patient's initial sepsis screen is negative. Does the patient have a suspected source of infection? No. Patient's initial sepsis screen is negative. Risk Assessment: Do you want to hurt yourself or someone else? Patient reports no desire to harm self or others. Onset of symptoms was September 13, 2024. 18:30 Method Of Arrival: Ambulatory ap3 18:30 Acuity: [id number] 4 ap3 Triage Assessment: 18:32 General: Appears in no apparent distress. Behavior is calm, cooperative, appropriate ap3 for age. Pain: Complains of pain in right cheek and right jaw Pain currently is 8 out of 10 on a pain scale. EENT: Reports pain in right cheek and right jaw. Neuro: Level of Consciousness is awake, alert, obeys commands, Oriented to person, place, time, situation, Appropriate for age. Cardiovascular: Patient's skin is warm and dry. Respiratory: Airway is patent Respiratory effort is even, unlabored, Respiratory pattern is regular, symmetrical. 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 - Infectious Disease History:: Denies. - Social history:: Smoking status: Patient denies any tobacco usage or history of. Screenin:33 [facility] ED Fall Risk Assessment (Adult) History of falling in the last 3 months, ap3 including since admission No falls in past 3 months (0 pts) Confusion or Disorientation No (0 pts) Intoxicated or Sedated No (0 pts) Impaired Gait No (0 pts) Mobility Assist Device Used No (0 pt) Altered Elimination No (0 pt) Score/Fall Risk Level 0 - 2 = Low Risk Oriented to surroundings, Maintained a safe environment, Educated pt \T\ family on fall prevention, incl call for assistance when getting out of bed, Assessed \T\ reinforced patient's understanding of fall precautions, Hourly rounding (assess needs \T\ fall precautionary measures) done, Used ambulatory aids as needed (educated on \T\ assisted with). Abuse screen: Denies threats or abuse. Nutritional screening: No deficits noted. Tuberculosis screening: No symptoms or risk factors identified. Assessment: 19:36 General: Appears in no apparent distress. comfortable, Behavior is calm, cooperative. al5 Pain: Complains of pain in right jaw. Neuro: Level of Consciousness is awake, alert, obeys commands, Oriented to person, place, time, situation. Cardiovascular: Capillary refill < 3 seconds Patient's skin is warm and dry. Respiratory: Airway is patent Respiratory effort is even, unlabored, Respiratory pattern is regular, symmetrical. GI: No signs and/or symptoms were reported involving the gastrointestinal system. : No signs and/or symptoms were reported regarding the genitourinary system. EENT: Reports pain in right jaw facial swelling to R side face. Derm: Skin is intact, is healthy with good turgor, Skin is pink, warm \T\ dry. normal. Musculoskeletal: No signs and/or symptoms reported regarding the musculoskeletal system. Vital Signs: 18:30 BP 116 / 80; Pulse 88; Resp 17; Temp 98.2; Pulse Ox 100% on R/A; Weight 97.98 kg; ap3 Height 5 ft. 7 in. ; Pain 8/10; 19:35 BP 104 / 71; Pulse 75; Resp 18; Pulse Ox 100% on R/A; al5 18:30 Body Mass Index 33.83 (97.98 kg, 170.18 cm) ap3 18:30 Pain Scale: Adult ap3 ED Course: 18:22 Patient arrived in ED. mr 18:32 Triage completed. ap3 18:33 Arm band placed on right wrist. ap3 18:38 Barbi Thurman FNP-C is [facility]. kb 18:38 Celso Blanco MD is Attending Physician. kb 19:24 Anna Marie Blackwood, RN is Primary Nurse. al5 19:37 Patient has correct armband on for positive identification. Bed in low position. Call al5 light in reach. Side rails up X 1. Provided Education on: medications, plan of care. 19:37 No provider procedures requiring assistance completed. Patient did not have IV access al5 during this emergency room visit. Administered Medications: 19:39 Drug: Ketorolac IM 30 mg IM once Route: IM; Site: right deltoid; dd2 19:56 Follow up: Response: No adverse reaction; Pain is decreased al5 19:40 Drug: Amoxicillin-Clavulanate PO 875 mg PO once Route: PO; dd2 19:56 Follow up: Response: No adverse reaction al5 Medication: 19:37 VIS not applicable for this client. al5 Outcome: 19:52 Discharge ordered by MD. kb 19:56 Discharged to home ambulatory, al5 19:56 Condition: good 19:56 Discharge instructions given to patient, Instructed on discharge instructions, follow up and referral plans. medication usage, Demonstrated understanding of instructions, follow-up care, medications, Prescriptions given X 2, 20:16 Patient left the ED. al5 Signatures: Barbi Thurman FNP-C SENIOR WINDOWS SYSTEMS ADMINISTRATOR-Ckb Esme Lowry, Reg Reg mr Anna Marie Hoffman RN RN ap3 Anna Marie Blackwood RN RN al5 NARCISO ALBA RN RN dd2
[2024-09-19 20:21] VITALS: TEMP 98.2; O2SAT 100
[2024-09-19 20:22] VITALS: BP 104/71
== END 2024-09-19 20:16 | disposition home or self-care (01) ==
LOC: ER 18:18
DX: K04.7 Periapical abscess without sinus (principal)
CPT/HCPCS: 96372; 99284

== ENCOUNTER 2024-10-11 22:27 | Emergency (ER) | payer OTHER ==
--- OUTSIDE RECORDS SUMMARY | 2024-10-11 22:30 | XMS REPORT | Continuity of Care Document ---
Author Name Unknown Address [address] [facility] [address] [place] [address] [facility] [place] Address [address] [facility] [address] [place] [address] Care Team Providers Care Exceptional Student Education Teacher Name Role Phone YIN CAVANAUGH Attending Clinician Unavailable THERESE GAUMAN Attending Clinician UnaJUDY Ho Attending Clinician Unavailable [id number] Attending Clinician Unavailable [id number] Attending Clinician Unavailable SANTIAGO HUA Attending [...] Effective Date Expirati on Date Source 0451 [id number] 2018 00:00:00 [facility] VICKIAltaRUBEN JOSEPH COPAY FOCUS 9 [id number] 2024 00:00:[place] [id number] 2021 00:00:[place] [id number] 2020 00:00:00 Problems Condition Name Condition Details Condition Category Status Onset Date Resolution Date Last Treatment Date Treating Clinician Comments Source Trichomona l vaginitis Trichomona l Vaginitis Problem Active 8-20 00:00: 00 [facility] ma of right breast Disease Active Vicki Seybold - Externa l 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 is suppurativ a Disease Active Vicki Seybold - Externa l Obesity Obesity Disease Active Vicik Seybold - Externa l Eczema Eczema Disease Active Vicki Seybold - Externa l Family history of diabetes mellitus in mother Family history of diabetes mellitus in mother Disease Active Vicki Seybold - Externa l 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 Active Vicki Seybold - Externa l Allergies, Adverse Reactions, Alerts Allergy Name Allergy Type Status Severity Reaction(s) Onset Date Inactive Date Treating Clinician Comments Source No Known Allergie s DA Active [facility] Social History Social Habit Start Date Stop Date Quantity Comments Source Sexual orientation Nicki Jones - External ASSERTION Not Vicki Jones - External History of Occupation Vicki Jones - External Alcoholic beverage intake 2024-10-03 00:00:00 2024-10-03 00:00:00 Lifetime non-drinker (finding) Vicki Jones - External Tobacco use and exposure 2024-03-02 00:00:00 2024-03-02 00:00:00 Smokeless tobacco non-user Vicki Holm External History of Social function 2024-03-02 00:00:00 2024-03-02 00:00:00 Vicki Jones - External Education 2024-03-02 00:00:00 2024-03-02 00:00:00 13 Vicki Jones - External Sex 2023-06-01 19:01:28 2023-06-01 19:01:28 Female (finding) Vicki Jones - External Sex assigned at 2000 00:00:00 2000 00:00:00 Vicki Jones - External Smoking Status Start Date Stop Date Source Never smoked tobacco Vicki Jones - External Medications Ordered Medication Name Filled Medication Name Start Date Stop Date Current Medication? Ordering Clinician Indication Dosage Frequency Signature (SIG) Comments Components Source Hydrocortis one 1 % apply externally Cream 10-03 10:37: 36 10-03 00:00 :00 No 297 1{appli cation} QD Apply 1 Applicatio n topically daily as needed (dermatiti s). Indication s: Skin Inflammati on Vicki Jones - Externa l Chlorhexidi ne Gluconate 4 % apply externally Solution 10-03 00:00: 00 Yes [id number] Wash area BID. Vicki Jones - Perfectoa l Nystatin [id number] UNIT/GM apply externally Cream 10-03 00:00: 00 10-11 04:59 :00 Yes [id number] Q.5D Apply 1 applicatio n. topically 2 times daily for 7 days. Vicki Jones - Perfectoa l Hydrocortis one 1 % apply externally Cream [...] 3 times a day by oral route. [facility] hydrocodone 5 mg-acetamin ophen 325 mg tablet hydrocodone 5 mg-acetamin ophen 325 mg tablet No hydrocodon e 5 mg-acetami nophen 325 mg tablet [facility] ibuprofen 600 mg tablet ibuprofen 600 mg tablet No ibuprofen 600 mg tablet [facility] Lidocaine Viscous 2 % mucosal solution Lidocaine Viscous 2 % mucosal solution No Lidocaine Viscous 2 % mucosal solution [facility] naproxen 500 mg tablet Take 1 tablet twice a day by oral route. naproxen 500 mg tablet Take 1 tablet twice a day by oral route. No naproxen 500 mg tablet Take 1 tablet twice a day by oral route. [facility] neomycin-po lymyxin-hyd rocort 3.5 mg-10,000 unit/mL-1 % ear drops,susp neomycin-po lymyxin-hyd rocort 3.5 mg-10,000 unit/mL-1 % ear drops,susp No neomycin-p olymyxin-h ydrocort 3.5 mg-10,000 unit/mL-1 % ear drops,susp [facility] prednisone 50 mg tablet prednisone 50 mg tablet No prednisone 50 mg tablet [facility] sulfamethox azole 800 mg-trimetho prim 160 mg tablet sulfamethox azole 800 mg-trimetho prim 160 mg tablet No sulfametho xazole 800 mg-trimeth oprim 160 mg tablet [facility] tramadol 50 mg tablet tramadol 50 mg tablet No tramadol 50 mg tablet [facility] Immunizations Ordered Immunization Name Filled Immunization Name Date Status Comments Source HPV9 HPV9 2022-02-24 12:05:30 Completed [facility] HPV9 HPV9 2021-12-16 16:14:40 Completed [facility] influenza, injectable, quadrivalent influenza, injectable, quadrivalent 2021-04-11 00:00:00 Completed [facility] COVID-19, mRNA, LNP-S, PF, 100 mcg/0.5 mL dose (Moderna) COVID-19, mRNA, LNP-S, PF, 100 mcg/0.5 mL dose (Moderna) 2020-10-19 00:00:00 [facility]pleted [facility] COVID-19, mRNA, LNP-S, PF, 100 mcg/0.5 mL dose (Moderna) COVID-19, mRNA, LNP-S, PF, 100 mcg/0.5 mL dose (Moderna) 2020-09-24 00:00:00 Completed [facility] Covid-19 Vaccine Moderna (Spikevax), Mrna-lnp, Dl Protein, Pf Unknown Completed Vicki Jones - External HPV 9 (Human Papillomavirus) Unknown Completed Vicki Heard ld - External Influenza Virus Vaccine, Split, up to age 3 Unknown Completed Vicki Archibaldold - External Covid-19 Vaccine Moderna (Spikevax), Mrna-lnp, Dl Protein, Pf Unknown Completed Vicki Jones - External HPV 9 (Human Papillomavirus) Unknown Completed Vicki Heard ld - External Influenza Virus Vaccine, Split, up to age 3 Unknown Completed Vicki Jones - External Vital Signs Vital Name Observation Time Observation Value Comments S ource Systolic blood pressure 2024-10-03 15:20:00 108 mm[Hg] Vicki Heard ld - External Diastolic blood pressure 2024-10-03 15:20:00 72 mm[Hg] Vicki Heard ld - External Heart rate 2024-10-03 15:20:00 74 /min Zana Jones - External Body temperature 2024-10-03 15:20:00 36.33 Leora Vicki Jones - External Respiratory rate 2024-10-03 15:20:00 16 /min Vicki Jones - External Body height 2024-10-03 15:20:00 170.2 cm Jenn Jones - External Body weight 2024-10-03 15:20:00 97.614 kg Jenn Jones - External BMI 2024-10-03 15:20:00 33.71 kg/m2 Jenn Jones - External Oxygen saturation in Arterial blood by Pulse oximetry 2024-10-03 15:20:00 98 /min Vicki Seybo ld - External Systolic blood pressure 2024-03-02 13:41:00 102 mm[Hg] Vicki Hendersonybo ld - External Diastolic blood pressure 2024-03-02 13:41:00 67 mm[Hg] Vicki Heard ld - External Heart rate 2024-03-02 13:41:00 77 /min Zana cordova Seybold - External Body temperature 2024-03-02 13:41:00 37.06 Leora Vicki Hendersonybold - External Respiratory rate 2024-03-02 13:41:00 16 /min Vicki Hendersonybold - External Body height 2024-03-02 13:41:00 170.2 cm Jenn bunch Seybold - External Body weight 2024-03-02 13:41:00 90.266 kg Jenn bunch Seybold - External BMI 2024-03-02 13:41:00 31.17 kg/m2 Jenn bunch Seybold - External Oxygen saturation in Arterial blood by Pulse oximetry 2024-03-02 13:41:00 99 /min Vicki Heard ld - External BP Diastolic 2022-03-04 00:00:00 72 mm[Hg] [facility] Height 2022-03-04 00:00:00 67 [in_i] [facility] BMI (Body Mass Index) 2022-03-04 00:00:00 28.3 kg/m2 [facility] BP Systolic 2022-03-04 00:00:00 111 mm[Hg] Brooke paras [facility] Body Weight 2022-03-04 00:00:00 181 [lb_av] [facility] BP Diastolic 2022-02-24 00:00:00 73 mm[Hg] [facility] Height 2022-02-24 00:00:00 67 [in_i] [facility] BMI (Body Mass Index) 2022-02-24 00:00:00 27.6 kg/m2 [facility] BP Systolic 2022-02-24 00:00:00 107 mm[Hg] Brooke paras [facility] Body Weight 2022-02-24 00:00:00 2818 [oz_av] Ryley [facility]orda [facility] BP Diastolic 2022-01-05 00:00:00 70 mm[Hg] [facility] Height 2022-01-05 00:00:00 67 [in_i] [facility] BMI (Body Mass Index) 2022-01-05 00:00:00 27.6 kg/m2 [facility] BP Systolic 2022-01-05 00:00:00 102 mm[Hg] Brooke paras [facility] Body Weight 2022-01-05 00:00:00 176 [lb_av] [facility] BP Diastolic 2021-12-16 00:00:00 83 mm[Hg] [facility] Height 2021-12-16 00:00:00 67 [in_i] [facility] BMI (Body Mass Index) 2021-12-16 00:00:00 28.3 kg/m2 [facility] BP Systolic 2021-12-16 00:00:00 126 mm[Hg] Brooke paras [facility] Body Weight 2021-12-16 00:00:00 2896 [oz_av] Ryley [facility]orda [facility] Height 2021-11-11 20:05:00 170.18 CM Weight 2021-11-11 20:05:00 79.37 KG BP Diastolic 2021-10-28 00:00:00 70 mm[Hg] [facility] Height 2021-10-28 00:00:00 67 [in_i] Mat[facility] BMI (Body Mass Index) 2021-10-28 00:00:00 27.6 kg/m2 [facility] BP Systolic 2021-10-28 00:00:00 106 mm[Hg] Brooke paras [facility] Body Weight 2021-10-28 00:00:00 2816 [oz_av] Ryley [facility] Height 2021-09-23 15:42:00 170.18 CM Weight 2021-09-23 15:42:00 76.65 KG BP Diastolic 2021-09-11 00:00:00 74 mm[Hg] [facility] Height 2021-09-11 00:00:00 67 [in_i] Jessie or[facility] BMI (Body Mass Index) 2021-09-11 00:00:00 26.5 kg/m2 [facility] BP Systolic 2021-09-11 00:00:00 114 mm[Hg] Brooke paras [facility] Body Weight 2021-09-11 00:00:00 2704 [oz_av] Ryley [facility] Height 2021-08-11 19:48:00 170.18 CM Weight 2021-08-11 19:48:00 73.93 KG Height 2021-04-14 20:01:00 170.18 CM Weight 2021-04-14 20:01:00 76.65 KG Height 2020-12-24 20:50:00 170.18 CM Weight 2020-12-24 20:50:00 76.2 KG BP Diastolic 2020-12-16 00:00:00 71 mm[Hg] Hugo betancurrda [facility] Height 2020-12-16 00:00:00 67 [in_i] Jessie or[facility] BMI (Body Mass Index) 2020-12-16 00:00:00 26.6 kg/m2 [facility] BP Systolic 2020-12-16 00:00:00 108 mm[Hg] Brooke paras [facility] Body Weight 2020-12-16 00:00:00 2720 [oz_av] Ryley [facility]orda [facility] BP Diastolic 2020-11-20 00:00:00 79 mm[Hg] [facility] Height 2020-11-20 00:00:00 67 [in_i] Jessie or[facility] BMI (Body Mass Index) 2020-11-20 00:00:00 25.8 kg/m2 [facility] BP Systolic 2020-11-20 00:00:00 123 mm[Hg] Edwardo crain [facility] Body Weight 2020-11-20 00:00:00 2640 [oz_av] Ryley thomas [facility] Height 2020-07-07 20:12:00 170.18 CM Weight 2020-07-07 20:12:00 74.84 KG Procedures Procedure Date / Time Performed Performing Clinicia n Source US, breast, unilateral 2022-03-03 00:00:00 [facility] US, breast, unilateral 2022-02-09 00:00:00 [facility] MAMMO, diagnostic, unilateral 2021-09-11 00:00:00 [facility] US, breast, unilateral 2021-09-11 00:00:00 [facility] Hernia Repair W/mesh 2007-07-12 00:00:00 [facility] Encounters Start Date/Time End Date/Time Encounter Type Admission Type Attending Clinicians Care Facility Care Department Encounter ID Source 2021-11-30 08:00:00 Inpatient C YIN CAVANAUGH [facility] RAD [id number] [facility] 2024-11-14 09:15:00 2024-11-14 09:15:00 Outpatient THERESE GUAMAN [id number] [facility] 2024-10-10 10:00:00 2024-10-10 10:00:00 Outpatient JUDY GOMES [id number] [facility] 2024-10-03 10:45:00 2024-10-03 10:45:00 Outpatient [id number] VICKI MALLORY [id number] [facility] 2024-10-03 10:00:00 2024-10-03 10:00:00 Outpatient JUDY GOMES [id number] [facility] 2024-08-22 13:15:00 2024-08-22 13:15:00 Outpatient THERESE GUAMAN [id number] [facility] 2024-05-23 14:15:00 2024-05-23 14:15:00 Outpatient THERESE GUAMAN [id number] [facility] 2024-03-02 09:30:00 2024-03-02 09:30:00 Outpatient LAB90 VICKI MALLORY [id number] Vicki Jones 2024-03-02 08:45:00 2024-03-02 08:45:00 Outpatient SANTIAGO HUA [id number] [facility] 2024-02-17 15:00:00 2024-02-17 15:00:00 Outpatient SANTIAGO HUA [id number] [facility] 2024-01-04 09:00:00 2024-01-04 09:00:00 Outpatient SANTIAGO HUA [id number] [facility] 2022-04-14 00:00:00 2022-04-14 00:00:00 Outpatient SHIMEK_MARY _ANN AZHOP [facility] [id number] [facility] 2022-04-14 00:00:00 2022-04-14 00:00:00 Outpatient SHIMEK_MARY _ANN AZHOP AZ[facility]OP [id number] [facility] 2022-04-14 00:00:00 2022-04-14 00:00:00 Outpatient SHIMEK_MARY _ANN AZHOP AZHOP [id number] [facility] 2022-03-08 00:00:00 2022-03-08 00:00:00 Outpatient SHIMEK_MARY _ANN MEHOP AZHOP [id number] [facility] 2022-03-04 00:00:00 2022-03-04 00:00:00 Outpatient SHIMEK_MARY _ANN AZHOP AZHOP [id number] [facility] 2022-03-04 00:00:00 2022-03-04 00:00:00 Cecy Gallo MD: [address] [facility] [address], [place] [address] , Ph. [phone] [facility] [place] [id number] [facility] 2022-02-24 00:00:00 2022-02-24 00:00:00 Outpatient SHIMEK_ESME _ANN [facility] [id number] [facility] 2022-02-24 00:00:00 2022-02-24 00:00:00 Esme Jones, MANAGER STRATEGIC: [address] [place] [address] , Ph. [facility] 3 [id number] [facility] 2022-02-18 00:00:00 2022-02-18 00:00:00 Outpatient SHIMEK_ESME _ANN [facility] [id number] [facility] 2022-01-05 00:00:00 2022-01-05 00:00:00 Outpatient SHIMEK_ESME _ANN [facility] [id number] [facility] 2022-01-05 00:00:00 2022-01-05 00:00:00 Cecy Gallo MD: [address], [address], [place] [address] , Ph. [facility] [id number] [facility] 2021-12-16 04:23:00 2021-12-16 04:23:00 Outpatient SHIMEK_ESME _ANN [facility] [id number] [facility] 2021-12-16 04:23:00 2021-12-16 04:23:00 Outpatient SHIMEK_MARY _ANN [facility] [id number] [facility] 2021-12-16 04:23:00 2021-12-16 04:23:00 Outpatient SHIMEK_ESME DE LA TORRE [facility] [id number] [facility] 2021-12-16 04:23:00 2021-12-16 04:23:00 Outpatient SHIMEK_ESME DE LA TORRE [facility] [id number] [facility] 2021-12-16 00:00:00 2021-12-16 00:00:00 Esme Jones, MANAGER STRATEGIC: [place] [address] , Ph. [facility] 3 [id number] [facility] 2021-12-15 10:05:00 2021-12-15 10:05:00 Outpatient SHIMEK_ESME DE LA TORRE [facility] [id number] [facility] 2021-11-11 19:53:00 2021-11-11 22:56:00 Outpatient ALFRED VELIZ [facility] [id number] [facility] 2021-10-28 03:50:00 2021-10-28 03:50:00 Outpatient SHIMEK_ESME DE LA TORRE [facility] [id number] [facility] 2021-10-28 03:49:00 2021-10-28 03:49:00 Outpatient SHIMEK_ESME DE LA TORRE [facility] [id number] [facility] 2021-10-28 00:00:00 2021-10-28 00:00:00 Esme Jones, MANAGER STRATEGIC: [place] [address] , Ph. [facility] 3 [id number] [facility] 2021-09-23 15:42:00 2021-09-23 16:43:00 Outpatient E EVELINE CAVANAUGH [facility] ECC [id number] [facility] 2021-09-16 09:09:00 2021-09-16 09:09:00 Outpatient SHIMEK_ESME _ANN [facility] [id number] [facility] 2021-09-16 09:09:00 2021-09-16 09:09:00 Outpatient SHIMEK_MARY _ANN [facility] [id number] [facility] 2021-09-16 09:09:00 2021-09-16 09:09:00 Outpatient SHIMEK_MARY _ANN [facility] [id number] [facility] 2021-09-11 07:46:00 2021-09-11 07:46:00 Outpatient SHIMEK_MARY _ANN [facility] [id number] [facility] 2021-09-11 00:00:00 2021-09-11 00:00:00 Esme Jones, MANAGER STRATEGIC: [address] [place] [address] , Ph. [facility] Scientology [place] [address] [id number] [facility] 2021-08-11 19:40:00 2021-08-11 22:04:00 Outpatient E JORGE HUBBARD [facility] [id number] [facility] 2021-04-14 19:53:00 2021-04-14 20:14:00 Outpatient E JORGE HUBBARD [facility] [id number] [facility] 2020-12-24 20:48:00 2020-12-24 21:09:00 Outpatient E OLIVIA ROPER [facility] [id number] [facility] 2020-12-16 12:14:00 2020-12-16 12:14:00 Outpatient SHIMEK_ESME ThomasANN [facility] [id number] [facility] 2020-12-16 12:14:00 2020-12-16 12:14:00 Outpatient SHIMEK_ESME DE LA TORRE [facility] [id number] [facility] 2020-12-16 12:14:00 2020-12-16 12:14:00 Outpatient SHIMEK_ESME _CATARINA [facility] [id number] [facility] 2020-12-16 12:14:00 2020-12-16 12:14:00 Outpatient SHIMEK_ESME _ANN [facility] [id number] [facility] 2020-12-16 12:14:00 2020-12-16 12:14:00 Outpatient SHIMEK_ESME DE LA TORRE [facility] [id number] [facility] 2020-12-16 12:14:00 2020-12-16 12:14:00 Outpatient SHIMEK_ESME _CATARINA [facility] [id number] [facility] 2020-12-16 00:00:00 2020-12-16 00:00:00 Esme Jones, MANAGER STRATEGIC: [place] [address] , Ph. [facility] 3 [id number] [facility] 2020-11-20 04:22:00 2020-11-20 04:22:00 Outpatient SHIMEK_ESME DE LA TORRE [facility] [id number] [facility] 2020-11-20 00:00:00 2020-11-20 00:00:00 Esme Jones, MANAGER STRATEGIC: [address] [address] , Ph. [facility] [id number] [facility] 2020-11-18 08:32:00 2020-11-18 08:32:00 Outpatient JOLENE DE LA TORRE [facility] [id number] [facility] 2020-10-22 04:44:00 2020-10-22 04:44:00 Outpatient JOLENE DE LA TORRE [facility] [id number] [facility] 2020-07-07 20:12:00 2020-07-07 22:25:00 Outpatient ALEK VU [facility] [id number] 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 controller [facility] 2000 panel - Serum or [id number] 00:00:00* Test Item Value Reference Range Interpretation [...] in Serum or Plasma (test code = 45381-0) 9.6 mg/dL 8.7-10.2 Protein [Mass/volume] in Serum or Plasma (test code = 2885-2) 7.4 g/dL 6.0-8.5 Albumin [Mass/volume] in Serum or Plasma (test code = 175-7) 4.4 g/dL 3.9-5.0 Globulin [Mass/volume] in Serum by calculation (test code = 71909-0) 3.0 g/dL 1.5-4.5 Albumin/Globulin [Mass Ratio ] in Serum or Plasma (test code = 1759-0) 1.5 1.2-2.2 Bilirubin.total [Mass/volume ] in Serum or Plasma (test code = 1974-) 0.3 mg/dL 0.0-1.2 Alkaline phosphatase [Enzymatic activity/volume] in Serum or Plasma (test code = 6768-6) 61 IU/L 44-121 Aspartate aminotransferase [Enzymatic activity/volume] in Serum or Plasma (test code = 1919-8) 12 IU/L 0-40 Alanine aminotransferase [Enzymatic activity/volume] in Serum or Plasma (test code = 174-6) 14 IU/L 0-32 [facility] - Serum or [...] or Plasma by calculation (test code = 95523-9) 31 mg/dL 5-40 Cholesterol in LDL [Mass/vol ume] in Serum or Plasma by calculation (test code = 17456-0) 113 mg/dL 0-99 H Laboratory comment [Text] in Report Narrative (test code = 58886-7) 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 financial controller [facility]/Hemoglobin.total in [id number] 00:00:00* Test Item Value Reference Range Interpretation Comme nts Hemoglobin A1c/Hemoglobin.to meron in Blood (test code = 4548-4) 5.4 % 4.8-5.6 Glucose mean value [Mass/vol ume] in Blood Estimated from glycated hemoglobin (test code = 60736-5) 108 mg/dL [facility] [Presence] in Serum by RPR 2021-12-17 00:00:00* Test Item Value Reference Range Interpretation Comme nts Reagin Ab [Presence] in Seru m by RPR (test code = 77737-5) non reactive non reactive [facility] and 2 tests - Meaningful Use [id number] 00:00:00* Test Item Value Reference Range Interpretation Comme nts HIV 1+2 Ab+HIV1 p24 Ag [Presence] in Serum or Plasma by Immunoassay (test code = 56830-9) non reactive non reactive [facility] CenterHepatitis B virus surface Ag [Presence] in Serum or Plasma by [id number] 00:00:00* Test Item Value Reference Range Interpretation Comme nts Hepatitis B virus surface Ag [Presence] in Serum or Plasma by Immunoassay (test code = 5196-1) negative negative [facility]ercardi[facility] assessment panel, [id number] 00:00:00* Test Item Value Reference Range Interpretation Comme nts Interpretation and review of laboratory results (test code = 54173-9) note Report (test code = 33372-5) . [facility] CenterCT [facility]AST *OW*2021-11-11 22:27:47[facility]ENTERName[facility]OS[facility]H PATEL : [...] Daniel Nolan MD 11/11/2021 10:27 PM CDT [id number] Panel *OW* [id number] 21:40:00* Test Item Value Reference Range Interpretation [...] PELVIS W/O CONTRAST *OW*2021-08-11 21:29:43 [facility] 2000 Sex: FEXAMINATION:Chest, [...] by: Shabbir pedraza MD 08/11/2021 9:29 PM [facility] CHEST W/O CONTRAST *OW* 2021-08-11 21:29:43 [facility] 2000 Sex: FEXAMINATION:Chest, [...] by: Shabbir pedraza MD 08/11/2021 9:29 PM 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 *OW* 2021-08-11 21:28:07 [facility] 2000 Sex: FExam: [...] by: Mina Clayton MD 08/11/2021 9:28 PM [facility] CERVICAL SPINE W/O CONTRAST *OW*2021-08-11 21:24:12 [facility] 2000 Sex: FExam: [...] Santiago Arango MD 08/11/2021 9:24 PM [facility] [id number] URINE OW2021-08-11 20:27:00* Test Item Value Reference [...] NEGATIVE CBC W Auto Differential panel - [id number] 00:00:00* Test Item Value Reference Range Interpretation [...] immature cells (test code = immature cells) 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 Morphology [Interpretation] in Blood Narrative (test code = 06093-8) nonprofit financial controller [facility]Com[facility] metabolic 2000 panel - Serum or [id number] 00:00:00* Test Item Value Reference Range Interpretation [...] by Creatinine-based formula (CKD-EPI) (test code = 38620-5) 119 mL/min/1.73 >59 Glomerular filtration rate/1.73 sq M.predicted among blacks [Volume Rate/Area] in Serum, Plasma or Blood by Creatinine-based formula (CKD-EPI) (test code = 73933-6) 137 mL/min/1.73 >59 Urea nitrogen/Creatinine [Mass Ratio] [...] in Serum or Plasma (test code = 01248-4) 10.0 mg/dL 8.7-10.2 Protein [Mass/volume] in Serum or Plasma (test code = 2885-2) 7.6 g/dL 6.0-8.5 Albumin [Mass/volume] in Serum or Plasma (test code = 175-7) 4.4 g/dL 3.9-5.0 Globulin [Mass/volume] in Serum by calculation (test code = 86878-3) 3.2 g/dL 1.5-4.5 Albumin/Globulin [Mass Ratio ] [...] (test code = 1742-6) 14 IU/L 0-32 [facility] CenterLipid 1996 panel - Serum or [...] or Plasma by calculation (test code = 18801-8) 13 mg/dL 5-40 Cholesterol in LDL [Mass/vol ume] in Serum or Plasma by calculation (test code = 00127-2) 121 mg/dL 0-99 H Laboratory comment [Text] in Report Narrative (test code = 42586-4) nonprofit financial controller [facility] CenterHemoglobin A1c/Hemoglobin.total in [id number] 00:00:00* Test Item Value Reference Range Interpretation Comme nts Hemoglobin A1c/Hemoglobin.to meron in Blood (test code = 4548-4) 5.2 % 4.8-5.6 Glucose mean value [Mass/vol ume] in Blood Estimated from glycated hemoglobin (test code = 72214-8) 103 mg/dL [facility] CenterHIV 1+2 Ab+HIV1 p24 Ag [Presence] in Serum or Plasma by [id number] 00:00:00* Test Item Value Reference Range Interpretation Comme nts HIV 1+2 Ab+HIV1 p24 Ag [Presence] in Serum or Plasma by Immunoassay (test code = 33218-7) non reactive non reactive [facility] CenterThyrotropin [Units/volume] in Serum or Plasma by Detection limit <= 0.005 mIU/[id number] 00:00:00* Test Item Value Reference Range Interpretation Comme nts Thyrotropin [Units/volume] i n Serum or Plasma by Detection limit <= 0.005 mIU/L (test code = 02191-9) 0.677 uIU/mL 0.450-4.500 [facility] CenterReagin Ab [Presence] in Serum by RPR 2020-11-21 00:00:00* Test Item Value Reference Range Interpretation Comme nts Reagin Ab [Presence] in Seru m by RPR (test code = 68390-0) non reactive non reactive [facility] CenterHepatitis B virus surface Ag [Presence] in Serum or Plasma by [id number] 00:00:00* Test Item Value Reference Range Interpretation Comme nts Hepatitis B virus surface Ag [Presence] in Serum or Plasma by Immunoassay (test code = 5196-1) negative negative [facility] Centercardi[facility] assessment panel, [id number] 00:00:00* Test Item Value Reference Range Interpretation Comme nts Interpretation and review of laboratory results (test code = 79466-1) note Report (test code = 32006-4) . [facility] ProgramINFLUENZA A AND B OW2020-07-07 21:13:00* Test Item Value Reference Range Interpretation Comme nts INFLUENZ A (test code = INFA) NEGATIVE NEGATIVE INFLUENZ B (test code = INFB) NEGATIVE NEGATIVE Notes Date/Time Note Provider Source 2024-10-03 10:23:24 Chief Complaint Patient presents with Establish Care Mariusz Buckner MA [facility]
[2024-10-11 23:56] LABS: Absolute Eosinophils 0.1 K/uL (0-0.5); Absolute Lymphocytes (CBC) 1.7 K/uL (0.7-4.9); Absolute Monocytes 0.9 K/uL (0.1-1.3); Absolute Neutrophil 4.8 K/uL (1.8-8.0); Basophils % 0.3 % (0-1.3); Hematocrit 39.8 % (36.0-45.0); Hemoglobin 13.3 g/dL (12.0-15.0); Lymphocytes % 22.6 % (15.3-44.8); MCH 30.5 pg (27.0-35.0); MCHC 33.5 g/dL (32.0-36.0); MCV 90.9 fL (80-100); MPV 8.2 fL (7.6-11.3); Monocytes % 11.6 % (3.3-12.3); Neutrophils % 64.5 % (41.7-73.7); Nucleated Red Blood Cells % 0.2 % (0-0); Platelets 330 thou/uL (152-406); RBC Red Blood Cell Count 4.38 M/uL (3.86-4.86); Red Cell Distribution Width 12.6 % (12.1-15.2)
[2024-10-11 23:58] LABS: ALT/SGPT 20 U/L (13-56); Albumin 3.7 g/dL (3.4-5.0); Albumin/Globulin Ratio 0.9 (1.1-1.8); Alkaline Phosphatase 45 U/L (45-117); BUN Blood Urea Nitrogen 11 mg/dL (7-18); Bicarbonate 26 mEq/L (21-32); Bilirubin Total 0.5 mg/dL (0.2-1.0); Globulin 4.2 g/dL (2.3-3.5); Glomerular Filtration Rate 122 ml/min (=/>90); Glucose Level 92 mg/dL (74-106); Protein, Total 7.9 g/dL (6.4-8.2); Sodium Level 136 mEq/L (136-145)
[2024-10-12 00:03] LABS: AST/SGOT < 10 U/L (15-37); Bilirubin Direct < 0.2 mg/dL (0-0.2); Bilirubin Indirect, Calculated 0.3 mg/dL (0.2-0.8); Troponin High Sensitivity < 3.0 pg/mL (<58.9)
[2024-10-12 00:21] LABS: Influenza A Ag Negative; Influenza B Ag Negative; SARS-CoV-2 Antigen Rapid Res Negative (Negative)
--- NOTE | 2024-10-12 00:52 | EDPHYS ---
Physician Documentation [facility] Name: Aileen Montalvo Age: 24 yrs Sex: Female : 2000 Arrival Date: 10/11/2024 Time: 22:27 Bed DX4 Private MD: ED Physician Pete Pepper HPI: 10/12 01:35 This 24 yrs old Black Female presents to ER via Ambulatory with complaints of Ankle rt Swelling, Sore Throat. 01:35 Patient presents to the ED with bilateral ankle swelling, symmetric that is atraumatic rt for the past few days as well as a sore throat starting today. She reports a mild cough without shortness of breath. Denies other acute complaints at this time, symptoms are mild in severity, no other aggravating alleviating factors.. 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 - Infectious Disease History:: Denies. - Social history:: Smoking status: Patient denies any tobacco usage or history of. - Family history:: not pertinent. ROS: 10/12 01:35 Constitutional: Negative for fever, chills, and weight loss, Abdomen/GI: Negative for rt abdominal pain, nausea, vomiting, diarrhea, and constipation, Skin: Negative for injury, rash, and discoloration, ENT: Positive for sore throat, Cardiovascular: Positive for edema, Negative for chest pain, Respiratory: Positive for cough, Negative for shortness of breath, Exam: 01:35 Constitutional: This is a well developed, well nourished patient who is awake, alert, rt and in no acute distress. Head/Face: Normocephalic, atraumatic. Chest/axilla: Normal chest wall appearance and motion. Nontender with no deformity. No lesions are appreciated. Cardiovascular: Regular rate and rhythm with a normal S1 and S2. No gallops, murmurs, or rubs. Normal PMI, no JVD. No pulse deficits. Respiratory: Lungs have equal breath sounds bilaterally, clear to auscultation and percussion. No rales, rhonchi or wheezes noted. No increased work of breathing, no retractions or nasal flaring. Abdomen/GI: Soft, non-tender, with normal bowel sounds. No distension or tympany. No guarding or rebound. No evidence of tenderness throughout. 01:35 ENT: Mild posterior pharyngeal erythema without exudates. 01:35 Musculoskeletal/extremity: Minimal swelling of both ankles, symmetric, no overlying skin changes, no tenderness. 01:35 ECG was reviewed by the Attending Physician. rt Vital Signs: 10/11 22:46 BP 121 / 86; Pulse 81; Resp 16; Temp 98.5; Pulse Ox 100% ; Weight 97.98 kg; Height 5 lg3 ft. 7 in. ; 22:47 Pain 10/10; lg3 10/12 01:16 BP 127 / 81; Pulse 77; Resp 17 S; Temp 98.3(O); Pulse Ox 100% on R/A; lg3 10/11 22:46 Body Mass Index 33.83 (97.98 kg, 170.18 cm) lg3 22:47 Pain Scale: Adult lg3 MDM: 10/11 22:51 Medical Screening Exam initiated rt 10/12 01:59 Differential diagnosis: Strep, flu, COVID, upper respiratory infection, rt glomerulonephritis, nephrotic syndrome, CHF, peripheral edema. Data reviewed: vital signs, nurses notes, lab test result(s), EKG, radiologic studies. Independent interpretation of the following test(s) in the Emergency Department X-Ray: My interpretation is No edema seen on my interpretation of x-ray images. Test considered but Not performed: Ultrasound Low suspicion for DVT clinically, ultrasound is not indicated. Counseling: I had a detailed discussion with the patient and/or guardian regarding the historical points, exam findings, and any diagnostic results supporting the discharge/admit diagnosis, lab results, radiology results, the need for outpatient follow up, to return to the emergency department if symptoms worsen or persist or if there are any questions or concerns that arise at home. Response to treatment: There is no appreciated change of the patient's symptoms at this time. 10/11 22:52 Order name: Basic Metabolic Panel; Complete Time: 00:23 rt 10/11 22:52 Order name: CBC with Diff; Complete Time: 00:23 rt 04 22:52 Order name: LFT's; Complete Time: 00:23 rt 10/11 22:52 Order name: Troponin HS; Complete Time: 00:23 rt 04 22:52 Order name: COVID-19 Ag + Flu A+B Ag; Complete Time: 00:23 rt 04 22:52 Order name: Group A Streptococcus Rapid; Complete Time: 00:23 rt 10/12 00:24 Order name: Throat Culture EDMS 10/11 22:52 Order name: XRAY Chest (1 view) rt 04 22:52 Order name: EKG; Complete Time: 22:52 rt 10/11 22:52 Order name: EKG - Nurse/Tech; Complete Time: 22:56 rt 10/11 22:52 Order name: Labs collected and sent; Complete Time: 22:56 rt EC:35 Rate is 72 beats/min. Rhythm is regular, Normal Sinus Rhythm with No ectopy. QRS [place] rt is Normal. MA interval is normal. QRS interval is normal. QT interval is normal. No Q waves. T waves are Normal. No ST changes noted. Interpreted by me. Administered Medications: No medications were administered Disposition Summary: 10/12/24 00:52 Discharge Ordered Notes: Location: Home rt Problem: new rt Symptoms: are unchanged rt Condition: Stable rt Diagnosis - Acute upper respiratory infection, unspecified rt - Peripheral edema rt Followup: rt - With: Private Physician - When: 2 - 3 days - Reason: Discharge Instructions: - Discharge Summary Sheet rt - Viral Respiratory Infection rt - Peripheral Edema rt Forms: - Medication Reconciliation Form rt - Antibiotic Education rt - Prescription Opioid Use rt - Patient Portal Instructions rt - Leadership Thank You Letter rt Signatures: Dispatcher [employer] Luisa Esqueda, RN RN lg3 Pete Pepper MD MD rt
--- NOTE | 2024-10-12 00:52 | ER ---
Nurse's Notes [facility] Name: Aileen Montalvo Age: 24 yrs Sex: Female : 2000 Arrival Date: 10/11/2024 Time: 22:27 Bed DX4 Private MD: Diagnosis: Acute upper respiratory infection, unspecified;Peripheral edema Presentation: 10/11 22:46 Chief complaint: Patient states: ankles swelling for a couple of days and throat lg3 hurting today. Coronavirus screen: Client denies travel out of the [place] in the last 14 days. sore throat, Client presents with at least one sign or symptom that may indicate coronavirus-19. Ebola Screen: Patient negative for fever greater than or equal to 101.5 degrees Fahrenheit, and additional compatible Ebola Virus Disease symptoms Patient denies exposure to infectious person. Patient denies travel to an Ebola-affected area in the 21 days before illness onset. No symptoms or risks identified at this time. Initial Sepsis Screen: Does the patient meet any 2 criteria? No. Patient's initial sepsis screen is negative. Does the patient have a suspected source of infection? No. Patient's initial sepsis screen is negative. Risk Assessment: Do you want to hurt yourself or someone else? Patient reports no desire to harm self or others. Onset of symptoms is unknown. 22:46 Method Of Arrival: Ambulatory lg3 22:46 Acuity: [id number] 4 lg3 Triage Assessment: 22:48 General: Appears in no apparent distress. uncomfortable, obese, Behavior is calm, lg3 cooperative, appropriate for age. Pain: Complains of pain in throat Pain does not radiate. Pain currently is 10 out of 10 on a pain scale. Quality of pain is described as sharp. EENT: Reports pain when swallowing. Neuro: Level of Consciousness is awake, alert, obeys commands, Oriented to person, place, time, situation, Appropriate for age. Cardiovascular: Reports shortness of breath, Capillary refill < 3 seconds Patient's skin is warm and dry. Cardiovascular:. Respiratory: Reports shortness of breath at rest Airway is patent Respiratory effort is even, unlabored, Respiratory pattern is regular, symmetrical, Breath sounds are clear bilaterally. GI: No deficits noted. No signs and/or symptoms were reported involving the gastrointestinal system. : No deficits noted. No signs and/or symptoms were reported regarding the genitourinary system. Derm: Skin is intact, is healthy with good turgor, Skin is dry, Skin is normal. Musculoskeletal: Circulation, motion, and sensation intact. Range of motion: intact in all extremities. 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 - Infectious Disease History:: Denies. - Social history:: Smoking status: Patient denies any tobacco usage or history of. - Family history:: not pertinent. Screenin:50 [facility] ED Fall Risk Assessment (Adult) History of falling in the last 3 months, lg3 including since admission No falls in past 3 months (0 pts) Confusion or Disorientation No (0 pts) Intoxicated or Sedated No (0 pts) Impaired Gait No (0 pts) Mobility Assist Device Used No (0 pt) Altered Elimination No (0 pt) Score/Fall Risk Level 0 - 2 = Low Risk Oriented to surroundings, Maintained a safe environment, Educated pt \T\ family on fall prevention, incl call for assistance when getting out of bed. Abuse screen: Denies threats or abuse. Nutritional screening: No deficits noted. Tuberculosis screening: No symptoms or risk factors identified. Assessment: 22:51 General: see triage assessment. Respiratory: No deficits noted. Reports cough that is lg3 Airway is patent Respiratory effort is even, unlabored, Respiratory pattern is regular, symmetrical, Breath sounds are clear bilaterally. 22:51 EENT: Throat is clear. lg3 10/12 01:15 Reassessment: Patient appears in no apparent distress at this time. No changes from lg3 previously documented assessment. Patient and/or family updated on plan of care and expected duration. Pain level reassessed. Patient is alert, oriented x 3, equal unlabored respirations, skin warm/dry/pink. Vital Signs: 10/11 22:46 BP 121 / 86; Pulse 81; Resp 16; Temp 98.5; Pulse Ox 100% ; Weight 97.98 kg; Height 5 lg3 ft. 7 in. ; 22:47 Pain 10/10; lg3 10/12 01:16 BP 127 / 81; Pulse 77; Resp 17 S; Temp 98.3(O); Pulse Ox 100% on R/A; lg3 10/11 22:46 Body Mass Index 33.83 (97.98 kg, 170.18 cm) lg3 22:47 Pain Scale: Adult lg3 ED Course: 10/11 22:31 Patient arrived in ED. im 22:31 Pete Pepper MD is Attending Physician. rt 22:47 Triage completed. lg3 22:48 Arm band placed on right wrist. lg3 22:51 Patient has correct armband on for positive identification. lg3 22:51 Initial lab(s) drawn, by ED staff, sent to lab. EKG done, by ED staff, reviewed by Pete Pepper MD COVID swab sent to lab. Flu and/or RSV swab sent to lab. Strep swab sent to lab. 22:56 Group A Streptococcus Rapid Sent. lg3 22:56 COVID-19 Ag + Flu A+B Ag Sent. lg3 22:56 Basic Metabolic Panel Sent. lg3 22:56 CBC with Diff Sent. lg3 22:56 LFT's Sent. lg3 22:56 Troponin HS Sent. lg3 23:43 XRAY Chest (1 view) In Process Unspecified. EDMS 10/12 01:16 No provider procedures requiring assistance completed. Patient did not have IV access lg3 during this emergency room visit. Administered Medications: No medications were administered Medication: 10/11 22:50 VIS not applicable for this client. lg3 Outcome: 10/12 00:52 Discharge ordered by . rt 01:16 Discharged to home ambulatory, lg3 01:16 Condition: stable 01:16 Discharge instructions given to patient, Instructed on discharge instructions, follow up and referral plans. Demonstrated understanding of instructions, follow-up care, 01:17 Patient left the ED. lg3 Signatures: Dispatcher [employer] EDLuisa Jimenes, KIMBERLY RN lg3 Pete Pepper MD MD rt Shannon Villagomez im
[2024-10-12 01:40] VITALS: O2SAT 100
[2024-10-12 01:42] VITALS: BP 127/81; TEMP 98.3
--- NOTE | 2024-10-12 05:20 | RAD REPORT ---
EXAM: XR Chest, 1 View CLINICAL HISTORY: The patient is 24 years old and is Female; COUGH TECHNIQUE: Frontal view of the chest. COMPARISON: XR Chest dated July 07 2020 FINDINGS: LUNGS: Unremarkable. No consolidation. PLEURAL SPACE: Unremarkable. No pneumothorax. HEART: Unremarkable. No cardiomegaly. MEDIASTINUM: Unremarkable. Normal mediastinal contour. BONES/JOINTS: Unremarkable. No acute fracture. UPPER ABDOMEN: Unremarkable as visualized. IMPRESSION: No acute cardiopulmonary process. Electronically signed by: Blanca Martinez MD 10/12/2024 12:00 AM CDT RP Due to temporary technical issues with the PACS/Clo[employer] reporting system, reports are being renu d by the in-house radiologist without review as a courtesy to ensure prompt reporting the interpreting radiologist is fully responsible for the content of the report. Transcribed Date/Time: 10/12/2024 5:20 AM
--- NOTE | 2024-10-13 13:28 | EKG ---
Test Date: 2024-10-11 Test Time: 22:58:52 Developer Evangelist: [place] MEASUREMENT RESULTS: Intervals: Rate: 72 VT: 188 QRSD: 70 QT: 378 QTc: 413 [place]: P: 38 VT: 188 QRS: 53 T: 31 INTERPRETIVE STATEMENTS: Normal sinus rhythm Normal ECG No previous ECG available for comparison Electronically Signed On 10-13-24 13:19:45 CDT by Anshu Catalan
== END 2024-10-12 01:17 | disposition home or self-care (01) ==
LOC: ER 22:27
DX: J06.9 Acute upper respiratory infection, unspecified (principal); R60.9 Edema, unspecified; Z11.52 Encounter for screening for COVID-19
CPT/HCPCS: 36415; 71045; 80048; 80076; 84484; 85025; 87070; 87428; 93005; 99283

== ENCOUNTER 2024-10-19 18:28 | Emergency (ER) | payer OTHER ==
--- OUTSIDE RECORDS SUMMARY | 2024-10-19 18:32 | XMS REPORT | Continuity of Care Document ---
Author Name Unknown Address [address] [facility] [address] [place] [address] [facility] [place] Address [address] [facility] [address] [place] [address] Care Team Providers Care Director Of Radiology Name Role Phone YIN CAVANAUGH Attending Clinician Unavailable THERESE GUAMAN Attending Clinician UnaJUDY Ho Attending Clinician Unavailable [id number] Attending Clinician Unavailable [id number] Attending Clinician Unavailable [...] Effective Date Expirati on Date Source 0451 [id number] 2018 00:00:00 [facility] VICKIAltaRUBEN JOSEPH COPAY FOCUS 9 [id number] 2024 00:00:[place] [id number] 2021 00:00:[place] [id number] 2020 00:00:00 Problems Condition Name Condition Details [...] s DA Active [facility] Social History Social Habit Start Date [...] apply externally Solution 10-03 00:00: 00 Yes [id number] Wash area BID. Vicki Jones - Perfectoa l Nystatin [id number] UNIT/GM apply externally Cream 10-03 00:00: 00 10-11 04:59 :00 Yes [id number] Q.5D Apply 1 applicatio n. topically 2 [...] times a day by oral route. [facility] hydrocodone 5 mg-acetamin ophen 325 mg tablet hydrocodone 5 mg-acetamin ophen 325 mg tablet No hydrocodon e 5 mg-acetami nophen 325 mg tablet [facility] ibuprofen 600 mg tablet ibuprofen 600 mg tablet No ibuprofen 600 mg tablet [facility] Lidocaine Viscous 2 % mucosal solution Lidocaine Viscous 2 % mucosal solution No Lidocaine Viscous 2 % mucosal solution [facility] naproxen 500 mg tablet Take 1 tablet twice a day by oral route. naproxen 500 mg tablet Take 1 tablet twice a day by oral route. No naproxen 500 mg tablet Take 1 tablet twice a day by oral route. [facility] neomycin-po lymyxin-hyd rocort 3.5 mg-10,000 unit/mL-1 % ear drops,susp neomycin-po lymyxin-hyd rocort 3.5 mg-10,000 unit/mL-1 % ear drops,susp No neomycin-p olymyxin-h ydrocort 3.5 mg-10,000 unit/mL-1 % ear drops,susp [facility] prednisone 50 mg tablet prednisone 50 mg tablet No prednisone 50 mg tablet [facility] sulfamethox azole 800 mg-trimetho prim 160 mg tablet sulfamethox azole 800 mg-trimetho prim 160 mg tablet No sulfametho xazole 800 mg-trimeth oprim 160 mg tablet [facility] tramadol 50 mg tablet tramadol 50 mg tablet No tramadol 50 mg tablet [facility] Immunizations Ordered Immunization Name Filled Immunization Name Date Status Comments Source HPV9 HPV9 2022-02-24 12:05:30 Completed [facility] HPV9 HPV9 2021-12-16 16:14:40 [facility] influenza, injectable, quadrivalent influenza, injectable, quadrivalent 2021-04-11 00:00:00 Completed [facility] COVID-19, mRNA, LNP-S, PF, 100 mcg/0.5 mL dose (Moderna) COVID-19, mRNA, LNP-S, PF, 100 mcg/0.5 mL dose (Moderna) 2020-10-19 00:00:00 [facility] COVID-19, mRNA, LNP-S, PF, 100 mcg/0.5 mL dose (Moderna) COVID-19, mRNA, LNP-S, PF, 100 mcg/0.5 mL dose (Moderna) 2020-09-24 00:00:00 Completed [facility] Covid-19 Vaccine Moderna (Spikevax), Mrna-lnp, [...] Observation Time Observation Value Comments S ource BMI 2024-10-03 15:20:00 33.71 kg/m2 Jenn Archibaldold - External Oxygen saturation in Arterial blood by Pulse oximetry 2024-10-03 15:20:00 98 /min Vicki wallis - External Systolic blood pressure 2024-10-03 15:20:00 108 mm[Hg] Vicki Heard ld - External Diastolic blood pressure 2024-10-03 15:20:00 72 mm[Hg] Vicki Heard ld - External Heart rate 2024-10-03 15:20:00 74 /min Zana Jones - External Body temperature 2024-10-03 15:20:00 36.33 Leora Vicki Jones - External Respiratory rate 2024-10-03 15:20:00 16 /min Vicki Jones - External Body height 2024-10-03 15:20:00 170.2 cm Jenn bunch Seybold - External Body weight 2024-10-03 15:20:00 97.614 kg Jenn ey Seybold - External Systolic blood pressure 2024-03-02 13:41:00 102 mm[Hg] Vicki Archibaldo ld - External Diastolic blood pressure 2024-03-02 13:41:00 67 mm[Hg] Vicki Heard ld - External Heart rate 2024-03-02 13:41:00 77 /min Zana cordova Seybold - External Body temperature 2024-03-02 13:41:00 37.06 Leora Vicki Hendersonybold - External Respiratory rate 2024-03-02 13:41:00 16 /min Vicki Hendersonybold - External Body height 2024-03-02 13:41:00 170.2 cm Jenn ey Seybold - External Body weight 2024-03-02 13:41:00 90.266 kg Jenn bunch Seybold - External BMI 2024-03-02 13:41:00 31.17 kg/m2 Jenn bunch Seybold - External Oxygen saturation in Arterial blood by Pulse oximetry 2024-03-02 13:41:00 99 /min Vicki Heard ld - External BP Diastolic 2022-03-04 00:00:00 72 mm[Hg] [facility] Height 2022-03-04 00:00:00 67 [in_i] [facility] BMI (Body Mass Index) 2022-03-04 00:00:00 28.3 kg/m2 [facility] BP Systolic 2022-03-04 00:00:00 111 mm[Hg] Brooke paras [facility] Body Weight 2022-03-04 00:00:00 181 [lb_av] [facility] BP Diastolic 2022-02-24 00:00:00 73 mm[Hg] [facility] Height 2022-02-24 00:00:00 67 [in_i] [facility] BMI (Body Mass Index) 2022-02-24 00:00:00 27.6 kg/m2 [facility] BP Systolic 2022-02-24 00:00:00 107 mm[Hg] Brooke paras [facility] Body Weight 2022-02-24 00:00:00 2818 [oz_av] [facility] BP Diastolic 2022-01-05 00:00:00 70 mm[Hg] [facility] Height 2022-01-05 00:00:00 67 [in_i] [facility] BMI (Body Mass Index) 2022-01-05 00:00:00 27.6 kg/m2 [facility] BP Systolic 2022-01-05 00:00:00 102 mm[Hg] Brooke [facility] Body Weight 2022-01-05 00:00:00 176 [lb_av] [facility] BP Diastolic 2021-12-16 00:00:00 83 mm[Hg] [facility] Height 2021-12-16 00:00:00 67 [in_i] [facility] BMI (Body Mass Index) 2021-12-16 00:00:00 28.3 kg/m2 [facility] BP Systolic 2021-12-16 00:00:00 126 mm[Hg] Brooke [facility] Body Weight 2021-12-16 00:00:00 2896 [oz_av] Ryley [facility] Height 2021-11-11 20:05:00 170.18 CM Weight 2021-11-11 20:05:00 79.37 KG BP Diastolic 2021-10-28 00:00:00 70 mm[Hg] [facility] Height 2021-10-28 00:00:00 67 [in_i] [facility] BMI (Body Mass Index) 2021-10-28 00:00:00 27.6 kg/m2 [facility] BP Systolic 2021-10-28 00:00:00 106 mm[Hg] Brooke paras [facility] Body Weight 2021-10-28 00:00:00 2816 [oz_av] Ryley [facility] Height 2021-09-23 15:42:00 170.18 CM Weight 2021-09-23 15:42:00 76.65 KG BP Diastolic 2021-09-11 00:00:00 74 mm[Hg] [facility] Height 2021-09-11 00:00:00 67 [in_i] Jessie [facility] BMI (Body Mass Index) 2021-09-11 00:00:00 26.5 kg/m2 [facility] BP Systolic 2021-09-11 00:00:00 114 mm[Hg] Brooke paras [facility] Body Weight 2021-09-11 00:00:00 2704 [oz_av] Ryley [facility] Height 2021-08-11 19:48:00 170.18 CM Weight 2021-08-11 19:48:00 73.93 KG Weight 2021-04-14 20:01:00 76.65 KG Height 2021-04-14 20:01:00 170.18 CM Height 2020-12-24 20:50:00 170.18 CM Weight 2020-12-24 20:50:00 76.2 KG BP Diastolic 2020-12-16 00:00:00 71 mm[Hg] Hugo [facility] Height 2020-12-16 00:00:00 67 [in_i] [facility]ie [facility] BMI (Body Mass Index) 2020-12-16 00:00:00 26.6 kg/m2 [facility] BP Systolic 2020-12-16 00:00:00 108 mm[Hg] Brooke paras [facility] Body Weight 2020-12-16 00:00:00 2720 [oz_av] Ryley [facility] BP Diastolic 2020-11-20 00:00:00 79 mm[Hg] [facility] Height 2020-11-20 00:00:00 67 [in_i] Jessie [facility] BMI (Body Mass Index) 2020-11-20 00:00:00 25.8 kg/m2 [facility] BP Systolic 2020-11-20 00:00:00 123 mm[Hg] Edwardo crain [facility] Body Weight 2020-11-20 00:00:00 2640 [oz_av] Ryley thomas [facility] Height 2020-07-07 20:12:00 170.18 CM Weight 2020-07-07 20:12:00 74.84 KG Procedures Procedure Date / Time Performed Performing Clinicia n Source US, breast, unilateral 2022-03-03 00:00:00 [facility] US, breast, unilateral 2022-02-09 00:00:00 [facility] MAMMO, diagnostic, unilateral 2021-09-11 00:00:00 [facility] US, breast, unilateral 2021-09-11 00:00:00 [facility] Hernia Repair W/mesh 2007-07-12 00:00:00 [facility] Encounters Start Date/Time End Date/Time Encounter Type Admission Type Attending Clinicians Care Facility Care Department Encounter ID Source 2021-11-30 08:00:00 Inpatient C YIN CAVANAUGH [facility] [id number] [facility] 2024-11-14 09:15:00 2024-11-14 09:15:00 [id number] 10:00:00 2024-10-10 10:00:00 Outpatient JUDY GOMES [id number] [facility] 2024-10-03 10:45:00 2024-10-03 10:45:00 Outpatient VJA100 VICKI MALLORY [id number] Vicki [facility] 2024-10-03 10:00:00 2024-10-03 10:00:00 Outpatient JUDY GOMES [id number] V[facility] 2024-08-22 13:15:00 2024-08-22 13:15:00 Outpatient THERESE GUAMAN [id number] [facility] 2024-05-23 14:15:00 2024-05-23 14:15:00 Outpatient THERESE GUAMAN [id number] Vicki Hendersonsusan 2024-03-02 09:30:00 2024-03-02 09:30:00 Outpatient LAB90 VICKI MALLORY [id number] Vicki Jones 2024-03-02 08:45:00 2024-03-02 08:45:00 Outpatient SANTIAGO HUA [id number] [facility] 2024-02-17 15:00:00 2024-02-17 15:00:00 Outpatient SANTIAGO HUA [id number] Vicki Hendersonsusan 2024-01-04 09:00:00 2024-01-04 09:00:00 Outpatient SANTIAGO HUA [id number] Vicki Hendersonsusan 2022-04-14 00:00:00 2022-04-14 00:00:00 Outpatient SHIMEK_MARY _ANN NEHOP [facility] [id number] [facility] 2022-04-14 00:00:00 2022-04-14 00:00:00 Outpatient SHIMEK_MARY _ANN NEHOP NEHOP [id number] [facility] 2022-04-14 00:00:00 2022-04-14 00:00:00 Outpatient SHIMEK_MARY _ANN NEHOP NEHOP [id number] [facility] 2022-03-08 00:00:00 2022-03-08 00:00:00 Outpatient SHIMEK_MARY _ANN MEHOP NEHOP [id number] [facility] 2022-03-04 00:00:00 2022-03-04 00:00:00 Outpatient SHIMEK_MARY _ANN NEHOP NEHOP [id number] [facility] 2022-03-04 00:00:00 2022-03-04 00:00:00 Cecy Gallo MD: [address] [facility] [address], [place] [address] , Ph. [phone] [facility] Gyn Huger [id number] [facility] 2022-02-24 00:00:00 2022-02-24 00:00:00 Outpatient SHIMEK_ESME _ANN [facility] [id number] [facility] 2022-02-24 00:00:00 2022-02-24 00:00:00 Esme Jones, STRIPPER OPAQUER: [address] [place] [address] , Ph. [facility] 3 [id number] [facility] 2022-02-18 00:00:00 2022-02-18 00:00:00 Outpatient SHIMEK_ESME _ANN [facility] [id number] [facility] 2022-01-05 00:00:00 2022-01-05 00:00:00 Outpatient SHIMEK_ESME _ANN [facility] [id number] [facility] 2022-01-05 00:00:00 2022-01-05 00:00:00 Cecy Gallo MD: [address], [address], [place] [address] , Ph. [facility] [id number] [facility] 2021-12-16 04:23:00 2021-12-16 04:23:00 Outpatient SHIMEK_ESME _ANN [facility] [id number] [facility] 2021-12-16 04:23:00 2021-12-16 04:23:00 Outpatient SHIMEK_MARY _ANN [facility] [id number] [facility] 2021-12-16 04:23:00 2021-12-16 04:23:00 Outpatient SHIMEK_ESME DE LA TORRE [facility] [id number] [facility] 2021-12-16 04:23:00 2021-12-16 04:23:00 Outpatient SHIMEK_ESME DE LA TORRE [facility] [id number] [facility] 2021-12-16 00:00:00 2021-12-16 00:00:00 Esme Jones, STRIPPER OPAQUER: [place] [address] , Ph. [facility] 3 [id number] [facility] 2021-12-15 10:05:00 2021-12-15 10:05:00 Outpatient SHIMEK_ESME DE LA TORRE [facility] [id number] [facility] 2021-11-11 19:53:00 2021-11-11 22:56:00 Outpatient ALFRED VELIZ [facility] [id number] [facility] 2021-10-28 03:50:00 2021-10-28 03:50:00 Outpatient SHIMEK_ESME DE LA TORRE [facility] [id number] [facility] 2021-10-28 03:49:00 2021-10-28 03:49:00 Outpatient SHIMEK_ESME DE LA TORRE [facility] [id number] [facility] 2021-10-28 00:00:00 2021-10-28 00:00:00 Esme Jones, STRIPPER OPAQUER: [place] [address] , Ph. [facility] 3 [id number] [facility] 2021-09-23 15:42:00 2021-09-23 16:43:00 Outpatient E EVELINE CAVANAUGH [facility] [id number] [facility] 2021-09-16 09:09:00 2021-09-16 09:09:00 Outpatient SHIMEK_ESME _ANN [facility] [id number] [facility] 2021-09-16 09:09:00 2021-09-16 09:09:00 Outpatient SHIMEK_MARY _ANN [facility] [id number] [facility] 2021-09-16 09:09:00 2021-09-16 09:09:00 Outpatient SHIMEK_MARY _ANN [facility] [id number] [facility] 2021-09-11 07:46:00 2021-09-11 07:46:00 Outpatient SHIMEK_MARY _ANN [facility] [id number] [facility] 2021-09-11 00:00:00 2021-09-11 00:00:00 Esme Jones, STRIPPER OPAQUER: [address] [place] [address] , Ph. [facility] [place] [address] [id number] [facility] 2021-08-11 19:40:00 2021-08-11 22:04:00 Outpatient E JORGE HUBBARD [facility] [id number] [facility] 2021-04-14 19:53:00 2021-04-14 20:14:00 Outpatient E JORGE HUBBARD [facility] [id number] [facility] 2020-12-24 20:48:00 2020-12-24 21:09:00 Outpatient E OLIVIA ROPER [facility] [id number] [facility] 2020-12-16 12:14:00 2020-12-16 12:14:00 Outpatient SHIMEK_EMSE ThomasANN [facility] [id number] [facility] 2020-12-16 12:14:00 2020-12-16 12:14:00 Outpatient SHIMEK_ESME DE LA TORRE [facility] [id number] [facility] 2020-12-16 12:14:00 2020-12-16 12:14:00 Outpatient SHIMEK_ESME _CATARINA [facility] [id number] [facility] 2020-12-16 12:14:00 2020-12-16 12:14:00 Outpatient SHIMEK_ESME _ANN [facility] [id number] [facility] 2020-12-16 12:14:00 2020-12-16 12:14:00 Outpatient SHIMEK_ESME DE LA TORRE [facility] [id number] [facility] 2020-12-16 12:14:00 2020-12-16 12:14:00 Outpatient SHIMEK_ESME _CATARINA [facility] [id number] [facility] 2020-12-16 00:00:00 2020-12-16 00:00:00 Esme Jones, STRIPPER OPAQUER: [place] [address] , Ph. [facility] 3 [id number] [facility] 2020-11-20 04:22:00 2020-11-20 04:22:00 Outpatient SHIMEK_ESME DE LA TORRE [facility] [id number] [facility] 2020-11-20 00:00:00 2020-11-20 00:00:00 Esme Jones, STRIPPER OPAQUER: [address] [address] , Ph. [facility] 3 [id number] [facility] 2020-11-18 08:32:00 2020-11-18 08:32:00 Outpatient JOLENE DE LA TORRE [facility] [id number] [facility] 2020-10-22 04:44:00 2020-10-22 04:44:00 Outpatient JOLENE DE LA TORRE 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 [facility] Outreach ProgramComprehensive metabolic 2000 panel - Serum or [id number] 00:00:00* Test Item Value Reference Range Interpretation [...] in Serum or Plasma (test code = 54487-2) 9.6 mg/dL 8.7-10.2 Protein [Mass/volume] in Serum or Plasma (test code = 2885-2) 7.4 g/dL 6.0-8.5 Albumin [Mass/volume] in Serum or Plasma (test code = 175-7) 4.4 g/dL 3.9-5.0 Globulin [Mass/volume] in Serum by calculation (test code = 47365-3) 3.0 g/dL 1.5-4.5 Albumin/Globulin [Mass Ratio ] [...] (test code = 174-6) 14 IU/L 0-32 [facility] panel - Serum or Plasma 2021-12-17 [...] or Plasma by calculation (test code = 56230-7) 31 mg/dL 5-40 Cholesterol in LDL [Mass/vol ume] in Serum or Plasma by calculation (test code = 87570-0) 113 mg/dL 0-99 H Laboratory comment [Text] in Report Narrative (test code = 06778-8) 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 [facility] ShorelineHemoglobin A1c/Hemoglobin.total in [id number] 00:00:00* Test Item Value Reference Range Interpretation Comme nts Hemoglobin A1c/Hemoglobin.to meron in Blood (test code = 4548-4) 5.4 % 4.8-5.6 Glucose mean value [Mass/vol ume] in Blood Estimated from glycated hemoglobin (test code = 43932-1) 108 mg/dL [facility] ShorelineReagin Ab [Presence] in Serum by RPR 2021-12-17 00:00:00* Test Item Value Reference Range Interpretation Comme nts Reagin Ab [Presence] in Seru m by RPR (test code = 66784-3) non reactive non reactive [facility] ShorelineHIV 1 and 2 tests - Meaningful Use [id number] 00:00:00* Test Item Value Reference Range Interpretation Comme nts HIV 1+2 Ab+HIV1 p24 Ag [Presence] in Serum or Plasma by Immunoassay (test code = 82674-7) non reactive non reactive [facility] ShorelineHepatitis B virus surface Ag [Presence] in Serum or Plasma by [id number] 00:00:00* Test Item Value Reference Range Interpretation Comme nts Hepatitis B virus surface Ag [Presence] in Serum or Plasma by Immunoassay (test code = 5196-1) negative negative [facility] Shorelinecardiovascular assessment panel, [id number] 00:00:00* Test Item Value Reference Range Interpretation Comme nts Interpretation and review of laboratory results (test code = 38071-6) note Report (test code = 85521-4) . [facility] ShorelineCT NECK W/CONTRAST *OW*2021-11-11 22:27:47[facility] : 2000 Sex: [...] Daniel Nolan MD 11/11/2021 10:27 PM CDT [id number] Panel *OW* [id number] 21:40:00* Test Item Value Reference Range Interpretation [...] ABDOMEN AND PELVIS W/O CONTRAST *OW*2021-08-11 21:29:43 [facility] : 2000 Sex: [...] by: Shabbir pedraza MD 08/11/2021 9:29 PM [facility] CHEST W/O CONTRAST *OW* 2021-08-11 21:29:43 [facility] 2000 Sex: FEXAMINATION:Chest, [...] by: Shabbir pedraza MD 08/11/2021 9:29 PM IN HOME [facility]AREGIVER HEAD W/O CONTRAST *OW* 2021-08-11 21:28:07 [facility] : 2000 Sex: [...] by: Mina Clayton MD 08/11/2021 9:28 PM [facility] CERVICAL SPINE W/O CONTRAST *OW*2021-08-11 21:24:12 [facility] : 2000 Sex: [...] by: Santiago Arango MD 08/11/2021 9:24 PM [facility] [id number] URINE OW2021-08-11 20:27:00* Test Item Value Reference [...] NEGATIVE CBC W Auto Differential panel - [id number] 00:00:00* Test Item Value Reference Range Interpretation [...] immature cells (test code = immature cells) 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 [facility] Outreach ProgramComprehensive metabolic 2000 panel - Serum or [id number] 00:00:00* Test Item Value Reference Range Interpretation [...] by Creatinine-based formula (CKD-EPI) (test code = 02114-9) 119 mL/min/1.73 >59 Glomerular filtration rate/1.73 sq M.predicted among blacks [Volume Rate/Area] in Serum, Plasma or Blood by Creatinine-based formula (CKD-EPI) (test code = 53499-1) 137 mL/min/1.73 >59 Urea nitrogen/Creatinine [Mass Ratio] [...] in Serum or Plasma (test code = 42740-0) 10.0 mg/dL 8.7-10.2 Protein [Mass/volume] in Serum or Plasma (test code = 2885-2) 7.6 g/dL 6.0-8.5 Albumin [Mass/volume] in Serum or Plasma (test code = 175-7) 4.4 g/dL 3.9-5.0 Globulin [Mass/volume] in Serum by calculation (test code = 36855-2) 3.2 g/dL 1.5-4.5 Albumin/Globulin [Mass Ratio ] in Serum or Plasma (test code = 175-0) 1.4 1.2-2.2 Bilirubin.total [Mass/volume ] in Serum or Plasma (test code = 1974-08) 0.7 mg/dL 0.0-1.2 Alkaline phosphatase [Enzymatic activity/volume] in Serum or Plasma (test code = 6768-6) 44 IU/L 39-117 Aspartate aminotransferase [Enzymatic activity/volume] in Serum or Plasma (test code = 1920-8) 15 IU/L 0-40 Alanine aminotransferase [Enzymatic activity/volume] in Serum or Plasma (test code = 1742-6) 14 IU/L 0-32 [facility] - Serum or Plasma 2020-11-21 [...] or Plasma by calculation (test code = 37398-2) 13 mg/dL 5-40 Cholesterol in LDL [Mass/vol ume] in Serum or Plasma by calculation (test code = 31643-7) 121 mg/dL 0-99 H Laboratory comment [Text] in Report Narrative (test code = 36234-5) 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 [facility]lineHemoglobin A1c/Hemoglobin.total in [id number] 00:00:00* Test Item Value Reference Range Interpretation Comme nts Hemoglobin A1c/Hemoglobin.to meron in Blood (test code = 4548-4) 5.2 % 4.8-5.6 Glucose mean value [Mass/vol ume] in Blood Estimated from glycated hemoglobin (test code = 56640-0) 103 mg/dL [facility]lineHIV 1+2 Ab+HIV1 p24 Ag [Presence] in Serum or Plasma by [id number] 00:00:00* Test Item Value Reference Range Interpretation Comme nts HIV 1+2 Ab+HIV1 p24 Ag [Presence] in Serum or Plasma by Immunoassay (test code = 15117-8) non reactive non reactive [facility]lineThyrotropin [Units/volume] in Serum or Plasma by Detection limit <= 0.005 mIU/[id number] 00:00:00* Test Item Value Reference Range Interpretation Comme nts Thyrotropin [Units/volume] i n Serum or Plasma by Detection limit <= 0.005 mIU/L (test code = 06433-3) 0.677 uIU/mL 0.450-4.500 [facility]lineReagin Ab [Presence] in Serum by RPR 2020-11-21 00:00:00* Test Item Value Reference Range Interpretation Comme nts Reagin Ab [Presence] in Seru m by RPR (test code = 94168-4) non reactive non reactive [facility]lineHepatitis B virus surface Ag [Presence] in Serum or Plasma by [id number] 00:00:00* Test Item Value Reference Range Interpretation Comme nts Hepatitis B virus surface Ag [Presence] in Serum or Plasma by Immunoassay (test code = 5196-1) negative negative [facility]linecardiovascular assessment panel, [id number] 00:00:00* Test Item Value Reference Range Interpretation Comme nts Interpretation and review of laboratory results (test code = 85573-1) note Report (test code = 91282-5) . [facility]lineINFLUENZA A AND B [id number] 21:13:00* Test Item Value Reference Range Interpretation Comme nts INFLUENZ A (test code = INFA) NEGATIVE NEGATIVE INFLUENZ B (test code = INFB) NEGATIVE NEGATIVE Notes Date/Time Note Provider Source 2024-10-03 10:23:24 Chief Complaint Patient presents with [facility] Care Mariusz Buckner MA [facility]
--- NOTE | 2024-10-19 19:05 | EDPHYS ---
Physician Documentation [facility] Name: Aileen Montalvo Age: 24 yrs Sex: Female : 2000 Arrival Date: 10/19/2024 Time: 18:28 Bed DX1 Private MD: ED Physician Yosvany Fam HPI: 10/19 18:59 This 24 yrs old Black Female presents to ER via Ambulatory with complaints of ear cp problem. 18:59 The patient presents with hearing loss, partial, pain, that is acute. The complaints cp affect the left ear. Onset: The symptoms/episode began/occurred 2 day(s) ago. Associated signs and symptoms: Pertinent negatives: cough, fever, sore throat, vomiting. Severity of symptoms: in the emergency department the symptoms are unchanged despite home interventions. 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 - Infectious Disease History:: Denies. - Social history:: Smoking status: Patient denies any tobacco usage or history of. ROS: 19:00 Eyes: Negative for injury, pain, redness, and discharge, cp 19:00 Constitutional: Negative for body aches, chills, fever, poor PO intake, 19:00 ENT: Positive for ear pain, hearing loss, Negative for drainage from ear(s), sore throat, difficulty swallowing, difficulty handling secretions, 19:00 Respiratory: Negative for cough, shortness of breath, wheezing, 19:00 Abdomen/GI: Negative for abdominal pain, vomiting, diarrhea, constipation, 19:00 All other systems are negative, Exam: 19:01 Head/Face: Normocephalic, atraumatic. cp 19:01 Constitutional: The patient appears in no acute distress, alert, awake, non-toxic, well developed, well nourished, 19:01 Eyes: Periorbital structures: appear normal, Conjunctiva: normal, no exudate, no injection, Sclera: no appreciated abnormality, Lids and lashes: appear normal, bilaterally, 19:01 ENT: External ear(s): are unremarkable, Ear canal(s): cerumen impaction, that is moderate, occluding the right ear canal, TM's: bulging, on the left, erythema, that is moderate, on the left, Nose: is normal, Mouth: Lips: moist, Oral mucosa: moist, Posterior pharynx: Airway: no evidence of obstruction, patent, 19:01 Chest/axilla: Inspection: normal, 19:01 Cardiovascular: Rate: normal, 19:01 Respiratory: the patient does not display signs of respiratory distress, Respirations: normal, no use of accessory muscles, no retractions, labored breathing, is not present, 19:01 Abdomen/GI: Exam negative for discomfort, distension, guarding, Inspection: abdomen appears normal, Vital Signs: 18:52 BP 118 / 59; Pulse 93; Resp 18; Temp 98.1; Pulse Ox 99% on R/A; Weight 97.98 kg; Height iw 5 ft. 7 in. ; 18:52 Body Mass Index 33.83 (97.98 kg, 170.18 cm) iw MDM: 19:00 Differential diagnosis: otitis media, otitis externa, ruptured TM, foreign body, acute cp otalgia, cerumen impaction. 19:04 Medical Screening Exam initiated 19:04 Data reviewed: vital signs, nurses notes, and as a result, I will discharge patient. 19:04 I considered the following discharge prescriptions or medication management in the emergency department Medications were administered in the Emergency Department. See MAR. Counseling: I had a detailed discussion with the patient and/or guardian regarding the historical points, exam findings, and any diagnostic results supporting the discharge/admit diagnosis, to return to the emergency department if symptoms worsen or persist or if there are any questions or concerns that arise at home. Administered Medications: 19:59 Drug: Amoxicillin-Clavulanate PO 875 mg PO once Route: PO; vc1 19:59 Follow up: Response: Medication administered at discharge. vc1 19:59 Drug: predniSONE PO 40 mg PO once Route: PO; vc1 19:59 Follow up: Response: Medication administered at discharge. vc1 Disposition: 21:15 I was immediately available on-site in the Emergency Department for consultation in the [facility] [place] care of the patient. Disposition Summary: 10/19/24 19:04 Discharge Ordered Notes: Location: Home cp Problem: new cp Symptoms: have improved cp Condition: Stable cp Diagnosis - Otitis media, unspecified, left ear cp Followup: cp - With: Kasey Fontaine MD - When: 1 week - Reason: pain continues Discharge Instructions: - Discharge Summary Sheet cp - Otitis Media, Adult cp Forms: - Medication Reconciliation Form cp - Antibiotic Education cp - Prescription Opioid Use cp - Patient Portal Instructions cp - Leadership Thank You Letter cp Prescriptions: - Augmentin 875-125 mg Oral Tablet - take 1 tablet ORAL route every 12 hours for 10 days; 20 tablet; Refills: 0, cp Product Selection Permitted - Medrol (Josue) 4 mg Oral Tablets, Dose Pack - take 1 tablet ORAL route as directed - follow package instructions; 1 packet; cp Refills: 0, Product Selection Permitted Signatures: Kayce Hahn, RN RN iw Rasta Morris PA PA cp Sims, Marcus, DO DO ms3 Teresa Archuleta RN RN vc1
--- NOTE | 2024-10-19 19:05 | ER ---
Nurse's Notes [facility] Name: Aileen Montalvo Age: 24 yrs Sex: Female : 2000 Arrival Date: 10/19/2024 Time: 18:28 Bed DX1 Private MD: Diagnosis: Otitis media, unspecified, left ear Presentation: 10/19 18:52 Chief complaint: Patient states: can't hear out her left ear since yesterday. iw Coronavirus screen: At this time, the client does not indicate any symptoms associated with coronavirus-19. Ebola Screen: No symptoms or risks identified at this time. Initial Sepsis Screen: Does the patient meet any 2 criteria? No. Patient's initial sepsis screen is negative. Does the patient have a suspected source of infection?. Risk Assessment: Do you want to hurt yourself or someone else? Patient reports no desire to harm self or others. Onset of symptoms was October 18, 2024. 18:52 Method Of Arrival: Ambulatory iw 18:52 Acuity: [id number] 4 iw Triage Assessment: 18:53 General: Appears in no apparent distress. Behavior is calm, cooperative. Pain: Denies iw pain. EENT: Reports decreased hearing in left ear. 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 - Infectious Disease History:: Denies. - Social history:: Smoking status: Patient denies any tobacco usage or history of. Screenin:00 [facility] ED Fall Risk Assessment (Adult) History of falling in the last 3 months, vc1 including since admission No falls in past 3 months (0 pts) Confusion or Disorientation No (0 pts) Intoxicated or Sedated No (0 pts) Impaired Gait No (0 pts) Mobility Assist Device Used No (0 pt) Altered Elimination No (0 pt) Score/Fall Risk Level 0 - 2 = Low Risk Oriented to surroundings, Maintained a safe environment, Educated pt \T\ family on fall prevention, incl call for assistance when getting out of bed, Provided non-skid footwear. Abuse screen: Denies threats or abuse. Nutritional screening: No deficits noted. Tuberculosis screening: No symptoms or risk factors identified. Vital Signs: 18:52 BP 118 / 59; Pulse 93; Resp 18; Temp 98.1; Pulse Ox 99% on R/A; Weight 97.98 kg; Height iw 5 ft. 7 in. ; 18:52 Body Mass Index 33.83 (97.98 kg, 170.18 cm) ED Course: 18:30 Patient arrived in ED. im 18:36 Rasta Morris PA is PHCP. cp 18:36 Yosvany Fam DO is Attending Physician. cp 18:53 Triage completed. iw 18:53 Arm band placed on. iw 19:03 Kasey Fontaine MD is Referral Physician. cp 20:00 Teresa Archuleta, KIMBERLY is Primary Nurse. vc1 20:01 Patient has correct armband on for positive identification. Bed in low position. Call vc1 light in reach. Provided Education on: steroids. Pulse ox on. NIBP on. 20:02 No provider procedures requiring assistance completed. Patient did not have IV access vc1 during this emergency room visit. Administered Medications: 19:59 Drug: Amoxicillin-Clavulanate PO 875 mg PO once Route: PO; vc1 19:59 Follow up: Response: Medication administered at discharge. vc1 19:59 Drug: predniSONE PO 40 mg PO once Route: PO; vc1 19:59 Follow up: Response: Medication administered at discharge. vc1 Medication: 20:01 VIS not applicable for this client. vc1 Outcome: 19:04 Discharge ordered by . cp 20:02 Discharged to home ambulatory, vc1 20:02 Condition: stable 20:02 Discharge instructions given to patient, Instructed on discharge instructions, follow up and referral plans. medication usage, Demonstrated understanding of instructions, follow-up care, medications, Prescriptions given X 1, 2, 20:03 Patient left the ED. vc1 Signatures: Kayce Hahn RN RN Rasta Morris PA PA cp Calcote, Vanessa, RN RN vc1 Shannon Villagomez im
[2024-10-19] MEDS ORDERED: predniSONE 20 MG TAB ONE (19:56)
[2024-10-19] MEDS ORDERED: AMOX/K CLAV 875 MG TAB ONE (19:56)
[2024-10-19 20:26] VITALS: BP 118/59; TEMP 98.1; O2SAT 99
== END 2024-10-19 20:03 | disposition home or self-care (01) ==
LOC: ER 18:28
DX: H66.92 Otitis media, unspecified, left ear (principal)
CPT/HCPCS: 99283; J7512